=== PATIENT | female | born 1935 | race African-American/Black ===

== ENCOUNTER 2017-07-14 12:48 | Inpatient (IN) | payer MEDICARE, MEDICAID ==
[2017-07-14 13:41] LABS: #Eosinphils 0.1 thou/uL (0.0-0.7); #Lymphocytes 1.3 thou/uL (1.20-3.40); #Monocytes 0.3 thou/uL (0.11-0.59); #Neutrophils 5.4 thou/uL (1.40-6.50); %Basophils 0.1 % (0.0-1.0); %Eosinophils 0.9 % (0.0-10.0); %Monocytes 4.4 % (0.0-10.0); Hematocrit 28.1 % (36.0-47.0); Mean Platelet Volume 9.3 fL (7.4-10.4); Red Blood Cell (RBC) Count 2.86 mill/uL (4.20-5.40)
[2017-07-14 14:01] LABS: ALT (SGPT) 11 U/L (8-55); AST (SGOT) 14 U/L (5-34); Alkaline Phosphatase 86 U/L (40-150); Anion Gap 14 mmol/L (10-20); BUN (Urea Nitrogen) 41 mg/dL (9.8-20.1); Bilirubin, Total 0.8 mg/dL (0.2-1.2); Calc. Creatinine Clearance 0 mL/min (70-130); Calcium 9.4 mg/dL (7.8-10.44); Carbon Dioxide 21 mmol/L (23-31); Chloride 109 mmol/L (98-107); Estimated GFR-MDRD 26; Globulin 3.2 g/dL (2.4-3.5); Protein, Total 7.1 g/dL (6.0-8.3)
[2017-07-14] MEDS ORDERED: Furosemide 40 MG/4 ML VIAL ONE (14:48)
[2017-07-14] MEDS ORDERED: Potassium Chloride 20 MEQ TAB ONE (14:48)
[2017-07-14] MEDS ORDERED: Mag-Al 1200 mg/1200 mg/30 ML UDCUP PO PRN (15:18)
[2017-07-14] MEDS ORDERED: Ondansetron HCl/PF 4 MG/2 ML Vial IVP PRN (15:18)
[2017-07-14] MEDS ORDERED: Senokot 8.6 MG TAB PO PRN (15:18)
[2017-07-14] MEDS ORDERED: Bisacodyl 10 MG SUPP PR PRN (15:18)
[2017-07-14] MEDS ORDERED: Acetaminophen 325 MG TAB PO PRN (15:18)
--- NOTE | 2017-07-14 15:30 | RAD ---
FRONTAL VIEW CHEST: Date: 07/14/17 COMPARISON: 06/05/17. INDICATION: Dyspnea. FINDINGS: Marked enlargement of the cardiac silhouette present with vascular congestion, interstitial edema, an d bilateral pleural fluid. Chest otherwise similar in appearance. IMPRESSION: Evidence of decompensated CHF. POS: [facility]
--- NOTE | 2017-07-14 16:55 | HP ---
CHIEF COMPLAINT: Shortness of breath. HISTORY OF PRESENT ILLNESS: This is an 82-year-old female with a past medical history significant fo r diabetes, hypertension as well as congestive heart failure, who presents to the hospital because of shortness of breath. Of note, the patient has been here multiple times at least 3-[address] 6 months for CHF exacerbation, which was thought to be due to noncompliance. The patient presente d here with shortness of breath once again. Family is there who states that the patient has been shahab ing her medications as scheduled, but she has not been following a particular diet and has been consu tashia more water than she is supposed to. Due to shortness of breath, the patient was brought here fo r further evaluation and management. Currently, the patient denies any chest pain, fevers, chills, c ough or any constitutional symptoms. Also, denies any nausea, vomiting or diarrhea at this time. PAST MEDICAL HISTORY: See HPI. PAST SURGICAL HISTORY: Includes temporary dialysis access back in February. Tubal ligation as well as a cholecystectomy and hysterectomy. SOCIAL HISTORY: The patient denies any tobacco, recreational drug use or alcoholic use. FAMILY HISTORY: Significant for congestive heart failure. CURRENT HOME MEDICATIONS: Still trying to be retrieved at this time. ALLERGIES: CODEINE, ASPIRIN as well as MORPHINE and PENICILLIN. REVIEW OF SYSTEMS: A 14-point review of systems was negative other than what was mentioned in the HP I. PHYSICAL EXAMINATION: VITAL SIGNS: Blood pressure 120/60, pulse was 60, respiratory rate was 20. The patient was satting 95% oxygen on 2 liters nasal cannula and patient's temperature was 97. GENERAL: Patient is in no apparent distress, resting comfortably in the bed, alert, awake and orient ed x3. HEENT: head: Normocephalic, atraumatic. Eyes: Pupils are round and reactive to light. Extraocula r movements were intact. Conjunctivae were pink. Sclerae was nonicteric. Mouth: Oral mucosa is pi nk and moist. No erythema was noted. NECK: Soft and supple. No JVD, carotid bruits or lymphadenopathy. CARDIOVASCULAR: Regular rate and rhythm. S1, S2 sounds are heard. Cannot appreciate an S3 or S4. T he patient did have a systolic murmur that could be appreciated over the aortic region. RESPIRATORY: The patient had inspiratory crackles, more specifically on the left side bilaterally, n onetheless with decreased breath sounds as well. Patient denied having any use of accessary muscles. No wheezing could be appreciated. ABDOMEN: Positive bowel sounds, soft, nontender, nondistended. EXTREMITIES: Pulses were 2+. Patient did have pitting edema that could be appreciated bilaterally. LABORATORY DATABASE: White blood cell count was 7.0, hemoglobin 9.0, hematocrit 28.1, platelet count was 220. Sodium was 141, potassium 3.2, chloride is 109, bicarbonate 21, BUN was 41, creatinine 2.2 3 which is her baseline at this time. BNP was 463. Chest x-ray shows left-sided pleural effusion wi th CHF type picture. ASSESSMENT: 1. Congestive heart failure exacerbation secondary to noncompliance. 2. Hypertension. 3. Hypokalemia. 4. Chronic kidney disease stage 4. 5. Diabetes. 6. Anemia, likely secondary to chronic kidney disease. PLAN: We will continue the patient on Lasix 40 mg IV daily. She has already received 40 in the ER. We will resume again tomorrow. Depending on how she feels, we can increase the dose at that time. Due to her kidney function, we would not over aggressively diurese the patient as she is not in full blown exacerbation at this time. We will resume home medications at the medicine reconciliation. We will fluid restrict her and daily weights. Strict I's and O's. We will encourage and educate the p atient importance of continuing her medications down and continuing medication but sticking to approp riate diet, so that she does not continue to bounce back into the hospital multiple times as she has in the past 6 months. We will also place the patient on DVT prophylaxis.
[2017-07-14 17:01] VITALS: BMI 45.4
[2017-07-14] MEDS: Mometasone/Formoterol 120 PUFF INHALER INH SCH (18:42)
[2017-07-14] MEDS: Lorazepam 1 MG TAB PO SCH (20:43)
[2017-07-14] MEDS: hydrALAZINE 25 MG TAB PO SCH (20:44)
[2017-07-14] MEDS: Heparin 5,000 UNITS/ML VIAL SC SCH (20:44)
[2017-07-14] MEDS ORDERED: Insulin Detemir 100 UNITS/ML 40 UNITS in Pre-Filled Syringe 1 EACH SC SCH (21:00)
[2017-07-14] MEDS ORDERED: Non-Formulary Item 1 EACH (Insulin Glargine,Hum.Rec.Anlog [Lantus Solostar] 40 UNIT) SC SCH (21:00)
[2017-07-15 05:57] LABS: Anion Gap 14 mmol/L (10-20); BUN (Urea Nitrogen) 40 mg/dL (9.8-20.1); Calc. Creatinine Clearance 37 mL/min (70-130); Calcium 9.3 mg/dL (7.8-10.44); Carbon Dioxide 20 mmol/L (23-31); Chloride 112 mmol/L (98-107); Estimated GFR-MDRD 25
[2017-07-15] MEDS: Mometasone/Formoterol 120 PUFF INHALER INH SCH ×2 (06:09→19:54)
[2017-07-15] MEDS ORDERED: Furosemide 40 MG/4 ML VIAL SLOW IVP SCH ×2 (06:45→09:00)
[2017-07-15 07:06] LABS: #Eosinphils 0.1 thou/uL (0.0-0.7); #Lymphocytes 1.2 thou/uL (1.20-3.40); #Monocytes 0.5 thou/uL (0.11-0.59); #Neutrophils 6.9 thou/uL (1.40-6.50); %Eosinophils 1.4 % (0.0-10.0); %Lymphocytes 14.2 % (21.0-51.0); %Monocytes 5.2 % (0.0-10.0); Hematocrit 27.5 % (36.0-47.0); Mean Platelet Volume 9.4 fL (7.4-10.4); Red Blood Cell (RBC) Count 2.79 mill/uL (4.20-5.40); White Blood Cell (WBC) Count 8.7 thou/uL (4.8-10.8)
[2017-07-15] MEDS: hydrALAZINE 25 MG TAB PO SCH ×3 (08:59→21:06)
[2017-07-15] MEDS: Amlodipine 10 MG TAB PO SCH (08:59)
[2017-07-15] MEDS: Nebivolol HCl 5 MG TAB PO SCH (08:59)
[2017-07-15] MEDS: Allopurinol 100 MG TAB PO SCH (08:59)
[2017-07-15] MEDS: Atorvastatin Calcium 20 MG TAB PO SCH (08:59)
[2017-07-15] MEDS: Aspirin 81 mg Enteric Coated Tablet PO SCH (08:59)
[2017-07-15] MEDS: Heparin 5,000 UNITS/ML VIAL SC SCH ×3 (09:00→21:07)
[2017-07-15] MEDS ORDERED: Insulin Detemir 100 UNITS/ML 60 UNITS in Pre-Filled Syringe 1 EACH SC SCH (09:00)
[2017-07-15] MEDS ORDERED: INSULIN GLARGINE HUM REC ANLOG 60 UNIT SQ SCH (09:00)
--- NOTE | 2017-07-15 09:45 | RAD ---
CHEST 1 VIEW: Date: 07/15/17 COMPARISON: 07/14/17. HISTORY: Evaluate for pleural effusion. Dyspnea. FINDINGS: Atherosclerosis of aorta. Enlarged cardiac silhouette. Pulmonary vessels are prominent. Pleural and p arenchymal changes left lung base, similar to the prior exam. No pneumothorax. IMPRESSION: Congestive heart failure. Superimposed infiltrate in the left lung base cannot be excluded. POS: [facility]
--- NOTE | 2017-07-15 10:54 | PDOC.PN ---
- Subjective Encounter Start Date: 07/15/17 Encounter Start Time: 10:00 states she had a "SOB spell" last ngiht but feeling better this morning. urinating well - Objective Vital Signs & Weight: Vital Signs (12 hours) Temp Pulse Resp BP BP Pulse Ox 07/15/17 08:59 82 157/72 H 07/15/17 08:00 97.4 F L 78 20 157/72 H 90 L 07/15/17 06:09 78 14 93 L 07/15/17 06:07 78 14 93 L 07/15/17 04:00 98.0 F 78 18 144/75 H 92 L 07/15/17 00:00 98.6 F 75 18 134/70 96 I&O: 07/14/17 07/15/17 07/16/17 06:59 06:59 06:59 Intake Total 320 592 Balance 320 592 Result Diagrams: 07/15/17 06:47 07/15/17 05:01 Additional Labs: Accuchecks 07/15/17 07/15/17 07/15/17 05:11 04:36 04:25 POC Glucose 77 41 L* 39 L* 07/14/17 07/14/17 20:26 16:47 POC Glucose 110 61 L Phys Exam - Physical Examination HEENT: PERRLA, moist MMs, sclera anicteric Neck: no JVD, supple, full ROM Respiratory: no wheezing, no rales, no rhonchi inspiratroy crackles at bases-mild Cardiovascular: RRR, no rub Gastrointestinal: soft, non-tender, no distention, positive bowel sounds Musculoskeletal: no edema, pulses present Neurological: moves all 4 limbs Psychiatric: normal affect, A&O x 3 Skin: no rash, normal turgor, cap refill <2 seconds Dx/Plan (1) Acute on chronic diastolic heart failure Code(s): I50.33 - ACUTE ON CHRONIC DIASTOLIC (CONGESTIVE) HEART FAILURE Status : Acute Comment: (2) CAD (coronary artery disease) Code(s): I25.10 - ATHSCL HEART DISEASE OF [place] CORONARY ARTERY W/O ANG PCTRS Status: Chronic (3) Diabetes mellitus, type 2 Status: Chronic Comment: (4) Hypertension Code(s): I10 - ESSENTIAL (PRIMARY) HYPERTENSION Status: Chronic Qualifiers: (5) CKD (chronic kidney disease) stage 4, GFR 15-29 ml/min Code(s): N18.4 - CHRONIC KIDNEY DISEASE, STAGE 4 (SEVERE) Status: Acute - Plan cont current plan of care, plan discussed w/ family * . continue IV lasix for at least one more day strict I/O's monitor creatnine likely home tmrw if continues to show improvement
[2017-07-15] MEDS: Insulin Detemir 100 UNITS/ML 20 UNITS in Pre-Filled Syringe 1 EACH SC SCH (21:02)
[2017-07-15] MEDS: Lorazepam 1 MG TAB PO SCH (21:06)
[2017-07-16 06:00] LABS: Anion Gap 12 mmol/L (10-20); BUN (Urea Nitrogen) 42 mg/dL (9.8-20.1); Calc. Creatinine Clearance 36 mL/min (70-130); Calcium 9.3 mg/dL (7.8-10.44); Carbon Dioxide 25 mmol/L (23-31); Chloride 108 mmol/L (98-107); Estimated GFR-MDRD 25
[2017-07-16] MEDS ORDERED: Furosemide 40 MG/4 ML VIAL SLOW IVP SCH (06:00)
[2017-07-16] MEDS: Mometasone/Formoterol 120 PUFF INHALER INH SCH ×2 (07:39→18:56)
[2017-07-16] MEDS: Allopurinol 100 MG TAB PO SCH (09:27)
[2017-07-16] MEDS: Nebivolol HCl 5 MG TAB PO SCH (09:27)
[2017-07-16] MEDS: hydrALAZINE 25 MG TAB PO SCH ×3 (09:27→22:00)
[2017-07-16] MEDS: Aspirin 81 mg Enteric Coated Tablet PO SCH (09:28)
[2017-07-16] MEDS: Insulin Detemir 100 UNITS/ML 30 UNITS in Pre-Filled Syringe 1 EACH SC SCH (09:28)
[2017-07-16] MEDS: Heparin 5,000 UNITS/ML VIAL SC SCH ×3 (09:28→22:01)
[2017-07-16] MEDS: Atorvastatin Calcium 20 MG TAB PO SCH (09:28)
[2017-07-16] MEDS: Amlodipine 10 MG TAB PO SCH (09:28)
--- NOTE | 2017-07-16 11:46 | PDOC.PN ---
- Subjective Encounter Start Date: 07/16/17 Encounter Start Time: 11:44 Subjective: "ready to go home" - Objective MAR Reviewed: Yes Vital Signs & Weight: Vital Signs (12 hours) Temp Pulse Resp BP BP Pulse Ox 07/16/17 09:28 78 139/75 07/16/17 09:27 78 139/75 07/16/17 08:00 98.2 F 78 20 139/75 97 07/16/17 07:40 74 16 07/16/17 04:00 98.2 F 75 18 138/72 92 L 07/16/17 00:00 97.8 F 78 18 139/75 94 L I&O: 07/15/17 07/16/17 07/17/17 06:59 06:59 06:59 Intake Total 320 1626 120 Balance 320 1626 120 Result Diagrams: 07/15/17 06:47 07/16/17 04:56 Additional Labs: Accuchecks 07/16/17 07/16/17 07/16/17 11:16 05:33 04:51 POC Glucose 131 H 106 54 L* 07/15/17 07/15/17 07/15/17 20:58 17:00 11:31 POC Glucose 93 109 173 H Phys Exam - Physical Examination Constitutional: NAD Neck: no JVD Respiratory: clear to auscultation bilateral exc scant post basilar rales Cardiovascular: RRR, no significant murmur Gastrointestinal: soft, non-tender, positive bowel sounds Musculoskeletal: edema present Dx/Plan (1) Acute on chronic diastolic (congestive) heart failure Code(s): I50.33 - ACUTE ON CHRONIC DIASTOLIC (CONGESTIVE) HEART FAILURE Status : Acute (2) CKD (chronic kidney disease) stage 4, GFR 15-29 ml/min Code(s): N18.4 - CHRONIC KIDNEY DISEASE, STAGE 4 (SEVERE) Status: Chronic (3) CAD (coronary artery disease) Code(s): I25.10 - ATHSCL HEART DISEASE OF [place] CORONARY ARTERY W/O ANG PCTRS Status: Chronic Qualifiers: Coronary Disease-Associated Artery/Lesion type: [place] artery [place] vs. transplanted heart: [place] heart Associated angina: without angina Qualified Code(s): I25.10 - Atherosclerotic heart disease of [place] coronary artery without angina pectoris (4) Diabetes mellitus, type 2 Status: Chronic Qualifiers: Diabetes mellitus complication status: with kidney complications Diabetes mellitus complication detail: with chronic kidney disease Chronic kidney disease stage: stage 4 (severe) Comment: (5) Dyslipidemia Code(s): E78.5 - HYPERLIPIDEMIA, UNSPECIFIED Status: Chronic (6) GERD (gastroesophageal reflux disease) Code(s): K21.9 - GASTRO-ESOPHAGEAL REFLUX DISEASE WITHOUT ESOPHAGITIS Status: Chronic (7) Hypertension Code(s): I10 - ESSENTIAL (PRIMARY) HYPERTENSION Status: Chronic Qualifiers: (8) TIANA on CPAP Code(s): G47.33 - OBSTRUCTIVE SLEEP APNEA (ADULT) (PEDIATRIC); Z99.89 - DEPENDENCE ON OTHER ENABLING MACHINES AND DEVICES Status: Chronic Comment: on CPAP - Plan check O2 sat on RA. 76 to 86 -: increase lasix to 40 q12h, * .
[2017-07-16] MEDS: Furosemide 40 MG/4 ML VIAL SLOW IVP SCH (14:41)
[2017-07-16] MEDS: Lorazepam 1 MG TAB PO SCH (22:00)
[2017-07-16] MEDS: Insulin Detemir 100 UNITS/ML 20 UNITS in Pre-Filled Syringe 1 EACH SC SCH (22:02)
[2017-07-17] MEDS: Furosemide 40 MG/4 ML VIAL SLOW IVP SCH ×2 (06:21→13:45)
[2017-07-17] MEDS: Mometasone/Formoterol 120 PUFF INHALER INH SCH (06:44)
[2017-07-17] MEDS: hydrALAZINE 25 MG TAB PO SCH (09:11)
[2017-07-17] MEDS: Heparin 5,000 UNITS/ML VIAL SC SCH (09:11)
[2017-07-17] MEDS: Aspirin 81 mg Enteric Coated Tablet PO SCH (09:11)
[2017-07-17] MEDS: Nebivolol HCl 5 MG TAB PO SCH (09:12)
[2017-07-17] MEDS: Allopurinol 100 MG TAB PO SCH (09:14)
[2017-07-17] MEDS: Amlodipine 10 MG TAB PO SCH (09:16)
[2017-07-17] MEDS: Atorvastatin Calcium 20 MG TAB PO SCH (09:17)
[2017-07-17] MEDS: Insulin Detemir 100 UNITS/ML 30 UNITS in Pre-Filled Syringe 1 EACH SC SCH (09:18)
[2017-07-17 09:23] VITALS: BP 121/67
[2017-07-17 09:28] VITALS: TEMP 98.9
--- NOTE | 2017-07-17 12:22 | PDOC.PN ---
- Subjective Encounter Start Date: 07/17/17 Encounter Start Time: 12:16 - Objective MAR Reviewed: Yes Vital Signs & Weight: Vital Signs (12 hours) Temp Pulse Resp BP BP Pulse Ox 07/17/17 09:16 74 121/67 07/17/17 09:11 74 121/67 07/17/17 08:00 98.9 F 74 20 121/67 94 L 07/17/17 06:44 98.5 F 72 22 H 118/62 92 L I&O: 07/16/17 07/17/17 07/18/17 06:59 06:59 06:59 Intake Total 240 Balance 240 Result Diagrams: 07/15/17 06:47 07/16/17 04:56 Additional Labs: Accuchecks 07/17/17 07/17/17 07/17/17 11:15 05:10 00:56 POC Glucose 205 H 208 H 270 H 07/16/17 07/16/17 20:05 17:25 POC Glucose 272 H 210 H Dx/Plan (1) Acute on chronic diastolic (congestive) heart failure Code(s): I50.33 - ACUTE ON CHRONIC DIASTOLIC (CONGESTIVE) HEART FAILURE Status : Acute (2) CKD (chronic kidney disease) stage 4, GFR 15-29 ml/min Code(s): N18.4 - CHRONIC KIDNEY DISEASE, STAGE 4 (SEVERE) Status: Chronic (3) CAD (coronary artery disease) Code(s): I25.10 - ATHSCL HEART DISEASE OF [place] CORONARY ARTERY W/O ANG PCTRS Status: Chronic Qualifiers: Coronary Disease-Associated Artery/Lesion type: [place] artery [place] vs. transplanted heart: [place] heart Associated angina: without angina Qualified Code(s): I25.10 - Atherosclerotic heart disease of [place] coronary artery without angina pectoris (4) Diabetes mellitus, type 2 Status: Chronic Qualifiers: Diabetes mellitus complication status: with kidney complications Diabetes mellitus complication detail: with chronic kidney disease Chronic kidney disease stage: stage 4 (severe) Comment: (5) Dyslipidemia Code(s): E78.5 - HYPERLIPIDEMIA, UNSPECIFIED Status: Chronic (6) GERD (gastroesophageal reflux disease) Code(s): K21.9 - GASTRO-ESOPHAGEAL REFLUX DISEASE WITHOUT ESOPHAGITIS Status: Chronic (7) Hypertension Code(s): I10 - ESSENTIAL (PRIMARY) HYPERTENSION Status: Chronic Qualifiers: (8) TIANA on CPAP Code(s): G47.33 - OBSTRUCTIVE SLEEP APNEA (ADULT) (PEDIATRIC); Z99.89 - DEPENDENCE ON OTHER ENABLING MACHINES AND DEVICES Status: Chronic Comment: on CPAP - Plan * .
--- NOTE | 2017-07-17 13:23 | DIS ---
DATE OF ADMISSION: 07/14/2017 DATE OF DISCHARGE: 07/17/2017 PRIMARY CARE PROVIDER: Meri Martin M.D. DISCHARGE DISPOSITION: Home. FINAL DIAGNOSES: Acute on chronic diastolic heart failure, diabetes mellitus type 2 with chronic kid bryce disease stage 4, hypertension, anemia of chronic disease, coronary artery disease, dyslipidemia, gastroesophageal reflux disease, hypertension, obstructive sleep apnea on CPAP. DISCHARGE MEDICATIONS: Lantus 40 units subcu at bedtime 60 units a.m., Nexium 40 mg a day, Ranexa 50 0 mg twice a day, lorazepam 1 tablet p.o. at bedtime p.r.n., Symbicort 80/4.5 two puffs b.i.d., Bysto lic 20 mg a day, aspirin 81 mg a day, amlodipine 10 mg a day, hydralazine 100 mg 3 times a day, Lasix 40 mg twice a day, Lipitor 20 mg a day, allopurinol 300 mg a day. ALLERGIES: CODEINE, IODINE, MORPHINE, PENICILLINS. PENDING AT THE TIME OF DISCHARGE: Nothing. CODE STATUS: FULL. HOSPITAL COURSE: The patient admitted to the [facility] to the [facility] with shortness of breath, found to be in decompensated diastolic heart failure, admitted wi th the diagnosis of acute on chronic diastolic heart failure; diabetes mellitus 2 with chronic kidney disease stage 4, insulin-dependent; coronary artery disease; hypertension; dyslipidemia; hypertensio n. Patient's initial chest x-ray demonstrated pulmonary vascular congestion with a probable pleural effusion on the left. Admitting laboratory, BNP was elevated minorly at 463. Creatinine 2.23, BUN 4 1. Patient had a chronic anemia with hemoglobin 9.0, platelet count 220,000, white cell 7. She has improved dramatically during hospital stay. Yesterday, her O2 sats were in the 80s on room air; toda y, she is 94% on room air. Chest reveals no rales. Heart has regular rate and rhythm. Vital signs are good. In discussion with her and the family, she is being discharged home with continuing home h ealth. No consultations were obtained. No procedures were done. We have discussed 1500 mL fluid re striction with her and the family because of her chronic kidney disease and the tendency for her to c ome and volume overloaded. She has used [facility] in the past and we will connect with them. 40 minutes spent preparing this discharge.
--- NOTE | 2017-07-22 18:48 | PQF ---
TAMIKA LIMON, [facility] [id number] CLINICAL DOCUMENTATION CLARIFICATION FORM: POST DISCHARGE Addendum to original discharge summary date: ____ Late entry note date: __ DATE: 07/22/17 ATTN: Dr. Magallanes Please exercise your independent, professional judgment in responding to the clarification form. Clinical indicators are provided on the bottom of this form for your review Please check appropriate box(s): [ ] Acute Respiratory Failure: [ ] with Hypoxia[ ] with Hypercapnia [ ] Acute On Chronic Respiratory Failure: [ ] with Hypoxia [ ] with Hypercapnia [ ] Acute Respiratory Failure due to: (etiology) [ ] Acute Respiratory Insufficiency following (if applicable): [ ] trauma [ ] surgery [ ] Chronic Respiratory Failure only [ ] with Hypoxia [ ] with Hypercapnia [ ] Hypoxia [ ] Other diagnosis [ x ] Unable to determine In addition, please specify: Present on Admission (POA): [ ] Yes [ ] No [ ] Unable to determine For continuity of documentation, please document condition throughout progress notes and discharge summary. Thank You. CLINICAL INDICATORS - SIGNS / SYMPTOMS / LABS Pt w CHF exacerbation noted to have O2 sats of 81% on RA requiring 3l O2 initially, weaned down to 2L throughout the stay. No baseline oxygen use noted. O2 sats throughout the stay were 90-94% on 2L at one point dropping to 86 on . RISK FACTORS TREATMENTS: Oxygen Monitoring of oxygenation status Mechanical ventilation / BiPAP Respiratory treatments MTDD
== END 2017-07-17 15:28 | disposition home health service (06) | DRG 291 ==
LOC: ERS 12:48 → T4-B 16:27 → OBSVTOIN 07-16 13:46
PROVIDERS: ADMIT Internal Medicine; ATTEND Internal Medicine
DX: I13.0 Hypertensive heart and chronic kidney disease with heart failure and stage 1 through stage 4 chronic kidney disease, or unspecified chronic kidney disease (principal); I50.33 Acute on chronic diastolic (congestive) heart failure; E11.22 Type 2 diabetes mellitus with diabetic chronic kidney disease; N18.4 Chronic kidney disease, stage 4 (severe); D63.1 Anemia in chronic kidney disease; D63.8 Anemia in other chronic diseases classified elsewhere; Z79.4 Long term (current) use of insulin; I25.10 Atherosclerotic heart disease of native coronary artery without angina pectoris; K21.9 Gastro-esophageal reflux disease without esophagitis; G47.33 Obstructive sleep apnea (adult) (pediatric); Z91.14 Patient's other noncompliance with medication regimen
CPT/HCPCS: 36415; 36416; 71010; 80048; 80053; 83880; 85025; 93005; 94640; 96374; G8978-GP-CJ; G8979-GP-CH; G8987-GO-CK; G8988-GO-CJ; J1644; J1815; J1940; J7620

== ENCOUNTER 2017-08-25 09:41 | Inpatient (IN) | payer MEDICARE, MEDICAID ==
[2017-08-25 10:49] LABS: ALT (SGPT) 16 U/L (8-55); AST (SGOT) 23 U/L (5-34); Albumin 4.2 g/dL (3.4-4.8); Alkaline Phosphatase 96 U/L (40-150); Anion Gap 18 mmol/L (10-20); BUN (Urea Nitrogen) 33 mg/dL (9.8-20.1); Bilirubin, Total 0.7 mg/dL (0.2-1.2); Calc. Creatinine Clearance 0 mL/min (70-130); Calcium 9.2 mg/dL (7.8-10.44); Carbon Dioxide 21 mmol/L (23-31); Chloride 110 mmol/L (98-107); Estimated GFR-MDRD 33; Globulin 3.4 g/dL (2.4-3.5); Potassium 4.1 mmol/L (3.5-5.1); Protein, Total 7.6 g/dL (6.0-8.3); Sodium 145 mmol/L (136-145)
[2017-08-25 10:58] LABS: Glucose 51 mg/dL (83-110)
[2017-08-25 11:16] LABS: #Eosinphils 0.1 thou/uL (0.0-0.7); #Monocytes 0.3 thou/uL (0.11-0.59); #Neutrophils 6.9 thou/uL (1.40-6.50); %Basophils 0.2 % (0.0-1.0); %Eosinophils 0.8 % (0.0-10.0); %Lymphocytes 11.8 % (21.0-51.0); %Monocytes 3.1 % (0.0-10.0); %Neutrophils 84.1 % (42.0-75.0); Hemoglobin 10.3 g/dL (12.0-16.0); Mean Corpuscular HGB CONC 31.4 g/dL (32.0-36.0); Mean Corpuscular Hemoglobin 29.2 pg (27.0-31.0); Mean Platelet Volume 10.2 fL (7.4-10.4); Platelet Count 194 thou/uL (130-400); RBC Distribution Width 16.8 % (11.5-14.5); Red Blood Cell (RBC) Count 3.55 mill/uL (4.20-5.40); White Blood Cell (WBC) Count 8.2 thou/uL (4.8-10.8)
--- NOTE | 2017-08-25 11:48 | RAD ---
CHEST 1 VIEW: HISTORY: Fall. Dyspnea. COMPARISON: 07/14/17. FINDINGS: Cardiac silhouette is magnified, enlarged, and partially obscured by patchy bibasilar infiltrates. P ulmonary vasculature is engorged with reticulonodular interstitial prominence throughout each lung. Mediastinum is midline with aortic calcification. No lobar consolidation or pneumothorax are apparen t. cardiac monitor technician leads overlie the chest. IMPRESSION: Cardiomegaly, pulmonary vascular congestion, and other findings are stable. POS: [facility]
[2017-08-25 11:51] LABS: Magnesium 1.8 mg/dL (1.6-2.6)
[2017-08-25] MEDS ORDERED: Dextrose 50% Abboject 50 ML SYRINGE ONE (11:54)
[2017-08-25 11:55] LABS: CKMB 2.6 ng/mL (0-6.6); Troponin I 0.016 ng/mL (< 0.028)
--- NOTE | 2017-08-25 12:12 | CT ---
CT CERVICAL SPINE NONCONTRAST: HISTORY: Fall. Neck injury. FINDINGS: Vertebral body height and alignment are maintained. Disk space narrowing is present at the lower cer vical spine. Vertebral body height and alignment are maintained. Cervicothoracic junction is intact . No acute fracture or dislocation are visible. IMPRESSION: Cervical spondylosis. No acute osseous abnormalities are demonstrated. POS: [facility]
--- NOTE | 2017-08-25 12:13 | CT ---
CT OF THE BRAIN WITHOUT CONTRAST: COMPARISON: 02/11/14. HISTORY: Fall this morning with low blood sugar. TECHNIQUE: Multiple contiguous axial images were obtained in a CT of the brain without contrast. FINDINGS: The brain is normal in morphology and attenuation without focal lesions or confluent areas of infarct ion. There is no evidence of hydrocephalus, intracranial hemorrhage, or extraaxial fluid collection. The calvarium and overlying soft tissues are unremarkable. The visualized paranasal sinuses and mast oid air cells are well aerated. IMPRESSION: No evidence of acute intracranial abnormality. POS: [facility]
[2017-08-25] MEDS ORDERED: Ondansetron ODT 4 MG TAB SL PRN (14:17)
[2017-08-25] MEDS ORDERED: Acetaminophen 325 MG TAB PO PRN ×3 (14:17→14:27)
[2017-08-25] MEDS ORDERED: Ondansetron HCl/PF 4 MG/2 ML Vial IVP PRN ×3 (14:17→14:28)
[2017-08-25] MEDS ORDERED: Benzonatate 100 MG CAP PO PRN ×2 (14:21→14:28)
[2017-08-25] MEDS ORDERED: Diabetic Tussin 200 MG/10 ML UDCUP PO PRN ×2 (14:21→14:28)
[2017-08-25] MEDS ORDERED: hydrALAZINE 20 MG/ML VIAL SLOW IVP PRN ×2 (14:21→14:28)
[2017-08-25] MEDS ORDERED: Dextrose 50% Abboject 50 ML SYRINGE SLOW IVP PRN ×2 (14:21→14:28)
[2017-08-25] MEDS ORDERED: Calcium Carbonate 500 MG ChewTAB PO PRN ×2 (14:21→14:28)
[2017-08-25] MEDS ORDERED: Senokot 8.6 MG TAB PO PRN ×2 (14:21→14:29)
[2017-08-25] MEDS ORDERED: Nitroglycerin 0.4 MG TAB (25 Tab Bottle) SL PRN ×2 (14:21→14:28)
[2017-08-25] MEDS ORDERED: Bisacodyl 5 MG TAB PO PRN ×2 (14:21→14:28)
[2017-08-25] MEDS ORDERED: Loratadine 10 MG TAB PO PRN ×2 (14:21→14:28)
[2017-08-25] MEDS ORDERED: Mag-Al 1200 mg/1200 mg/30 ML UDCUP PO PRN ×2 (14:21→14:28)
[2017-08-25] MEDS ORDERED: Dextrose 5% in Water 1,000 ML IV PRN ×2 (14:21→14:28)
[2017-08-25] MEDS ORDERED: HumaLOG 300 UNITS/3 ML VIAL SC PRN ×4 (14:21→14:28)
[2017-08-25] MEDS ORDERED: cloNIDine 0.1 MG TAB PO PRN ×2 (14:21→14:28)
--- NOTE | 2017-08-25 15:09 | HP ---
DATE OF ADMISSION: 08/25/2017 CHIEF COMPLAINT: Fall and low blood sugar. PRIMARY CARE PHYSICIAN: Dr. Meri Diaz. PRIMARY MANAGER DATA: Dr. Shelby Hamlin. HISTORY OF PRESENT ILLNESS: Ms. Villavicencio is an 82-year-old very pleasant -[place] female with known history of chronic congestive heart failure with multiple hospitalizations last year in the [facility] with CHF exacerbation as well as history of chronic kidney disease, requiring short term hemodi alysis in the past for hyperkalemia and diabetes, who was brought in by the family today with the abo ve-mentioned complaint. History is mainly obtained by the patient herself, who is not able to provid e much of the history due to tiredness and weakness and some confusion and is supplemented by her chi ldren present in the room. Case has been discussed with the admitting ER physician and the [facility] records have been reviewed extensively. The patient was last admitted to our facility in 09/2016 for acute on chronic CHF exacerbation. According to Ms. Villavicencio's family, she has been in her usual health up until this morning. She has no t been sick recently. Since on last discharge from the hospital on 07/17/2017; she has been doing ve ry well. She is monitoring her fluid intake and is compliant with medications. However, this mornin g, she suddenly fell and was found down by her family members. At that time, her blood sugar was alexander cked and was found to be low at 48. They report that her sugars lately has been running low even tho ugh her diet has remained the same. She is taking Lantus 60 units in the morning and 30 units in the evening. She is also supposed to be on Trulicity for diabetes once a week, but they have been holdi ng it because of the low blood sugars. They has been no changes in her dietary habits. She denies a ny nausea, vomiting, diarrhea, abdominal pain. She denies any fever, chills, cough, shortness of fito ath or chest pain. She does have some foul smelling urine, but denies any specific dysuria. She den ies any myalgias, arthralgias, or muscle weakness, or paraesthesias. She did not lose consciousness when she fell today. She was brought to the emergency room and was found to have hypoglycemia with blood sugar of 69. She was given some meals and her blood sugar improved. Additional finding was that her temperature was low and she was hypothermic with a core temperature of 92.2. An Infectious workup has been initiated . Her lactic acid is within normal limits. Her chest x-ray is unremarkable. She also underwent a C T scan of the brain and CT scan of the cervical spine due to the fall, which both are negative for an y acute abnormalities. Her urinalysis has been ordered, but so far it has not been collected because the patient was on bedpan. She has been empirically covered with levofloxacin and vancomycin and is now being admitted as a possible sepsis leading to hypothermia and hypoglycemia. Other than that, t he patient is hemodynamically stable and back to her baseline self. She is currently on a warming bl anket. Blood cultures have been obtained in the emergency room. PAST MEDICAL HISTORY: 1. Obstructive sleep apnea on CPAP. 2. Hypertension. 3. Diabetes mellitus type 2. 4. Chronic kidney disease stage 3. 5. Gout. 6. Mild persistent asthma. 7. Anxiety and depression. 8. Morbid obesity. 9. 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 4. Chronic diastolic congestive heart failure. 5. Chronic obstructive pulmonary disease. PAST SURGICAL HISTORY: 1. Tubal ligation. 2. Cholecystectomy. 3. Hysterectomy. PAST PSYCHIATRIC HISTORY: Anxiety and depression. ALLERGIES: Include CODEINE, ASPIRIN, IODINE, MORPHINE, PENICILLIN, and SHELLFISH. CURRENT HOME MEDICATIONS: Lantus 60 units in the morning and 30 units at bedtime, vitamin D3 at 1000 units daily, atorvastatin 20 mg daily, hydralazine 100 mg t.i.d., Lasix 40 mg b.i.d., Bystolic 20 mg daily, amlodipine 10 mg daily, allopurinol 300 mg daily, aspirin 81 mg daily, lorazepam at bedtime a s needed, Symbicort 2 puffs b.i.d., Ranexa 500 mg b.i.d., Benadryl as needed, Nexium 40 mg daily, nit roglycerin sublingual as needed for chest pain. CODE STATUS: FULL CODE. Discussed The patient and her family. FAMILY HISTORY: Significant for congestive heart failure in her mother. Father at the age of 9 5 of unknown causes. REVIEW OF SYSTEMS: Essentially unremarkable except for those mentioned. The patient is somewhat of a poor historian. The following complete review of systems was negative, unless otherwise mentioned in the HPI or below: Constitutional: Weight loss or gain, ability to conduct usual activities. Skin: Rash, itching. Eyes: Double vision, pain. ENT/Mouth: Nose bleeding, neck stiffness, pain, tenderness. Cardiovascular: Palpitations, dyspnea on exertion, orthopnea. Respiratory: Shortness of breath, whee zing, cough, hemoptysis, fever or night sweats. Gastrointestinal: Poor appetite, abdominal pain, hea rtburn, nausea, vomiting, constipation, or diarrhea. Genitourinary: Urgency, frequency, dysuria, noc turia. Musculoskeletal: Pain, swelling. Neurologic/Psychiatric: Anxiety, depression. Allergy/Immun ologic: Skin rash, bleeding tendency. LABORATORY DATA: Her CBC shows today, hemoglobin of 10.3, hematocrit 33, platelet count of 194. WBC s 8.2. Serum chemistry: Chloride 110, bicarbonate 21, BUN 33, creatinine 1.77, which seems to be be tter than her baseline of around 2, blood sugar improved to 91, lactic acid is 1, magnesium 1.8. Cre atinine kinase is mildly elevated at 204. Cardiac enzymes are unremarkable. Urinalysis is pending a t this time. CT scan of the brain has been no evidence of hemorrhage, infarction, or fractures. CT scan of the cervical spine is negative for any acute osseous abnormality by my review as well. Chest x-ray by my review shows stable pleural effusions, cardiomegaly, and mild pulmonary vascular congest ion without any evidence of infiltrates. EKG shows normal sinus rhythm without any evidence of arrhy thmia per the ER review. PHYSICAL EXAMINATION: VITAL SIGNS: Upon presentation include blood pressure 148/86, pulse of 61, respirations 23, saturati ng 100% on room air, temperature 92.9 rectally and repeat temperature 94.5 orally. GENERAL: She is awake, alert, oriented x3; however, somewhat forgetful. Otherwise, no acute distres s. Family is at bedside. HEENT: Mucous membrane is moist and pink. No oropharyngeal exudate or erythema. Head is normocepha lic, atraumatic. Pupils equal, reactive to light and accommodation. Extraocular movements intact. NECK: Supple without any lymphadenopathy, JVD, or bruit. CHEST: Clear to auscultation without any wheezing, rales, or rhonchi. Rate and rhythm is regular wi thout any murmur, rubs, or gallops. ABDOMEN: Soft, nontender, nondistended, positive bowel sounds. She does not have any suprapubic ten derness. EXTREMITIES: Free of any cyanosis, clubbing, or edema. NEUROLOGIC: Nonfocal. Cranial nerves II-XII grossly intact. Muscle strength is 5/5 in all 4 extrem ities. Sensation intact. Gait is not checked. SKIN: Free of any rashes or bruises. Feels warm and dry to touch. PSYCHIATRIC: Normal affect. IMPRESSION AND PLAN: 1. Hypothermia. This is most likely secondary to hypoglycemia. The patient will be continued on wa rming blanket and will be admitted to the hospital to rule out sepsis. So far, the workup was unrema rkable, but most likely source would be urine as the patient does give history of cloudy urine and sh davie is a diabetic. We will obtain a urine by straight cath and continue empiric antibiotic coverage fo r now. Send the urine for culture as well. The patient does not appear to be suffering from any car diac event at this time. 2. Hypoglycemia. We will adjust and reduced dose of her Lantus. The patient has an upcoming appoin tment with her primary care physician next week for this very reason. For now, we will continue her coverage with insulin sliding scale and 3 introduce long-acting insulin at smaller doses slowly. Hyp oglycemia protocol will also be initiated. 3. History of chronic congestive heart failure, mostly diastolic. Her last echocardiogram was done in 10/2016. At this time, the patient appears euvolemic. We will continue her home dose of Lasix wi th close monitoring of intake and output and renal function. Avoid any nephrotoxic medications. 4. Diabetes mellitus type 2 as above, we will hold her Lantus for now and cover with insulin sliding scale. 5. History of hypertension, currently well controlled. We will restart her home medications includi ng hydralazine, Bystolic, and amlodipine with close monitoring in the parameters. 6. History of coronary artery disease, currently asymptomatic. Continue aspirin, statin, and beta b lockers for now. She is also on Ranexa, which will be continued. P.r.n. nitroglycerin will be pedro luis nued as well. 7. Dyslipidemia. Continue atorvastatin. 8. Deep venous thrombosis and gastrointestinal prophylaxis. 9. Add p.r.n. medication orders. 10. CODE STATUS: FULL CODE. Discussed with the patient and her family members. DISPOSITION: The patient is being admitted to rule out sepsis with severe hypothermia and hypoglycem ia. Estimated length of stay is at least 2-3 midnight. She will be on telemetry bed.
[2017-08-25] MEDS: Heparin 5,000 UNITS/ML VIAL SC SCH (20:16)
[2017-08-25] MEDS ORDERED: Heparin 5,000 UNITS/ML VIAL SC SCH (21:00)
[2017-08-25 22:10] VITALS: BMI 46.0
[2017-08-26 06:07] LABS: #Eosinphils 0.1 thou/uL (0.0-0.7); #Lymphocytes 1.6 thou/uL (1.20-3.40); #Monocytes 0.3 thou/uL (0.11-0.59); #Neutrophils 4.6 thou/uL (1.40-6.50); %Basophils 0.6 % (0.0-1.0); %Eosinophils 1.3 % (0.0-10.0); %Lymphocytes 23.6 % (21.0-51.0); %Monocytes 5.2 % (0.0-10.0); %Neutrophils 69.2 % (42.0-75.0); Hemoglobin 8.6 g/dL (12.0-16.0); Mean Corpuscular HGB CONC 31.2 g/dL (32.0-36.0); Mean Corpuscular Hemoglobin 28.8 pg (27.0-31.0); Mean Corpuscular Volume 92.5 fl (81.0-99.0); Mean Platelet Volume 10.2 fL (7.4-10.4); Platelet Count 172 thou/uL (130-400); RBC Distribution Width 16.9 % (11.5-14.5); Red Blood Cell (RBC) Count 2.98 mill/uL (4.20-5.40); White Blood Cell (WBC) Count 6.6 thou/uL (4.8-10.8)
[2017-08-26 06:18] LABS: Anion Gap 12 mmol/L (10-20); BUN (Urea Nitrogen) 27 mg/dL (9.8-20.1); Calc. Creatinine Clearance 89 mL/min (70-130); Calcium 9.1 mg/dL (7.8-10.44); Carbon Dioxide 26 mmol/L (23-31); Chloride 111 mmol/L (98-107); Estimated GFR-MDRD 36; Glucose 70 mg/dL (83-110); Potassium 3.1 mmol/L (3.5-5.1); Sodium 146 mmol/L (136-145)
[2017-08-26] MEDS ORDERED: Nitroglycerin 0.4 MG TAB (25 Tab Bottle) SL PRN (09:05)
[2017-08-26] MEDS ORDERED: diphenhydrAMINE 25 MG CAP PO PRN (09:05)
[2017-08-26] MEDS ORDERED: Artificial Tear Sol 15 ML BOT EA EYE PRN (09:06)
[2017-08-26] MEDS ORDERED: Eucerin (Mineral Oil/Petrolatum,White) 30 gm Jar TOP PRN (09:06)
[2017-08-26] MEDS ORDERED: Sodium Chloride 0.65% Nasal 44 ML BOT EA NARE PRN (09:06)
[2017-08-26] MEDS ORDERED: Chloraseptic Spray 180 ml Bottle PO PRN (09:06)
--- NOTE | 2017-08-26 10:09 | PDOC.PN ---
- Subjective Encounter Start Date: 08/26/17 Encounter Start Time: 08:20 -: old records requested/rev Patient seen and examined. No new complaints. No overnight events no further drop in blood sugar, no fever, feels better - Objective MAR Reviewed: Yes Vital Signs & Weight: Vital Signs (12 hours) Temp Pulse Resp BP BP Pulse Ox 08/26/17 07:51 98.4 F 78 18 154/93 H 93 L 08/26/17 07:41 98.4 F 78 20 93 L 08/26/17 04:55 99.1 F 78 20 162/72 H 94 L 08/26/17 00:05 98.3 F 72 20 154/65 H 94 L Weight Weight 467 lb 13.134 oz I&O: 08/25/17 08/26/17 08/27/17 06:59 06:59 06:59 Intake Total 240 240 Output Total 245 Balance -5 240 Result Diagrams: 08/26/17 05:33 08/26/17 05:33 Additional Labs: Accuchecks 08/26/17 08/25/17 08/25/17 05:56 19:51 17:06 POC Glucose 79 130 H 160 H Radiology Reviewed by me: Yes EKG Reviewed by me: Yes (nsr) Dx/Plan (1) Hypokalemia Code(s): E87.6 - HYPOKALEMIA Status: Acute (2) Hypoglycemia associated with type 2 diabetes mellitus Code(s): E11.649 - TYPE 2 DIABETES MELLITUS WITH HYPOGLYCEMIA WITHOUT COMA Status: Resolved (3) Hypothermia Code(s): T68.XXXA - HYPOTHERMIA, INITIAL ENCOUNTER Status: Resolved (4) Chronic diastolic (congestive) heart failure Code(s): I50.32 - CHRONIC DIASTOLIC (CONGESTIVE) HEART FAILURE Status: Chronic (5) CAD (coronary artery disease) Code(s): I25.10 - ATHSCL HEART DISEASE OF [place] CORONARY ARTERY W/O ANG PCTRS Status: Chronic Qualifiers: Coronary Disease-Associated Artery/Lesion type: [place] artery [place] vs. transplanted heart: [place] heart Associated angina: without angina Qualified Code(s): I25.10 - Atherosclerotic heart disease of [place] coronary artery without angina pectoris (6) Diabetes mellitus, type 2 Status: Chronic Qualifiers: Diabetes mellitus complication status: with kidney complications Diabetes mellitus complication detail: with chronic kidney disease Chronic kidney disease stage: stage 3 (moderate) Comment: (7) Dyslipidemia Code(s): E78.5 - HYPERLIPIDEMIA, UNSPECIFIED Status: Chronic (8) GERD (gastroesophageal reflux disease) Code(s): K21.9 - GASTRO-ESOPHAGEAL REFLUX DISEASE WITHOUT ESOPHAGITIS Status: Chronic (9) Gout Code(s): M10.9 - GOUT, UNSPECIFIED Status: Chronic (10) Hypertension Code(s): I10 - ESSENTIAL (PRIMARY) HYPERTENSION Status: Chronic Qualifiers: (11) Mild persistent asthma Code(s): J45.30 - MILD PERSISTENT ASTHMA, UNCOMPLICATED Status: Chronic (12) Morbid obesity with BMI of 45.0-49.9, adult Code(s): E66.01 - MORBID (SEVERE) OBESITY DUE TO EXCESS CALORIES; Z68.42 - BODY MASS INDEX (BMI) 45.0-49.9, ADULT Status: Chronic (13) TIANA on CPAP Code(s): G47.33 - OBSTRUCTIVE SLEEP APNEA (ADULT) (PEDIATRIC); Z99.89 - DEPENDENCE ON OTHER ENABLING MACHINES AND DEVICES Status: Chronic Comment: on CPAP (14) CKD (chronic kidney disease) stage 3, GFR 30-59 ml/min Code(s): N18.3 - CHRONIC KIDNEY DISEASE, STAGE 3 (MODERATE) Status: Chronic (15) Anemia, normocytic normochromic Code(s): D64.9 - ANEMIA, UNSPECIFIED Status: Chronic - Plan cont current plan of care * restart home medication today * will observe today and adjust diabetes and BP meds today * medication reviewed as below * symptomatic treatment * will consider discharge tomorrow morning. * replace potassium Review of Systems - Review of Systems Eyes: negative: Pain, Vision Change, Conjunctivae Inflammation, Eyelid Inflammation, Redness, Other ENT: negative: Ear Pain, Ear Discharge, Nose Pain, Nose Discharge, Nose Congestion, Mouth Pain, Mouth Swelling, Throat Pain, Throat Swelling, Other Respiratory: negative: Cough, Dry, Shortness of Breath, Hemoptysis, SOB with Excertion, Pleuritic Pain, Sputum, Wheezing Cardiovascular: negative: chest pain, palpitations, orthopnea, paroxysmal nocturnal dyspnea, edema, light headedness, other Gastrointestinal: negative: Nausea, Vomiting, Abdominal Pain, Diarrhea, Constipation, Melena, Hematochezia, Other Genitourinary: negative: Dysuria, Frequency, Incontinence, Hematuria, Retention , Other Musculoskeletal: negative: Neck Pain, Shoulder Pain, Arm Pain, Back Pain, Hand Pain, Leg Pain, Foot Pain, Other Skin: negative: Rash, Lesions, Apollo, Bruising, Other - Medications/Allergies Allergies/Adverse Reactions: Allergies Allergy/AdvReac Type Severity Reaction Status Date / Time codeine [Codeine] Allergy Verified 08/25/17 14:44 iodine Allergy Verified 08/25/17 14:44 morphine Allergy Verified 08/25/17 14:44 Penicillins Allergy Verified 08/25/17 14:44 shellfish derived Allergy Verified 08/25/17 14:44 Medications: Current Medications Acetaminophen (Tylenol) 650 mg PO Q4H PRN PRN Reason: Headache/Fever or Pain Last Admin: 08/25/17 20:16 Dose: 650 mg Al Hydroxide/Mg Hydroxide (Maalox) 30 ml PO Q6H PRN PRN Reason: Heartburn or Indigestion Amlodipine Besylate (Norvasc) 10 mg PO DAILY [facility] Artificial Tears (Tears Renewed 15ml Bottle) 0 drop EA EYE PRN PRN PRN Reason: Dry Eyes Aspirin (Ecotrin) 81 mg PO DAILY [facility] Atorvastatin Calcium (Lipitor) 20 mg PO DAILY [facility] Benzonatate (Tessalon) 100 mg PO Q4H PRN PRN Reason: Cough Bisacodyl (Dulcolax) 10 mg PO DAILYPRN PRN PRN Reason: Constipation Calcium Carbonate (Tums) 1,000 mg PO Q4H PRN PRN Reason: Heartburn or Indigestion Cholecalciferol (Vitamin D3) 1,000 units PO DAILY [facility] Clonidine (Catapres) 0.1 mg PO Q4H PRN PRN Reason: Systolic BP > 160 Dextrose/Water (Dextrose 50%) 25 gm SLOW IVP PRN PRN PRN Reason: Hypoglycemia Diphenhydramine HCl (Benadryl) 25 mg PO Q6H PRN PRN Reason: Allergies Furosemide (Lasix) 40 mg PO BID [facility] Glucagon (Glucagon) 1 mg IM PRN PRN PRN Reason: Hypoglycemia Guaifenesin (Robitussin Sf) 200 mg PO Q4H PRN PRN Reason: Cough Heparin Sodium (Porcine) (Heparin) 5,000 units SC BID [facility] Last Admin: 08/25/17 20:16 Dose: 5,000 units Hydralazine HCl (Apresoline) 10 mg SLOW IVP Q4H PRN PRN Reason: Systolic BP > 180 Hydralazine HCl (Apresoline) 100 mg PO TID [facility] Dextrose/Water (D5w) 1,000 mls @ 0 mls/hr IV .Q0M PRN; As Directed PRN Reason: Hypoglycemia Insulin Detemir 40 units/ (Miscellaneous Medication) 0.4 mls @ 0 mls/hr SC HS OLIVERIO Insulin Detemir 60 units/ (Miscellaneous Medication) 0.6 mls @ 0 mls/hr SC QAM OLIVERIO Insulin Human Lispro (Humalog) 0 units SC .MODERATE SLIDING SC PRN PRN Reason: Moderate Correctional Scale Insulin Human Lispro (Humalog) 0 units SC .BEDTIME SLIDING SC PRN PRN Reason: Bedtime Correctional Scale Loratadine (Claritin) 10 mg PO DAILYPRN PRN PRN Reason: Sinus Symptoms Lorazepam (Ativan) 2 mg PO HS OLIVERIO Mineral Oil/White Petrolatum (Eucerin Cream) 0 gm TOP BIDPRN PRN PRN Reason: Dry Skin Mometasone Furoate/Formoterol Fumar (Dulera 100 Mcg/5 Mcg Inhaler) 2 puff INH BID-RT [facility] Nebivolol (Bystolic) 20 mg PO DAILY [facility] Nitroglycerin (Nitrostat) 0.4 mg SL Q5MIN PRN PRN Reason: Chest Pain Ondansetron HCl (Zofran) 4 mg IVP Q6H PRN PRN Reason: Nausea/Vomiting Pantoprazole Sodium (Protonix) 40 mg PO DAILY [facility] Phenol (Chloraseptic [place] 180 Ml Bot) 0 ml PO PRN PRN PRN Reason: Sore Throat Ranolazine (Ranexa) 500 mg PO BID [facility] Senna (Senokot) 2 tab PO HSPRN PRN PRN Reason: Constipation Sodium Chloride (Ward Nasal [place] 0.65%) 0 ml EA NARE QIDPRN PRN PRN Reason: Nasal Congestion
[2017-08-26] MEDS ORDERED: Potassium Chloride 20 MEQ TAB PO SCH (10:15)
[2017-08-26] MEDS ORDERED: Aspirin 81 mg Enteric Coated Tablet PO SCH (11:00)
[2017-08-26] MEDS ORDERED: Furosemide 40 MG TAB PO SCH ×3 (11:00→21:00)
[2017-08-26] MEDS ORDERED: Nebivolol HCl 5 MG TAB PO SCH (11:00)
[2017-08-26] MEDS ORDERED: Amlodipine 10 MG TAB PO SCH (11:00)
[2017-08-26] MEDS: Heparin 5,000 UNITS/ML VIAL SC SCH ×2 (11:52→21:08)
[2017-08-26] MEDS: hydrALAZINE 25 MG TAB PO SCH ×2 (16:26→21:07)
[2017-08-26] MEDS: Mometasone/Formoterol 120 PUFF INHALER INH SCH (18:38)
[2017-08-26] MEDS ORDERED: Lorazepam 1 MG TAB PO SCH (21:00)
[2017-08-26] MEDS ORDERED: Atorvastatin Calcium 20 MG TAB PO SCH (21:00)
[2017-08-26] MEDS ORDERED: Insulin Detemir 100 UNITS/ML 40 UNITS in Pre-Filled Syringe 1 EACH SC SCH (21:00)
[2017-08-26] MEDS ORDERED: Non-Formulary Item 1 EACH (Insulin Glargine,Hum.Rec.Anlog [Lantus Solostar] 40 UNIT) SC SCH (21:00)
[2017-08-27 08:06] VITALS: BP 149/92; TEMP 98.5
[2017-08-27] MEDS: hydrALAZINE 25 MG TAB PO SCH (08:08)
[2017-08-27] MEDS: Mometasone/Formoterol 120 PUFF INHALER INH SCH (08:38)
[2017-08-27] MEDS ORDERED: Aspirin 81 mg Enteric Coated Tablet PO SCH (09:00)
[2017-08-27] MEDS ORDERED: Furosemide 40 MG TAB PO SCH (09:00)
[2017-08-27] MEDS ORDERED: Amlodipine 10 MG TAB PO SCH (09:00)
[2017-08-27] MEDS ORDERED: Nebivolol HCl 5 MG TAB PO SCH (09:00)
[2017-08-27] MEDS ORDERED: Insulin Detemir 100 UNITS/ML 60 UNITS in Pre-Filled Syringe 1 EACH SC SCH (09:00)
[2017-08-27] MEDS ORDERED: Atorvastatin Calcium 20 MG TAB PO SCH (09:00)
[2017-08-27] MEDS ORDERED: INSULIN GLARGINE HUM REC ANLOG 60 UNIT SQ SCH (09:00)
--- NOTE | 2017-08-27 13:35 | DIS ---
PRIMARY CARE PHYSICIAN: Sari ARMENDARIZ DATE OF ADMISSION: 08/25/2017 DATE OF DISCHARGE: 08/27/2017 DISCHARGE DISPOSITION: Home. PRIMARY DISCHARGE DIAGNOSES: 1. Hypothermia, likely due to hypoglycemia. 2. Hypoglycemia associated with diabetes type 2. 3. Hypokalemia, corrected. SECONDARY DISCHARGE DIAGNOSES: Anemia normocytic normochromic, coronary artery disease, chronic cook tolic heart failure, chronic kidney disease stage 3, diabetes type 2, dyslipidemia, gastroesophageal reflux disease, gout, hypertension, morbid obesity with BMI of 45, obstructive sleep apnea on CPAP. PRIMARY PROCEDURE/OPERATION: None. RADIOLOGICAL INVESTIGATION: Chest x-ray showed no acute cardiopulmonary process. CT brain based on my review, no acute intracranial process. CT cervical spine negative for any fracture or dislocation . SIGNIFICANT LABS: WBC 6.6, hemoglobin 8.6, platelets 172. BMP: Sodium 146, potassium 3.1, chloride 111, carbon dioxide 26, anion gap 12, BUN 27, creatinine 1.67, glucose 70, calcium 9.1. Cardiac enz ymes are negative. CK 204, BNP 384.8, magnesium 1.8. Liver enzymes normal. Lactic acid 1.0. Blood culture negative. Respiratory virus panel negative. DISCHARGE MEDICATIONS: Amlodipine 10 mg p.o. daily, aspirin 81 mg p.o. daily, Lipitor 20 mg p.o. jonah ly, Symbicort 2 puff inhalation b.i.d., vitamin D3 1000 units p.o. daily, Benadryl 25 mg q.6. hourly p.r.n., Nexium 40 mg p.o. daily, Lasix 40 mg p.o. b.i.d., hydralazine 100 mg p.o. t.i.d., Lantus insu jose l 60 units in the morning and 40 units at bedtime, lorazepam 1 mg p.o. at bedtime, Bystolic 20 mg p .o. daily, nitroglycerin 0.4 mg sublingual p.r.n. for chest pain, Ranexa 500 mg p.o. b.i.d. CONTRAINDICATIONS: None. CODE STATUS: FULL CODE. INPATIENT CONSULTANTS: None. ALLERGIES: CODEINE, IODINE, MORPHINE, PENICILLIN, and SHELLFISH. DISCHARGE PLAN: Post hospital, the patient will follow up with primary care physician in 1 week. HOSPITAL COURSE: An 82-year-old female who was admitted by Dr. Caro Tellez. Please see her H&P fo r further details. The patient was admitted on 08/25/2017 with low blood sugar, hence the patient fernandez d episode of fall. The patient was also hypothermic. This patient was admitted and observed on telemetry floor. We discontinued her insulin regimen while in hospital. Upon improvement, we started back on her insulin and after that we observed her for 24 hours. Her hypothermia resolved. Her blood sugar is now stable. We provided necessary patient edu cation to avoid hypoglycemia. The patient remained hemodynamically stable. The patient is planned for discharge today. The patien t is seen and examined at bedside today. Plan of care discussed with the family member. PHYSICAL EXAMINATION: VITAL SIGNS: Today; temperature 98.5, pulse 74, respiratory rate 16, saturation 93%, blood pressure 149/92, weight 246 pounds. GENERAL: The patient is currently alert, awake; no acute distress. HEAD: Normocephalic, atraumatic. EYES: Pupils are round and reactive to light. Extraocular muscles are intact. ENT: Oropharynx within normal limits. Moist mucous membranes. No oral lesions. No pharyngeal eryt brii, no exudate. NECK: Supple, no JVD, no thyromegaly, no carotid bruit. No jugular venous distention. LUNGS: Clear to auscultation without any rhonchi or rales. CARDIAC: S1 and S2 regular without any murmur. ABDOMEN: Soft and benign without any tenderness. EXTREMITIES: No edema. NEUROLOGIC: Nonfocal examination.
--- NOTE | 2017-09-08 13:41 | EKG ---
Test Reason : Blood Pressure : / mmHG Vent. Rate : 061 BPM Atrial Rate : 061 BPM P-R Int : 096 ms QRS Dur : 090 ms QT Int : 510 ms P-R-T Axes : 015 018 012 degrees QTc Int : 513 ms Sinus rhythm with short [place] with occasional Premature ventricular complexes Otherwise normal ECG Confirmed by ERON DE DIOS [id number]), managing editor LEONARDA ZHU ([id number]) on 09/08/2017 1:40:44 PM Referred By: Confirmed By:ERON DE DIOS
== END 2017-08-27 08:45 | disposition home or self-care (01) | DRG 638 ==
LOC: ERS 09:41 → 2NO 14:09
PROVIDERS: ADMIT Internal Medicine; ATTEND Internal Medicine
DX: E11.649 Type 2 diabetes mellitus with hypoglycemia without coma (principal); I13.0 Hypertensive heart and chronic kidney disease with heart failure and stage 1 through stage 4 chronic kidney disease, or unspecified chronic kidney disease; T68.XXXA Hypothermia, initial encounter; I50.32 Chronic diastolic (congestive) heart failure; E66.01 Morbid (severe) obesity due to excess calories; D64.9 Anemia, unspecified; Z68.42 Body mass index [BMI] 45.0-49.9, adult; J44.9 Chronic obstructive pulmonary disease, unspecified; N18.3 Chronic kidney disease, stage 3 (moderate); E87.6 Hypokalemia; G47.33 Obstructive sleep apnea (adult) (pediatric); K21.9 Gastro-esophageal reflux disease without esophagitis; E78.5 Hyperlipidemia, unspecified; I25.10 Atherosclerotic heart disease of native coronary artery without angina pectoris; Z88.0 Allergy status to penicillin; Z88.8 Allergy status to other drugs, medicaments and biological substances; Z88.5 Allergy status to narcotic agent; Z91.013 Allergy to seafood; Z79.82 Long term (current) use of aspirin; Z82.49 Family history of ischemic heart disease and other diseases of the circulatory system
CPT/HCPCS: 36415; 36416; 70450; 71045; 72125; 80048; 80053; 82550; 82553; 83605; 83735; 83880; 84484; 85025; 87040; 87633; 87798; 93005; 96365; 96375; J1644; J1815; J1956; J3370

== ENCOUNTER 2017-08-31 09:42 | Inpatient (IN) | payer MEDICARE, MEDICAID ==
[2017-08-31 10:47] LABS: #Basophils 0.1 thou/uL (0.0-0.2); #Lymphocytes 1.1 thou/uL (1.20-3.40); #Monocytes 0.6 thou/uL (0.11-0.59); #Neutrophils 8.3 thou/uL (1.40-6.50); %Basophils 0.7 % (0.0-1.0); %Eosinophils 0.3 % (0.0-10.0); %Monocytes 5.9 % (0.0-10.0); %Neutrophils 82.1 % (42.0-75.0); Hemoglobin 6.8 g/dL (12.0-16.0); Mean Corpuscular HGB CONC 32.4 g/dL (32.0-36.0); Mean Corpuscular Hemoglobin 30.3 pg (27.0-31.0); Mean Corpuscular Volume 93.5 fl (81.0-99.0); Mean Platelet Volume 9.8 fL (7.4-10.4); Platelet Count 197 thou/uL (130-400); RBC Distribution Width 17.5 % (11.5-14.5); Red Blood Cell (RBC) Count 2.25 mill/uL (4.20-5.40); White Blood Cell (WBC) Count 10.1 thou/uL (4.8-10.8)
[2017-08-31 10:55] LABS: ALT (SGPT) 12 U/L (8-55); AST (SGOT) 13 U/L (5-34); Albumin 3.4 g/dL (3.4-4.8); Alkaline Phosphatase 69 U/L (40-150); Anion Gap 16 mmol/L (10-20); BUN (Urea Nitrogen) 34 mg/dL (9.8-20.1); Bilirubin, Total 0.8 mg/dL (0.2-1.2); CK (CPK) 176 U/L (29-168); Calc. Creatinine Clearance 0 mL/min (70-130); Calcium 8.6 mg/dL (7.8-10.44); Carbon Dioxide 20 mmol/L (23-31); Chloride 108 mmol/L (98-107); Estimated GFR-MDRD 21; Globulin 2.9 g/dL (2.4-3.5); Glucose 90 mg/dL (83-110); Potassium 3.2 mmol/L (3.5-5.1); Protein, Total 6.3 g/dL (6.0-8.3); Sodium 141 mmol/L (136-145)
--- NOTE | 2017-08-31 10:59 | RAD ---
CHEST 1 VIEW: Date: 08/31/17 HISTORY: 82-year-old female with dyspnea and shortness of breath. COMPARISON: 08/25/17. FINDINGS: Again noted is cardiomegaly with some bilateral vascular congestion and small pleural effusions. No n ew confluent pneumonia. IMPRESSION: Overall stable cardiomegaly, mild vascular congestion, and pleural effusions. Evidence for congestive heart failure. No significant acute process or change from prior study. POS: SHEELA
[2017-08-31 11:03] LABS: CKMB 1.5 ng/mL (0-6.6); Troponin I 0.103 ng/mL (< 0.028)
[2017-08-31] MEDS ORDERED: Furosemide 40 MG/4 ML VIAL ONE (12:59)
[2017-08-31 15:08] VITALS: BMI 43.5
[2017-08-31] MEDS ORDERED: HYDROcodone/Acetaminophen 5/325 mg Tablet PO PRN (15:09)
[2017-08-31] MEDS ORDERED: Acetaminophen 325 MG TAB PO PRN (15:09)
[2017-08-31] MEDS ORDERED: Nitroglycerin 0.4 MG TAB (25 Tab Bottle) PO PRN (15:09)
[2017-08-31] MEDS ORDERED: Ondansetron HCl/PF 4 MG/2 ML Vial IVP PRN (15:09)
[2017-08-31] MEDS ORDERED: Furosemide 20 MG/2 ML VIAL IVP SCH (15:15)
[2017-08-31] MEDS ORDERED: Sodium Chloride 0.9% 1,000 ML IV SCH (15:15)
--- NOTE | 2017-08-31 16:10 | HP ---
DATE OF SERVICE: 08/31/2017 CHIEF COMPLAINT: Shortness of breath. HISTORY OF PRESENT ILLNESS: This is an 82-year-old morbidly obese -[place] female with recen t admission to the hospital with congestive heart failure and was discharged a week ago. 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 It was checked by pulse oximetry at home. The patient was [facility] and at the ER, she was noted to have 82 after she was given some nebulizer treatments at home. The patient was noted to have hemoglobin of 5.8, which was markedly low from her recent visit. Lula briceno denied having any black stools. Denied having any nausea or vomiting. She denied having any di arrhea. No history of previous GI bleeding in the past. No history of any cancers in the family. The patient has known history of congestive heart failure and is on Lasix from her recent hospitaliza tion. She is not on any NSAIDs and no history of any previous ulcers in the past. The patient is seen in the room along with her daughter at the bedside. PAST MEDICAL HISTORY: 1. Obstructive sleep apnea. 2. Hypertension. 3. Type 2 diabetes mellitus. 4. Chronic kidney disease stage 3. 5. Gout. 6. Mild persistent asthma. 7. Anxiety and depression. 8. Morbid obesity. 9. Chronic diastolic congestive heart failure. 10. Chronic obstructive lung disease. PAST SURGICAL HISTORY: 1. Tubal ligation. 2. Cholecystectomy. 3. Cystectomy. PAST PSYCHIATRIC HISTORY: The patient has history of anxiety and depression. ALLERGIES: CODEINE, ASPIRIN, IODINE, MORPHINE, PENICILLINS, SHELLFISH. FAMILY HISTORY: The patient has significant family history of congestive heart failure in her mother . Father at age of 95. HOME MEDICATIONS: 1. Lantus 60 units in the morning, 30 units at bedtime. 2. Vitamin D 1000 units daily. 3. Atorvastatin 20 mg daily. 4. Hydralazine 100 mg p.o. t.i.d. 5. Lasix 40 mg p.o. b.i.d. 6. Bystolic 20 mg daily. 7. Amlodipine 10 mg daily. 8. Allopurinol 300 mg daily. 9. Aspirin 81 mg daily. 10. Lorazepam at bedtime is noted. 11. Symbicort 2 puffs inhalation b.i.d. 12. Ranexa 500 mg b.i.d. 13. Benadryl as needed. 14. Nexium 40 mg daily. 15. Nitroglycerin sublingual as needed for chest pain. CODE STATUS: Discussed with the family is a FULL CODE. REVIEW OF SYSTEMS: All 12 systems are reviewed with the patient thoroughly and found to be negative at this time. The following complete review of systems was negative, unless otherwise mentioned in t he HPI or below: Constitutional: Weight loss or gain, sense of well-being, ability to conduct usual activities, exercise tolerance. Skin/Breast: Rash, itching, changes in hair growth or loss, nail c hanges, breast lumps, tenderness, swelling, nipple discharge. Eyes: Vision, double vision, tearing, blind spots, pain. ENT/Mouth: Headaches (location, time of onset, duration, precipitating factors) , vertigo, lightheadedness, injury. Vision, double vision, tearing, blind spots, pain, nose bleeding, colds, obstruction, discharge, dental difficulties, gingival bleeding, dentures, neck stiffness, ed n, tenderness, masses in thyroid or other areas. Cardiovascular: Precordial pain, substernal distre ss, palpitations, syncope, dyspnea on exertion, orthopnea, nocturnal paroxysmal dyspnea, edema, cyano sis, hypertension, heart murmurs, varicosities, phlebitis, claudication. Respiratory: Pain, shortne ss of breath, wheezing, stridor, cough, hemoptysis, fever or night sweats Gastrointestinal: Poor amol etite, dysphagia, indigestion, abdominal pain, heartburn, eructation, nausea, vomiting, hematemesis, jaundice, constipation, or diarrhea, abnormal stools (rosaline-colored, tarry, bloody, greasy, foul smell ing), flatulence, hemorrhoids, recent changes in bowel habits. Genitourinary: Urgency, frequency, dysuria, nocturia, hematuria, polyuria, oliguria, unusual (or sparkle nge in) color of urine, stones, hesitancy, change in size of stream, dribbling, acute retention or in continence, libido, potency. Musculoskeletal: Pain, swelling, redness or heat of muscles or joints, limitation, of motion, muscular weakness, atrophy, cramps. Neurologic/Psychiatric: Convulsions, pa ralyses, tremor, incoordination, paresthesias, difficulties with memory of speech, sensory or motor d isturbances, or muscular coordination (ataxia, tremor), emotional problems, anxiety, depression, prev ious psychiatric care, unusual perceptions, hallucinations. Allergy/Immunologic: Skin rash, anemia, bleeding tendency, polydipsia, polyuria, intolerance to heat or cold. PHYSICAL EXAMINATION: VITAL SIGNS: Blood pressures are 136/67, heart rate is 78, respiration rate is 22, saturation 93%. GENERAL: The patient is moderately built and moderately nourished, does not appear to be in acute di stress at this time. She is alert, oriented x3. HEENT: Atraumatic, normocephalic. PERRLA. Extraocular movements were intact. Oral mucosa pink and moist. CARDIOVASCULAR: S1, S2 normal. No murmurs, rubs or gallops. LUNGS: Bilateral air entry was equal. No wheezing, no crackles. ABDOMEN: Soft, nontender, no guarding, no rebound tenderness. Bowel sounds normal. MUSCULOSKELETAL: No calf tenderness. No pedal edema. No joint tenderness, no joint swelling. SKIN: No cyanosis or erythema, no rash, no pallor. NEUROLOGIC: Cranial nerve examination II-XII intact. No focal deficits noted. PSYCHIATRIC: No suicidal ideation. No signs of elijah. Lymphadenopathy, no evidence of any lymph no yasmin were noted. LABORATORY DATA: WBC 10.1, hemoglobin is 6.8, hematocrit is 21.1, and platelets are 197. Sodium 141 , potassium 3.2, chloride 108, bicarb is 20, BUN is 34, creatinine 2.67. BNP is 944. Her baseline BNP was 300. Troponin 0.103. ASSESSMENT AND PLAN: 1. Acute hypoxic respiratory failure. 2. Non-ST elevation myocardial infarction. 3. Acute diastolic congestive heart failure. 4. Acute anemia, likely blood loss anemia. 5. Acute hypokalemia. 6. Acute on chronic kidney disease, likely cardiorenal syndrome. PLAN: 1. To start the patient on nasal cannula oxygen, we will closely monitor. We will continue with alb uterol nebulizer treatments every 4 hours as needed. We will closely monitor her respiratory status. 2. The patient has evidence of drop in the hemoglobin. We will start with blood transfusion with 1 unit of blood transfusion to keep it above 7 and we will closely monitor. We will do 20 mg of Lasix at this time as the patient is a high risk for severe decompensation. We will closely monitor and wi ll continue the patient on Lasix 20 mg IV b.i.d. 3. Plan to consult Cardiology as the patient has elevated troponins and has a decompensated heart fa ilure, decompensated heart failure with acute shortness of breath dropping to less than 80. The patient did not have any stress test recently. She would benefit from a stress test if her tropo bhumika starts trending down. 4. The patient has hypokalemia. We will replace potassium along with the Lasix. If the patient has renal dysfunction, likely this could be chronic as her baseline creatinine is arou nd 2.3-2.4. We will closely monitor and we will consult Nephrology if needed. The patient most like ly has a cardiorenal syndrome and needs a baseline treatment with Lasix for congestive heart failure. 4. Deep venous thrombosis prophylaxis. Lovenox 40 mg subcutaneously. I spent 70 minutes on this patient of this one hour of critical care time.
[2017-08-31 16:37] LABS: Iron 11 ug/dL (50-170); Iron Binding Capacity, Total 219 mcg/dL (265-497)
[2017-08-31 16:41] LABS: Troponin I 0.135 ng/mL (< 0.028)
[2017-08-31] MEDS: Nitroglycerin 2% Ointment 1 INCH/1 GM Packet TOP SCH (20:54)
[2017-08-31] MEDS: Docusate 100 MG CAP PO SCH (20:54)
[2017-08-31] MEDS: Famotidine/PF 20 mg/2ml Vial SLOW IVP SCH (20:54)
[2017-08-31] MEDS: Carvedilol 3.125 MG TAB PO SCH (20:54)
--- NOTE | 2017-08-31 22:51 | CON ---
DATE OF CONSULTATION: 08/31/2017 PRIMARY OVERNIGHT CAREGIVER: Fernando Mcintosh MD HISTORY OF PRESENT ILLNESS: Ms. Villavicencio is an 82-year-old patient with history of congestive heart fa ilure admitted with difficulty breathing and severe anemia. Ms. Villavicencio was in the hospital on 06/25/2017 most recently from a cardiac standpoint. At that time, she had increasing dyspnea. She was known to have mild nonobstructive coronary artery disease. She has history of chronic renal insufficiency and COPD. She was found to have diastolic dysfunction. S he had a BNP of 401. She responded to diuretics. She was mildly anemic at that time. The patient re-presented to the hospital with worsening shortness of breath and at that time found to be severely anemic. She also had hypoxemia with an oxygen saturation of 78% and a hemoglobin that c daljit all the way down to 5.8. PAST MEDICAL HISTORY: 1. Sleep apnea. 2. Hypertension. 3. Diastolic dysfunction heart failure, chronic. 4. Stage 3 renal failure. 5. Gout. 6. Morbid obesity. PAST SURGICAL HISTORY: Cholecystectomy. PAST PSYCHIATRIC HISTORY: Anxiety and depression. FAMILY HISTORY: Coronary artery disease at an advanced age. HOME MEDICATIONS: Insulin, atorvastatin, hydralazine, Lasix, Bystolic, amlodipine, Symbicort. CODE STATUS: FULL CODE. REVIEW OF SYSTEMS: Constitutional: No significant weight gain or loss. Vision: No changes. Heari ng: No changes. Pulmonary: No cough or wheezing. Gastrointestinal: No nausea, vomiting, diarrhea . Skin: No rashes. Neurologic: No unilateral weakness or numbness. Psychiatric: No unusual depr ession or anxiety. Cardiac: No chest pain is mentioned, but she does have shortness of breath. PHYSICAL EXAMINATION: GENERAL: This is a pleasant elderly -[place] woman. VITAL SIGNS: Her blood pressure was 142/69, pulse 78 and regular. EYES: Sclerae nonicteric. MOUTH: Mucous membranes moist. NECK: Supple. No lymphadenopathy. LUNGS: Clear. No wheezing, rales, or rhonchi. CARDIAC: Normal S1, normal S2. There is no murmur, rub, or gallop. ABDOMEN: Obese, nontender. No hepatosplenomegaly. EXTREMITIES: Warm, dry. No clubbing, no cyanosis. Mild edema. SKIN: Warm and dry. Hemoglobin 6.8 here. Most recent echocardiogram showed the ejection fraction to be 50%-55%. ASSESSMENT: 1. Diastolic heart failure with BNP 944. 2. Severe anemia, may have precipitated worsening of her heart failure. PLAN: 1. She is receiving intravenous packed red blood cells. 2. Intravenous Lasix. 3. Dr. Herring to see her tomorrow and Dr. Mcintosh to resume care next week.
[2017-09-01 05:39] LABS: #Eosinphils 0.1 thou/uL (0.0-0.7); #Lymphocytes 1.3 thou/uL (1.20-3.40); #Monocytes 0.7 thou/uL (0.11-0.59); #Neutrophils 7.1 thou/uL (1.40-6.50); %Basophils 0.1 % (0.0-1.0); %Eosinophils 1.2 % (0.0-10.0); %Lymphocytes 13.7 % (21.0-51.0); %Monocytes 7.7 % (0.0-10.0); %Neutrophils 77.3 % (42.0-75.0); Hemoglobin 7.6 g/dL (12.0-16.0); Mean Corpuscular HGB CONC 33.6 g/dL (32.0-36.0); Mean Corpuscular Hemoglobin 31.3 pg (27.0-31.0); Mean Corpuscular Volume 93.2 fl (81.0-99.0); Mean Platelet Volume 10.2 fL (7.4-10.4); Platelet Count 207 thou/uL (130-400); RBC Distribution Width 16.6 % (11.5-14.5); Red Blood Cell (RBC) Count 2.41 mill/uL (4.20-5.40); White Blood Cell (WBC) Count 9.2 thou/uL (4.8-10.8)
[2017-09-01 05:44] LABS: Anion Gap 14 mmol/L (10-20); BUN (Urea Nitrogen) 39 mg/dL (9.8-20.1); Calc. Creatinine Clearance 27 mL/min (70-130); Calcium 8.6 mg/dL (7.8-10.44); Carbon Dioxide 24 mmol/L (23-31); Cardiac Risk 2.8 (Less than 4.5); Chloride 109 mmol/L (98-107); Cholesterol 130 mg/dl (< 200 Desired); Estimated GFR-MDRD 20; HDL Cholesterol 46 mg/dL (>60 Neg Risk); LDL Cholesterol, Calculated 70 mg/dL; Sodium 144 mmol/L (136-145); Triglycerides 69 mg/dL (Less than 150)
[2017-09-01 05:50] LABS: Glucose 26 mg/dL (83-110); Potassium 2.9 mmol/L (3.5-5.1)
[2017-09-01] MEDS: Nitroglycerin 2% Ointment 1 INCH/1 GM Packet TOP SCH ×3 (05:59→21:52)
[2017-09-01] MEDS: Furosemide 20 MG/2 ML VIAL SLOW IVP SCH ×2 (05:59→14:45)
[2017-09-01] MEDS ORDERED: Potassium Chloride 20 MEQ TAB PO SCH (06:45)
[2017-09-01] MEDS ORDERED: Clopidogrel Bisulfate 75 MG TAB PO SCH (09:00)
[2017-09-01] MEDS: Carvedilol 3.125 MG TAB PO SCH ×2 (09:47→21:51)
[2017-09-01] MEDS: Docusate 100 MG CAP PO SCH ×2 (09:47→21:52)
--- NOTE | 2017-09-01 13:49 | PDOC.PN ---
- Subjective Encounter Start Date: 09/01/17 Encounter Start Time: 13:00 Patient is seen today, awith family menbers at bedside, pt is Alet and oriented. Continuos to have SOB on oxygen. - Objective Resuscitation Status: Resuscitation Status FULL:Full Resuscitation MAR Reviewed: Yes Vital Signs & Weight: Vital Signs (12 hours) Temp Pulse Resp BP Pulse Ox 09/01/17 08:00 97.4 F L 73 18 132/62 92 L 09/01/17 04:00 99.0 F 72 20 168/77 H 97 Weight Weight 240 lb I&O: 08/31/17 09/01/17 09/02/17 06:59 06:59 06:59 Intake Total 1650 360 Balance 1650 360 Result Diagrams: 09/01/17 04:22 09/01/17 04:22 Additional Labs: Accuchecks 09/01/17 09/01/17 09/01/17 12:02 06:33 05:55 POC Glucose 211 H 102 66 L 09/01/17 05:05 POC Glucose 35 L* Radiology Reviewed by me: Yes Phys Exam - Physical Examination HEENT: PERRLA, moist MMs Neck: no nodes, no JVD Respiratory: wheezing present Cardiovascular: RRR, no significant murmur Gastrointestinal: soft, non-tender Musculoskeletal: edema present Neurological: non-focal, normal sensation Lymphatic: no nodes Psychiatric: normal affect, A&O x 3 Skin: no rash, normal turgor Dx/Plan (1) NSTEMI (non-ST elevated myocardial infarction) Status: Acute Comment: Will continue to Monitor pt is on Aspirin, BB, ACEI. (2) Anemia due to blood loss Code(s): D50.0 - IRON DEFICIENCY ANEMIA SECONDARY TO BLOOD LOSS (CHRONIC) Status: Acute Comment: Hb stba;le, 7.8 continue to Monitor, Look for GI bleed , 1st stool sample neg (3) Anemia, normocytic normochromic Code(s): D64.9 - ANEMIA, UNSPECIFIED Status: Chronic Comment: Improved with 1 Unti PRBC (4) CAD (coronary artery disease) Code(s): I25.10 - ATHSCL HEART DISEASE OF [place] CORONARY ARTERY W/O ANG PCTRS Status: Chronic Qualifiers: Coronary Disease-Associated Artery/Lesion type: [place] artery [place] vs. transplanted heart: [place] heart Associated angina: without angina Qualified Code(s): I25.10 - Atherosclerotic heart disease of [place] coronary artery without angina pectoris Comment: No Chest pain, will closley Monitor. (5) Diabetes mellitus, type 2 Status: Chronic Qualifiers: Diabetes mellitus complication status: with kidney complications Diabetes mellitus complication detail: with chronic kidney disease Chronic kidney disease stage: stage 3 (moderate) Comment: Hypoglycemia, Patient is on different dose of levemir, was recently Changed family said it was 50 untis in Am and 20 untis in PM. (6) Hypertension Code(s): I10 - ESSENTIAL (PRIMARY) HYPERTENSION Status: Chronic Qualifiers: (7) Morbid obesity with BMI of 45.0-49.9, adult Code(s): E66.01 - MORBID (SEVERE) OBESITY DUE TO EXCESS CALORIES; Z68.42 - BODY MASS INDEX (BMI) 45.0-49.9, ADULT Status: Chronic (8) TIANA on CPAP Code(s): G47.33 - OBSTRUCTIVE SLEEP APNEA (ADULT) (PEDIATRIC); Z99.89 - DEPENDENCE ON OTHER ENABLING MACHINES AND DEVICES Status: Chronic Comment: on CPAP - Plan plan discussed w/ family, PT/OT, respiratory therapy, incentive spirometry, out of bed/ambulate, DVT proph w/lovenox, DVT proph w/SCDs * . - Discharge Day Encounter end time: 13:35 Review of Systems - Review of Systems Eyes: negative: Pain, Vision Change, Conjunctivae Inflammation, Eyelid Inflammation, Redness, Other ENT: negative: Ear Pain, Ear Discharge, Nose Pain, Nose Discharge, Nose Congestion, Mouth Pain, Mouth Swelling, Throat Pain, Throat Swelling, Other Respiratory: Cough, Shortness of Breath, SOB with Excertion, Wheezing Cardiovascular: negative: chest pain, palpitations, orthopnea, paroxysmal nocturnal dyspnea, edema, light headedness, other Gastrointestinal: negative: Nausea, Vomiting, Abdominal Pain, Diarrhea, Constipation, Melena, Hematochezia, Other Musculoskeletal: negative: Neck Pain, Shoulder Pain, Arm Pain, Back Pain, Hand Pain, Leg Pain, Foot Pain, Other Skin: negative: Rash, Lesions, Apollo, Bruising, Other - Medications/Allergies Allergies/Adverse Reactions: Allergies Allergy/AdvReac Type Severity Reaction Status Date / Time codeine [Codeine] Allergy Verified 08/25/17 14:44 iodine Allergy Verified 08/25/17 14:44 morphine Allergy Verified 08/25/17 14:44 Penicillins Allergy Verified 08/25/17 14:44 shellfish derived Allergy Verified 08/25/17 14:44 Medications: Current Medications Acetaminophen (Tylenol) 650 mg PO Q4H PRN PRN Reason: Headache/Fever or Pain Hydrocodone Bitart/Acetaminophen ([place] 5/325) 1 tab PO Q4H PRN PRN Reason: Moderate Pain (4-6) Carvedilol (Coreg) 3.125 mg PO BID [facility] Last Admin: 09/01/17 09:47 Dose: 3.125 mg Clopidogrel Bisulfate (Plavix) 75 mg PO QAM [facility] Last Admin: 09/01/17 09:47 Dose: 75 mg Docusate Sodium (Colace) 100 mg PO BID [facility] Last Admin: 09/01/17 09:47 Dose: 100 mg Famotidine (Pepcid) 20 mg SLOW IVP 2100 [facility] Last Admin: 08/31/17 20:54 Dose: 20 mg Furosemide (Lasix) 20 mg SLOW IVP 0600,1400 [facility] Last Admin: 09/01/17 05:59 Dose: 20 mg Nitroglycerin (Nitro-Bid 2% Ointment) 0.5 inch TOP Q8HR [facility] Last Admin: 09/01/17 05:59 Dose: 0.5 inch Nitroglycerin (Nitrostat) 0.4 mg PO Q5MIN PRN PRN Reason: Chest Pain Ondansetron HCl (Zofran) 4 mg IVP Q6H PRN PRN Reason: Nausea/Vomiting Sodium Chloride (Flush - Normal Saline) 10 ml IVF PRN PRN PRN Reason: Saline Flush
--- NOTE | 2017-09-01 15:55 | PDOC.CTH ---
<JaneTracey - Last Filed: 09/01/17 15:57> Cardiology Progress Note - Subjective The pt seen and examined. No overnight events. No cardiac complaints. She reported that she can breath better today. - Objective Vital Signs Temp Pulse Resp BP Pulse Ox 09/01/17 08:00 97.4 F L 73 18 132/62 92 L 09/01/17 04:00 99.0 F 72 20 168/77 H 97 Weight 240 lb 08/31/17 09/01/17 09/02/17 06:59 06:59 06:59 Intake Total 1650 360 Balance 1650 360 - Physical Examination General/Neuro: alert & oriented x3 Neck: no JVD present Lungs: other: (coases and diminished at bases) Heart: RRR Abdomen: soft Extremities: other: (2+ pitting BLE edema) - Telemetry Telemetry Rhythm: SR 70s - Labs Result Diagrams: 09/01/17 04:22 09/01/17 04:22 Troponin/CKMB CK-MB (CK-2) 1.5 ng/mL (0-6.6) 08/31/17 10:31 Troponin I 0.135 ng/mL (< 0.028) H 08/31/17 16:06 - Assessment/Plan 1. Acute on Chronic diastolic HF - Echo in 10/2016 showed EF 50-55% with Grade II diastolic dysfunction; stable with Lasix 20mg IV BID and BBlocker, but no ISIDRA due to CKD; cont. monitor 2. mild CAD - cath in 2010 showed mild CAD; on ASA and bblocker; stopped Plavix due to no hx of stent; cont. monitor 3. HTN - stable with current medication; cont. monitor 4. Anemia - Hgb today was 7.6 with s/p 1PRBC on 08/31/17; cont. monitor 5. CKD stage 3 - stable; cont. monitor 7.DM type 2 - BS was 36 this AM; Instructed the pt to ask night snack; on ACHS BG check; managed by PCP 8. Hyperlipidmeia - Start Lipitor 20mg daily 9. COPD - on NC; cont. monitor 10. Anxiety and Depression - stable at this time 11. Hypokaremia - KCl supplement was given to the pt today by PCP MAR reviewed Review of Systems - Review of Systems Constitutional: reports: no symptoms reported EENTM: reports: no symptoms reported Respiratory: reports: see HPI Cardiac (ROS): reports: no symptoms reported ABD/GI: reports: no symptoms reported : reports: no symptoms reported Musculoskeletal: reports: no symptoms reported <Jean Carlos Herring - Last Filed: 09/02/17 01:26> Cardiology Progress Note - Objective Vital Signs Temp Pulse Resp BP Pulse Ox 09/01/17 23:30 97.7 F 78 19 146/79 H 97 09/01/17 19:36 98.0 F 78 20 174/79 H 96 09/01/17 16:00 97.4 F L 76 18 164/75 H 94 L Weight 240 lb 08/31/17 09/01/17 09/02/17 06:59 06:59 06:59 Intake Total 1650 1080 Balance 1650 1080 - Labs Result Diagrams: 09/01/17 04:22 09/01/17 04:22 Troponin/CKMB CK-MB (CK-2) 1.5 ng/mL (0-6.6) 08/31/17 10:31 Troponin I 0.135 ng/mL (< 0.028) H 08/31/17 16:06 - Assessment/Plan The pt. was seen and eval. by me. I agree with the A/P by the PORTABLE TRACK LINE MARKER.
[2017-09-01] MEDS: Atorvastatin Calcium 20 MG TAB PO SCH (21:51)
[2017-09-01] MEDS: Famotidine/PF 20 mg/2ml Vial SLOW IVP SCH (21:51)
[2017-09-02] MEDS ORDERED: Dextrose 5% in Water 1,000 ML IV PRN (01:38)
[2017-09-02] MEDS ORDERED: Dextrose 50% Abboject 50 ML SYRINGE IVP PRN (01:38)
[2017-09-02] MEDS ORDERED: HumaLOG 300 UNITS/3 ML VIAL SC PRN (01:38)
[2017-09-02 05:36] LABS: #Eosinphils 0.1 thou/uL (0.0-0.7); #Lymphocytes 1.2 thou/uL (1.20-3.40); #Monocytes 0.7 thou/uL (0.11-0.59); #Neutrophils 6.7 thou/uL (1.40-6.50); %Basophils 0.1 % (0.0-1.0); %Eosinophils 1.6 % (0.0-10.0); %Lymphocytes 13.3 % (21.0-51.0); %Monocytes 8.3 % (0.0-10.0); %Neutrophils 76.7 % (42.0-75.0); Hemoglobin 7.5 g/dL (12.0-16.0); Mean Corpuscular HGB CONC 32.6 g/dL (32.0-36.0); Mean Corpuscular Hemoglobin 30.2 pg (27.0-31.0); Mean Corpuscular Volume 92.7 fl (81.0-99.0); Mean Platelet Volume 9.6 fL (7.4-10.4); Platelet Count 194 thou/uL (130-400); Red Blood Cell (RBC) Count 2.48 mill/uL (4.20-5.40); White Blood Cell (WBC) Count 8.7 thou/uL (4.8-10.8)
[2017-09-02 05:43] LABS: Anion Gap 14 mmol/L (10-20); BUN (Urea Nitrogen) 41 mg/dL (9.8-20.1); Calc. Creatinine Clearance 31 mL/min (70-130); Calcium 8.6 mg/dL (7.8-10.44); Carbon Dioxide 25 mmol/L (23-31); Chloride 107 mmol/L (98-107); Estimated GFR-MDRD 23; Glucose 310 mg/dL (83-110); Potassium 3.5 mmol/L (3.5-5.1); Sodium 142 mmol/L (136-145)
[2017-09-02] MEDS: Furosemide 20 MG/2 ML VIAL SLOW IVP SCH ×2 (06:02→15:39)
[2017-09-02] MEDS: Nitroglycerin 2% Ointment 1 INCH/1 GM Packet TOP SCH ×3 (06:02→22:28)
[2017-09-02] MEDS: Docusate 100 MG CAP PO SCH ×2 (10:10→22:27)
[2017-09-02] MEDS: HumaLOG 300 UNITS/3 ML VIAL SC PRN ×2 (10:14→12:47)
[2017-09-02] MEDS: Carvedilol 3.125 MG TAB PO SCH (10:16)
[2017-09-02] MEDS ORDERED: Insulin Detemir 100 UNITS/ML 25 UNITS in Pre-Filled Syringe 1 EACH SC SCH (10:30)
[2017-09-02 10:47] LABS: Hemoglobin A1c 5.4 % (4.0-6.0)
--- NOTE | 2017-09-02 13:15 | PDOC.PN ---
- Subjective Encounter Start Date: 09/02/17 Encounter Start Time: 11:00 Patient is seen today, alert and oriented. She persistantly asking to go Home, She remains on oxygen 3 liters, No home oxygen. Pt is readmission with acute hypoxia from CHF exacerbation. - Objective Resuscitation Status: Resuscitation Status FULL:Full Resuscitation MAR Reviewed: Yes Vital Signs & Weight: Vital Signs (12 hours) Temp Pulse Resp BP Pulse Ox 09/02/17 04:00 98.8 F 78 20 161/73 H 93 L Weight Weight 237 lb I&O: 09/01/17 09/02/17 09/03/17 06:59 06:59 06:59 Intake Total 1650 1320 Balance 1650 1320 Result Diagrams: 09/02/17 04:54 09/02/17 04:54 Additional Labs: Accuchecks 09/02/17 09/02/17 09/01/17 10:50 06:26 20:24 POC Glucose 322 H 294 H 298 H 09/01/17 17:31 POC Glucose 265 H Radiology Reviewed by me: Yes Phys Exam - Physical Examination HEENT: PERRLA, moist MMs Neck: no nodes, no JVD Respiratory: wheezing present (crackled Bilaterally) Cardiovascular: RRR, no significant murmur Gastrointestinal: soft, non-tender Musculoskeletal: no edema, pulses present Neurological: non-focal, normal sensation Lymphatic: no nodes Psychiatric: normal affect, A&O x 3 Dx/Plan (1) Acute respiratory failure with hypoxia Code(s): J96.01 - ACUTE RESPIRATORY FAILURE WITH HYPOXIA Status: Acute Comment: Will continue to wean her off of oxygen, pt unsafe to go today. Will need Rehab/ SNF placmeent. (2) NSTEMI (non-ST elevated myocardial infarction) Status: Acute Comment: Will continue to Monitor pt is on Aspirin, BB, ACEI. (3) Anemia due to blood loss Code(s): D50.0 - IRON DEFICIENCY ANEMIA SECONDARY TO BLOOD LOSS (CHRONIC) Status: Acute Comment: Hb stba;le, 7.8 continue to Monitor, Stool Neg fr Blood , likley Dilutional effect and poor nutrition. (4) Anemia, normocytic normochromic Code(s): D64.9 - ANEMIA, UNSPECIFIED Status: Chronic Comment: Improved with 1 Unti PRBC, continue Iron supllementation. (5) CAD (coronary artery disease) Code(s): I25.10 - ATHSCL HEART DISEASE OF [place] CORONARY ARTERY W/O ANG PCTRS Status: Chronic Qualifiers: Coronary Disease-Associated Artery/Lesion type: [place] artery [place] vs. transplanted heart: [place] heart Associated angina: without angina Qualified Code(s): I25.10 - Atherosclerotic heart disease of [place] coronary artery without angina pectoris Comment: No Chest pain, will closley Monitor. (6) Diabetes mellitus, type 2 Status: Chronic Qualifiers: Diabetes mellitus complication status: with kidney complications Diabetes mellitus complication detail: with chronic kidney disease Chronic kidney disease stage: stage 3 (moderate) Comment: Patient is on different dose of levemir, was recently Changed family said it was 50 untis in Am and 20 untis in PM. Will start with 25 untis am and 30 untis in PM slowly tittare, will do HB A1c. (7) Hypertension Code(s): I10 - ESSENTIAL (PRIMARY) HYPERTENSION Status: Chronic Qualifiers: Comment: Luis, Will need to restart her Home emds. (8) Morbid obesity with BMI of 45.0-49.9, adult Code(s): E66.01 - MORBID (SEVERE) OBESITY DUE TO EXCESS CALORIES; Z68.42 - BODY MASS INDEX (BMI) 45.0-49.9, ADULT Status: Chronic (9) TIANA on CPAP Code(s): G47.33 - OBSTRUCTIVE SLEEP APNEA (ADULT) (PEDIATRIC); Z99.89 - DEPENDENCE ON OTHER ENABLING MACHINES AND DEVICES Status: Chronic Comment: on CPAP (10) Acute exacerbation of CHF (congestive heart failure) Code(s): I50.9 - HEART FAILURE, UNSPECIFIED Status: Acute Comment: Pt is on IV lasix 40mg BID, will closley Monitor Renal fucntions, Cardiology following. - Plan cont current plan of care, PT/OT, social media strategist, respiratory therapy, incentive spirometry, out of bed/ambulate, DVT proph w/lovenox * . - Discharge Day Encounter end time: 11:35 Review of Systems - Review of Systems Eyes: negative: Pain, Vision Change, Conjunctivae Inflammation, Eyelid Inflammation, Redness, Other ENT: negative: Ear Pain, Ear Discharge, Nose Pain, Nose Discharge, Nose Congestion, Mouth Pain, Mouth Swelling, Throat Pain, Throat Swelling, Other Respiratory: Cough, Shortness of Breath, SOB with Excertion, Wheezing Cardiovascular: negative: chest pain, palpitations, orthopnea, paroxysmal nocturnal dyspnea, edema, light headedness, other Gastrointestinal: negative: Nausea, Vomiting, Abdominal Pain, Diarrhea, Constipation, Melena, Hematochezia, Other Genitourinary: negative: Dysuria, Frequency, Incontinence, Hematuria, Retention , Other Musculoskeletal: negative: Neck Pain, Shoulder Pain, Arm Pain, Back Pain, Hand Pain, Leg Pain, Foot Pain, Other - Medications/Allergies Allergies/Adverse Reactions: Allergies Allergy/AdvReac Type Severity Reaction Status Date / Time codeine [Codeine] Allergy Verified 08/25/17 14:44 iodine Allergy Verified 08/25/17 14:44 morphine Allergy Verified 08/25/17 14:44 Penicillins Allergy Verified 08/25/17 14:44 shellfish derived Allergy Verified 08/25/17 14:44 Medications: Current Medications Acetaminophen (Tylenol) 650 mg PO Q4H PRN PRN Reason: Headache/Fever or Pain Hydrocodone Bitart/Acetaminophen ([place] 5/325) 1 tab PO Q4H PRN PRN Reason: Moderate Pain (4-6) Amlodipine Besylate (Norvasc) 10 mg PO DAILY [facility] Aspirin (Aspirin Chewable) 81 mg PO DAILY [facility] Last Admin: 09/02/17 10:16 Dose: 81 mg Atorvastatin Calcium (Lipitor) 20 mg PO HS [facility] Last Admin: 09/01/17 21:51 Dose: 20 mg Carvedilol (Coreg) 3.125 mg PO BID [facility] Last Admin: 09/02/17 10:16 Dose: 3.125 mg Dextrose/Water (Dextrose 50%) 25 gm IVP PRN PRN PRN Reason: HYPOGLYCEMIA PROTOCOL Docusate Sodium (Colace) 100 mg PO BID [facility] Last Admin: 09/02/17 10:10 Dose: Not Given Famotidine (Pepcid) 20 mg SLOW IVP 2100 [facility] Last Admin: 09/01/17 21:51 Dose: 20 mg Furosemide (Lasix) 20 mg SLOW IVP 0600,1400 [facility] Last Admin: 09/02/17 06:02 Dose: 20 mg Glucagon (Glucagon) 1 mg IM PRN PRN PRN Reason: HYPOGLYCEMIA PROTOCOL Dextrose/Water (D5w) 1,000 mls @ 0 mls/hr IV INF PRN; As Directed PRN Reason: HYPOGLYCEMIA PROTOCOL Insulin Detemir 25 units/ (Miscellaneous Medication) 0.25 mls @ 0 mls/hr SC QAM OLIVERIO Insulin Detemir 30 units/ (Miscellaneous Medication) 0.3 mls @ 0 mls/hr SC HS OLIVERIO Insulin Human Lispro (Humalog) 0 units SC .MODERATE SLIDING SC PRN; Protocol PRN Reason: MODERATE SLIDING SCALE Last Admin: 09/02/17 12:47 Dose: 8 unit Insulin Human Lispro (Humalog) 0 units SC .BEDTIME SLIDING SC PRN; Protocol PRN Reason: BEDTIME SLIDING SCALE Nitroglycerin (Nitro-Bid 2% Ointment) 0.5 inch TOP Q8HR [facility] Last Admin: 09/02/17 06:02 Dose: 0.5 inch Nitroglycerin (Nitrostat) 0.4 mg PO Q5MIN PRN PRN Reason: Chest Pain Non-Formulary Medication (Lorazepam [Lorazepam]) 1 tab PO HS [facility] Non-Formulary Medication (Ranolazine [Ranexa]) 500 mg PO BID [facility] Ondansetron HCl (Zofran) 4 mg IVP Q6H PRN PRN Reason: Nausea/Vomiting Sodium Chloride (Flush - Normal Saline) 10 ml IVF PRN PRN PRN Reason: Saline Flush
--- NOTE | 2017-09-02 14:45 | PDOC.CTH ---
<Tracey Lara - Last Filed: 09/02/17 14:46> Cardiology Progress Note - Subjective the pt seen and examined. No overnight events. No cardiac complaints - Objective Vital Signs Temp Pulse Resp BP Pulse Ox 09/02/17 04:00 98.8 F 78 20 161/73 H 93 L Weight 237 lb 09/01/17 09/02/17 09/03/17 06:59 06:59 06:59 Intake Total 1650 1320 Balance 1650 1320 - Physical Examination General/Neuro: alert & oriented x3 Neck: no JVD present Lungs: other: (diminished at bases) Heart: RRR Abdomen: soft Extremities: other: (2-3+ pitting edema) - Telemetry Telemetry Rhythm: SR 70 - Labs Result Diagrams: 09/02/17 04:54 09/02/17 04:54 Troponin/CKMB CK-MB (CK-2) 1.5 ng/mL (0-6.6) 08/31/17 10:31 Troponin I 0.135 ng/mL (< 0.028) H 08/31/17 16:06 - Assessment/Plan 1. Acute on Chronic diastolic HF - Echo in 10/2016 showed EF 50-55% with Grade II diastolic dysfunction; stable with Lasix 20mg IV BID and BBlocker, but no ISIDRA due to CKD; cont. monitor 2. mild CAD - cath in 2010 showed mild CAD; on ASA, bblocker, on Statin; stopped Plavix due to no hx of stent; cont. monitor 3. HTN - stable with Norvsc 10mg daily, Coreg 6.25mg BID; no ISIDRA due to CKD; cont. monitor 4. Anemia - Hgb is stable today; s/p 1PRBC on 08/31/17; cont. monitor 5. CKD stage 3 - stable; cont. monitor 7. DM type 2 - BS was 36 this AM; Instructed the pt to ask night snack; on ACHS BG check; managed by PCP 8. Hyperlipidmeia - On Lipitor 20mg daily 9. COPD - on NC; cont. monitor 10. Anxiety and Depression - stable at this time 11. Hypokaremia - KCl supplement was given to the pt today by PCP MAR reviewed * possible d/c Rehab/ SNF. . Review of Systems - Review of Systems Constitutional: reports: no symptoms reported EENTM: reports: no symptoms reported Respiratory: reports: no symptoms reported Cardiac (ROS): reports: no symptoms reported ABD/GI: reports: no symptoms reported : reports: no symptoms reported <Jean Carlos Herring - Last Filed: 09/03/17 10:02> Cardiology Progress Note - Objective Vital Signs Temp Pulse Resp BP Pulse Ox 09/03/17 03:08 99.5 F 79 20 158/84 H 100 09/02/17 22:25 99.6 F 77 18 172/77 H 92 L Weight 238 lb 14.4 oz 09/02/17 09/03/17 09/04/17 06:59 06:59 06:59 Intake Total 1320 1320 Balance 1320 1320 - Labs Result Diagrams: 09/02/17 04:54 09/03/17 04:22 Troponin/CKMB CK-MB (CK-2) 1.5 ng/mL (0-6.6) 08/31/17 10:31 Troponin I 0.135 ng/mL (< 0.028) H 08/31/17 16:06 - Assessment/Plan Pt. seen and eval. by me. I agree with the A/P by the NUCLEAR MEDICINE PHYSICIAN. Decreased BS, RRR.
[2017-09-02] MEDS: Carvedilol 6.25 MG TAB PO SCH (18:35)
[2017-09-02] MEDS: Ferrous Sulfate 325 MG TAB PO SCH (18:42)
[2017-09-02] MEDS ORDERED: Insulin Detemir 100 UNITS/ML 30 UNITS in Pre-Filled Syringe 1 EACH SC SCH (21:00)
[2017-09-02] MEDS ORDERED: Lorazepam 1 MG TAB PO SCH (21:00)
[2017-09-02] MEDS: Famotidine/PF 20 mg/2ml Vial SLOW IVP SCH (22:27)
[2017-09-02] MEDS: Atorvastatin Calcium 20 MG TAB PO SCH (22:27)
[2017-09-03 05:02] LABS: Anion Gap 12 mmol/L (10-20); BUN (Urea Nitrogen) 33 mg/dL (9.8-20.1); Calc. Creatinine Clearance 38 mL/min (70-130); Calcium 8.8 mg/dL (7.8-10.44); Carbon Dioxide 25 mmol/L (23-31); Chloride 112 mmol/L (98-107); Estimated GFR-MDRD 30; Glucose 97 mg/dL (83-110); Potassium 3.2 mmol/L (3.5-5.1); Sodium 146 mmol/L (136-145)
[2017-09-03] MEDS: Furosemide 20 MG/2 ML VIAL SLOW IVP SCH ×2 (05:12→14:43)
[2017-09-03] MEDS: Nitroglycerin 2% Ointment 1 INCH/1 GM Packet TOP SCH ×2 (05:12→14:43)
[2017-09-03] MEDS ORDERED: Insulin Detemir 100 UNITS/ML 25 UNITS in Pre-Filled Syringe 1 EACH SC SCH (09:00)
[2017-09-03] MEDS ORDERED: Amlodipine 10 MG TAB PO SCH (09:00)
[2017-09-03] MEDS: Carvedilol 6.25 MG TAB PO SCH (10:26)
[2017-09-03] MEDS: Ferrous Sulfate 325 MG TAB PO SCH (10:27)
[2017-09-03] MEDS: Docusate 100 MG CAP PO SCH (10:30)
[2017-09-03] MEDS: HumaLOG 300 UNITS/3 ML VIAL SC PRN (12:49)
--- NOTE | 2017-09-03 16:47 | DIS ---
PRIMARY CARE PHYSICIAN: Dr. Meri Martin. DATE OF ADMISSION: 08/31/2017 DATE OF DISCHARGE: 09/03/2017 DISCHARGE DIAGNOSES: 1. Acute hypoxemic respiratory failure. 2. Severe obesity. 3. Hypertension. 4. Diabetes mellitus type 2 with chronic kidney disease. 5. Coronary artery disease. 6. Demand ischemia. 7. Symptomatic severe anemia. 8. Acute on chronic diastolic congestive heart failure 9. Obstructive sleep apnea on CPAP. 10. Hypertension, essential. CONSULTATIONS: Cardiology, Dr. Willa Dunlap. PROCEDURES: 1. Echocardiogram on 08/31/2017 showed EF 55%-60%, restrictive filling pattern, normal LV size and L A size. 2. Mild mitral annular calcification. Tricuspid aortic valve. Mild TR, trace PI. HISTORY AND PHYSICAL: Ms. Villavicencio is an 82-year-old -[place] female with history of above who presents to the emergency department with shortness of breath. She described the sudden onset of sh ortness of breath that woke her up without any chest pain. There is left lower quadrant abdominal pa in. She used her home oximeter. It showed her to be 78% on room air. She was immediately rushed to the hospital. In the ER, was noted to have 82% oxygen saturations after nebulizer treatment and hem oglobin of 5.8. On recheck it was actually I think 6.8. She was subsequently called for admission. She has no history of GI bleeding. HOSPITAL COURSE: The patient was seen and examined. The patient was admitted by Dr. Westbrook. She was given 1 unit of packed red blood cells and Lasix intravenously. Cardiology consulted for elevated t roponins and decompensated heart failure. The patient was seen by Dr. Dunlap on the day of admission, he recommended continued IV Lasix and Dr. Herring and Dr. Mcintosh were to assume care. By 09/01/2017, patient was breathing better. She was re quiring oxygen to maintain saturations. Troponins trended down and her hemoglobin remained stable at 7.8. She has no chest pain and no other complaints. By 09/02/2017, hemoglobin remained stable. She was asking to go home, mostly maintaining on 3 liters nasal cannula. The patient adamantly wanted to go home, refused detention facility placement. The patient was on ISIDRA inhibitor, aspirin, and beta pedro. A 2D echocardiogram was done with the previous findings. By 09/03/2017, she was adamant about going home. Oxygen saturations were done that showed hypoxic on room air. She was set up for home oxygen. She was otherwise stable for discharge with outpatient oscar shields. The patient was seen and examined on the day of discharge. Discharge plan and disposition was discussed with the patient and her family face to face at bedside. DISCHARGE MEDICATIONS: 1. Amlodipine 10 mg daily. 2. Aspirin 81 mg daily. 3. Lipitor 20 mg p.o. at bedtime. 4. Budesonide/formoterol 80/4.5 two puffs inhaled b.i.d. 5. Benadryl 25 mg p.o. q.6 hours p.r.n. itching. 6. Iron sulfate 325 mg p.o. b.i.d. 7. Nitroglycerin 0.4 mg sublingual every 5 minutes p.r.n. chest pain. 8. Ativan 1 mg p.o. at bedtime p.r.n. anxiety as previously taken. 9. Ranexa 500 mg p.o. b.i.d. 10. Cholecalciferol 1000 units p.o. daily. 11. Nexium 40 mg p.o. daily. 12. Lasix 40 mg p.o. b.i.d. per home dosing. 13. Hydralazine 100 mg p.o. t.i.d. 14. Lantus 60 units subcu q.a.m. and 4 units subcu at bedtime. 15. Nebivolol 20 mg p.o. daily. FOLLOWUP APPOINTMENTS 1. Dr. Meri Martin, PCP within a week. 2. Dr. Fernando Mcintosh in 2-3 weeks. 3. Sari Cam, family nurse practitioner with Dr. Martin as a primary care provider. 4. [facility]. DISCHARGE ACTIVITY: Per cardiopulmonary limits. DISCHARGE DIET: Diabetic, heart healthy diet recommended. DISCHARGE CONDITION: Stable. DISPOSITION: Will discharge via private vehicle.
[2017-09-03] MEDS ORDERED: Famotidine 20 MG TAB PO SCH (21:00)
[2017-09-03 22:29] VITALS: TEMP 97.8
[2017-09-03 22:36] VITALS: BP 147/75
--- NOTE | 2017-09-07 09:07 | PQF ---
TAMIKA LIMON REJI DORAN [id number] [facility]-[id number] CLINICAL DOCUMENTATION CLARIFICATION FORM: POST DISCHARGE Please exercise your independent, professional judgment in responding to the clarification form. Clinical indicators are provided on the bottom of this form for your review Please check appropriate box(s): [ ] NSTEMI [x ] NSTEMI Type II due to demand ischemia [ ] Demand ischemia without NSTEMI [ ] NSTEMI ruled out [ ] Other diagnosis [ ] Unable to determine In addition, please specify: Present on Admission (POA): [ x] Yes [ ] No [ ] Unable to determine DC SUMMARY; "Demand ischemia" " recommended continued IV Lasix...she was requiring oxygen to maintain saturations. Troponins trended down and her hemoglobin remained stable at 7.8." H&P; "Non-ST elevation myocardial infarction" CARDIOLOGY; "Diastolic heart failure with BNP 944. Severe anemia may have preciptiated worsening of her heart failure." Attending PN's; "NSTEMI status; Acute" LAB; 08/31/17- Troponin; 0.135/ 0.103 CLINICAL INDICATORS - SIGNS / SYMPTOMS / LABS Elevated Troponin T or I EKG changes Echocardiogram ejection fraction 55-60% RISKS: Hypertension History of Coronary Artery Disease High Cholesterol/Lipids History of Diabetes Heart failure Acute hypoxic respiratory failure Hypokalemia Morbid obesity Sleep apnea TREATMENTS: ASA Nitroglycerin Oxygen Vasodilators Continuous cardiac monitoring Cardiac consult (This form is maintained as a part of the permanent medical record) 2014 [email or web address]. All Rights Reserved [email or web address] [phone] [email or web address]
--- NOTE | 2017-09-08 17:22 | EKG ---
Test Reason : Blood Pressure : / mmHG Vent. Rate : 076 BPM Atrial Rate : 076 BPM P-R Int : 130 ms QRS Dur : 088 ms QT Int : 356 ms P-R-T Axes : 091 015 131 degrees QTc Int : 400 ms Normal sinus rhythm Abnormal ECG Confirmed by JACEY RIOS, CARYN Boggs ([id number]), proposal editor LEONARDA ZHU ([id number]) on 09/08/2017 5:22:14 PM Referred By: Confirmed By:CARYN MARI MD
== END 2017-09-03 18:48 | disposition home health service (06) | DRG 280 ==
LOC: ERS 09:42 → 2NO 11:15
PROVIDERS: ADMIT Family Medicine; ATTEND Family Medicine
PROC: 30233N1 Transfusion of Nonautologous Red Blood Cells into Peripheral Vein, Percutaneous Approach (ICD-10-PCS; principal; 2017-08-31)
PROC: 5A09357 Assistance with Respiratory Ventilation, Less than 24 Consecutive Hours, Continuous Positive Airway Pressure (ICD-10-PCS; 2017-09-01)
PROC: 5A09357 Assistance with Respiratory Ventilation, Less than 24 Consecutive Hours, Continuous Positive Airway Pressure (ICD-10-PCS; 2017-09-02)
PROC: 5A09357 Assistance with Respiratory Ventilation, Less than 24 Consecutive Hours, Continuous Positive Airway Pressure (ICD-10-PCS; 2017-09-03)
DX: I13.0 Hypertensive heart and chronic kidney disease with heart failure and stage 1 through stage 4 chronic kidney disease, or unspecified chronic kidney disease (principal); I21.A1 Myocardial infarction type 2; J96.01 Acute respiratory failure with hypoxia; I50.33 Acute on chronic diastolic (congestive) heart failure; Z68.41 Body mass index [BMI] 40.0-44.9, adult; E66.01 Morbid (severe) obesity due to excess calories; E11.22 Type 2 diabetes mellitus with diabetic chronic kidney disease; G47.33 Obstructive sleep apnea (adult) (pediatric); I25.10 Atherosclerotic heart disease of native coronary artery without angina pectoris; D50.0 Iron deficiency anemia secondary to blood loss (chronic); N18.3 Chronic kidney disease, stage 3 (moderate); Z79.4 Long term (current) use of insulin; E78.5 Hyperlipidemia, unspecified; J44.9 Chronic obstructive pulmonary disease, unspecified; E87.6 Hypokalemia; F41.9 Anxiety disorder, unspecified; F32.9 Major depressive disorder, single episode, unspecified; J45.30 Mild persistent asthma, uncomplicated; M10.9 Gout, unspecified
CPT/HCPCS: 36415; 36416; 36430; 71045; 80048; 80053; 80061; 82274; 82550; 82553; 83036; 83540; 83550; 83880; 84484; 85025; 86850; 86900; 86901; 93005; 93306; 94760; 96374; G8978-GP-CN; G8979-GP-CL; G8987-GO-CL; G8988-GO-CK; J1815; J1940; P9016; S0028

== ENCOUNTER 2017-09-10 07:48 | Inpatient (IN) | payer MEDICARE, MEDICAID ==
--- NOTE | 2017-09-10 09:03 | RAD ---
AP VIEW OF THE CHEST: INDICATION: Shortness of breath and dyspnea. COMPARISON: Prior exam dated 08/31/17. FINDINGS: There is cardiomegaly with pulmonary vascular congestion and perihilar edema with small bilateral ple ural effusions. No pneumothorax is evident. No acute osseous abnormality is evident. IMPRESSION: Findings of congestive heart failure. POS: [facility]
[2017-09-10 09:06] LABS: Hemoglobin 8.1 g/dL (12.0-16.0); Mean Corpuscular HGB CONC 30.9 g/dL (32.0-36.0); Mean Corpuscular Hemoglobin 29.1 pg (27.0-31.0); Mean Corpuscular Volume 94.3 fl (81.0-99.0); Mean Platelet Volume 8.3 fL (7.4-10.4); Platelet Count 347 thou/uL (130-400); White Blood Cell (WBC) Count 7.4 thou/uL (4.8-10.8)
[2017-09-10 09:07] LABS: INR-International Normal Ratio 1.2; Prothrombin Time 15.2 SEC (12.0-14.7)
[2017-09-10 09:17] LABS: #Eosinphils 0.1 thou/uL (0.0-0.7); #Lymphocytes 0.9 thou/uL (1.20-3.40); #Monocytes 0.2 thou/uL (0.11-0.59); #Neutrophils 6.1 thou/uL (1.40-6.50); %Basophils 0.2 % (0.0-1.0); %Eosinophils 0.8 % (0.0-10.0); %Lymphocytes 12.8 % (21.0-51.0); %Monocytes 3.1 % (0.0-10.0); %Neutrophils 83.1 % (42.0-75.0)
[2017-09-10 09:21] LABS: Bilirubin Negative (Negative); Blood, Urine Negative (Negative); Clarity CLEAR (Clear); Glucose, Urine (Dipstick) Negative (Negative); Leukocyte Negative (Negative); Nitrite Negative (Negative); Protein, Urine (Dipstick) 300 mg/dL (Neg-Trace); Specific Gravity, Urine 1.016 (1.002-1.036)
[2017-09-10 09:23] LABS: Bacteria/HPF Rare-Few HPF (None Seen); Hyaline Casts/LPF 0-3 HYALINE CAST LPF (0-3 Hyaline); Pathc Cast-AUWi Flag 0.13 (0-2.49); RBC/HPF 0-3 HPF (0-3); Squamous Epithelial 0-3 HPF (0-3); WBC/HPF 0-3 HPF (0-3)
[2017-09-10 09:25] LABS: ALT (SGPT) 12 U/L (8-55); AST (SGOT) 12 U/L (5-34); Albumin 3.6 g/dL (3.4-4.8); Alkaline Phosphatase 94 U/L (40-150); Anion Gap 14 mmol/L (10-20); BUN (Urea Nitrogen) 31 mg/dL (9.8-20.1); Calc. Creatinine Clearance 0 mL/min (70-130); Carbon Dioxide 23 mmol/L (23-31); Chloride 109 mmol/L (98-107); Estimated GFR-MDRD 27; Globulin 3.2 g/dL (2.4-3.5); Glucose 143 mg/dL (83-110); Magnesium 1.8 mg/dL (1.6-2.6); Potassium 3.3 mmol/L (3.5-5.1); Protein, Total 6.8 g/dL (6.0-8.3); Sodium 143 mmol/L (136-145)
[2017-09-10 09:28] LABS: CKMB 4.1 ng/mL (0-6.6); Troponin I 0.013 ng/mL (< 0.028)
[2017-09-10 09:29] LABS: Burr Cells SLIGHT = 2-5 cells (100X) (0-1/hpf); MDiff Complete? YES; PLT Morphology Comment Appears Adequate; Polychromasia SLIGHT = 2-3 cells (100X) (0-2/hpf)
[2017-09-10] MEDS ORDERED: methylPREDNISolone Sod Succ/PF 125 MG/2 ML VIAL ONE (09:58)
[2017-09-10] MEDS ORDERED: Furosemide 40 MG/4 ML VIAL ONE (10:41)
[2017-09-10] MEDS ORDERED: Nitroglycerin 2% Ointment 1 INCH/1 GM Packet ONE (10:41)
[2017-09-10 10:45] LABS: Actual Bicarbonate (HCO3a) 26.2 mEq/L (22-26); Base Excess (BEa) 0.5 mEq/L (0 (+/-) 2.5); CO2 Tension 47.8 mmHg (35.0-45.0); Hematocrit-ABG 26.2 % (36.0-47.0); Hemoglobin (Hb) 8.1 g/dL (12.0-16.0); O2 Tension (PaO2) 62.1 mmHg (80.0-100.0); pH, Arterial 7.36 (7.35-7.45)
[2017-09-10 10:46] LABS: Analyzer IN Cardio ER; Calcium, Ionized 1.1 mmol/L (1.12-1.30); Puncture Site RRA
[2017-09-10] MEDS ORDERED: Diabetic Tussin 200 MG/10 ML UDCUP PO PRN (11:21)
[2017-09-10] MEDS ORDERED: Ondansetron HCl/PF 4 MG/2 ML Vial IVP PRN (11:21)
[2017-09-10] MEDS ORDERED: Chloraseptic Spray 180 ml Bottle PO PRN (11:21)
[2017-09-10] MEDS ORDERED: Artificial Tears 18 DROP/0.9 ML EA EYE PRN (11:21)
[2017-09-10] MEDS ORDERED: Nitroglycerin 0.4 MG TAB (25 Tab Bottle) SL PRN (11:21)
[2017-09-10] MEDS ORDERED: Eucerin (Mineral Oil/Petrolatum,White) 30 gm Jar TOP PRN (11:21)
[2017-09-10] MEDS ORDERED: hydrALAZINE 20 MG/ML VIAL SLOW IVP PRN (11:21)
[2017-09-10] MEDS ORDERED: Zolpidem Tartrate 5 MG TAB PO PRN (11:21)
[2017-09-10] MEDS ORDERED: Milk Of Magnesia 30 ML UDCUP PO PRN (11:21)
[2017-09-10] MEDS ORDERED: Loratadine 10 MG TAB PO PRN (11:21)
[2017-09-10] MEDS ORDERED: Ondansetron ODT 4 MG TAB PO PRN (11:21)
[2017-09-10] MEDS ORDERED: Senokot 8.6 MG TAB PO PRN (11:21)
[2017-09-10] MEDS ORDERED: Dextrose 5% in Water 1,000 ML IV PRN (11:21)
[2017-09-10] MEDS ORDERED: Sodium Chloride 0.65% Nasal 44 ML BOT EA NARE PRN (11:21)
[2017-09-10] MEDS ORDERED: HumaLOG 300 UNITS/3 ML VIAL SC PRN (11:21)
[2017-09-10] MEDS ORDERED: Acetaminophen 325 MG TAB PO PRN (11:21)
[2017-09-10] MEDS ORDERED: Mag-Al 1200 mg/1200 mg/30 ML UDCUP PO PRN (11:21)
[2017-09-10] MEDS ORDERED: Dextrose 50% Abboject 50 ML SYRINGE SLOW IVP PRN (11:21)
[2017-09-10] MEDS ORDERED: Loperamide HCl 2 MG CAP PO PRN (11:21)
[2017-09-10 12:24] LABS: Troponin I 0.028 ng/mL (< 0.028)
[2017-09-10 14:02] VITALS: BMI 26.9
[2017-09-10] MEDS ORDERED: Potassium Chloride 20 MEQ TAB PO SCH (14:15)
[2017-09-10] MEDS: Furosemide 40 MG/4 ML VIAL SLOW IVP SCH (14:39)
[2017-09-10] MEDS: Nitroglycerin 2% Ointment 1 INCH/1 GM Packet TOP SCH ×2 (14:40→21:33)
[2017-09-10] MEDS: hydrALAZINE 25 MG TAB PO SCH ×2 (14:40→21:32)
--- NOTE | 2017-09-10 15:33 | HP ---
PRIMARY CARE PHYSICIAN: Dr. Sari Cam, Family nurse practitioner. DATE OF ADMISSION: 09/10/2017 REASON FOR ADMISSION: Acute on chronic systolic heart failure/COPD exacerbation. HISTORY OF PRESENT ILLNESS: This is an 82-year-old -[place] female, who has multiple medical problems including obstructive sleep apnea on CPAP, CKD stage 3, morbid obesity, physical deconditioning, COPD, and chronic diastolic heart failure. Patient does have lately multiple admissions in our hospital. She was admitted on 07/14/2017, then 08/25/2017, then 08/31/2017, and again this is fourth admission on 09/10/2017. Even before that the patient had several admissions, but admission frequency is gradually getting worse. She was discharged most recently by Dr. Raines on 09/03/2017. At that time, she was treated for acute on chronic diastolic heart failure. The patient does have chronic hypoxic respiratory failure and she is using home oxygen. At this time, she came to the emergency room with the same complaints, she was having increasing shortness of breath. Patient was not able to talk in full sentences. She did not have any fever or chills. The patient was given DuoNeb therapy, but still she was not feeling better and that is why she required emergency room visit and emergency room physician decided to keep this patient in the hospital. This patient is pretty much bed bound. She is only able to ambulate with a walker, but lately even after getting out of bed to stand bedside commode, she gets out of breath and she cannot manage. She gets hypoxic and she gets very respiratory distress. This patient lives with her son and patient has 24-hour caregiver and the patient's daughter is surrogate decision maker. Today in the emergency room when I saw at that time, patient was in respiratory distress. She was using her abdominal muscles for respiration. She was maintaining oxygen with 2.5 liter oxygen after the emergency room treatment. We decided to admit this patient in the hospital for further evaluation and treatment. CURRENT HOME MEDICATIONS: Amlodipine 10 mg p.o. daily, aspirin 81 mg p.o. daily , Lipitor 20 mg p.o. daily, Symbicort 2 puff inhalation b.i.d., vitamin D3 at 1000 units p.o. daily, Nexium 40 mg p.o. daily, ferrous sulfate 325 mg p.o. daily, Lasix 40 mg p.o. b.i.d., hydralazine 100 mg p.o. t.i.d., Lantus insulin 60 units in morning and 40 units at bedtime, lorazepam 1 mg p.o. at bedtime, Bystolic 20 mg p.o. daily, nitroglycerin p.r.n. basis, and Ranexa 500 mg p.o. b.i.d. ALLERGIES: CODEINE, IODINE, MORPHINE, PENICILLIN, and SHELLFISH. REVIEW OF SYSTEMS: The following complete review of systems was negative, unless otherwise mentioned in the HPI or below: Constitutional: Weight loss or gain, ability to conduct usual activities. Skin : Rash, itching. Eyes: Double vision, pain. ENT/Mouth: Nose bleeding, neck stiffness, pain, tenderness. Cardiovascular: Palpitations, dyspnea on exertion, orthopnea. Respiratory: Shortness of breath, wheezing, cough, hemoptysis, fever or night sweats. Gastrointestinal: Poor appetite, abdominal pain, heartburn, nausea, vomiting, constipation, or diarrhea. Genitourinary: Urgency, frequency, dysuria, nocturia. Musculoskeletal: Pain, swelling. Neurologic/Psychiatric: Anxiety, depression. Allergy/Immunologic: Skin rash, bleeding tendency. Please see my HPI for pertinent positives and negatives. All other review of systems reviewed and negative except as mentioned in the HPI. PAST MEDICAL HISTORY: Morbid obesity, obstructive sleep apnea on CPAP, COPD, chronic diastolic heart failure, chronic respiratory failure, CKD stage 3, diabetes type 2, hypertension, gout, dyslipidemia, and physical deconditioning. PAST SURGICAL HISTORY: Tubal ligation, cholecystectomy, and hysterectomy. PAST PSYCHIATRIC HISTORY: Anxiety and depression. CODE STATUS: Patient is FULL CODE, discussed with the patient and other family member. FAMILY HISTORY: Multiple family members has heart problem. The patient's mother also had congestive heart failure. Father also had heart disease. SOCIAL HISTORY: Patient liver as home with son, she has 24 hour home care consultant at home, no history of tobacco, alcohol or drug abuse. she ambulates with walker, she has cpap and home oxygen. PHYSICAL EXAMINATION: VITAL SIGNS: On arrival, blood pressure 169/86, pulse 73, respiratory rate 24, temperature 97.5, saturation 95% on 2.5 liters oxygen, weight 112.49 kilograms. GENERAL: Patient is currently alert, mild respiratory distress. HEAD: Normocephalic, atraumatic. EYES: Pupils round, reactive to light. Extraocular muscles intact. ENT: Oropharynx within normal limits. Moist mucous membranes. No oral lesions. No pharyngeal erythema, no exudate. NECK: Supple, elevated JVD, no thyromegaly, no carotid bruits. LUNGS: Bilateral end expiratory wheezing heard. Bilateral scattered rales, especially at base. Tachypneic, abdominal breathing. CARDIAC: S1 and S2 regular. Systolic murmur present at parasternal, no gallop , no rub. ABDOMEN: Soft. Morbid obesity limiting examination. No peritoneal sign, no guarding, no rigidity, no rebound. BACK: Unremarkable, no CVA tenderness. EXTREMITIES: Upper extremity passive movement of all joints is normal. Lower extremities: Bilateral lower extremity pitting edema noted. Good distal pulsation. SKIN: No skin rash. HEMATOLOGICAL: No lymphadenopathy. PSYCHIATRIC: Normal affect. SIGNIFICANT LABORATORY DATA: EKG showing sinus rhythm. Chest x-ray showing CHF finding based on my review. CBC: WBC 7.4, hemoglobin 8.1, platelets 347. INR 1.2. ABG: pH 7.36, CO2 of 47.85. O2 of 62.1, bicarbonate 26.2. BMP: Sodium 143, potassium 3.3, chloride 109, carbon dioxide 23, BUN 31, creatinine 2.14, glucose 143, calcium 9.0, magnesium 1.8. LFT: AST 12, ALT 12, alkaline phosphatase 94, albumin 3.6. CK-MB 4.1, troponin I 0.013, BNP 743.0. Second set of cardiac enzymes 0.028. Urinalysis unremarkable. Chest x-ray showing CHF finding. ASSESSMENT AND PLAN: 1. Acute respiratory distress due to acute on chronic diastolic congestive heart failure. This patient has echocardiography done in 08/2017 and her EF is 55% to 60%. Currently, patient has elevated BNP, bilateral lower extremity edema, bibasilar rales, increasing shortness of breath, all consistent with congestive heart failure exacerbation. We will treat with Lasix 40 mg IV b.i.d , fluid restriction 1500 mL per day, nitroglycerin patch 0.5 inch q.8 hourly for better blood pressure control, Bystolic 20 mg p.o. daily. 2. Chronic obstructive pulmonary disease exacerbation. DuoNeb q.6 hourly, Dulera two puffs inhalation b.i.d., Solu-Medrol 20 mg IV q.8 hourly, and Mucinex 600 mg twice daily. 3. Hypertension. We will continue amlodipine 10 mg p.o. daily, hydralazine 100 mg t.i.d., Bystolic 20 mg p.o. daily. We will verify the patient's home medication and then resume. 4. Morbid obesity. Dietary education given, weight loss education given. 5. Obstructive sleep apnea on CPAP. We will continue CPAP machine while in hospital. 6. Coronary artery disease. Continue Ranexa 500 mg p.o. b.i.d. along with aspirin 81 mg p.o. daily and statin therapy. 7. Chronic anemia. Continue ferrous sulfate 325 mg p.o. daily. 8. Gastroesophageal reflux disease. Continue Protonix 40 mg p.o. daily. 9. Dyslipidemia. Continue Lipitor 20 mg p.o. daily. 10. Diabetes type 2. Continue Humalog insulin as per sliding scale protocol. Diabetic diet and continue Lantus insulin as per home dosage. 11. Physical deconditioning. Patient will need PT, OT, and case management consultation for placement. Palliative care will be consulted during this admission. Given recurrent admission to establish followup care. 12. CODE STATUS: At this point, the patient wanted to be FULL CODE. Patient' s daughter is surrogate decision maker. 13. Gastrointestinal prophylaxis, Protonix 40 mg p.o. daily. 14. Disposition plan based on clinical course. We are expecting patient's stay in the hospital more than 2 midnights. Plan of care discussed with the patient in detail. ADDENDUM TO PROBLEM LIST: 1. Hypokalemia. I will give her potassium chloride 20 mEq p.o. one time dose. 2. Chronic kidney disease, stage 4. We will monitor renal function and will replace electrolytes as needed basis. 3. Obstructive sleep apnea. We will continue her CPAP machine while in the hospital. 4. Chronic respiratory failure. The patient will continue her oxygen 2 to 3 liters while in hospital. 5. Anemia, normocytic and normochromic. We will continue ferrous sulfate 325 mg p.o. b.i.d. 6. Deep venous thrombosis prophylaxis, heparin 5000 units subcutaneously twice daily. 7. Gastrointestinal prophylaxis, Protonix 40 mg p.o. daily. MTDD
[2017-09-10 15:49] LABS: Troponin I Less than 0.010 ng/mL (< 0.028)
[2017-09-10] MEDS: HumaLOG 300 UNITS/3 ML VIAL SC PRN (17:36)
[2017-09-10] MEDS: Ferrous Sulfate 325 MG TAB PO SCH (17:37)
[2017-09-10] MEDS: Mometasone/Formoterol 120 PUFF INHALER INH SCH (19:58)
[2017-09-10] MEDS ORDERED: Non-Formulary Item 1 EACH (Insulin Glargine,Hum.Rec.Anlog [Lantus Solostar] 40 UNIT) SC SCH (21:00)
[2017-09-10] MEDS: Insulin Detemir 100 UNITS/ML 40 UNITS in Pre-Filled Syringe SC SCH (21:32)
[2017-09-10] MEDS: Heparin 5,000 UNITS/ML VIAL SC SCH (21:32)
[2017-09-10] MEDS: Lorazepam 1 MG TAB PO PRN (21:33)
[2017-09-11 05:31] LABS: #Lymphocytes 0.4 thou/uL (1.20-3.40); #Monocytes 0.1 thou/uL (0.11-0.59); #Neutrophils 8.6 thou/uL (1.40-6.50); %Eosinophils 0.1 % (0.0-10.0); %Lymphocytes 4.7 % (21.0-51.0); %Monocytes 1.6 % (0.0-10.0); %Neutrophils 93.6 % (42.0-75.0); Hemoglobin 7.9 g/dL (12.0-16.0); Mean Corpuscular HGB CONC 31.5 g/dL (32.0-36.0); Mean Corpuscular Hemoglobin 29.7 pg (27.0-31.0); Mean Corpuscular Volume 94.1 fl (81.0-99.0); Mean Platelet Volume 8.9 fL (7.4-10.4); Platelet Count 385 thou/uL (130-400); RBC Distribution Width 17.9 % (11.5-14.5); Red Blood Cell (RBC) Count 2.66 mill/uL (4.20-5.40); White Blood Cell (WBC) Count 9.2 thou/uL (4.8-10.8)
[2017-09-11 05:52] LABS: Albumin 3.5 g/dL (3.4-4.8); Anion Gap 16 mmol/L (10-20); BUN (Urea Nitrogen) 39 mg/dL (9.8-20.1); Calc. Creatinine Clearance 33 mL/min (70-130); Calcium 9.4 mg/dL (7.8-10.44); Carbon Dioxide 20 mmol/L (23-31); Chloride 110 mmol/L (98-107); Estimated GFR-MDRD 24; Glucose 234 mg/dL (83-110); Phosphorus 3.9 mg/dL (2.3-4.7); Potassium 3.5 mmol/L (3.5-5.1); Sodium 142 mmol/L (136-145); Uric Acid 12.2 mg/dL (2.6-6.0)
[2017-09-11] MEDS: Furosemide 40 MG/4 ML VIAL SLOW IVP SCH ×2 (05:58→14:24)
[2017-09-11] MEDS: Nitroglycerin 2% Ointment 1 INCH/1 GM Packet TOP SCH ×3 (05:59→21:40)
[2017-09-11] MEDS: Mometasone/Formoterol 120 PUFF INHALER INH SCH ×2 (07:30→19:12)
[2017-09-11] MEDS: Amlodipine 10 MG TAB PO SCH (08:47)
[2017-09-11] MEDS: Nebivolol HCl 5 MG TAB PO SCH (08:48)
[2017-09-11] MEDS: Ferrous Sulfate 325 MG TAB PO SCH ×2 (08:48→17:16)
[2017-09-11] MEDS: Aspirin 81 mg Enteric Coated Tablet PO SCH (08:48)
[2017-09-11] MEDS: hydrALAZINE 25 MG TAB PO SCH ×3 (08:48→21:45)
[2017-09-11] MEDS: HumaLOG 300 UNITS/3 ML VIAL SC PRN ×2 (08:52→12:25)
[2017-09-11] MEDS: Heparin 5,000 UNITS/ML VIAL SC SCH ×2 (08:55→21:44)
[2017-09-11] MEDS ORDERED: Atorvastatin Calcium 20 MG TAB PO SCH ×2 (09:00→21:00)
[2017-09-11] MEDS ORDERED: INSULIN GLARGINE HUM REC ANLOG 60 UNIT SQ SCH (09:00)
[2017-09-11] MEDS: PRE FILLED SC SCH (09:05)
[2017-09-11] MEDS: INSULIN DETEMIR SC SCH (09:05)
--- NOTE | 2017-09-11 11:25 | PDOC.PN ---
- Subjective Encounter Start Date: 09/11/17 Encounter Start Time: 09:30 -: old records requested/rev pt is doing well today, less dyspnea, family bedside - Objective Resuscitation Status: Resuscitation Status FULL:Full Resuscitation MAR Reviewed: Yes Vital Signs & Weight: Vital Signs (12 hours) Temp Pulse Resp BP BP BP Pulse Ox 09/11/17 11:08 76 16 94 L 09/11/17 09:18 155/83 H 09/11/17 08:48 83 09/11/17 08:47 83 187/78 H 09/11/17 07:32 98.2 F 83 20 187/78 H 93 L 09/11/17 04:00 99.1 F 93 21 H 151/66 H 95 09/11/17 02:45 98 09/11/17 00:32 82 18 98 09/11/17 00:00 99.1 F 82 22 H 155/72 H 100 Weight Weight 246 lb 4.8 oz I&O: 09/10/17 09/11/17 09/12/17 06:59 06:59 06:59 Intake Total 240 Balance 240 Result Diagrams: 09/11/17 04:54 09/11/17 04:54 Additional Labs: Accuchecks 09/11/17 09/10/17 06:07 16:52 POC Glucose 246 H 205 H EKG Reviewed by me: Yes Phys Exam - Physical Examination Constitutional: NAD HEENT: PERRLA, moist MMs, sclera anicteric Neck: no JVD, supple rales at base, reduced air entry, Cardiovascular: RRR, no significant murmur, no rub Gastrointestinal: soft, non-tender, no distention, positive bowel sounds Musculoskeletal: pulses present, edema present Neurological: non-focal, normal sensation Psychiatric: normal affect, A&O x 3 Skin: no rash, normal turgor Dx/Plan (1) Acute on chronic diastolic (congestive) heart failure Code(s): I50.33 - ACUTE ON CHRONIC DIASTOLIC (CONGESTIVE) HEART FAILURE Status : Acute (2) Acute on chronic respiratory failure with hypoxia and hypercapnia Code(s): J96.21 - ACUTE AND CHRONIC RESPIRATORY FAILURE WITH HYPOXIA; J96.22 - ACUTE AND CHRONIC RESPIRATORY FAILURE WITH HYPERCAPNIA Status: Acute (3) COPD exacerbation Code(s): J44.1 - CHRONIC OBSTRUCTIVE PULMONARY DISEASE W (ACUTE) EXACERBATION Status: Acute (4) Anemia, normocytic normochromic Code(s): D64.9 - ANEMIA, UNSPECIFIED Status: Chronic Comment: (5) CAD (coronary artery disease) Code(s): I25.10 - ATHSCL HEART DISEASE OF [place] CORONARY ARTERY W/O ANG PCTRS Status: Chronic Qualifiers: Comment: (6) CKD (chronic kidney disease) stage 4, GFR 15-29 ml/min Code(s): N18.4 - CHRONIC KIDNEY DISEASE, STAGE 4 (SEVERE) Status: Chronic (7) Diabetes mellitus, type 2 Status: Chronic Comment: (8) Dyslipidemia Code(s): E78.5 - HYPERLIPIDEMIA, UNSPECIFIED Status: Chronic (9) GERD (gastroesophageal reflux disease) Code(s): K21.9 - GASTRO-ESOPHAGEAL REFLUX DISEASE WITHOUT ESOPHAGITIS Status: Chronic (10) Gout Code(s): M10.9 - GOUT, UNSPECIFIED Status: Chronic (11) Hypertension Code(s): I10 - ESSENTIAL (PRIMARY) HYPERTENSION Status: Chronic Qualifiers: Comment: (12) Morbid obesity with BMI of 45.0-49.9, adult Code(s): E66.01 - MORBID (SEVERE) OBESITY DUE TO EXCESS CALORIES; Z68.42 - BODY MASS INDEX (BMI) 45.0-49.9, ADULT Status: Chronic (13) TIANA on CPAP Code(s): G47.33 - OBSTRUCTIVE SLEEP APNEA (ADULT) (PEDIATRIC); Z99.89 - DEPENDENCE ON OTHER ENABLING MACHINES AND DEVICES Status: Chronic Comment: on CPAP (14) Physical deconditioning Code(s): R53.81 - OTHER MALAISE Status: Chronic - Plan cont current plan of care, plan discussed w/ family, PT/OT, school social worker, respiratory therapy * continue lasix * monitor renal function * continue PT/OT * family does not want SNU or rehab placement * medication reviewed as below * symptomatic treatment. * repeat labs tomorrow * stable and improving Review of Systems - Review of Systems Constitutional: negative: fever, chills, sweats, weakness, malaise, other ENT: negative: Ear Pain, Ear Discharge, Nose Pain, Nose Discharge, Nose Congestion, Mouth Pain, Mouth Swelling, Throat Pain, Throat Swelling, Other Respiratory: Cough, Shortness of Breath, SOB with Excertion. negative: Dry, Hemoptysis, Pleuritic Pain, Sputum, Wheezing Cardiovascular: negative: chest pain, palpitations, orthopnea, paroxysmal nocturnal dyspnea, edema, light headedness, other Gastrointestinal: negative: Nausea, Vomiting, Abdominal Pain, Diarrhea, Constipation, Melena, Hematochezia, Other Genitourinary: negative: Dysuria, Frequency, Incontinence, Hematuria, Retention , Other Musculoskeletal: negative: Neck Pain, Shoulder Pain, Arm Pain, Back Pain, Hand Pain, Leg Pain, Foot Pain, Other Skin: negative: Rash, Lesions, Apollo, Bruising, Other - Medications/Allergies Allergies/Adverse Reactions: Allergies Allergy/AdvReac Type Severity Reaction Status Date / Time codeine [Codeine] Allergy Verified 08/25/17 14:44 iodine Allergy Verified 08/25/17 14:44 morphine Allergy Verified 08/25/17 14:44 Penicillins Allergy Verified 08/25/17 14:44 shellfish derived Allergy Verified 08/25/17 14:44 Medications: Current Medications Acetaminophen (Tylenol) 650 mg PO Q4H PRN PRN Reason: Headache/Fever or Pain Al Hydroxide/Mg Hydroxide (Maalox) 30 ml PO Q6H PRN PRN Reason: Heartburn or Indigestion Albuterol/Ipratropium (Duoneb) 3 ml NEB [id number] [facility] Last Admin: 09/11/17 11:08 Dose: 3 ml Amlodipine Besylate (Norvasc) 10 mg PO DAILY [facility] Last Admin: 09/11/17 08:47 Dose: 10 mg Artificial Tears (Tears Naturale) 0 drop EA EYE PRN PRN PRN Reason: Dry Eyes Aspirin (Ecotrin) 81 mg PO DAILY [facility] Last Admin: 09/11/17 08:48 Dose: 81 mg Atorvastatin Calcium (Lipitor) 20 mg PO [facility] Cholecalciferol (Vitamin D3) 1,000 units PO DAILY [facility] Last Admin: 09/11/17 08:48 Dose: 1,000 units Dextrose/Water (Dextrose 50%) 25 gm SLOW IVP PRN PRN PRN Reason: Hypoglycemia Ferrous Sulfate (Feosol) 325 mg PO BID-[facility] Last Admin: 09/11/17 08:48 Dose: 325 mg Furosemide (Lasix) 40 mg SLOW IVP 0600,1400 [facility] Last Admin: 09/11/17 05:58 Dose: 40 mg Glucagon (Glucagon) 1 mg IM PRN PRN PRN Reason: Hypoglycemia Guaifenesin (Robitussin Sf) 200 mg PO Q4H PRN PRN Reason: Cough Heparin Sodium (Porcine) (Heparin) 5,000 units SC BID [facility] Last Admin: 09/11/17 08:55 Dose: 5,000 units Hydralazine HCl (Apresoline) 10 mg SLOW IVP Q4H PRN PRN Reason: Systolic BP > 180 Hydralazine HCl (Apresoline) 100 mg PO TID [facility] Last Admin: 09/11/17 08:48 Dose: 100 mg Dextrose/Water (D5w) 1,000 mls @ 0 mls/hr IV .Q0M PRN; As Directed PRN Reason: Hypoglycemia Insulin Detemir 40 units/ (Miscellaneous Medication) 0.4 mls @ 0 mls/hr SC [facility] Last Admin: 09/10/17 21:32 Dose: 0.4 mls Insulin Detemir 60 units/ (Miscellaneous Medication) 0.6 mls @ 0 mls/hr SC [facility] Last Admin: 09/11/17 09:05 Dose: 0.6 mls Insulin Human Lispro (Humalog) 0 units SC .MODERATE SLIDING SC PRN PRN Reason: Moderate [place] Scale Last Admin: 09/11/17 08:52 Dose: 4 unit Insulin Human Lispro (Humalog) 0 units SC .BEDTIME SLIDING SC PRN PRN Reason: Bedtime Correctional Scale Last Admin: 09/10/17 21:33 Dose: 2 unit Loperamide HCl (Imodium) 2 mg PO PRN PRN PRN Reason: Diarrhea/Loose Stools Loratadine (Claritin) 10 mg PO DAILYPRN PRN PRN Reason: Sinus Symptoms Lorazepam (Ativan) 2 mg PO HSPRN PRN PRN Reason: Anxiety Last Admin: 09/10/17 21:33 Dose: 2 mg Magnesium Hydroxide (Milk Of Magnesium) 30 ml PO DAILYPRN PRN PRN Reason: Constipation Methylprednisolone Sodium Succinate (Solu-Medrol) 20 mg IVP Q8HR [facility] Last Admin: 09/11/17 05:58 Dose: 20 mg Mineral Oil/White Petrolatum (Eucerin Cream) 0 gm TOP BIDPRN PRN PRN Reason: Dry Skin Mometasone Furoate/Formoterol Fumar (Dulera 200 Mcg/5 Mcg Inhaler) 2 puff INH BID-RT [facility] Last Admin: 09/11/17 07:30 Dose: Not Given Nebivolol (Bystolic) 20 mg PO DAILY [facility] Last Admin: 09/11/17 08:48 Dose: 20 mg Nitroglycerin (Nitrostat) 0.4 mg SL Q5MIN PRN PRN Reason: Chest Pain Nitroglycerin (Nitro-Bid 2% Ointment) 0.5 inch TOP Q8HR [facility] Last Admin: 09/11/17 05:59 Dose: 0.5 inch Ondansetron HCl (Zofran Odt) 4 mg PO Q6H PRN PRN Reason: Nausea/Vomiting Ondansetron HCl (Zofran) 4 mg IVP Q6H PRN PRN Reason: Nausea/Vomiting Pantoprazole Sodium (Protonix) 40 mg PO DAILY [facility] Last Admin: 09/11/17 08:48 Dose: 40 mg Phenol (Chloraseptic [place] 180 Ml Bot) 0 ml PO PRN PRN PRN Reason: Sore Throat Ranolazine (Ranexa) 500 mg PO BID [facility] Last Admin: 09/11/17 08:48 Dose: 500 mg Senna (Senokot) 2 tab PO HSPRN PRN PRN Reason: Constipation Sodium Chloride ([place] Nasal [place] 0.65%) 0 ml EA NARE QIDPRN PRN PRN Reason: Nasal Congestion Zolpidem Tartrate (Ambien) 5 mg PO HSPRN PRN PRN Reason: Insomnia
[2017-09-11] MEDS: Lorazepam 1 MG TAB PO PRN (21:43)
[2017-09-11] MEDS: Insulin Detemir 100 UNITS/ML 40 UNITS in Pre-Filled Syringe SC SCH (21:45)
[2017-09-12 05:52] LABS: ALT (SGPT) 12 U/L (8-55); AST (SGOT) 14 U/L (5-34); Albumin 3.6 g/dL (3.4-4.8); Alkaline Phosphatase 85 U/L (40-150); Anion Gap 15 mmol/L (10-20); BUN (Urea Nitrogen) 49 mg/dL (9.8-20.1); Bilirubin, Total 0.8 mg/dL (0.2-1.2); Calc. Creatinine Clearance 34 mL/min (70-130); Calcium 9.6 mg/dL (7.8-10.44); Carbon Dioxide 24 mmol/L (23-31); Chloride 110 mmol/L (98-107); Estimated GFR-MDRD 24; Globulin 3.2 g/dL (2.4-3.5); Glucose 108 mg/dL (83-110); Potassium 3.6 mmol/L (3.5-5.1); Protein, Total 6.8 g/dL (6.0-8.3); Sodium 145 mmol/L (136-145)
[2017-09-12] MEDS: Furosemide 40 MG/4 ML VIAL SLOW IVP SCH (05:56)
[2017-09-12] MEDS: Nitroglycerin 2% Ointment 1 INCH/1 GM Packet TOP SCH (05:56)
[2017-09-12 05:58] LABS: Hemoglobin 8.2 g/dL (12.0-16.0); Mean Corpuscular HGB CONC 31.6 g/dL (32.0-36.0); Mean Corpuscular Hemoglobin 29.9 pg (27.0-31.0); Mean Corpuscular Volume 94.7 fl (81.0-99.0); Mean Platelet Volume 8.2 fL (7.4-10.4); Platelet Count 367 thou/uL (130-400); RBC Distribution Width 17.9 % (11.5-14.5); Red Blood Cell (RBC) Count 2.76 mill/uL (4.20-5.40); White Blood Cell (WBC) Count 9.5 thou/uL (4.8-10.8)
[2017-09-12 05:59] LABS: Lymphocytes 3 % (21-51); MDiff Complete? YES; Monocytes 2 % (0-10); Neutrophil 95 % (42-75); Polychromasia SLIGHT = 2-3 cells (100X) (0-2/hpf)
[2017-09-12] MEDS: Mometasone/Formoterol 120 PUFF INHALER INH SCH (07:24)
[2017-09-12] MEDS: PRE FILLED SC SCH (09:03)
[2017-09-12] MEDS: INSULIN DETEMIR SC SCH (09:03)
[2017-09-12] MEDS: Heparin 5,000 UNITS/ML VIAL SC SCH (09:04)
[2017-09-12] MEDS: Amlodipine 10 MG TAB PO SCH (09:08)
[2017-09-12] MEDS: Nebivolol HCl 5 MG TAB PO SCH (09:08)
[2017-09-12] MEDS: hydrALAZINE 25 MG TAB PO SCH (09:08)
[2017-09-12] MEDS: Aspirin 81 mg Enteric Coated Tablet PO SCH (09:08)
[2017-09-12] MEDS: Ferrous Sulfate 325 MG TAB PO SCH (09:08)
--- NOTE | 2017-09-12 10:31 | DIS ---
DATE OF ADMISSION: 09/10/2017 DATE OF DISCHARGE: 09/12/2017 PRIMARY CARE PHYSICIAN: Sari Cam, Family Nurse Practitioner. DISCHARGE DISPOSITION: Home with family support. PRIMARY DISCHARGE DIAGNOSES: 1. Acute on chronic diastolic congestive heart failure. 2. Acute on chronic respiratory failure with hypoxia and hypercapnia. 3. Chronic obstructive pulmonary disease exacerbation. SECONDARY DISCHARGE DIAGNOSES: Anemia, normocytic-normochromic; coronary artery disease; chronic kid bryce disease, stage 4; diabetes, type 2; dyslipidemia; gastroesophageal reflux disease; gout; morbid o besity with BMI 45; hypertension; obstructive sleep apnea, on CPAP; chronic physical deconditioning. PRIMARY PROCEDURE/OPERATION: None. RADIOLOGICAL INVESTIGATION: Chest x-ray on admission showed congestive heart failure. SIGNIFICANT LABORATORY DATA: WBC 9.5, hemoglobin 8.2, platelets 367, INR 1.2, sodium 145, potassium 3.6, BUN 49, creatinine 2.32, calcium 9.6. LFTs normal. Urinalysis normal. DISCHARGE MEDICATIONS: Albuterol 2 puffs q.6 hourly p.r.n., amlodipine 10 mg p.o. daily, aspirin 81 mg p.o. daily, Lipitor 20 mg p.o. daily, Symbicort 2 puffs inhalation b.i.d., vitamin D3 1000 units p .o. daily, Benadryl 25 mg q.6 hourly p.r.n., Nexium 40 mg p.o. daily, ferrous sulfate 325 mg p.o. b.i .d., Lasix 40 mg p.o. b.i.d., hydralazine 100 mg p.o. t.i.d., Lantus insulin 60 units in the morning and 40 units at bedtime, Ativan 1 mg p.o. t.i.d. p.r.n., Bystolic 20 mg p.o. daily, nitroglycerin 0.4 mg sublingual p.r.n. as directed, Protonix 40 mg p.o. daily for 3 days and then 20 mg p.o. daily for 3 days and then 10 mg p.o. daily for three days and then stop, Ranexa 500 mg p.o. b.i.d. CONTRAINDICATIONS: None. CODE STATUS: FULL CODE. INPATIENT CONSULTANTS: None. ALLERGIES: CODEINE, IODINE, MORPHINE, PENICILLIN, SHELLFISH. DISCHARGE PLAN: Post hospital, the patient will follow up with primary care physician as well as [facility]. HOSPITAL COURSE: An 82-year-old female, who has multiple medical problems like this. Please see my H and P for further details. This patient was admitted from home, because she was having increasing shortness of breath. In the emergency room, she was appearing in mild respiratory distress. She had hypoxia as well as hypercapnia. She had elevated BNP. We admitted to telemetry floor and we treate d her while in hospital with COPD flareup and congestive heart failure exacerbation. We gave her IV Lasix. We gave her IV steroid and respiratory therapy. With this therapy, the patient's condition s ignificantly improved in 48 hours and she was dramatically improved to go home. On discharge, we are prescribing tapering doses of prednisone and ProAir inhaler. She will continue her own dose of Lasix. The rest of medication will be continued as per previous. This patient and f amily member does not want to go for any kind of placement. They do have home health as well as 24-h our caregiver. At this point, the patient is medically stable for discharge and up to her baseline. The patient is seen and examined at bedside today. Plan of care discussed with the family member. PHYSICAL EXAMINATION: VITAL SIGNS: Currently, temperature 98.0, pulse 86, blood pressure 141/67, weight 248 pounds. GENERAL: The patient is currently alert, awake, in no acute distress. HEAD: Normocephalic, atraumatic. EYES: Pupils round and reactive to light. Extraocular muscle intact. ENT: Oropharynx within normal limits. Moist mucous membranes. No oral lesions. No pharyngeal eryt brii. No exudate. NECK: Supple, no JVD, no thyromegaly, no carotid bruits. LUNGS: Clear to auscultation without any wheezing or rales. CARDIAC: S1, S2 regular, without any murmurs. ABDOMEN: Soft and benign. Morbid obesity limiting examination. NEUROLOGICAL: Nonfocal examination. Overall, this patient is doing very well and she is stable for discharge today.
[2017-09-12 11:27] VITALS: BP 162/72; TEMP 97.5
--- NOTE | 2017-10-20 14:21 | EKG ---
Test Reason : SOB Blood Pressure : / mmHG Vent. Rate : 074 BPM Atrial Rate : 072 BPM P-R Int : 000 ms QRS Dur : 082 ms QT Int : 440 ms P-R-T Axes : 000 018 012 degrees QTc Int : 488 ms Accelerated Junctional rhythm Low voltage QRS Nonspecific ST and T wave abnormality Prolonged QT Abnormal ECG Confirmed by [place] Parmar, GARRY ([id number]), medical editor LAWANDA ZIEGLER ([id number]) on 10/20/2017 2:20:52 PM Referred By: Confirmed By:GARRY OSBORNE M.D.
== END 2017-09-12 12:44 | disposition home or self-care (01) | DRG 291 ==
LOC: ERS 07:48 → ERHOLD 10:53 → 2NO 13:38
PROVIDERS: ADMIT Internal Medicine; ATTEND Internal Medicine
DX: I13.0 Hypertensive heart and chronic kidney disease with heart failure and stage 1 through stage 4 chronic kidney disease, or unspecified chronic kidney disease (principal); J96.21 Acute and chronic respiratory failure with hypoxia; J44.1 Chronic obstructive pulmonary disease with (acute) exacerbation; E11.22 Type 2 diabetes mellitus with diabetic chronic kidney disease; E66.01 Morbid (severe) obesity due to excess calories; J45.901 Unspecified asthma with (acute) exacerbation; I50.33 Acute on chronic diastolic (congestive) heart failure; J96.22 Acute and chronic respiratory failure with hypercapnia; N18.4 Chronic kidney disease, stage 4 (severe); Z68.42 Body mass index [BMI] 45.0-49.9, adult; D64.9 Anemia, unspecified; I25.10 Atherosclerotic heart disease of native coronary artery without angina pectoris; E78.5 Hyperlipidemia, unspecified; K21.9 Gastro-esophageal reflux disease without esophagitis; M10.9 Gout, unspecified; G47.33 Obstructive sleep apnea (adult) (pediatric); Z99.81 Dependence on supplemental oxygen; E87.6 Hypokalemia
CPT/HCPCS: 36415; 36416; 71045; 80053; 80069; 81003; 81015; 82553; 82805; 83735; 83880; 84484; 84550; 85025; 85610; 93005; 93798; 94640; 94760; 96374; 96375; G8978-GP-CK; G8979-GP-CK; G8980-GP-CK; G8987-GO-CJ; G8988-GO-CI; J1644; J1815; J1940; J2920; J2930; J7620

== ENCOUNTER 2017-12-02 10:43 | Inpatient (IN) | payer MEDICARE, MEDICAID ==
[2017-12-02 11:19] LABS: Actual Bicarbonate (HCO3a) 26.9 mEq/L (22-26); Base Excess (BEa) 0.1 mEq/L (0 (+/-) 2.5); CO2 Tension 57.3 mmHg (35.0-45.0); Hematocrit-ABG 23.6 % (36.0-47.0); Hemoglobin (Hb) 7.3 g/dL (12.0-16.0); O2 Tension (PaO2) 72.7 mmHg (80.0-100.0); pH, Arterial 7.29 (7.35-7.45)
[2017-12-02 11:20] LABS: Analyzer IN Cardio ER; Calcium, Ionized 1.2 mmol/L (1.12-1.30); Carboxyhemoglobin (COHb) 2.5 gm% (0.0-3.0); Potassium - ABG Lab 3.7 mmol/L (3.70-5.30); Puncture Site RRA
[2017-12-02 11:35] LABS: #Eosinphils 0.1 thou/uL (0.0-0.7); #Lymphocytes 1.3 thou/uL (1.20-3.40); #Monocytes 0.4 thou/uL (0.11-0.59); #Neutrophils 7.3 thou/uL (1.40-6.50); %Basophils 0.3 % (0.0-1.0); %Eosinophils 0.8 % (0.0-10.0); %Lymphocytes 14.7 % (21.0-51.0); %Neutrophils 80.2 % (42.0-75.0); Hemoglobin 7.6 g/dL (12.0-16.0); Mean Corpuscular HGB CONC 32.3 g/dL (32.0-36.0); Mean Corpuscular Hemoglobin 31.8 pg (27.0-31.0); Mean Corpuscular Volume 98.4 fl (81.0-99.0); Mean Platelet Volume 8.3 fL (7.4-10.4); Platelet Count 277 thou/uL (130-400); RBC Distribution Width 18.4 % (11.5-14.5); Red Blood Cell (RBC) Count 2.39 mill/uL (4.20-5.40); White Blood Cell (WBC) Count 9.2 thou/uL (4.8-10.8)
[2017-12-02 11:40] LABS: Bilirubin Negative (Negative); Blood, Urine Negative (Negative); Clarity CLOUDY (Clear); Glucose, Urine (Dipstick) Negative (Negative); Leukocyte Negative (Negative); Nitrite Negative (Negative); Protein, Urine (Dipstick) 100 mg/dL (Neg-Trace); Specific Gravity, Urine 1.015 (1.002-1.036); pH, Urine 5.5 (5.0-9.0)
[2017-12-02 11:41] LABS: Bacteria/HPF None Seen HPF (None Seen); Hyaline Casts/LPF 4-6 HYALINE CAST LPF (0-3 Hyaline); Pathc Cast-AUWi Flag 1.01 (0-2.49); RBC/HPF 0-3 HPF (0-3); Squamous Epithelial 0-3 HPF (0-3); WBC/HPF None Seen HPF (0-3)
[2017-12-02 11:57] LABS: ALT (SGPT) 9 U/L (8-55); AST (SGOT) 13 U/L (5-34); Alkaline Phosphatase 78 U/L (40-150); Anion Gap 14 mmol/L (10-20); BUN (Urea Nitrogen) 43 mg/dL (9.8-20.1); Bilirubin, Total 0.6 mg/dL (0.2-1.2); CK (CPK) 119 U/L (29-168); Calc. Creatinine Clearance 0 mL/min (70-130); Calcium 9.1 mg/dL (7.8-10.44); Carbon Dioxide 24 mmol/L (23-31); Chloride 109 mmol/L (98-107); Estimated GFR-MDRD 24; Globulin 2.8 g/dL (2.4-3.5); Glucose 163 mg/dL (83-110); Potassium 3.9 mmol/L (3.5-5.1); Protein, Total 6.8 g/dL (6.0-8.3); Sodium 143 mmol/L (136-145)
[2017-12-02 12:01] LABS: CKMB 2.8 ng/mL (0-6.6); Troponin I Less than 0.010 ng/mL (< 0.028)
--- NOTE | 2017-12-02 12:40 | RAD ---
PORTABLE CHEST: DATE: 12/02/17. PROVIDED CLINICAL HISTORY: COPD. FINDINGS: Comparison 09/10/17. The cardiac silhouette appears enlarged. Prominence of the pulmonary vasculature and pulmonary interstitium are noted. Evaluation is limited by patient body habitus. There is pare nchymal or pleural opacity of the right lateral hemithorax. There is no evidence for pneumothorax. IMPRESSION: 1. Limited study due to patient body habitus. 2. Cardiomegaly with findings suggestive of congestive failure. 3. Pleural and/or parenchymal opacity at the right lateral hemithorax. Correlate with concerns for pneumonia. Followup recommended. POS: YESSICA
[2017-12-02] MEDS ORDERED: Cefepime 2 GM/10 ML SYR ONE (13:18)
[2017-12-02] MEDS ORDERED: Vancomycin HCl 1.5 GM in Sodium Chloride 0.9% 250 ML 300 ML IVPB ONE (13:30)
[2017-12-02] MEDS ORDERED: Acetaminophen 325 MG TAB PO PRN (16:19)
[2017-12-02] MEDS ORDERED: Dextrose 5% in Water 1,000 ML IV PRN (16:19)
[2017-12-02] MEDS ORDERED: Albuterol Sulfate 2.5 mg/3 ml Neb NEB PRN (16:19)
[2017-12-02] MEDS ORDERED: Ondansetron ODT 4 MG TAB PO PRN (16:19)
[2017-12-02] MEDS ORDERED: Ondansetron PF 4 MG/2 ML Vial IVP PRN (16:19)
[2017-12-02] MEDS ORDERED: Dextrose 50% Abboject 50 ML SYRINGE SLOW IVP PRN (16:19)
[2017-12-02] MEDS ORDERED: Enoxaparin Sodium 30 MG/0.3 ML SYRINGE SC SCH (16:30)
[2017-12-02 16:31] VITALS: BMI 43.2
[2017-12-02] MEDS: Carvedilol 6.25 MG TAB PO SCH (17:17)
[2017-12-02] MEDS: Furosemide 100 MG/10 ML VIAL SLOW IVP SCH ×2 (18:13→23:09)
[2017-12-02 19:00] LABS: CKMB 2.7 ng/mL (0-6.6); Troponin I Less than 0.010 ng/mL (< 0.028)
[2017-12-02] MEDS: hydrALAZINE 25 MG TAB PO SCH (20:18)
[2017-12-02] MEDS: HumaLOG 300 UNITS/3 ML VIAL SC PRN (21:40)
[2017-12-03 01:21] LABS: Troponin I Less than 0.010 ng/mL (< 0.028)
[2017-12-03 04:53] LABS: #Lymphocytes 0.4 thou/uL (1.20-3.40); #Monocytes 0.1 thou/uL (0.11-0.59); #Neutrophils 4.2 thou/uL (1.40-6.50); %Eosinophils 0.2 % (0.0-10.0); %Lymphocytes 9.2 % (21.0-51.0); %Monocytes 1.8 % (0.0-10.0); %Neutrophils 88.9 % (42.0-75.0); Hemoglobin 7.3 g/dL (12.0-16.0); Mean Corpuscular Volume 99.9 fl (81.0-99.0); Mean Platelet Volume 8.8 fL (7.4-10.4); Platelet Count 239 thou/uL (130-400); RBC Distribution Width 18.3 % (11.5-14.5); Red Blood Cell (RBC) Count 2.21 mill/uL (4.20-5.40); White Blood Cell (WBC) Count 4.8 thou/uL (4.8-10.8)
--- NOTE | 2017-12-03 04:56 | HP ---
PRIMARY CARE PHYSICIAN: Dr. Lacho Morfin DATE OF ADMISSION: 12/02/2017 TIME OF SERVICE: 15:15 CHIEF COMPLAINT: Shortness of breath. HISTORY OF PRESENT ILLNESS: Ms. Villavicencio is an 82-year-old female with a history of COPD, diabetes, grade 2/3 diastolic dysfunction and chronic diastolic congestive heart failure, who apparently was on hospice for CHF. The patient developing worsening shortness of breath today and the family called EMS and she was brought to the Emergency Department. In the ER upon arrival, she was hypoxic. She was placed on BiPAP prior to transport. Apparently she or the patient's family revoked hospice. The ER reported that the family had gotten panicked due to the shortness of breath and was unable to get a hold of the hospice nurse and that is why they called EMS. On arrival, she was on BiPAP. She was noted to be hypothermia with a temperature of 96. She was placed in a [facility] and we were subsequently called for admit. Labs showed a BNP elevated at 400, which is actually improved from prior. The rest of her vital signs have remained fairly normal. On my arrival, the patient is complaining of being warm and wanted the BiPAP off. She denies any chest pain. No nausea, vomiting, diarrhea, constipation. No change in medications. Last echocardiogram was done in 08/2017 showed an EF 55-60%, a restrictive pattern and grade 2/3 diastolic dysfunction. PAST MEDICAL HISTORY: 1. Diabetes mellitus type 2. 2. Congestive heart failure, diastolic, chronic. 3. Chronic obstructive pulmonary disease. 4. Hypertension. 5. Depression. 6. Dementia. 7. Anxiety. PAST SURGICAL HISTORY: 1. Bilateral tubal ligation, remotely. 2. Cholecystectomy. 3. Hysterectomy. MEDICATIONS: 1. Torsemide 40 mg p.o. daily. 2. Aspirin 81 mg daily. 3. Atorvastatin 20 mg p.o. at bedtime. 4. Carvedilol 12.5 mg p.o. listed as "daily" 4. Prozac 20 mg daily. 5. Hydralazine 100 mg p.o. t.i.d. 6. Amlodipine 10 mg p.o. daily. 7. Nexium 40 mg daily. 8. KCl 10 mEq daily. 9. Aricept 10 mg daily. 10. Iron sulfate 325 mg p.o. b.i.d. 11. Ativan 2 mg p.o. t.i.d. p.r.n. anxiety. 12. Lantus 35 units daily. ALLERGIES: CODEINE, MORPHINE, PENICILLIN, SHELLFISH, IODINE. FAMILY HISTORY: Negative for clotting or bleeding disorder, no immune dysfunction. SOCIAL HISTORY: Negative for habits x3. She lives at home with her daughter. She has about 10 family members present in the ER with her. REVIEW OF SYSTEMS: A 10-point review of systems was attempted. The patient was slow to answer. She was arousable and awake and alert. Overall, she denied feeling poorly. She is just wanting her BiPAP off. PHYSICAL EXAMINATION: VITAL SIGNS: Temperature 96.8 on arrival, pulse 73, blood pressure 159/70, respiratory 20, O2 sat 95% on BiPAP. GENERAL: She is awake. She is alert. She is oriented to person and place. She is in no respiratory distress on BiPAP. Once the BiPAP was taken off, she was placed on nasal cannula, she is satting 97%, respiratory rate 16. The patient awake and alert. She is obese, appears in no distress. HEENT: Normocephalic, atraumatic. Pupils equal, round, reactive to light bilaterally. Mucous membranes are moist. She had no visible lesions. No thrush. NECK: Supple. She has no lymphadenopathy appreciable. I could not appreciate JVD. The neck is supple. There is no thyromegaly. Good range of motion. LUNGS: Lungs had coarse crackles present bilaterally. She has adequate air movement. Symmetrical chest. She has no prolonged expiratory phase. No wheezes. CARDIOVASCULAR: She has normal heart rate and regular. She has audible murmurs. Normal S1, S2. There is no S3. I do not hear an S4. ABDOMEN: Obese. It is nontender, nondistended. She has good bowel sounds. There is no rebound, rigidity or guarding. EXTREMITIES: No cyanosis or clubbing. She actually has only trace pedal edema. SKIN: Warm, moist and well perfused. She has no rashes or lesions. MUSCULOSKELETAL: Normal to inspection. Light touch was normal. No palpable effusions and had good range of motion. NEUROLOGIC: Cranial nerves II-XII are grossly intact. She has no focal deficits, normal speech pattern. LABORATORY DATA: Sodium 142, potassium 3.9, chloride 109, bicarbonate 24, BUN 42, creatinine 2.32 and it is baseline, glucose 163, calcium 9.1. Her liver function within normal limits. CBC showed white count 9.2, platelets 277. Hemoglobin is 7.6 and hematocrit of 23.5. That is about her baseline as well. Her ABG showed pH of 7.29, pCO2 of 57, pO2 of 73, satting 97%. CK-MB normal at 2.8, troponin I undetectable at less than 0.010. BNP of 424.5. Urinalysis was normal. RADIOGRAPHIC STUDIES: She had a chest x-ray done in the emergency department that showed a poor study overall, but due to cardiomegaly and signs of congestive failure she had a right lateral pleural or parenchymal opacification , recommended correlate clinically for a concern for pneumonia. IMPRESSION: 1. Acute on chronic hypoxemic respiratory failure. 2. Acute on chronic respiratory failure. 3. History of chronic obstructive pulmonary disease. 4. Acute on chronic diastolic congestive heart failure. 5. Diabetes mellitus type 2. 6. Hypertension. 7. Anxiety/depression. 8. Dementia. Will place the patient on IV Lasix for cardiac and diuresis. She is already looking better and was tolerating BiPAP at least for 15-[address] her in IMCU and keep her on BiPAP. Notify Cardiology and Pulmonary for admission. Family stated that she is to remain a DNR. She is not wanting to be resuscitated. BiPAP is okay. They have family members coming down from [place] and the likely going to place her on comfort care once they arrive. We will consult palliative care for their involvement and case management. OSVALDO
[2017-12-03 05:00] LABS: Anion Gap 16 mmol/L (10-20); BUN (Urea Nitrogen) 47 mg/dL (9.8-20.1); Calc. Creatinine Clearance 30 mL/min (70-130); Calcium 8.9 mg/dL (7.8-10.44); Carbon Dioxide 20 mmol/L (23-31); Chloride 107 mmol/L (98-107); Estimated GFR-MDRD 22; Glucose 212 mg/dL (83-110); Magnesium 2.3 mg/dL (1.6-2.6); Sodium 139 mmol/L (136-145)
[2017-12-03] MEDS: Furosemide 100 MG/10 ML VIAL SLOW IVP SCH ×2 (06:23→13:00)
[2017-12-03] MEDS: HumaLOG 300 UNITS/3 ML VIAL SC PRN ×3 (06:23→16:53)
[2017-12-03] MEDS: Carvedilol 6.25 MG TAB PO SCH ×2 (08:52→16:55)
[2017-12-03] MEDS: Famotidine 20 MG TAB PO SCH (08:53)
[2017-12-03] MEDS: hydrALAZINE 25 MG TAB PO SCH ×3 (08:53→20:32)
[2017-12-03] MEDS: Amlodipine 10 MG TAB PO SCH (08:54)
[2017-12-03] MEDS: Aspirin 81 mg Enteric Coated Tablet PO SCH (08:54)
[2017-12-03] MEDS: Furosemide 40 MG/4 ML VIAL SLOW IVP SCH (14:17)
--- NOTE | 2017-12-03 17:12 | PDOC.PN ---
- Subjective Encounter Start Date: 12/03/17 Encounter Start Time: 17:11 Patient seen and evaluated. Surrogate decision maker is not present but patient' s sisters are. Patient has no acute complaints. Denies severe SOB or any chest pain. Per nurse, no acute events overnight. - Objective Resuscitation Status: DNR MAR Reviewed: Yes Vital Signs & Weight: Vital Signs (12 hours) Temp Pulse Resp BP BP Pulse Ox 12/03/17 16:00 97.5 F L 70 18 165/79 H 94 L 12/03/17 14:25 74 18 12/03/17 11:32 97.4 F L 68 18 130/66 90 L 12/03/17 11:08 87 18 94 L 12/03/17 08:54 80 162/77 H 12/03/17 08:53 82 162/77 H 12/03/17 08:52 162/77 H 12/03/17 08:00 97.2 F L 80 19 98 12/03/17 07:33 97.2 F L 77 19 161/80 H 98 12/03/17 07:25 75 20 98 Weight Weight 236 lb 1.6 oz I&O: 12/02/17 12/03/17 12/04/17 06:59 06:59 06:59 Intake Total 2070 Balance 2070 Result Diagrams: 12/03/17 03:40 12/03/17 03:40 Additional Labs: Accuchecks 12/03/17 12/03/17 12/03/17 16:02 13:29 11:27 POC Glucose 221 H 250 H 245 H 12/03/17 12/02/17 05:52 21:30 POC Glucose 244 H 307 H Radiology Reviewed by me: Yes EKG Reviewed by me: Yes Phys Exam - Physical Examination Constitutional: NAD HEENT: PERRLA, moist MMs, sclera anicteric, oral pharynx no lesions Neck: no nodes, no JVD, supple, full ROM Respiratory: no wheezing, no rales, no rhonchi, clear to auscultation bilateral Cardiovascular: RRR, no significant murmur, no rub Gastrointestinal: soft, non-tender, no distention, positive bowel sounds Musculoskeletal: no edema, pulses present Full ROM Neurological: non-focal, normal sensation, moves all 4 limbs Psychiatric: normal affect, A&O x 3 Skin: no rash, normal turgor, cap refill <2 seconds Dx/Plan (1) Acute on chronic respiratory failure with hypoxia and hypercapnia Code(s): J96.21 - ACUTE AND CHRONIC RESPIRATORY FAILURE WITH HYPOXIA; J96.22 - ACUTE AND CHRONIC RESPIRATORY FAILURE WITH HYPERCAPNIA Status: Acute Plan: Minimal oxygen support. Taper oxygen when possible. (2) Acute on chronic diastolic (congestive) heart failure Code(s): I50.33 - ACUTE ON CHRONIC DIASTOLIC (CONGESTIVE) HEART FAILURE Status : Acute Plan: Close to baseline. Continue CHF protocol. NYHA II-III (3) COPD (chronic obstructive pulmonary disease) Status: Chronic Plan: Without exacerbation (4) Diabetes mellitus, type 2 Status: Chronic Plan: SSI and titrate as needed Comment: (5) Hypertension Code(s): I10 - ESSENTIAL (PRIMARY) HYPERTENSION Status: Chronic Qualifiers: Plan: Stable Comment: (6) Morbid obesity with BMI of 45.0-49.9, adult Code(s): E66.01 - MORBID (SEVERE) OBESITY DUE TO EXCESS CALORIES; Z68.42 - BODY MASS INDEX (BMI) 45.0-49.9, ADULT Status: Chronic (7) Anemia of chronic illness Code(s): D63.8 - ANEMIA IN OTHER CHRONIC DISEASES CLASSIFIED ELSEWHERE Status : Chronic Plan: Of chronic kidney disease. stable H&H (8) CKD (chronic kidney disease) stage 4, GFR 15-29 ml/min Code(s): N18.4 - CHRONIC KIDNEY DISEASE, STAGE 4 (SEVERE) Status: Chronic Plan: At baseline creatinine. Monitor closely due to diuretics. - Plan cont current plan of care Patient previously on home hospice that she revoked by calling EMS to bring her to the ER. She has chronic medical conditions that appear to be improving or stable at this time. Per her provider relations rep, her CHF NYHA is class II to III. Palliative care is meeting with family regarding future goals of care. Pending determination whether patient will benefit form home health services only or hospice is adequate. Code; DNR Core; Heparin, PPI Disp; IMCU clinical status; stable prognosis; guarded to fair expected discharge; to be determined Total time spent; 45 minutes
--- NOTE | 2017-12-03 18:35 | PDOC.EVN ---
Event Note - Event Note Event Note: I meet with family members (daughters) and surrogate decision makers regarding hospice services. They request home health services.
[2017-12-03] MEDS ORDERED: ALPRAZolam 0.25 MG TAB PO PRN (18:38)
[2017-12-03] MEDS: Heparin 5,000 UNITS/ML VIAL SC SCH (20:32)
[2017-12-04] MEDS: Furosemide 40 MG/4 ML VIAL SLOW IVP SCH ×2 (06:22→14:22)
[2017-12-04 06:36] LABS: Anion Gap 17 mmol/L (10-20); BUN (Urea Nitrogen) 54 mg/dL (9.8-20.1); Calc. Creatinine Clearance 27 mL/min (70-130); Calcium 9.2 mg/dL (7.8-10.44); Carbon Dioxide 20 mmol/L (23-31); Chloride 108 mmol/L (98-107); Estimated GFR-MDRD 23; Glucose 225 mg/dL (83-110); Sodium 141 mmol/L (136-145)
[2017-12-04 06:44] LABS: Hemoglobin 7.9 g/dL (12.0-16.0); Mean Corpuscular HGB CONC 32.9 g/dL (32.0-36.0); Mean Corpuscular Hemoglobin 32.4 pg (27.0-31.0); Mean Corpuscular Volume 98.5 fl (81.0-99.0); Platelet Count 257 thou/uL (130-400); RBC Distribution Width 17.9 % (11.5-14.5); Red Blood Cell (RBC) Count 2.44 mill/uL (4.20-5.40); White Blood Cell (WBC) Count 6.1 thou/uL (4.8-10.8)
[2017-12-04] MEDS: Amlodipine 10 MG TAB PO SCH (08:43)
[2017-12-04] MEDS: Famotidine 20 MG TAB PO SCH (08:43)
[2017-12-04] MEDS: hydrALAZINE 25 MG TAB PO SCH ×3 (08:44→20:11)
[2017-12-04] MEDS: Aspirin 81 mg Enteric Coated Tablet PO SCH (08:44)
[2017-12-04] MEDS: Carvedilol 6.25 MG TAB PO SCH ×2 (08:44→16:25)
[2017-12-04] MEDS: Heparin 5,000 UNITS/ML VIAL SC SCH ×2 (08:45→20:12)
[2017-12-04] MEDS: HumaLOG 300 UNITS/3 ML VIAL SC PRN ×2 (08:45→11:59)
--- NOTE | 2017-12-04 14:59 | PDOC.PN ---
- Subjective Encounter Start Date: 12/04/17 Encounter Start Time: 15:07 Subjective: She has no new complaints today. -: No acute events overnight, tolerating IV diuresis. - Objective MAR Reviewed: Yes Vital Signs & Weight: Vital Signs (12 hours) Temp Pulse Resp BP BP BP Pulse Ox 12/04/17 14:22 77 159/74 H 12/04/17 11:57 97.1 F L 71 16 149/70 H 99 12/04/17 10:59 76 18 12/04/17 08:45 97.7 F 82 16 96 12/04/17 08:41 97.7 F 82 16 157/73 H 96 12/04/17 04:00 98.2 F 84 17 167/69 H 97 12/04/17 03:40 98 Weight Weight 207 lb I&O: 12/03/17 12/04/17 12/05/17 06:59 06:59 06:59 Intake Total 2071 580 Balance 2071 580 Result Diagrams: 12/04/17 05:19 12/04/17 05:19 Additional Labs: Accuchecks 12/03/17 16:02 POC Glucose 221 H Phys Exam - Physical Examination Constitutional: NAD HEENT: PERRLA, moist MMs, sclera anicteric, oral pharynx no lesions Neck: no JVD, supple, full ROM Respiratory: no wheezing, no rales, no rhonchi, clear to auscultation bilateral reduced breath sounds bilaterally. Cardiovascular: RRR, no significant murmur, no rub Gastrointestinal: soft, non-tender, no distention, positive bowel sounds Musculoskeletal: no edema, pulses present Neurological: non-focal, moves all 4 limbs Skin: no rash, normal turgor Dx/Plan (1) Acute on chronic respiratory failure with hypoxia and hypercapnia Code(s): J96.21 - ACUTE AND CHRONIC RESPIRATORY FAILURE WITH HYPOXIA; J96.22 - ACUTE AND CHRONIC RESPIRATORY FAILURE WITH HYPERCAPNIA Status: Acute Comment : 2/2 CHF ecacerbation vs PNA. Stable on CPAP. Continue antibiotics, CPAP, diuretics, bronchodilator nebulizer therapy. (2) Acute on chronic diastolic (congestive) heart failure Code(s): I50.33 - ACUTE ON CHRONIC DIASTOLIC (CONGESTIVE) HEART FAILURE Status : Acute Plan: See problem #1. (3) COPD (chronic obstructive pulmonary disease) Status: Chronic Plan: See problem #1. (4) Anemia of chronic illness Code(s): D63.8 - ANEMIA IN OTHER CHRONIC DISEASES CLASSIFIED ELSEWHERE Status : Chronic (5) Diabetes mellitus, type 2 Status: Chronic Qualifiers: Diabetes mellitus manager terminal insulin use: with manager terminal use Diabetes mellitus complication status: with kidney complications Diabetes mellitus complication detail: with chronic kidney disease Chronic kidney disease stage : stage 4 (severe) Qualified Code(s): E11.22 - Type 2 diabetes mellitus with diabetic chronic kidney disease; N18.4 - Chronic kidney disease, stage 4 (severe ); N18.4 - Chronic kidney disease, stage 4 (severe); N18.4 - Chronic kidney disease, stage 4 (severe); N18.4 - Chronic kidney disease, stage 4 (severe); Z79.4 - rodent exterminator (current) use of insulin; Z79.4 - MCFP (current) use of insulin; Z79.4 - MCFP (current) use of insulin; Z79.4 - rodent exterminator (current ) use of insulin Comment: (6) CAD (coronary artery disease) Code(s): I25.10 - ATHSCL HEART DISEASE OF [place] CORONARY ARTERY W/O ANG PCTRS Status: Chronic Qualifiers: Coronary Disease-Associated Artery/Lesion type: unspecified vessel or lesion type [place] vs. transplanted heart: [place] heart Associated angina: without angina Qualified Code(s): I25.10 - Atherosclerotic heart disease of [place] coronary artery without angina pectoris Comment: Stable, chest pain free. Continue home medications. (7) CKD (chronic kidney disease) stage 4, GFR 15-29 ml/min Code(s): N18.4 - CHRONIC KIDNEY DISEASE, STAGE 4 (SEVERE) Status: Chronic (8) Dyslipidemia Code(s): E78.5 - HYPERLIPIDEMIA, UNSPECIFIED Status: Chronic Comment: Continue Statins. (9) GERD (gastroesophageal reflux disease) Code(s): K21.9 - GASTRO-ESOPHAGEAL REFLUX DISEASE WITHOUT ESOPHAGITIS Status: Chronic Qualifiers: Esophagitis presence: without esophagitis Qualified Code(s): K21.9 - Gastro -esophageal reflux disease without esophagitis Comment: Continue PPI. (10) Hypertension Code(s): I10 - ESSENTIAL (PRIMARY) HYPERTENSION Status: Chronic Qualifiers: Hypertension type: essential hypertension Comment: Fair control. Continue amlodipine and coreg. (11) Morbid obesity with BMI of 45.0-49.9, adult Code(s): E66.01 - MORBID (SEVERE) OBESITY DUE TO EXCESS CALORIES; Z68.42 - BODY MASS INDEX (BMI) 45.0-49.9, ADULT Status: Chronic (12) TIANA on CPAP Code(s): G47.33 - OBSTRUCTIVE SLEEP APNEA (ADULT) (PEDIATRIC); Z99.89 - DEPENDENCE ON OTHER ENABLING MACHINES AND DEVICES Status: Chronic Comment: on CPAP - Plan cont current plan of care, plan discussed w/ family, continue antibiotics, PT/OT , respiratory therapy, out of bed/ambulate, DVT proph w/heparin * . Review of Systems - Medications/Allergies Allergies/Adverse Reactions: Allergies Allergy/AdvReac Type Severity Reaction Status Date / Time codeine [Codeine] Allergy Verified 12/02/17 16:26 iodine Allergy Verified 12/02/17 16:26 morphine Allergy Verified 12/02/17 16:26 Penicillins Allergy Verified 12/02/17 16:26 shellfish derived Allergy Verified 12/02/17 16:26 Medications: Current Medications Acetaminophen (Tylenol) 650 mg PO Q4H PRN PRN Reason: Headache/Fever or Pain Last Admin: 12/04/17 11:59 Dose: 650 mg Albuterol Sulfate (Ventolin) 2.5 mg NEB Q2H PRN PRN Reason: Wheezing Albuterol/Ipratropium (Duoneb) 3 ml NEB [id number] COUNT INCLUDES THE [facility] Last Admin: 12/04/17 10:59 Dose: 3 ml Alprazolam (Xanax) 0.25 mg PO BIDPRN PRN PRN Reason: Anxiety Last Admin: 12/03/17 20:32 Dose: 0.25 mg Amlodipine Besylate (Norvasc) 10 mg PO DAILY COUNT INCLUDES THE [facility] Last Admin: 12/04/17 08:43 Dose: 10 mg Aspirin (Ecotrin) 81 mg PO DAILY COUNT INCLUDES THE [facility] Last Admin: 12/04/17 08:44 Dose: 81 mg Carvedilol (Coreg) 12.5 mg PO BID-[facility] Last Admin: 12/04/17 08:44 Dose: 12.5 mg Dextrose/Water (Dextrose 50%) 25 gm SLOW IVP PRN PRN PRN Reason: Hypoglycemia Famotidine (Pepcid) 20 mg PO DAILY COUNT INCLUDES THE [facility] Last Admin: 12/04/17 08:43 Dose: 20 mg Furosemide (Lasix) 40 mg SLOW IVP 0600,1400 COUNT INCLUDES THE [facility] Last Admin: 12/04/17 14:22 Dose: 40 mg Glucagon (Glucagon) 1 mg IM PRN PRN PRN Reason: Hypoglycemia Heparin Sodium (Porcine) (Heparin) 5,000 units SC BID COUNT INCLUDES THE [facility] Last Admin: 12/04/17 08:45 Dose: 5,000 units Hydralazine HCl (Apresoline) 100 mg PO TID COUNT INCLUDES THE [facility] Last Admin: 12/04/17 14:22 Dose: 100 mg Levofloxacin 500 mg/ Device 100 mls @ 100 mls/hr IVPB Q24HR COUNT INCLUDES THE [facility] Last Admin: 12/03/17 16:53 Dose: 100 mls Dextrose/Water (D5w) 1,000 mls @ 0 mls/hr IV .Q0M PRN; As Directed PRN Reason: Hypoglycemia Insulin Human Lispro (Humalog) 0 units SC .MODERATE SLIDING SC PRN PRN Reason: Moderate Correctional Scale Last Admin: 12/04/17 11:59 Dose: 6 unit Ondansetron HCl (Zofran Odt) 4 mg PO Q6H PRN PRN Reason: Nausea/Vomiting Ondansetron HCl (Zofran) 4 mg IVP Q6H PRN PRN Reason: Nausea/Vomiting
[2017-12-04] MEDS ORDERED: Non-Formulary Item 1 EACH (Esomeprazole Magnesium [Nexium] 40 MG) PO PRN (15:03)
[2017-12-04] MEDS: Ferrous Sulfate 325 MG TAB PO SCH (16:25)
[2017-12-04] MEDS ORDERED: Lorazepam 0.5 MG TAB PO PRN (18:37)
[2017-12-04] MEDS ORDERED: RANOLAZINE 500 MG PO SCH (21:00)
[2017-12-04] MEDS ORDERED: Insulin Detemir 100 UNITS/ML 5 UNITS in Pre-Filled Syringe 1 EACH SC SCH (21:00)
[2017-12-04] MEDS ORDERED: Non-Formulary Item 1 EACH (Insulin Glargine,Hum.Rec.Anlog [Lantus Solostar] 5 UNIT) SC SCH (21:00)
[2017-12-05 05:18] LABS: #Eosinphils 0.1 thou/uL (0.0-0.7); #Monocytes 0.4 thou/uL (0.11-0.59); #Neutrophils 2.9 thou/uL (1.40-6.50); %Basophils 0.9 % (0.0-1.0); %Eosinophils 1.5 % (0.0-10.0); %Lymphocytes 23.1 % (21.0-51.0); %Monocytes 8.6 % (0.0-10.0); %Neutrophils 65.9 % (42.0-75.0); Hemoglobin 7.9 g/dL (12.0-16.0); Mean Corpuscular Hemoglobin 31.2 pg (27.0-31.0); Mean Corpuscular Volume 97.4 fl (81.0-99.0); Mean Platelet Volume 8.3 fL (7.4-10.4); Platelet Count 240 thou/uL (130-400); RBC Distribution Width 17.6 % (11.5-14.5); Red Blood Cell (RBC) Count 2.54 mill/uL (4.20-5.40); White Blood Cell (WBC) Count 4.4 thou/uL (4.8-10.8)
[2017-12-05 05:27] LABS: Anion Gap 14 mmol/L (10-20); BUN (Urea Nitrogen) 42 mg/dL (9.8-20.1); Calc. Creatinine Clearance 33 mL/min (70-130); Calcium 8.9 mg/dL (7.8-10.44); Carbon Dioxide 23 mmol/L (23-31); Chloride 107 mmol/L (98-107); Estimated GFR-MDRD 30; Glucose 133 mg/dL (83-110); Potassium 3.7 mmol/L (3.5-5.1); Sodium 140 mmol/L (136-145)
[2017-12-05] MEDS: Furosemide 40 MG/4 ML VIAL SLOW IVP SCH (06:29)
[2017-12-05] MEDS: Famotidine 20 MG TAB PO SCH (08:42)
[2017-12-05] MEDS: hydrALAZINE 25 MG TAB PO SCH ×2 (08:43→15:40)
[2017-12-05] MEDS: Carvedilol 6.25 MG TAB PO SCH ×2 (08:44→15:41)
[2017-12-05] MEDS: Ferrous Sulfate 325 MG TAB PO SCH ×2 (08:44→15:42)
[2017-12-05] MEDS: Aspirin 81 mg Enteric Coated Tablet PO SCH (08:45)
[2017-12-05] MEDS: Amlodipine 10 MG TAB PO SCH (08:45)
[2017-12-05] MEDS: Heparin 5,000 UNITS/ML VIAL SC SCH (08:48)
[2017-12-05] MEDS ORDERED: Non-Formulary Item 1 EACH (Insulin Glargine,Hum.Rec.Anlog 5 UNIT) SQ SCH (09:00)
[2017-12-05] MEDS ORDERED: Insulin Detemir 100 UNITS/ML 5 UNITS in Pre-Filled Syringe 1 EACH SC SCH (09:00)
[2017-12-05] MEDS ORDERED: Non-Formulary Item 1 EACH (Cholecalciferol (Vitamin D3) [Vitamin D3] 1,000 UNIT) PO SCH (09:00)
[2017-12-05] MEDS ORDERED: Atorvastatin Calcium 20 MG TAB PO SCH (09:00)
[2017-12-05] MEDS: HumaLOG 300 UNITS/3 ML VIAL SC PRN (12:04)
--- NOTE | 2017-12-05 13:53 | PDOC.PN ---
- Subjective Encounter Start Date: 12/05/17 Encounter Start Time: 13:56 Subjective: No aocmplaints -: No acute events overnight. - Objective Resuscitation Status: Resuscitation Status FULL:Full Resuscitation MAR Reviewed: Yes Vital Signs & Weight: Vital Signs (12 hours) Temp Pulse Resp BP BP Pulse Ox 12/05/17 12:01 97.9 F 72 20 148/67 H 91 L 12/05/17 10:44 74 18 96 12/05/17 08:45 82 12/05/17 08:44 138/88 12/05/17 08:43 82 12/05/17 08:32 98.2 F 82 18 139/88 94 L 12/05/17 08:00 98.2 F 82 18 94 L 12/05/17 07:12 99 12/05/17 07:11 86 18 100 12/05/17 04:00 97.9 F 80 18 133/88 97 12/05/17 03:50 99 12/05/17 02:37 72 18 99 Weight Weight 218 lb I&O: 12/04/17 12/05/17 12/06/17 06:59 06:59 06:59 Intake Total 580 1320 Balance 580 1320 Result Diagrams: 12/05/17 04:49 12/05/17 04:49 Additional Labs: Accuchecks 12/05/17 12/05/17 12/04/17 11:04 05:44 20:35 POC Glucose 303 H 149 H 169 H 12/04/17 12/04/17 12/04/17 16:14 11:33 08:39 POC Glucose 124 H 265 H 234 H 12/04/17 12/03/17 06:52 21:09 POC Glucose 232 H 217 H Phys Exam - Physical Examination Constitutional: NAD HEENT: PERRLA, moist MMs, sclera anicteric, oral pharynx no lesions Neck: no JVD, supple, full ROM Respiratory: no wheezing, no rales, no rhonchi, clear to auscultation bilateral reduced breath sounds bilaterally. Cardiovascular: RRR, no significant murmur, no rub Gastrointestinal: soft, non-tender, no distention, positive bowel sounds Musculoskeletal: no edema, pulses present Neurological: non-focal, moves all 4 limbs Psychiatric: normal affect, A&O x 3 Skin: no rash, normal turgor Dx/Plan (1) Acute on chronic respiratory failure with hypoxia and hypercapnia Code(s): J96.21 - ACUTE AND CHRONIC RESPIRATORY FAILURE WITH HYPOXIA; J96.22 - ACUTE AND CHRONIC RESPIRATORY FAILURE WITH HYPERCAPNIA Status: Acute Comment : Improving w diuresis. Weaned to NC O2. 2/2 CHF ecacerbation vs PNA. Continue antibiotics, CPAP, diuretics, bronchodilator nebulizer therapy. (2) Acute on chronic diastolic (congestive) heart failure Code(s): I50.33 - ACUTE ON CHRONIC DIASTOLIC (CONGESTIVE) HEART FAILURE Status : Acute Plan: See ABove. (3) COPD (chronic obstructive pulmonary disease) Status: Chronic Qualifiers: COPD type: unspecified COPD Qualified Code(s): J44.9 - Chronic obstructive pulmonary disease, unspecified Comment: Stable, not in acute exacerbation. (4) Anemia of chronic illness Code(s): D63.8 - ANEMIA IN OTHER CHRONIC DISEASES CLASSIFIED ELSEWHERE Status : Chronic Comment: Hemoglobin stable. (5) Diabetes mellitus, type 2 Status: Chronic Qualifiers: Diabetes mellitus chronometer adjuster insulin use: with chronometer adjuster use Diabetes mellitus complication status: with kidney complications Diabetes mellitus complication detail: with chronic kidney disease Chronic kidney disease stage : stage 4 (severe) Qualified Code(s): E11.22 - Type 2 diabetes mellitus with diabetic chronic kidney disease; N18.4 - Chronic kidney disease, stage 4 (severe ); N18.4 - Chronic kidney disease, stage 4 (severe); N18.4 - Chronic kidney disease, stage 4 (severe); N18.4 - Chronic kidney disease, stage 4 (severe); Z79.4 - director government (current) use of insulin; Z79.4 - director government (current) use of insulin; Z79.4 - director government (current) use of insulin; Z79.4 - long-term (current ) use of insulin Comment: (6) CAD (coronary artery disease) Code(s): I25.10 - ATHSCL HEART DISEASE OF [place] CORONARY ARTERY W/O ANG PCTRS Status: Chronic Qualifiers: Coronary Disease-Associated Artery/Lesion type: unspecified vessel or lesion type [place] vs. transplanted heart: [place] heart Associated angina: without angina Qualified Code(s): I25.10 - Atherosclerotic heart disease of [place] coronary artery without angina pectoris Comment: Stable, chest pain free. Continue home medications. (7) CKD (chronic kidney disease) stage 4, GFR 15-29 ml/min Code(s): N18.4 - CHRONIC KIDNEY DISEASE, STAGE 4 (SEVERE) Status: Chronic Comment: Creatinine improving. Monitor. Avoid nephrotoxins. (8) Dyslipidemia Code(s): E78.5 - HYPERLIPIDEMIA, UNSPECIFIED Status: Chronic Comment: Continue Statins. (9) GERD (gastroesophageal reflux disease) Code(s): K21.9 - GASTRO-ESOPHAGEAL REFLUX DISEASE WITHOUT ESOPHAGITIS Status: Chronic Qualifiers: Esophagitis presence: without esophagitis Qualified Code(s): K21.9 - Gastro -esophageal reflux disease without esophagitis Comment: Continue PPI. (10) Hypertension Code(s): I10 - ESSENTIAL (PRIMARY) HYPERTENSION Status: Chronic Qualifiers: Hypertension type: essential hypertension Comment: Fair control. Continue amlodipine and coreg. (11) Morbid obesity with BMI of 45.0-49.9, adult Code(s): E66.01 - MORBID (SEVERE) OBESITY DUE TO EXCESS CALORIES; Z68.42 - BODY MASS INDEX (BMI) 45.0-49.9, ADULT Status: Chronic (12) TIANA on CPAP Code(s): G47.33 - OBSTRUCTIVE SLEEP APNEA (ADULT) (PEDIATRIC); Z99.89 - DEPENDENCE ON OTHER ENABLING MACHINES AND DEVICES Status: Chronic Comment: Encourage nocturnal CPAP - Plan cont current plan of care, plan discussed w/ family, continue antibiotics, social sciences department chair, respiratory therapy, out of bed/ambulate, DVT proph w/heparin * . Review of Systems - Medications/Allergies Allergies/Adverse Reactions: Allergies Allergy/AdvReac Type Severity Reaction Status Date / Time codeine [Codeine] Allergy Verified 12/02/17 16:26 iodine Allergy Verified 12/02/17 16:26 morphine Allergy Verified 12/02/17 16:26 Penicillins Allergy Verified 12/02/17 16:26 shellfish derived Allergy Verified 12/02/17 16:26 Medications: Current Medications Acetaminophen (Tylenol) 650 mg PO Q4H PRN PRN Reason: Headache/Fever or Pain Last Admin: 12/04/17 11:59 Dose: 650 mg Albuterol Sulfate (Ventolin) 2.5 mg NEB Q2H PRN PRN Reason: Wheezing Albuterol/Ipratropium (Duoneb) 3 ml NEB [id number] OLIVERIO Last Admin: 12/05/17 10:44 Dose: 3 ml Amlodipine Besylate (Norvasc) 10 mg PO DAILY [facility] Last Admin: 12/05/17 08:45 Dose: 10 mg Aspirin (Ecotrin) 81 mg PO DAILY [facility] Last Admin: 12/05/17 08:45 Dose: 81 mg Atorvastatin Calcium (Lipitor) 20 mg PO DAILY [facility] Last Admin: 12/05/17 08:43 Dose: 20 mg Carvedilol (Coreg) 12.5 mg PO BID[facility] Last Admin: 12/05/17 08:44 Dose: 12.5 mg Cholecalciferol (Vitamin D3) 1,000 units PO DAILY [facility] Last Admin: 12/05/17 08:43 Dose: 1,000 units Dextrose/Water (Dextrose 50%) 25 gm SLOW IVP PRN PRN PRN Reason: Hypoglycemia Famotidine (Pepcid) 20 mg PO DAILY [facility] Last Admin: 12/05/17 08:42 Dose: 20 mg Ferrous [facility] ([facility]) [facility] Last Admin: 12/05/17 08:44 Dose: 325 mg Glucagon (Glucagon) 1 mg IM PRN PRN PRN Reason: Hypoglycemia Heparin Sodium (Porcine) (Heparin) 5,000 units SC BID [facility] Last Admin: 12/05/17 08:48 Dose: 5,000 units Hydralazine HCl (Apresoline) 100 mg PO TID [facility] Last Admin: 12/05/17 08:43 Dose: 100 mg Levofloxacin 500 mg/ Device 100 mls @ 100 mls/hr IVPB Q24HR [facility] Last Admin: 12/04/17 16:25 Dose: 100 mls Dextrose/Water (D5w) 1,000 mls @ 0 mls/hr IV .Q0M PRN; As Directed PRN Reason: Hypoglycemia Insulin Detemir 5 units/ (Miscellaneous Medication) 0.05 mls @ 0 mls/hr SC QAM [facility] Last Admin: 12/05/17 10:31 Dose: 0.05 mls Insulin Detemir 5 units/ (Miscellaneous Medication) 0.05 mls @ 0 mls/hr SC HS [facility] Last Admin: 12/04/17 21:15 Dose: Not Given Insulin Human Lispro (Humalog) 0 units SC .MODERATE SLIDING SC PRN PRN Reason: Moderate Correctional Scale Last Admin: 12/05/17 12:04 Dose: 8 unit Lorazepam (Ativan) 0.5 mg PO BIDPRN PRN PRN Reason: Anxiety Last Admin: 12/04/17 20:12 Dose: 0.5 mg Ondansetron HCl (Zofran Odt) 4 mg PO Q6H PRN PRN Reason: Nausea/Vomiting Ondansetron HCl (Zofran) 4 mg IVP Q6H PRN PRN Reason: Nausea/Vomiting Pantoprazole Sodium (Protonix) 40 mg PO DAILY [facility] Last Admin: 12/05/17 08:45 Dose: 40 mg Ranolazine (Ranexa) 500 mg PO BID [facility] Last Admin: 12/05/17 08:42 Dose: 500 mg Sodium Chloride (Flush - Normal Saline) 10 ml IVF Q12HR [facility] Last Admin: 12/05/17 12:07 Dose: 10 ml Sodium Chloride (Flush - Normal Saline) 10 ml IVF PRN PRN PRN Reason: Saline Flush
[2017-12-05 15:37] VITALS: TEMP 98.1
[2017-12-05 15:43] VITALS: BP 138/88
--- NOTE | 2017-12-05 17:11 | DIS ---
DATE OF ADMISSION: 12/02/2017 DATE OF DISCHARGE: 12/05/2017 DISCHARGE DIAGNOSES: Acute on chronic respiratory failure with hypoxia and hypercapnia, acute on chr onic diastolic heart failure, chronic obstructive pulmonary disease, anemia of chronic illness, type 2 diabetes mellitus, coronary artery disease, chronic kidney disease, dyslipidemia, gastroesophageal reflux disease, hypertension, morbid obesity with BMI between 45-49, obstructive sleep apnea on CPAP. HISTORY OF PRESENT ILLNESS/HOSPITAL COURSE: Ms. Elena Villavicencio is an 82-year-old female with a histor y of COPD, type 2 diabetes, CHF with grade 2/3 diastolic dysfunction who was on hospice care for CHF. She developed worsening shortness of breath on the day of admission. The family were unable to get in touch with her hospice and then decided to bring the patient to the hospital. EMS was called and she was brought to the Emergency Department. At the emergency room, she was found to be hypoxic and placed on BiPAP. Family revoked hospice. On arrival at the emergency room, she was already on BiPA P. She was noted to have hypothermia with a temperature of [address] Nancy Solo was pl aced and she was admitted for further management. Her initial labs showed a BNP of 400. Rest of her vital signs seem to be within normal limits. Her assessment of acute on chronic hypoxemic respirato ry failure was made. ABG was done, which showed a pH of 7.29, pCO2 of 57.3, O2 of 72 and this was do ne on BiPAP. She was started on antibiotics, nebulizer therapy and steroids and admitted to the [facility] . She continued to improve with therapy initially, weaned off BiPAP and onto nasal cannula oxygen. She had a CPAP to use at nights. For her diabetes, she was placed on sliding scale insulin, diabetic diet, fingerstick glucose before meals and at bedtime and hypoglycemia protocol. She remained chest pain free and on day of discharge, she was deemed stable enough to be discharged home. Family spoke to Oncology regarding her hospice status, but they decided they wanted her to be full code from now on and will readdress the issue later on. HOME MEDICATIONS: Carvedilol 12.5 mg twice a day, levofloxacin 500 mg daily, atorvastatin 20 mg dana y, hydralazine 100 mg 3 times a day, esomeprazole 40 mg daily, aspirin 81 mg daily, budesonide/formot newton 2 puffs inhaled twice a day, Ranexa 500 mg twice a day, cholecalciferol 1000 units daily, diphen hydramine 25 mg every 6 hours as needed for allergies, amlodipine 10 mg daily, insulin glargine 40 un its subcutaneously at bedtime, insulin glargine 60 units subcutaneously every morning, furosemide 40 mg twice a day, lorazepam 1 tablet 3 times a day, ferrous sulfate 325 mg twice a day, nitroglycerin s ublingually 0.4 mg every 5 minutes as needed for chest pain, prednisone 40 mg every morning with stefani kfast, albuterol sulfate 2 puffs inhaled every 6 hours as needed. PHYSICAL EXAMINATION: VITAL SIGNS: On the day of discharge, temperature 97.9 degree Fahrenheit, heart rate 66, respiratory rate 18, oxygen saturation 96% on room air, blood pressure 148/67. For more details, see today's pr ogress notes. LABORATORY DATA: WBC 4.4, hemoglobin 7.9, platelet count 240,000. Sodium 140, potassium 3.7, chlori de 107, carbon dioxide 23, anion gap 14, BUN 42, creatinine 1.96, glucose 133, calcium 8.9. IMAGING: Chest x-ray showed limited study due to the patient's body habitus and showed cardiomegaly with findings suggestive of heart failure, pleural and parenchymal opacity at the right lateral hemit horax, correlates with concerns for pneumonia. CONSULTS: Palliative Care team. CONDITION AT DISCHARGE: Stable and improved. PROCEDURES: None. DIET: Heart healthy, diabetic. CARE GOALS: To follow up with the primary care physician within 1 week of discharge for repeat labs. ACTIVITY: To resume as tolerated. DISCHARGE TIME: 65 minutes including chart review and documentation.
[2017-12-05] MEDS ORDERED: Furosemide 40 MG TAB PO SCH (21:00)
--- NOTE | 2018-01-26 14:22 | EKG ---
Test Reason : Blood Pressure : / mmHG Vent. Rate : 077 BPM Atrial Rate : 077 BPM P-R Int : 134 ms QRS Dur : 088 ms QT Int : 438 ms P-R-T Axes : 033 033 040 degrees QTc Int : 495 ms Normal sinus rhythm ST abnormality, possible digitalis effect Prolonged QT Abnormal ECG Confirmed by FABI RIOS, JUNAID Crockett ([id number]), make up editor LAWANDA ZIEGLER ([id number]) on 01/26/2018 2:22:00 PM Referred By: Confirmed By:JUNAID DUNLAP MD
== END 2017-12-05 18:28 | disposition home health service (06) | DRG 291 ==
LOC: ERS 10:43 → IMCU/EMU 16:02 → 2NO 12-03 15:23
PROVIDERS: ADMIT Internal Medicine Infectious Disease; ATTEND Internal Medicine Infectious Disease
PROC: 5A09357 Assistance with Respiratory Ventilation, Less than 24 Consecutive Hours, Continuous Positive Airway Pressure (ICD-10-PCS; principal; 2017-12-02)
DX: I13.0 Hypertensive heart and chronic kidney disease with heart failure and stage 1 through stage 4 chronic kidney disease, or unspecified chronic kidney disease (principal); I50.33 Acute on chronic diastolic (congestive) heart failure; J96.21 Acute and chronic respiratory failure with hypoxia; J96.22 Acute and chronic respiratory failure with hypercapnia; N18.4 Chronic kidney disease, stage 4 (severe); E11.22 Type 2 diabetes mellitus with diabetic chronic kidney disease; E66.01 Morbid (severe) obesity due to excess calories; Z68.37 Body mass index [BMI] 37.0-37.9, adult; Z79.899 Other long term (current) drug therapy; T68.XXXA Hypothermia, initial encounter; F41.9 Anxiety disorder, unspecified; F03.90 Unspecified dementia, unspecified severity, without behavioral disturbance, psychotic disturbance, mood disturbance, and anxiety; F32.9 Major depressive disorder, single episode, unspecified; J44.9 Chronic obstructive pulmonary disease, unspecified; Z79.82 Long term (current) use of aspirin; Z88.5 Allergy status to narcotic agent; Z88.0 Allergy status to penicillin; Z91.013 Allergy to seafood; Z91.048 Other nonmedicinal substance allergy status; Z66 Do not resuscitate; D63.8 Anemia in other chronic diseases classified elsewhere; K21.9 Gastro-esophageal reflux disease without esophagitis
CPT/HCPCS: 36415; 36416; 51701; 71045; 80048; 80053; 81003; 81015; 82553; 82805; 83605; 83735; 83880; 84484; 85025; 85027; 87040; 87086; 93005; 94640; 94660; 96365; 96374; A4353; G8978-GP-CJ; G8979-GP-CI; J0692; J1644; J1650; J1815; J1940; J1956; J3370; J7050; J7620

== ENCOUNTER 2018-03-01 10:24 | Emergency (ER) | payer MEDICARE, MEDICAID ==
[2018-03-01 11:03] LABS: Actual Bicarbonate (HCO3a) 28.5 mEq/L (22-28); Base Excess (BEa) 3.4 mEq/L (-2.0 to +3.0); CO2 Tension 46.2 mmHg (35.0-45.0); Hematocrit-ABG 26.2 % (36.0-47.0); Hemoglobin (Hb) 8.4 g/dL (12.0-16.0); O2 Tension (PaO2) 65.3 mmHg (> 60.0); pH, Arterial 7.41 (7.35-7.45)
[2018-03-01 11:04] LABS: Analyzer IN Cardio ER; Calcium, Ionized 1.2 mmol/L (1.12-1.30); Puncture Site RRA
[2018-03-01 12:38] LABS: Hemoglobin 8.9 g/dL (12.0-16.0); Mean Corpuscular HGB CONC 33.5 g/dL (32.0-36.0); Mean Corpuscular Hemoglobin 31.3 pg (27.0-31.0); Mean Corpuscular Volume 93.4 fL (78.0-98.0); Mean Platelet Volume 9.1 fL (7.4-10.4); Platelet Count 120 thou/uL (130-400); RBC Distribution Width 14.3 % (11.5-14.5); Red Blood Cell (RBC) Count 2.85 mill/uL (4.20-5.40); White Blood Cell (WBC) Count 6.6 thou/uL (4.8-10.8)
[2018-03-01 12:59] LABS: Band 1 % (5-11); Basophilic Stippling SLIGHT = 1-2 cells (100X) (None Seen); Eosinophils 2 % (0-10); Lymphocytes 11 % (21-51); MDiff Complete? YES; Monocytes 1 % (0-10); Neutrophil 85 % (42-75); Ovalocytes SLIGHT = 2-5 cells (100X) (0-1/hpf); PLT Morphology Comment Appears Decreased; Polychromasia SLIGHT = 2-3 cells (100X) (0-2/hpf); Schistocytes SLIGHT = 2-5 cells (100X) (0-1/hpf)
[2018-03-01 13:02] LABS: ALT (SGPT) 12 U/L (8-55); AST (SGOT) 11 U/L (5-34); Albumin 3.5 g/dL (3.4-4.8); Alkaline Phosphatase 71 U/L (40-150); Anion Gap 15 mmol/L (10-20); BUN (Urea Nitrogen) 35 mg/dL (9.8-20.1); Bilirubin, Total 0.5 mg/dL (0.2-1.2); CK (CPK) 116 U/L (29-168); Calc. Creatinine Clearance 0 mL/min (70-130); Calcium 9.4 mg/dL (7.8-10.44); Carbon Dioxide 28 mmol/L (23-31); Chloride 105 mmol/L (98-107); Estimated GFR-MDRD 25; Globulin 2.7 g/dL (2.4-3.5); Glucose 116 mg/dL (83-110); Potassium 3.9 mmol/L (3.5-5.1); Protein, Total 6.2 g/dL (6.0-8.3); Sodium 144 mmol/L (136-145)
[2018-03-01 13:03] LABS: CKMB 1.6 ng/mL (0-6.6); Troponin I 0.012 ng/mL (< 0.028)
[2018-03-01 15:03] LABS: Vacuoles SLIGHT
--- NOTE | 2018-03-01 16:37 | NM ---
NUCLEAR MEDICINE VENTILATION PERFUSION SCAN: (V/Q SCAN) Date: 03/01/18 HISTORY: 82-year-old female with hypoxemia, dyspnea, and elevated D-Dimer. TECHNIQUE: Xenon-133 gas dose: 14.9 mCi [id number] dose: 6.6 mCi The patient inhaled Xenon-133 gas, and dynamic ventilation scintigraphy was performed. [id number] was injected IV, and multiple perfusion scintigraphic views were obtained. FINDINGS: There are no moderate-sized or large perfusion defects. There are no significant ventilation/perfusi on mismatches. IMPRESSION: Low probability for pulmonary thromboembolism. jn [] POS: [facility]
--- NOTE | 2018-03-01 16:38 | RAD ---
PA AND LATERAL CHEST: Date: 03/01/18 HISTORY: Low oxygen saturation. COMPARISON: 09/10/17. FINDINGS: There is a small to moderate size left pleural effusion and associated atelectasis. Cardiac silhouett e is enlarged. Pulmonary vasculature is at the upper limits of normal. Pulmonary vasculature, as well as the pulmonary edema, noted on the prior study has improved. No other interval change. IMPRESSION: 1. Moderate size left pleural effusion and atelectasis. 2. Cardiomegaly with pulmonary vasculature at the upper limits of normal. POS: [facility]
== END 2018-03-01 17:57 | disposition home or self-care (01) ==
LOC: ERS 10:24
DX: R60.0 Localized edema (principal); D64.9 Anemia, unspecified; J45.909 Unspecified asthma, uncomplicated; I11.0 Hypertensive heart disease with heart failure; I50.9 Heart failure, unspecified; E11.9 Type 2 diabetes mellitus without complications; E78.5 Hyperlipidemia, unspecified; M10.9 Gout, unspecified; F41.9 Anxiety disorder, unspecified; F32.9 Major depressive disorder, single episode, unspecified; Z79.4 Long term (current) use of insulin; Z79.82 Long term (current) use of aspirin; Z79.899 Other long term (current) drug therapy
CPT/HCPCS: 71046; 78582; 80053; 82550; 82553; 82805; 83880; 84484; 85025; 85379; 93005; 99284; A9540; A9558; 36415

== ENCOUNTER 2018-09-21 14:33 | Emergency (ER) | payer MEDICARE, MEDICAID ==
[2018-09-21 16:04] LABS: Hemoglobin 10.5 g/dL (12.0-16.0); Mean Corpuscular HGB CONC 32.9 g/dL (32.0-36.0); Mean Corpuscular Hemoglobin 32.2 pg (27.0-31.0); Mean Corpuscular Volume 97.8 fL (78.0-98.0); Mean Platelet Volume 9.9 fL (7.4-10.4); Platelet Count 182 thou/uL (130-400); RBC Distribution Width 12.9 % (11.5-14.5); Red Blood Cell (RBC) Count 3.26 mill/uL (4.20-5.40); White Blood Cell (WBC) Count 11.4 thou/uL (4.8-10.8)
[2018-09-21 16:22] LABS: Eosinophils 3 % (0-10); Lymphocytes 2 % (21-51); MDiff Complete? YES; Monocytes 2 % (0-10); Neutrophil 93 % (42-75); Platelet Morphology Comment Appears Adequate
--- NOTE | 2018-09-21 16:25 | RAD ---
PORTABLE CHEST 1 VIEW: Date: 09/21/18 Time: 1438 hours HISTORY: Cough. FINDINGS/IMPRESSION: Comparison made with exam of 03/01/18. The heart is enlarged. The lungs are well expanded with mild prominence of the pulmonary vascularity. No lobar consolidation or pneumothoraces or pleural effusions are seen. POS: [facility]
[2018-09-21 16:56] LABS: ALT (SGPT) 12 U/L (8-55); AST (SGOT) 21 U/L (5-34); Albumin 4.2 g/dL (3.4-4.8); Alkaline Phosphatase 93 U/L (40-150); Anion Gap 16 mmol/L (10-20); BUN (Urea Nitrogen) 28 mg/dL (9.8-20.1); Bilirubin, Total 0.6 mg/dL (0.2-1.2); Calc. Creatinine Clearance 0 mL/min (70-130); Calcium 9.7 mg/dL (7.8-10.44); Carbon Dioxide 24 mmol/L (23-31); Chloride 105 mmol/L (98-107); Estimated GFR-MDRD 34; Globulin 3.3 g/dL (2.4-3.5); Glucose 125 mg/dL (83-110); Lipase 27 U/L (8-78); Potassium 3.4 mmol/L (3.5-5.1); Protein, Total 7.5 g/dL (6.0-8.3); Sodium 142 mmol/L (136-145)
== END 2018-09-21 17:58 | disposition home or self-care (01) ==
LOC: ERS 14:33
DX: J44.0 Chronic obstructive pulmonary disease with (acute) lower respiratory infection (principal); J20.9 Acute bronchitis, unspecified; I11.0 Hypertensive heart disease with heart failure; I50.9 Heart failure, unspecified; E11.9 Type 2 diabetes mellitus without complications; E78.5 Hyperlipidemia, unspecified; F32.9 Major depressive disorder, single episode, unspecified; F41.9 Anxiety disorder, unspecified; F03.90 Unspecified dementia, unspecified severity, without behavioral disturbance, psychotic disturbance, mood disturbance, and anxiety; M19.90 Unspecified osteoarthritis, unspecified site; M10.9 Gout, unspecified; G47.30 Sleep apnea, unspecified; Z79.4 Long term (current) use of insulin; Z79.899 Other long term (current) drug therapy
CPT/HCPCS: 36415; 71045; 80053; 83690; 83880; 84484; 85025; 94640; J7620

== ENCOUNTER 2018-11-21 12:07 | Emergency (ER) | payer MEDICARE, MEDICAID | END 2018-11-21 14:09 | disposition home or self-care (01) | LOC: ERS 12:07 | DX: E11.649 Type 2 diabetes mellitus with hypoglycemia without coma (principal); J44.9 Chronic obstructive pulmonary disease, unspecified; E78.5 Hyperlipidemia, unspecified; I11.0 Hypertensive heart disease with heart failure; I50.9 Heart failure, unspecified; M10.9 Gout, unspecified; G47.30 Sleep apnea, unspecified; F32.9 Major depressive disorder, single episode, unspecified; F41.9 Anxiety disorder, unspecified; F03.90 Unspecified dementia, unspecified severity, without behavioral disturbance, psychotic disturbance, mood disturbance, and anxiety; Z79.4 Long term (current) use of insulin; Z79.899 Other long term (current) drug therapy; Z79.51 Long term (current) use of inhaled steroids; Z79.82 Long term (current) use of aspirin | CPT/HCPCS: 36416; 99285 ==

== ENCOUNTER 2018-12-13 07:22 | Emergency (ER) | payer MEDICARE, MEDICAID | END 2018-12-13 10:06 | disposition home or self-care (01) | LOC: ERS 07:22 | DX: E11.649 Type 2 diabetes mellitus with hypoglycemia without coma (principal); M19.90 Unspecified osteoarthritis, unspecified site; I11.0 Hypertensive heart disease with heart failure; I50.9 Heart failure, unspecified; E11.9 Type 2 diabetes mellitus without complications; E78.5 Hyperlipidemia, unspecified; M10.9 Gout, unspecified; G47.30 Sleep apnea, unspecified; F41.9 Anxiety disorder, unspecified; F03.90 Unspecified dementia, unspecified severity, without behavioral disturbance, psychotic disturbance, mood disturbance, and anxiety; Z79.51 Long term (current) use of inhaled steroids | CPT/HCPCS: 36416; 99285 ==

== ENCOUNTER 2019-01-04 00:50 | Emergency (ER) | payer MEDICARE, MEDICAID ==
--- NOTE | 2019-01-04 10:05 | RAD ---
CHEST 1 VIEW TWO VIEWS ABDOMEN: HISTORY: Pain and distention. FINDINGS: CHEST 1 VIEW: Atherosclerosis and cardiomegaly. Pulmonary vessels are prominent. Interstitial and alveolar opacit ies suggesting congestive heart failure. TWO VIEWS ABDOMEN: Supine and left lateral decubitus view of the abdomen demonstrates multiple distended air filled loop s of small bowel. There is still evidence of fecal material in the colon. Ileus or developing obstr uctive process are differential considerations. The left lateral decubitus view does not demonstrate any obvious pneumoperitoneum. IMPRESSION: 1. Congestive heart failure. 2. Ileus or possibly developing bowel obstruction. Further interrogation with CT is recommended, if clinically warranted. Results of study discussed with Dr. Seay 01/04/2019 at 8:41 a.m. CODE CR POS: OFF
== END 2019-01-04 02:12 | disposition home or self-care (01) ==
LOC: ERS 00:50
DX: K59.00 Constipation, unspecified (principal); J44.9 Chronic obstructive pulmonary disease, unspecified; M19.90 Unspecified osteoarthritis, unspecified site; I11.0 Hypertensive heart disease with heart failure; I50.9 Heart failure, unspecified; E11.9 Type 2 diabetes mellitus without complications; E78.5 Hyperlipidemia, unspecified; F41.9 Anxiety disorder, unspecified; F32.9 Major depressive disorder, single episode, unspecified; F03.90 Unspecified dementia, unspecified severity, without behavioral disturbance, psychotic disturbance, mood disturbance, and anxiety; Z79.51 Long term (current) use of inhaled steroids; Z79.899 Other long term (current) drug therapy; Z79.82 Long term (current) use of aspirin; Z79.891 Long term (current) use of opiate analgesic
CPT/HCPCS: 74022

== ENCOUNTER 2019-05-07 09:08 | Day surgery (SDC) | payer MEDICARE ==
[2019-05-07] MEDS ORDERED: Ferumoxytol (ERSD) 510 MG in Sodium Chloride 0.9% 250 ML 150 ML IVPB SCH (10:15)
[2019-05-07 11:44] VITALS: BP 166/72; TEMP 97.5
[2019-05-07] MEDS ORDERED: Sodium Chloride 0.9% 20 ML ONE (12:16)
== END 2019-05-07 12:41 | disposition home or self-care (01) ==
LOC: ONC/OP 09:08
PROVIDERS: ATTEND Internal Medicine Hematology & Oncology
DX: N18.4 Chronic kidney disease, stage 4 (severe) (principal); D63.1 Anemia in chronic kidney disease
CPT/HCPCS: 96365; J7050; Q0139

== ENCOUNTER 2019-05-14 12:00 | Day surgery (SDC) | payer MEDICARE ==
[~2019-05-14 12:00] MED LIST: EPOETIN ALFA-EPBX (ESRD) 10,000 UNIT/ML VIAL SC SCH; EPOETIN ALFA-EPBX (NON-ESRD) 10,000 UNIT/ML VIAL SC SCH
== END 2019-05-14 16:07 | disposition home or self-care (01) ==
LOC: ONC/OP 12:00
PROVIDERS: ATTEND Internal Medicine Hematology & Oncology
DX: N18.4 Chronic kidney disease, stage 4 (severe) (principal); D63.1 Anemia in chronic kidney disease; Z88.0 Allergy status to penicillin; Z88.5 Allergy status to narcotic agent; Z91.013 Allergy to seafood; Z91.041 Radiographic dye allergy status
CPT/HCPCS: 96372; Q5105

== ENCOUNTER 2019-05-21 09:45 | Day surgery (SDC) | payer MEDICARE ==
[2019-05-21] MEDS: EPOETIN ALFA-EPBX (ESRD) 10,000 UNIT/ML VIAL ONE (09:48)
[2019-05-21] MEDS ORDERED: EPOETIN ALFA-EPBX (ESRD) 10,000 UNIT/ML VIAL SC SCH (10:00)
== END 2019-05-21 11:15 | disposition home or self-care (01) ==
LOC: ONC/OP 09:45
PROVIDERS: ATTEND Internal Medicine Hematology & Oncology
DX: N18.4 Chronic kidney disease, stage 4 (severe) (principal); D63.1 Anemia in chronic kidney disease; Z88.0 Allergy status to penicillin; Z88.5 Allergy status to narcotic agent; Z91.013 Allergy to seafood; Z91.041 Radiographic dye allergy status
CPT/HCPCS: 96372; Q5105

== ENCOUNTER 2019-05-28 09:29 | Day surgery (SDC) | payer MEDICARE ==
[2019-05-28 09:38] VITALS: BP 166/77; TEMP 97.6
[2019-05-28] MEDS ORDERED: EPOETIN ALFA-EPBX (ESRD) 10,000 UNIT/ML VIAL SC SCH (09:45)
== END 2019-05-28 09:41 | disposition home or self-care (01) ==
LOC: ONC/OP 09:29
PROVIDERS: ATTEND Internal Medicine Hematology & Oncology
DX: N18.4 Chronic kidney disease, stage 4 (severe) (principal); D63.1 Anemia in chronic kidney disease; Z88.0 Allergy status to penicillin; Z88.5 Allergy status to narcotic agent; Z91.013 Allergy to seafood; Z91.041 Radiographic dye allergy status
CPT/HCPCS: 96372; Q5105

== ENCOUNTER 2019-06-04 09:34 | Day surgery (SDC) | payer MEDICARE ==
[2019-06-04] MEDS: EPOETIN ALFA-EPBX (ESRD) 10,000 UNIT/ML VIAL ONE (09:36)
[2019-06-04 09:40] VITALS: BP 152/67; TEMP 97.5
[2019-06-04] MEDS ORDERED: EPOETIN ALFA-EPBX (ESRD) 10,000 UNIT/ML VIAL SC SCH (09:45)
== END 2019-06-04 09:44 | disposition home or self-care (01) ==
LOC: ONC/OP 09:34
PROVIDERS: ATTEND Internal Medicine Hematology & Oncology
DX: N18.4 Chronic kidney disease, stage 4 (severe) (principal); D63.1 Anemia in chronic kidney disease; Z88.0 Allergy status to penicillin; Z88.5 Allergy status to narcotic agent; Z91.013 Allergy to seafood; Z91.041 Radiographic dye allergy status
CPT/HCPCS: 96372; Q5105

== ENCOUNTER 2019-06-11 09:30 | Day surgery (SDC) | payer MEDICARE, MEDICAID ==
[2019-06-11] MEDS ORDERED: EPOETIN ALFA-EPBX (ESRD) 10,000 UNIT/ML VIAL SC SCH (09:45)
[2019-06-11 09:49] VITALS: BP 156/72; TEMP 98.5
== END 2019-06-11 09:55 | disposition home or self-care (01) ==
LOC: ONC/OP 09:30
PROVIDERS: ATTEND Internal Medicine Hematology & Oncology
DX: N18.4 Chronic kidney disease, stage 4 (severe) (principal); D63.1 Anemia in chronic kidney disease; Z88.0 Allergy status to penicillin; Z88.5 Allergy status to narcotic agent; Z91.013 Allergy to seafood; Z91.041 Radiographic dye allergy status
CPT/HCPCS: 96372; Q5105

== ENCOUNTER 2019-07-16 09:32 | Day surgery (SDC) | payer MEDICARE, MEDICAID ==
[2019-07-16] MEDS: EPOETIN ALFA-EPBX (ESRD) 10,000 UNIT/ML VIAL ONE (09:40)
[2019-07-16] MEDS ORDERED: EPOETIN ALFA-EPBX (ESRD) 10,000 UNIT/ML VIAL SC SCH (10:00)
[2019-07-16 10:21] VITALS: BP 121/68; TEMP 97.8
== END 2019-07-16 10:21 | disposition home or self-care (01) ==
LOC: ONC/OP 09:32
PROVIDERS: ATTEND Internal Medicine Hematology & Oncology
DX: N18.4 Chronic kidney disease, stage 4 (severe) (principal); D63.1 Anemia in chronic kidney disease; Z88.0 Allergy status to penicillin; Z88.5 Allergy status to narcotic agent; Z91.013 Allergy to seafood; Z91.041 Radiographic dye allergy status
CPT/HCPCS: 96372; Q5105

== ENCOUNTER 2019-08-13 10:27 | Day surgery (SDC) | payer MEDICARE, MEDICAID ==
[2019-08-13] MEDS: EPOETIN ALFA-EPBX (ESRD) 10,000 UNIT/ML VIAL ONE (10:42)
[2019-08-13] MEDS ORDERED: EPOETIN ALFA-EPBX (ESRD) 10,000 UNIT/ML VIAL SC SCH (11:00)
[2019-08-13 13:21] VITALS: BP 166/73; TEMP 98.5
== END 2019-08-13 13:24 | disposition home or self-care (01) ==
LOC: ONC/OP 10:27
PROVIDERS: ATTEND Internal Medicine Hematology & Oncology
DX: N18.4 Chronic kidney disease, stage 4 (severe) (principal); D63.1 Anemia in chronic kidney disease; Z88.0 Allergy status to penicillin; Z88.5 Allergy status to narcotic agent; Z91.013 Allergy to seafood; Z91.041 Radiographic dye allergy status
CPT/HCPCS: 96372; Q5105

== ENCOUNTER 2019-08-29 11:03 | Day surgery (SDC) | payer MEDICARE, MEDICAID ==
[2019-08-29] MEDS: EPOETIN ALFA-EPBX (ESRD) 10,000 UNIT/ML VIAL ONE (11:09)
[2019-08-29 11:14] VITALS: BP 149/63
[2019-08-29] MEDS ORDERED: EPOETIN ALFA-EPBX (ESRD) 10,000 UNIT/ML VIAL SC SCH (11:30)
== END 2019-08-29 13:16 | disposition home or self-care (01) ==
LOC: ONC/OP 11:03
PROVIDERS: ATTEND Internal Medicine Hematology & Oncology
DX: N18.4 Chronic kidney disease, stage 4 (severe) (principal); D63.1 Anemia in chronic kidney disease; Z88.0 Allergy status to penicillin; Z88.5 Allergy status to narcotic agent; Z91.013 Allergy to seafood
CPT/HCPCS: 96372; Q5105

== ENCOUNTER 2019-09-10 10:49 | Day surgery (SDC) | payer MEDICARE, MEDICAID ==
[2019-09-10] MEDS ORDERED: EPOETIN ALFA-EPBX (ESRD) 10,000 UNIT/ML VIAL SC SCH (11:15)
[2019-09-10] MEDS: EPOETIN ALFA-EPBX (ESRD) 10,000 UNIT/ML VIAL ONE (15:15)
[2019-09-10 15:18] VITALS: BP 162/67; TEMP 97.5
== END 2019-09-10 15:19 | disposition home or self-care (01) ==
LOC: ONC/OP 10:49
PROVIDERS: ATTEND Internal Medicine Hematology & Oncology
DX: N18.4 Chronic kidney disease, stage 4 (severe) (principal); D63.1 Anemia in chronic kidney disease; Z88.0 Allergy status to penicillin; Z88.5 Allergy status to narcotic agent; Z91.013 Allergy to seafood; Z91.041 Radiographic dye allergy status
CPT/HCPCS: 82728; 83540; 83550; 96372; Q5105

== ENCOUNTER 2019-10-03 12:35 | Day surgery (SDC) | payer MEDICARE, MEDICAID ==
[2019-10-03] MEDS ORDERED: EPOETIN ALFA-EPBX (ESRD) 10,000 UNIT/ML VIAL SC SCH (12:45)
== END 2019-10-03 16:07 | disposition home or self-care (01) ==
LOC: ONC/OP 12:35
PROVIDERS: ATTEND Internal Medicine Hematology & Oncology
DX: N18.4 Chronic kidney disease, stage 4 (severe) (principal); D63.1 Anemia in chronic kidney disease; Z88.0 Allergy status to penicillin; Z88.5 Allergy status to narcotic agent; Z91.013 Allergy to seafood; Z91.041 Radiographic dye allergy status
CPT/HCPCS: 96372; Q5105

== ENCOUNTER 2019-10-03 19:43 | Inpatient (IN) | payer MEDICARE, MEDICAID ==
[2019-10-03 20:39] LABS: #Eosinphils 0.1 thou/uL (0.0-0.7); #Monocytes 0.5 thou/uL (0.11-0.59); #Neutrophils 9.2 thou/uL (1.40-6.50); %Basophils 0.1 % (0.0-1.0); %Eosinophils 0.8 % (0.0-10.0); %Lymphocytes 9.1 % (21.0-51.0); %Monocytes 4.9 % (0.0-10.0); %Neutrophils 85.2 % (42.0-75.0); Hemoglobin 9.1 g/dL (12.0-16.0); Mean Corpuscular HGB CONC 34.4 g/dL (32.0-36.0); Mean Corpuscular Hemoglobin 33.7 pg (27.0-31.0); Mean Corpuscular Volume 98.2 fL (78.0-98.0); Mean Platelet Volume 10.4 fL (7.4-10.4); Platelet Count 153 thou/uL (130-400); RBC Distribution Width 13.5 % (11.5-14.5); Red Blood Cell (RBC) Count 2.69 mill/uL (4.20-5.40); White Blood Cell (WBC) Count 10.7 thou/uL (4.8-10.8)
--- NOTE | 2019-10-03 20:49 | RAD ---
PORTABLE CHEST: 10/03/19 HISTORY: Shortness of breath. COMPARISON: 09/21/18. Cardiomegaly. There is mild vascular congestion. Interstitial and hazy confluent opacity in the left mid and lower lung could represent asymmetric edema or focal infiltrate. I cannot exclude small left effusion. IMPRESSION: Cardiomegaly with mild vascular congestion. Evidence of infiltrate of the left mid and lower lung. POS: [facility]
[2019-10-03 20:50] LABS: ALT (SGPT) 9 U/L (8-55); AST (SGOT) 12 U/L (5-34); Albumin 3.9 g/dL (3.4-4.8); Alkaline Phosphatase 76 U/L (40-110); Anion Gap 15 mmol/L (10-20); BUN (Urea Nitrogen) 29 mg/dL (9.8-20.1); Bilirubin, Total 0.8 mg/dL (0.2-1.2); Calc. Creatinine Clearance 0 mL/min (70-130); Calcium 9.2 mg/dL (7.8-10.44); Carbon Dioxide 26 mmol/L (23-31); Chloride 104 mmol/L (98-107); Estimated GFR-MDRD 22; Globulin 3.1 g/dL (2.4-3.5); Glucose 253 mg/dL (83-110); Potassium 3.5 mmol/L (3.5-5.1); Sodium 141 mmol/L (136-145)
[2019-10-03 21:11] LABS: CKMB 1.3 ng/mL (0-6.6)
[2019-10-03] MEDS ORDERED: Furosemide 40 MG/4 ML VIAL ONE (22:07)
[2019-10-03 23:18] LABS: Troponin I 0.043 ng/mL (< 0.028)
--- NOTE | 2019-10-03 23:28 | HP ---
CHIEF COMPLAINT: Shortness of breath. HISTORY OF PRESENT ILLNESS: Ms. Villavicencio is an 84-year-old female with past medical history of congestive heart failure, diabetes, COPD, among others, presented to the emergency room with shortness of breath that started earlier today. Also, the patient noticed worsening of leg swelling. The patient is on home oxygen. Also uses CPAP at night for sleep apnea. Denies fevers, chills, nausea, vomiting, abdominal pain. Workup in the emergency room including BNP is elevated at 619. Chest x-ray shows pulmonary vascular congestion. Creatinine is 2.56. Glucose 253. The patient was given IV Lasix in the ED. The patient is being admitted to the hospital for further management. PAST MEDICAL HISTORY: 1. COPD. 2. Congestive heart failure. 3. Diabetes mellitus, type 2. 4. Hyperlipidemia. 5. Hypertension. 6. Gout. 7. Sleep apnea. PAST SURGICAL HISTORY: 1. Tubal ligation. 2. Cholecystectomy. 3. Hysterectomy. PAST PSYCHIATRIC HISTORY: 1. Anxiety. 2. Depression. SOCIAL HISTORY: Denies alcohol use. No smoking history. FAMILY HISTORY: Reviewed and noncontributory. HOME MEDICATIONS: Please see home medication reconciliation form for updated medications. ALLERGIES: ALLERGIC TO CODEINE, IODINE, MORPHINE, PENICILLIN, SHELLFISH. REVIEW OF SYSTEMS: Review of 14 systems negative except what is mentioned in the history of present illness. PHYSICAL EXAMINATION: GENERAL: The patient is awake, alert, in moderate respiratory distress. VITAL SIGNS: Blood pressure 164/82, pulse is 88, respiratory rate is 28, temperature 98.5, oxygen saturation is 96% on 3 L/minute nasal cannula. HEAD: Normocephalic, atraumatic. NECK: Supple. No JVD. CHEST: Fair bilateral air entry. HEART: S1, S2. Regular. ABDOMEN: Soft, nontender. Bowel sounds present. NEUROLOGIC: Awake, alert, oriented x3. PSYCHIATRIC: Normal mood. EXTREMITIES: 2+ pedal edema. GENITOURINARY: No suprapubic tenderness. No flank tenderness. LABORATORY DATA: As mentioned above in the history of present illness. Troponin is indeterminate at 0.03. IMAGING STUDIES: Chest x-ray shows pulmonary vascular congestion. ASSESSMENT AND PLAN: 1. Acute on chronic congestive heart failure. 2. Indeterminate troponin. 3. Diabetes mellitus, type 2. 4. Acute on chronic renal failure. 5. Sleep apnea. PLAN: 1. Admit. 2. Telemetry monitoring. 3. IV diuresis. 4. Serial troponins. 5. Consult the patient's set staff fitter in a.m. for evaluation and further recommendations. 6. Reconcile home medications. 7. DVT prophylaxis as appropriate. 8. Expected length of stay, 2 midnights or more. Job ID: [id number]
[2019-10-03] MEDS ORDERED: Dextrose 5% in Water 1,000 ML IV PRN (23:59)
[2019-10-03] MEDS ORDERED: Dextrose 50% Abboject 50 ML SYRINGE SLOW IVP PRN (23:59)
[2019-10-04 02:21] LABS: #Lymphocytes 0.6 thou/uL (1.20-3.40); #Neutrophils 9.4 thou/uL (1.40-6.50); %Eosinophils 0.2 % (0.0-10.0); %Lymphocytes 5.9 % (21.0-51.0); %Monocytes 0.4 % (0.0-10.0); %Neutrophils 93.5 % (42.0-75.0); Hemoglobin 8.8 g/dL (12.0-16.0); Mean Corpuscular HGB CONC 34.1 g/dL (32.0-36.0); Mean Corpuscular Hemoglobin 33.5 pg (27.0-31.0); Mean Corpuscular Volume 98.4 fL (78.0-98.0); Platelet Count 130 thou/uL (130-400); RBC Distribution Width 13.3 % (11.5-14.5); Red Blood Cell (RBC) Count 2.63 mill/uL (4.20-5.40); White Blood Cell (WBC) Count 10.1 thou/uL (4.8-10.8)
[2019-10-04] MEDS ORDERED: FLU VACC TS2019-20(65YR UP)/PF 180 MCG/0.5 ML SYRINGE IM ONE ×2 (02:30→09:00)
[2019-10-04 02:54] LABS: ALT (SGPT) 11 U/L (8-55); AST (SGOT) 12 U/L (5-34); Albumin 3.8 g/dL (3.4-4.8); Alkaline Phosphatase 73 U/L (40-110); Anion Gap 18 mmol/L (10-20); BUN (Urea Nitrogen) 34 mg/dL (9.8-20.1); Bilirubin, Total 0.8 mg/dL (0.2-1.2); Calc. Creatinine Clearance 26 mL/min (70-130); Calcium 9.2 mg/dL (7.8-10.44); Carbon Dioxide 22 mmol/L (23-31); Chloride 104 mmol/L (98-107); Estimated GFR-MDRD 21; Globulin 3.1 g/dL (2.4-3.5); Glucose 370 mg/dL (83-110); Magnesium 1.8 mg/dL (1.6-2.6); Potassium 3.5 mmol/L (3.5-5.1); Protein, Total 6.9 g/dL (6.0-8.3); Sodium 140 mmol/L (136-145)
[2019-10-04] MEDS: HumaLOG 300 UNITS/3 ML VIAL SC PRN ×3 (06:39→17:39)
[2019-10-04] MEDS: Furosemide 40 MG/4 ML VIAL SLOW IVP SCH ×2 (06:40→14:49)
[2019-10-04] MEDS: Aspirin 81 mg Enteric Coated Tablet PO SCH (08:51)
[2019-10-04] MEDS ORDERED: clonazePAM 1 MG TAB PO PRN (08:52)
[2019-10-04] MEDS ORDERED: Non-Formulary Item 1 EACH (Hydralazine Hcl [Hydralazine Hcl] 100 MG) PO SCH (09:00)
[2019-10-04] MEDS ORDERED: Prevnar 13-Val Conj/PF 0.5 ML SYRINGE IM ONE (09:00)
[2019-10-04] MEDS ORDERED: Non-Formulary Item 1 EACH (Budesonide-Formoterol [Symbicort 80-4.5] 2 PUFF) INH SCH (09:00)
[2019-10-04] MEDS ORDERED: Non-Formulary Item 1 EACH (Bromfenac Sodium [Prolensa] 1 DROP) R EYE SCH (09:00)
[2019-10-04] MEDS ORDERED: INSULIN GLARGINE HUM REC ANLOG SQ SCH (09:00)
[2019-10-04] MEDS ORDERED: [UNRECOGNIZED DRUG - OTHER] SQ SCH (09:00)
--- NOTE | 2019-10-04 09:55 | PDOC.HOSPP ---
- Subjective Encounter Date: 10/04/19 Encounter Time: 09:35 Subjective: f/u for CHF exacerbation tx with IV Lasix. Nursing reports PAT on tele but pt was having a Green catheter inserted at the time. Pt feels better overall this am. - Objective Vital Signs & Weight: Vital Signs (12 hours) Temp Pulse Resp BP Pulse Ox 10/04/19 07:52 98.7 F 87 17 179/79 H 97 10/04/19 03:37 98.2 F 88 18 160/75 H 98 10/04/19 00:39 98.2 F 93 30 H 158/74 H 96 Weight Weight 221 lb I&O: 10/03/19 10/04/19 10/05/19 06:59 06:59 06:59 Intake Total 360 Balance 360 Result Diagrams: 10/04/19 02:13 10/04/19 02:13 Additional Labs: Accuchecks 10/04/19 05:49 POC Glucose 419 H Microbiology 10/03/19 20:20 Venous blood - Right Arm Blood Culture - Preliminary Specimen has been received and culture in progress. No Growth to date. 10/03/19 20:20 Venous blood - Left Arm Blood Culture - Preliminary Specimen has been received and culture in progress. No Growth to date. Laboratory Tests 12/02/17 03/01/18 09/21/18 11:21 12:25 15:50 Hgb MCV Creatinine B-Natriuretic Peptide 424.5 H 558.1 H 403.9 H Troponin I 10/03/19 10/03/19 10/03/19 20:20 20:20 20:20 Hgb 9.1 L MCV 98.2 H Creatinine 2.56 H B-Natriuretic Peptide 619.8 H Troponin I 10/03/19 10/03/19 10/04/19 20:20 22:22 02:13 Hgb MCV Creatinine B-Natriuretic Peptide Troponin I 0.032 H 0.043 H 0.030 H 10/04/19 02:13 Hgb MCV Creatinine B-Natriuretic Peptide 563.2 H Troponin I Radiology Reviewed by me: Yes (PCXR - pulm vasc congestion) EKG Reviewed by me: Yes (Tele - SR, PAT) Hospitalist ROS - Medication Medications: Active Medications Generic Name Dose Route Start Last Admin Trade Name Freq PRN Reason Stop Dose Admin Aspirin 81 mg 10/04/19 09:00 10/04/19 08:51 Ecotrin PO 81 mg DAILY OLIVERIO Administration Furosemide 40 mg 10/04/19 06:00 10/04/19 06:40 Lasix SLOW IVP 40 mg 0600,1400 OLIVERIO Administration Insulin Human Lispro 0 units 10/03/19 23:59 10/04/19 06:39 Humalog SC 6 unit .MILD SLIDING SCALE PRN Administration Mild Correctional Scale - Exam General Appearance: NAD, awake alert Eye: PERRL, anicteric sclera ENT: normocephalic atraumatic, no oropharyngeal lesions Neck: supple, symmetric, no JVD, no thyromegaly Heart: RRR, no murmur, no gallops, no rubs, normal peripheral pulses Respiratory - other findings: diminished in bases, few basilar crackles Gastrointestinal: soft, non-tender, non-distended, normal bowel sounds, no palpable masses, no hepatomegaly, no guarding Extremities: no cyanosis, no clubbing Extremities - other findings: minimal LE edema Skin: normal turgor, no lesions Neurological: cranial nerve grossly intact, no focal deficits, no new deficit Musculoskeletal: normal tone, normal strength Psychiatric: normal affect, A&O x 3 Hosp A/P (1) Acute on chronic diastolic (congestive) heart failure Code(s): I50.33 - ACUTE ON CHRONIC DIASTOLIC (CONGESTIVE) HEART FAILURE Status : Acute Plan: Continue Lasix 40mg IV BID, check 2D echo, Cardiology consulted, serial I/O's, daily weight (2) Acute and chronic respiratory failure with hypoxia Code(s): J96.21 - ACUTE AND CHRONIC RESPIRATORY FAILURE WITH HYPOXIA Status: Acute Plan: Continue O2 supplementation and titrate to clinical response (3) Anemia in CKD (chronic kidney disease) Code(s): N18.9 - CHRONIC KIDNEY DISEASE, UNSPECIFIED; D63.1 - ANEMIA IN CHRONIC KIDNEY DISEASE Status: Chronic Plan: Serial H/H monitoring, no evidence of acute loss, outpt Epo injections (4) CKD (chronic kidney disease) stage 4, GFR 15-29 ml/min Code(s): N18.4 - CHRONIC KIDNEY DISEASE, STAGE 4 (SEVERE) Status: Chronic Plan: Avoid nephrotoxic meds and limit contrast exposure (5) Diabetes mellitus, type 2 Status: Chronic Qualifiers: Diabetes mellitus detention insulin use: with detention use Diabetes mellitus complication status: with kidney complications Diabetes mellitus complication detail: with chronic kidney disease Chronic kidney disease stage : stage 4 (severe) Qualified Code(s): E11.22 - Type 2 diabetes mellitus with diabetic chronic kidney disease; N18.4 - Chronic kidney disease, stage 4 (severe ); N18.4 - Chronic kidney disease, stage 4 (severe); N18.4 - Chronic kidney disease, stage 4 (severe); N18.4 - Chronic kidney disease, stage 4 (severe); Z79.4 - exterminator helper (current) use of insulin; Z79.4 - exterminator helper (current) use of insulin; Z79.4 - jail (current) use of insulin; Z79.4 - jail (current ) use of insulin Plan: Continue home Lantus, ISS, ADA, serial accuchecks - Plan PT/OT, social media marketing specialist, respiratory therapy, out of bed/ambulate, DVT proph w/ SCDs Continue Lasix IV Check 2D echo Cardiology consult pending PT for mobilization and functional assessment OOB for ambulation AM lab: BMP, CBC
[2019-10-04] MEDS: Calcitriol 0.25 MCG CAP PO SCH (10:08)
[2019-10-04] MEDS: cloNIDine 0.1 MG TAB PO SCH ×3 (10:08→21:57)
[2019-10-04] MEDS: hydrALAZINE 25 MG TAB PO SCH ×3 (10:10→22:00)
[2019-10-04] MEDS: Folic Acid 1 MG TAB PO SCH (10:11)
[2019-10-04] MEDS: Amlodipine 10 MG TAB PO SCH (10:11)
[2019-10-04] MEDS: Atorvastatin Calcium 20 MG TAB PO SCH (10:11)
[2019-10-04] MEDS: Ferrous Sulfate 325 MG TAB PO SCH (10:11)
[2019-10-04] MEDS: Insulin Glargine 35 UNITS in Pre-Filled Syringe 1 EACH SC SCH (10:56)
[2019-10-04] MEDS ORDERED: ICOSAPENT ETHYL PO SCH (17:00)
[2019-10-04] MEDS: Icosapent Ethyl 1 GM CAPSULE PO SCH (17:39)
[2019-10-04] MEDS: Mometasone/Formoterol 120 PUFF INHALER INH SCH (19:12)
--- NOTE | 2019-10-04 20:00 | CON ---
DATE OF CONSULTATION: 10/04/2019 INDICATION FOR CONSULTATION: An 84-year-old female with CHF exacerbation. HISTORY OF PRESENT ILLNESS: This very pleasant 84-year-old female, who has been followed by Dr. Mcintosh for many years. She does have a history of congestive heart failure with diastolic dysfunction. She has more diastolic heart failure than she does systolic heart failure. She also has COPD and has home oxygen. She presented to the emergency room yesterday evening. She had been complaining of increasing shortness of breath all day yesterday and then presented to the hospital, was admitted for further evaluation. At this time, she denied any chest pain. She said she has been getting iron shots for her chronic anemia. She has only had one blood transfusion about 6 months ago, but otherwise has chronic anemia as well as her congestive heart failure and her COPD. She also notes some mild lower extremity edema. When she was evaluated in the emergency room, the BNP was elevated at 619 and is now decreased in the next check to 563, and she also had some evidence of pulmonary vascular congestion on chest x-ray. Her creatinine is elevated at 2.6, earlier was 2.56, and BUN is 34, but she has a history of chronic kidney disease. At this time, she has no complaints. She is having lunch and is not short of breath at this time. Her echo is still pending. PAST MEDICAL HISTORY: Significant for the congestive heart failure, diastolic dysfunction, diabetes type 2, hyperlipidemia, gout, hypertension, sleep apnea, COPD. She had a tubal ligation, cholecystectomy, and hysterectomy. She also has some history of anxiety and depression. SOCIAL HISTORY: There is no history of alcohol or tobacco abuse. FAMILY HISTORY: Noncontributory. HOME MEDICATIONS: Her medications at this time include she is on: 1. Insulin. 2. Amlodipine. 3. Aspirin 81 mg a day. 4. Lipitor 20 mg a day. 5. Rocaltrol. 6. Clonidine. 7. Benazepril. 8. Ferrous sulfate. 9. Folic acid. 10. Furosemide. She is getting 40 mg IV b.i.d. 11. Hydralazine 100 mg t.i.d. 12. Vascepa 2 g p.o. b.i.d. 13. She is also on inhalers. 14. Protonix. 15. Ranexa 500 b.i.d. 16. Clonazepam p.r.n. 17. Other p.r.n. medications. ALLERGIES: SHE IS ALLERGIC TO IODINE, MORPHINE, CODEINE, PENICILLIN, AND SHELLFISH. REVIEW OF SYSTEMS: Please refer the notes already dictated, but she did not have any significant complaints on review of systems except what is noted in the history of present illness. PHYSICAL EXAMINATION: GENERAL: Reveals an elderly female, who is in no acute distress at this time. She is sitting on the side of the bed and having lunch. VITAL SIGNS: Her blood pressure is 155/70, heart rate 87 and shows a sinus rhythm, respiratory rate 18, O2 saturation is 100%, temperature she is afebrile. HEENT: Shows the head to be normocephalic and atraumatic. NECK: Carotid pulses are present. I did not hear any significant bruits. There is no JVD. The thyroid did not appear to be enlarged. However, the patient was sitting at a right angle and no evidence of elevation of JVD at this time. CHEST: She does have decreased breath sounds throughout, but there were no rales, rhonchi, or wheezing noted. Perhaps some mild crackles at the right base, otherwise no significant abnormalities are noted. ABDOMEN: Shows morbid obesity. Positive bowel sounds. I cannot palpate any masses or tenderness. EXTREMITIES: Show 1+ lower extremity edema. Pedal pulses are difficult to palpate, but are present. NEUROLOGIC: The patient appears to be fully intact. LABORATORY DATA: Sodium is 140, potassium 3.5, BUN was 34, creatinine 2.6. Her BNP was 563. Troponin I is indeterminate at 0.03, increased up to 0.04 and back down to 0.03. WBC was 10.1, hemoglobin 8.8, hematocrit 25.9, platelet count 130,000. Her echocardiogram in August 2017 showed ejection fraction 55% to 60% with diastolic dysfunction with mild tricuspid valve regurgitation and trace pulmonary valve regurgitation. Her EKG shows normal sinus rhythm with no acute changes. She does have some nonspecific ST-segment changes, but no acute changes are noted. IMPRESSION: 1. Congestive heart failure exacerbation of this elderly female who has multiple medical problems and is exacerbated not only by her diastolic dysfunction, but also by the anemia most likely her chronic kidney disease. At this time, we will continue her present medications. Will agree with her diuretics. Hopefully, if she is diuresed, she will be able to go home within the next 1 to 2 days and will need further instructions on watching her diet with fluid intake and sodium. 2. Chronic anemia. She is followed by Dr. Reyna's office and has been getting routine iron injections as well as one blood transfusion several months ago but none since that time, and her hemoglobin and hematocrit have remained relatively stable. 3. History of chronic obstructive pulmonary disease. She is on home oxygen not only for her chronic obstructive pulmonary disease, but also for her diastolic dysfunction heart failure. She also has sleep apnea for which she uses CPAP mask at night. 4. Hypertension. Her blood pressure is still slightly elevated. We will continue to monitor this when she is diuresed. The blood pressure hopefully will improve. Otherwise, may need to change or alter her medications or adjust her medications. 5. Hyperlipidemia. We suggest she continue on the statin medications. We will continue to follow the patient with you. Further recommendations will depend on the results of the echocardiogram, which is still pending. Job ID: [id number]
[2019-10-04] MEDS: Donepezil HCl 10 MG TAB PO SCH (21:57)
[2019-10-04] MEDS ORDERED: HumaLOG 300 UNITS/3 ML VIAL SC PRN (22:50)
[2019-10-05 05:12] LABS: Anion Gap 13 mmol/L (10-20); BUN (Urea Nitrogen) 46 mg/dL (9.8-20.1); Calc. Creatinine Clearance 25 mL/min (70-130); Calcium 8.7 mg/dL (7.8-10.44); Carbon Dioxide 26 mmol/L (23-31); Chloride 102 mmol/L (98-107); Estimated GFR-MDRD 20; Glucose 266 mg/dL (83-110); Potassium 3.2 mmol/L (3.5-5.1); Sodium 138 mmol/L (136-145)
[2019-10-05 05:17] LABS: Band 1 % (5-11); Hemoglobin 7.9 g/dL (12.0-16.0); Lymphocytes 6 % (21-51); MDiff Complete? YES; Mean Corpuscular HGB CONC 34.3 g/dL (32.0-36.0); Mean Corpuscular Hemoglobin 33.7 pg (27.0-31.0); Mean Corpuscular Volume 98.2 fL (78.0-98.0); Mean Platelet Volume 10.4 fL (7.4-10.4); Monocytes 4 % (0-10); Neutrophil 88 % (42-75); Platelet Count 141 thou/uL (130-400); Platelet Morphology Comment Appears Adequate; RBC Distribution Width 13.5 % (11.5-14.5); RBC Morphology Normal; Reactive Lymphocytes 1 % (0-10); Red Blood Cell (RBC) Count 2.35 mill/uL (4.20-5.40); White Blood Cell (WBC) Count 9.7 thou/uL (4.8-10.8)
[2019-10-05] MEDS: HumaLOG 300 UNITS/3 ML VIAL SC PRN ×3 (06:02→17:02)
[2019-10-05] MEDS: Furosemide 40 MG/4 ML VIAL SLOW IVP SCH ×2 (06:02→13:21)
[2019-10-05] MEDS: Mometasone/Formoterol 120 PUFF INHALER INH SCH ×2 (07:49→20:09)
[2019-10-05] MEDS ORDERED: Bromfenac Sodium [Prolensa] R EYE SCH (09:00)
[2019-10-05] MEDS: Icosapent Ethyl 1 GM CAPSULE PO SCH ×2 (09:19→17:01)
[2019-10-05] MEDS: Insulin Glargine 35 UNITS in Pre-Filled Syringe 1 EACH SC SCH (09:20)
[2019-10-05] MEDS: Calcitriol 0.25 MCG CAP PO SCH (09:28)
[2019-10-05] MEDS: Folic Acid 1 MG TAB PO SCH (09:28)
[2019-10-05] MEDS: Aspirin 81 mg Enteric Coated Tablet PO SCH (09:29)
[2019-10-05] MEDS: Amlodipine 10 MG TAB PO SCH (09:29)
[2019-10-05] MEDS: Atorvastatin Calcium 20 MG TAB PO SCH (09:29)
[2019-10-05] MEDS: cloNIDine 0.1 MG TAB PO SCH ×3 (09:29→21:12)
[2019-10-05] MEDS: hydrALAZINE 25 MG TAB PO SCH ×3 (09:29→21:12)
[2019-10-05] MEDS: Ferrous Sulfate 325 MG TAB PO SCH (09:29)
--- NOTE | 2019-10-05 12:49 | PDOC.CPN ---
- Subjective Date: 10/05/19 Time: 12:53 Interval history: The pt seen and examined. No overnight events. No cardiac complaints. - Objective Allergies/Adverse Reactions: Allergies Allergy/AdvReac Type Severity Reaction Status Date / Time codeine [Codeine] Allergy Verified 12/02/17 16:26 iodine Allergy Verified 12/02/17 16:26 morphine Allergy Verified 12/02/17 16:26 Penicillins Allergy Verified 12/02/17 16:26 shellfish derived Allergy Verified 12/02/17 16:26 Visit Medications: Current Medications Amlodipine Besylate (Norvasc) 10 mg PO DAILY [facility] Last Admin: 10/05/19 09:29 Dose: 10 mg Aspirin (Ecotrin) 81 mg PO DAILY [facility] Last Admin: 10/05/19 09:29 Dose: 81 mg Atorvastatin Calcium (Lipitor) 20 mg PO DAILY [facility] Last Admin: 10/05/19 09:29 Dose: 20 mg Calcitriol (Rocaltrol) 0.25 mcg PO DAILY [facility] Last Admin: 10/05/19 09:28 Dose: 0.25 mcg Clonazepam (Klonopin) 1 mg PO BID PRN PRN Reason: Anxiety Clonidine (Catapres) 0.1 mg PO TID [facility] Last Admin: 10/05/19 09:29 Dose: 0.1 mg Dextrose/Water (Dextrose 50%) 25 gm SLOW IVP PRN PRN PRN Reason: Hypoglycemia Donepezil HCl (Aricept) 10 mg PO HS [facility] Last Admin: 10/04/19 21:57 Dose: 10 mg Ferrous Sulfate (Feosol) 325 mg PO DAILY [facility] Last Admin: 10/05/19 09:29 Dose: 325 mg Folic Acid (Folvite) 1 mg PO DAILY [facility] Last Admin: 10/05/19 09:28 Dose: 1 mg Furosemide (Lasix) 40 mg SLOW IVP 0600,1400 [facility] Last Admin: 10/05/19 06:02 Dose: 40 mg Glucagon (Glucagon) 1 mg IM PRN PRN PRN Reason: Hypoglycemia Hydralazine HCl (Apresoline) 100 mg PO TID [facility] Last Admin: 10/05/19 09:29 Dose: 100 mg Dextrose/Water (D5w) 1,000 mls @ 0 mls/hr IV .Q0M PRN PRN Reason: Hypoglycemia Insulin Glargine 35 units/ (Miscellaneous Medication) 0.35 mls @ 0 mls/hr SC DAILY [facility] Last Admin: 10/05/19 09:20 Dose: 0.35 mls Insulin Human Lispro (Humalog) 0 units SC .MILD SLIDING SCALE PRN PRN Reason: Mild Correctional Scale Last Admin: 10/05/19 11:10 Dose: 5 unit Insulin Human Lispro (Humalog) 0 units SC .BEDTIME SLIDING SC PRN PRN Reason: Bedtime Correctional Scale Last Admin: 10/04/19 23:01 Dose: 4 unit Isosorbide Dinitrate (Isordil) 10 mg PO BID [facility] Isosorbide Dinitrate (Isordil) 10 mg PO ONE [facility] Miscellaneous Medication (Vascepa) 2 gm PO BID-WM [facility] Last Admin: 10/05/19 09:19 Dose: 2 gm Mometasone Furoate/Formoterol Fumar (Dulera 100 Mcg/5 Mcg Inhaler) 2 puff INH BID-RT [facility] Last Admin: 10/05/19 07:49 Dose: 2 puff Pantoprazole Sodium (Protonix) 40 mg PO DAILY [facility] Last Admin: 10/05/19 09:29 Dose: 40 mg Bromfenac Sodium [ (Prolensa]) 0 each R EYE DAILY [facility] Ranolazine (Ranexa) 500 mg PO BID [facility] Last Admin: 10/05/19 09:29 Dose: 500 mg Sodium Chloride (Flush - Normal Saline) 10 ml IVF Q12HR [facility] Last Admin: 10/05/19 09:30 Dose: 10 ml Sodium Chloride (Flush - Normal Saline) 10 ml IVF PRN PRN PRN Reason: Saline Flush Last Admin: 10/05/19 06:03 Dose: 10 ml Vital Signs & Weight: Vital Signs Temp Pulse Resp BP Pulse Ox 10/05/19 12:00 98.6 F 75 15 178/69 H 93 L 10/05/19 09:29 77 10/05/19 08:15 92 L 10/05/19 07:56 98.4 F 77 27 H 147/72 H 92 L 10/05/19 03:22 97.9 F 79 20 141/71 H 100 Weight 221 lb 9.6 oz - Physical Exam General: alert & oriented x3 HEENT: mucus membranes moist Neck: supple neck Cardiac: regular rate and rhythm, S1/S2 Lungs: decreased breath sounds Extremities: no edema - Labs Result Diagrams: 10/05/19 04:25 10/05/19 04:25 Troponin/CKMB CK-MB (CK-2) 1.3 ng/mL (0-6.6) 10/03/19 20:20 Troponin I 0.030 ng/mL (< 0.028) H 10/04/19 02:13 - Assessment/Plan Assessment/Plan: 1. Acute on Chronic Diastolic HF - Stable with O2; On Lasix; not on ISIDRA/ARB due to CKD; not on Bblocker due to severe COPD; Will start Isorsorbide for HTN and diastolic dysfunction treatment 2. HTN - Will start Isosorbide 10mg BID 3. MARY on CKD 4. Anemia 2/2 CKD - sightly worse than yesterday 5. COPD with home O2 6. HLD - on Statin MAR reviewed
[2019-10-05] MEDS ORDERED: Isosorbide Dinitrate 20 MG TAB PO SCH (13:00)
[2019-10-05] MEDS ORDERED: Potassium Chloride 20 MEQ TAB PO SCH (16:15)
--- NOTE | 2019-10-05 16:46 | PDOC.HOSPP ---
- Subjective Encounter Date: 10/05/19 Encounter Time: 16:40 Subjective: f/u for acute/chronic diastolic CHF on IV Lasix. Overall feeling better. - Objective Vital Signs & Weight: Vital Signs (12 hours) Temp Pulse Resp BP Pulse Ox 10/05/19 15:45 98.7 F 80 16 148/66 H 98 10/05/19 15:41 75 10/05/19 12:00 98.6 F 75 15 178/69 H 93 L 10/05/19 09:29 77 10/05/19 08:15 17 92 L 10/05/19 07:56 98.4 F 77 27 H 147/72 H 92 L Weight Weight 221 lb 9.6 oz I&O: 10/04/19 10/05/19 10/06/19 06:59 06:59 06:59 Intake Total 660 Output Total 1100 Balance -440 Result Diagrams: 10/05/19 04:25 10/05/19 04:25 Additional Labs: Accuchecks 10/05/19 10/05/19 10/04/19 10:40 05:35 19:37 POC Glucose 321 H 285 H 341 H 10/04/19 16:57 POC Glucose 395 H Microbiology 10/03/19 20:20 Venous blood - Right Arm Blood Culture - Preliminary Specimen has been received and culture in progress. No Growth to date. 10/03/19 20:20 Venous blood - Left Arm Blood Culture - Preliminary Specimen has been received and culture in progress. No Growth to date. Laboratory Tests 12/02/17 03/01/18 09/21/18 11:21 12:25 15:50 Hgb MCV Creatinine B-Natriuretic Peptide 424.5 H 558.1 H 403.9 H Troponin I 10/03/19 10/03/19 10/03/19 20:20 20:20 20:20 Hgb 9.1 L MCV 98.2 H Creatinine 2.56 H B-Natriuretic Peptide 619.8 H Troponin I 10/03/19 10/03/19 10/04/19 20:20 22:22 02:13 Hgb MCV Creatinine B-Natriuretic Peptide Troponin I 0.032 H 0.043 H 0.030 H 10/04/19 02:13 Hgb MCV Creatinine B-Natriuretic Peptide 563.2 H Troponin I Radiology Reviewed by me: Yes (Echo = EF 55-60%, mod LAE, mod TR) EKG Reviewed by me: Yes (Tele - SR) Hospitalist ROS - Medication Medications: Active Medications Generic Name Dose Route Start Last Admin Trade Name Freq PRN Reason Stop Dose Admin Amlodipine Besylate 10 mg 10/04/19 09:00 10/05/19 09:29 Norvasc PO 10 mg DAILY OLIVERIO Administration Aspirin 81 mg 10/04/19 09:00 10/05/19 09:29 Ecotrin PO 81 mg DAILY OL[facility]IO Administration Atorvastatin Calcium 20 mg 10/04/19 09:00 10/05/19 09:29 Lipitor PO 20 mg DAILY OL[facility]IO Administration Calcitriol 0.25 mcg 10/04/19 09:00 10/05/19 09:28 Rocaltrol PO 0.25 mcg DAILY OL[facility] Administration Clonidine 0.1 mg 10/04/19 09:00 10/05/19 15:41 Catapres PO 0.1 mg TID OLIVERIO Administration Donepezil HCl 10 mg 10/04/19 21:00 10/04/19 21:57 Aricept PO 10 mg HS OL[facility]IO Administration Ferrous Sulfate 325 mg 10/04/19 09:00 10/05/19 09:29 Feosol PO 325 mg DAILY OL[facility]IO Administration Folic Acid 1 mg 10/04/19 09:00 10/05/19 09:28 Folvite PO 1 mg DAILY OL[facility] Administration Hydralazine HCl 100 mg 10/04/19 09:00 10/05/19 15:41 Apresoline PO 100 mg TID OL[facility]IO Administration Insulin Glargine 35 units/ 0.35 mls @ 0 mls/hr 10/04/19 09:00 10/05/19 09:20 Miscellaneous Medication SC 0.35 mls DAILY OL[facility]IO Administration Insulin Human Lispro 0 units 10/03/19 23:59 10/05/19 11:10 Humalog SC 5 unit .MILD SLIDING SCALE PRN Administration Mild Correctional Scale Insulin Human Lispro 0 units 10/04/19 22:50 10/04/19 23:01 Humalog SC 4 unit .BEDTIME SLIDING SC PRN Administration Bedtime Correctional Scale Miscellaneous Medication 2 gm 10/04/19 17:00 10/05/19 09:19 Vascepa PO 2 gm BID-WM [facility]IO Administration Mometasone Furoate/Formoterol Fumar 2 puff 10/04/19 18:30 10/05/19 07:49 Dulera 100 Mcg/5 Mcg Inhaler INH 2 puff BID-RT OL[facility]IO Administration Pantoprazole Sodium 40 mg 10/04/19 09:00 10/05/19 09:29 Protonix PO 40 mg DAILY [facility] Administration Ranolazine 500 mg 10/04/19 09:00 10/05/19 09:29 Ranexa PO 500 mg BID OL[facility] Administration Sodium Chloride 10 ml 10/04/19 09:00 10/05/19 09:30 Flush - Normal Saline IVF 10 ml Q12HR [facility] Administration Sodium Chloride 10 ml 10/04/19 08:56 10/05/19 06:03 Flush - Normal Saline IVF 10 ml PRN PRN Administration Saline Flush - Exam General Appearance: NAD, awake alert Eye: PERRL, anicteric sclera ENT: normocephalic atraumatic, no oropharyngeal lesions Neck: supple, symmetric, no JVD, no thyromegaly Heart: RRR, no murmur, no gallops, no rubs, normal peripheral pulses Heart - other findings: S1, S2 Respiratory: CTAB, no rales, no ronchi, normal chest expansion, no tachypnea Gastrointestinal: soft, non-tender, non-distended, normal bowel sounds, no palpable masses Extremities: no cyanosis, no clubbing, no edema Skin: normal turgor, no lesions Neurological: cranial nerve grossly intact, no new deficit Musculoskeletal: normal tone, normal strength Psychiatric: normal affect, A&O x 3 Hosp A/P (1) Acute on chronic diastolic (congestive) heart failure Code(s): I50.33 - ACUTE ON CHRONIC DIASTOLIC (CONGESTIVE) HEART FAILURE Status : Acute Plan: Improved, convert Lasix 40mg po daily, continue to monitor I/O's (2) Acute and chronic respiratory failure with hypoxia Code(s): J96.21 - ACUTE AND CHRONIC RESPIRATORY FAILURE WITH HYPOXIA Status: Acute Plan: Resolved, supportive mgmt (3) Anemia in CKD (chronic kidney disease) Code(s): N18.9 - CHRONIC KIDNEY DISEASE, UNSPECIFIED; D63.1 - ANEMIA IN CHRONIC KIDNEY DISEASE Status: Chronic Plan: Continue FeSO4/Folic acid (4) CKD (chronic kidney disease) stage 4, GFR 15-29 ml/min Code(s): N18.4 - CHRONIC KIDNEY DISEASE, STAGE 4 (SEVERE) Status: Chronic (5) Diabetes mellitus, type 2 Status: Chronic Qualifiers: Diabetes mellitus workers compensation consultant insulin use: with penitentiary use Diabetes mellitus complication status: with kidney complications Diabetes mellitus complication detail: with chronic kidney disease Chronic kidney disease stage : stage 4 (severe) - Plan plan discussed w/ family, social media specialist, out of bed/ambulate, DVT proph w/SCDs Continue Lasix 40mg po daily Continue ASA/Lipitor Cardiology consult appreciated PT for mobilization and functional assessment OOB for ambulation AM lab: BMP Home in am
[2019-10-05] MEDS: Potassium Chloride 20 MEQ TAB PO SCH (21:13)
[2019-10-05] MEDS: Isosorbide Mononitrate 20 MG TAB PO SCH (21:13)
[2019-10-05] MEDS: Donepezil HCl 10 MG TAB PO SCH (21:13)
[2019-10-06 05:23] LABS: Anion Gap 12 mmol/L (10-20); BUN (Urea Nitrogen) 49 mg/dL (9.8-20.1); Calc. Creatinine Clearance 24 mL/min (70-130); Calcium 8.8 mg/dL (7.8-10.44); Carbon Dioxide 26 mmol/L (23-31); Chloride 108 mmol/L (98-107); Estimated GFR-MDRD 20; Glucose 64 mg/dL (83-110); Potassium 3.9 mmol/L (3.5-5.1); Sodium 142 mmol/L (136-145)
[2019-10-06] MEDS: Mometasone/Formoterol 120 PUFF INHALER INH SCH (07:09)
[2019-10-06 07:25] VITALS: BMI 40.1
[2019-10-06] MEDS ORDERED: Furosemide 40 MG TAB PO SCH (07:30)
[2019-10-06 08:00] VITALS: TEMP 98.8
[2019-10-06] MEDS: Aspirin 81 mg Enteric Coated Tablet PO SCH (08:41)
[2019-10-06] MEDS: Folic Acid 1 MG TAB PO SCH (08:41)
[2019-10-06] MEDS: Potassium Chloride 20 MEQ TAB PO SCH (08:41)
[2019-10-06] MEDS: Ferrous Sulfate 325 MG TAB PO SCH (08:41)
[2019-10-06] MEDS: Atorvastatin Calcium 20 MG TAB PO SCH (08:41)
[2019-10-06] MEDS: cloNIDine 0.1 MG TAB PO SCH (08:41)
[2019-10-06] MEDS: Calcitriol 0.25 MCG CAP PO SCH (08:41)
[2019-10-06] MEDS: Amlodipine 10 MG TAB PO SCH (08:42)
[2019-10-06] MEDS: Icosapent Ethyl 1 GM CAPSULE PO SCH (08:42)
[2019-10-06] MEDS: hydrALAZINE 25 MG TAB PO SCH (08:42)
[2019-10-06] MEDS ORDERED: Furosemide 40 MG/4 ML VIAL SLOW IVP SCH (09:00)
[2019-10-06] MEDS: Isosorbide Mononitrate 20 MG TAB PO SCH (09:58)
[2019-10-06] MEDS: Insulin Glargine 35 UNITS in Pre-Filled Syringe 1 EACH SC SCH (09:59)
[2019-10-06 11:43] VITALS: BP 143/65
--- NOTE | 2019-10-06 12:05 | DIS ---
DATE OF ADMISSION: 10/04/2019 DATE OF DISCHARGE: 10/06/2019 DISCHARGE DIAGNOSES: 1. Acute on chronic diastolic congestive heart failure with preserved ejection fraction of 55% to 60%. 2. Acute on chronic hypoxic respiratory failure with chronic oxygen supplementation at 2 L/minute by nasal cannula. 3. Chronic kidney disease, stage 4. 4. Anemia and chronic kidney disease, stable. 5. Diabetes mellitus, type 2, insulin requiring. 6. Hypokalemia, resolved. CONSULTATIONS: Dr. Herring with Cardiology Service. PERTINENT LABORATORY AND X-RAY FINDINGS: Potassium ranged between 3.2 to 3.9. Creatinine ranged between 2.56 to 2.80. Estimated GFR ranged between 20 to 22. Troponin I ranged between 0.030 to 0.043. BNP ranged between 563 to 620. CBC showed hemoglobin ranged between 7.9 to 9.1, MCV 98. Blood cultures x2 dated 10/03/2019, showed 1/2 positive for coagulase-negative Staphylococcus species due to skin contaminant. Portable chest x-ray dated 10/03/2019, showed cardiomegaly with pulmonary edema. 2D transthoracic echocardiogram dated 10/04/2019, showed ejection fraction of 55% to 60%. Moderate left atrial enlargement. Moderate tricuspid regurgitation. HOSPITAL COURSE: The patient was initially admitted after presenting with increased shortness of breath in the context of known congestive heart failure and chronic obstructive pulmonary disease on chronic oxygen supplementation at home. The patient was noted with elevated BNP and concern for CHF exacerbation. The patient with diastolic congestive heart failure, treated with IV Lasix and overall improvement and respiratory status during the hospital course. 2D transthoracic echocardiogram showed overall preserved ejection fraction as stated previously and the patient clinically stabilized with diuretic therapy. The patient received potassium supplementation and was monitored for chronic kidney disease, stage 4. Cardiology consultation was obtained with recommendations to add additional isosorbide dinitrate to the overall cardiac regimen. The patient tolerated the titration to her medication regimen and overall remained clinically stable. I have examined the patient at the time of discharge and discussed followup instructions. The patient verbalized understanding and in agreement and ready for discharge on 10/06/2019. DISCHARGE MEDICATIONS: 1. Amlodipine 10 mg p.o. daily. 2. Lipitor 20 mg p.o. daily. 3. Prolensa one drop to the right eye daily. 4. Symbicort 80/4.5 two puffs inhaled b.i.d. 5. Rocaltrol 0.25 mcg p.o. daily. 6. Clonazepam 1 mg p.o. b.i.d. p.r.n. 7. Clonidine 0.1 mg p.o. t.i.d. 8. Aricept 10 mg p.o. at bedtime. 9. Nexium 40 mg p.o. daily. 10. Ferrous sulfate 325 mg p.o. daily. 11. Folic acid 1 mg p.o. daily. 12. Hydralazine 100 mg p.o. t.i.d. 13. Vascepa two capsules p.o. b.i.d. 14. Glargine insulin 35 units subcutaneously q.a.m. 15. Protonix 40 mg p.o. daily. 16. Prednisolone acetate one drop to each eye daily. 17. Ranexa 500 mg p.o. b.i.d. 18. Demadex 40 mg p.o. daily. 19. ProAir HFA 2 puffs inhaled q.6 hours p.r.n. 20. Enteric-coated aspirin 81 mg p.o. daily. 21. Isosorbide mononitrate 10 mg p.o. b.i.d. 22. Potassium chloride 20 mEq p.o. daily. FOLLOWUP: The patient may follow up with her primary care provider, Dr. Ramonita Archer, within 7 days of discharge. The patient will follow up with Dr. Collins with Nephrology Service. The patient may follow up with Dr. Fernando Mcintosh with Cardiology Service. CONDITION ON DISCHARGE: Fair. ACTIVITY: Ad-yunier. Rolling walker for ambulation. DIET: ADA and heart healthy. CODE STATUS: Full. DISPOSITION: Home on 10/06/2019. TIME SPENT: Total time preparing and coordinating discharge, 33 minutes. Job ID: [id number]
--- NOTE | 2019-10-07 20:55 | PQF ---
TAMIKA LIMON CHARLES DO [id number] [facility] [id number] CLINICAL DOCUMENTATION CLARIFICATION FORM: POST DISCHARGE Addendum to original discharge summary date: ____ Late entry note date: __ DATE:10/07/2019 ATTN: LANDEN HSU DO Please exercise your independent, professional judgment in responding to the clarification form. Clinical indicators are provided on the bottom of this form for your review Please check appropriate box(s): AMI TYPE: [ ] Acute Coronary Syndrome (ACS) without Acute AL meaning Unstable Angina [ ] NSTEMI (AL type I) [ ] NSTEMI due to Demand Ischemia (AMI Type II) [ x ] Demand Ischemia without AL [ ] STEMI (please also specify site see below) If STEMI, SITE:[ ] Anterior [ ] Apical [ ] Lateral [ ] Inferior [ ] Posterior [ ] Q Wave [ ] Septal [ ] Unable to Determine [ ] Other diagnosis [ ] Unable to determine In addition, please specify: Present on Admission (POA): [x ] Yes [ ] No [ ] Unable to determine CLINICAL INDICATORS - SIGNS / SYMPTOMS / LABS ST non-specific abnormality, T waves, [id number] abnormality, Prolonged QTc- Documented in ED on by Ravi Lainez Troponin is indeterminate at 0.03-Documented in H&P on by Yessi Martinez MD Troponin is indeterminate at 0.03, increased up to 0.04-Documented in consultation report on by Enrique Herring MD Acute on chronic diastolic congestive heart failure -Documented in Discharge summary on 10/05 by Landen Hsu MD RISKS: HTN-Documented in H&P on by Yessi Martinez MD DM type 2-Documented in H&P on by Yessi Martinez MD Acute on chronic diastolic congestive heart failure -Documented in Discharge summary on 10/05 by Landen Hsu MD TREATMENTS: Telemetry monitoring-Documented in H&P on by Yessi Martinez MD Serial troponins-Documented in H&P on by Yessi Martinez MD Consult the patient's wrapper stripper in a.m for evaluation and further recommendations-Documented in H&P on by Yessi Martinez MD Continue ASA/Lipitor -Documented in hospitalist progress note on 10/04 by Landen Hsu MD 2D transthoracic echocardiogram dated 10/04/2019-Documented in Discharge summary on 10/05 by Landen Hsu MD [employer] (This form is maintained as a part of the permanent medical record) 2014 [employer]. All Rights Reserved [email or web address]
== END 2019-10-06 12:16 | disposition home or self-care (01) | DRG 291 ==
LOC: ERS 19:43 → 2SE 10-04 00:36 → OBSVTOIN 10-04 00:41
PROVIDERS: ADMIT Internal Medicine; ATTEND Internal Medicine
DX: I13.0 Hypertensive heart and chronic kidney disease with heart failure and stage 1 through stage 4 chronic kidney disease, or unspecified chronic kidney disease (principal); I50.33 Acute on chronic diastolic (congestive) heart failure; J96.21 Acute and chronic respiratory failure with hypoxia; N18.4 Chronic kidney disease, stage 4 (severe); N17.9 Acute kidney failure, unspecified; I24.8 Other forms of acute ischemic heart disease; E11.22 Type 2 diabetes mellitus with diabetic chronic kidney disease; Z99.81 Dependence on supplemental oxygen; E87.6 Hypokalemia; D63.1 Anemia in chronic kidney disease; J44.9 Chronic obstructive pulmonary disease, unspecified; G47.30 Sleep apnea, unspecified; E78.5 Hyperlipidemia, unspecified; M10.9 Gout, unspecified; Z90.49 Acquired absence of other specified parts of digestive tract; Z98.51 Tubal ligation status; Z90.710 Acquired absence of both cervix and uterus; F32.9 Major depressive disorder, single episode, unspecified; F41.9 Anxiety disorder, unspecified; Z91.041 Radiographic dye allergy status; Z88.5 Allergy status to narcotic agent; Z91.013 Allergy to seafood; Z79.4 Long term (current) use of insulin
CPT/HCPCS: 36415; 36416; 71045; 80048; 80053; 82553; 83605; 83735; 83880; 84484; 85007; 85025; 85027; 87040; 87149; 93005; 93306; 96372; 96374; J1815; J1940; Q5105

== ENCOUNTER 2021-04-11 23:19 | Inpatient (IN) | payer MEDICARE, MEDICAID ==
[2021-04-12 00:05] LABS: #Eosinphils 0.1 thou/uL (0.0-0.7); #Lymphocytes 0.9 thou/uL (1.20-3.40); #Monocytes 0.4 thou/uL (0.11-0.59); #Neutrophils 7.8 thou/uL (1.40-6.50); %Eosinophils 0.7 % (0.0-10.0); %Lymphocytes 9.4 % (21.0-51.0); %Monocytes 4.3 % (0.0-10.0); %Neutrophils 85.5 % (42.0-75.0); Hemoglobin 10.3 g/dL (12.0-16.0); Mean Corpuscular HGB CONC 33.4 g/dL (32.0-36.0); Mean Corpuscular Hemoglobin 32.5 pg (27.0-31.0); Mean Corpuscular Volume 97.3 fL (78.0-98.0); Mean Platelet Volume 9.7 fL (7.4-10.4); Platelet Count 169 thou/uL (130-400); RBC Distribution Width 15.3 % (11.5-14.5); Red Blood Cell (RBC) Count 3.19 mill/uL (4.20-5.40); White Blood Cell (WBC) Count 9.2 thou/uL (4.8-10.8)
[2021-04-12] MEDS ORDERED: Nitroglycerin 2% Ointment 1 INCH/1 GM Packet ONE (00:11)
[2021-04-12] MEDS ORDERED: Furosemide 40 MG/4 ML VIAL ONE ×2 (01:26→10:10)
[2021-04-12] MEDS ORDERED: Aspirin 325 MG TAB ONE (01:26)
[2021-04-12] MEDS ORDERED: Furosemide 20 MG/2 ML VIAL ONE (01:26)
[2021-04-12 01:32] LABS: SARS-CoV-2 NAA Rapid Test Not Detected (NotDetected)
[2021-04-12 01:48] LABS: ALT (SGPT) 13 U/L (8-55); AST (SGOT) 23 U/L (5-34); Alkaline Phosphatase 82 U/L (40-110); Anion Gap 16 mmol/L (10-20); BUN (Urea Nitrogen) 36 mg/dL (9.8-20.1); Bilirubin, Total 0.6 mg/dL (0.2-1.2); Calc. Creatinine Clearance 0 mL/min (70-130); Calcium 7.5 mg/dL (7.8-10.44); Carbon Dioxide 22 mmol/L (23-31); Chloride 108 mmol/L (98-107); Globulin 3.3 g/dL (2.4-3.5); Glucose 138 mg/dL (83-110); Potassium 3.1 mmol/L (3.5-5.1); Protein, Total 6.3 g/dL (5.8-8.1); Sodium 143 mmol/L (136-145)
[2021-04-12 02:52] LABS: Troponin I 0.262 ng/mL (< 0.028)
[2021-04-12] MEDS ORDERED: Ondansetron PF 4 MG/2 ML Vial IVP PRN (05:34)
[2021-04-12] MEDS ORDERED: Ondansetron ODT 4 MG TAB PO PRN (05:34)
[2021-04-12] MEDS ORDERED: Dextrose 50% Abboject 50 ML SYRINGE SLOW IVP PRN (05:34)
[2021-04-12] MEDS ORDERED: Acetaminophen 650 MG Suppository PR PRN (05:34)
[2021-04-12] MEDS ORDERED: Dextrose 5% in Water 1,000 ML IV PRN (05:34)
[2021-04-12] MEDS ORDERED: HumaLOG 300 UNITS/3 ML VIAL SC PRN ×2 (05:34)
[2021-04-12] MEDS ORDERED: Acetaminophen 325 MG TAB PO PRN (05:34)
[2021-04-12] MEDS ORDERED: Electrolyte Replacement Protocol 1 EACH FS SCH (05:45)
[2021-04-12 07:01] LABS: Troponin I 0.325 ng/mL (< 0.028)
[2021-04-12] MEDS ORDERED: hydrALAZINE 20 MG/ML VIAL SLOW IVP PRN (07:23)
[2021-04-12 07:48] LABS: Magnesium 1.3 mg/dL (1.6-2.6)
[2021-04-12] MEDS ORDERED: Enoxaparin Sodium 100 MG/ML SYRINGE SC SCH ×2 (07:55→09:00)
[2021-04-12] MEDS ORDERED: Enoxaparin Sodium 30 MG/0.3 ML SYRINGE SC SCH ×2 (09:00)
[2021-04-12] MEDS ORDERED: Furosemide 40 MG/4 ML VIAL SLOW IVP SCH (09:00)
[2021-04-12] MEDS ORDERED: Furosemide 20 MG/2 ML VIAL SLOW IVP SCH (09:00)
[2021-04-12 09:08] LABS: Critical Call Chem Troponin I RESULT DECREASING; Troponin I 0.313 ng/mL (< 0.028)
[2021-04-12] MEDS ORDERED: Potassium Chloride 20 MEQ TAB ONE ×2 (10:09→14:54)
[2021-04-12] MEDS ORDERED: cloNIDine 0.1 MG TAB ONE (10:09)
[2021-04-12] MEDS ORDERED: Amlodipine 5 MG TAB ONE (10:09)
[2021-04-12] MEDS ORDERED: Enoxaparin Sodium 30 MG/0.3 ML SYRINGE ONE (10:10)
[2021-04-12] MEDS ORDERED: hydrALAZINE 25 MG TAB ONE ×2 (10:13→14:54)
[2021-04-12] MEDS ORDERED: Aspirin 81 mg Enteric Coated Tablet ONE ×2 (10:16)
[2021-04-12] MEDS: Amlodipine 10 MG TAB PO SCH (10:18)
[2021-04-12] MEDS: Aspirin 81 mg Enteric Coated Tablet PO SCH (10:19)
[2021-04-12] MEDS: cloNIDine 0.2 MG TAB PO SCH ×3 (10:19→21:48)
[2021-04-12] MEDS: hydrALAZINE 25 MG TAB PO SCH ×3 (10:20→21:48)
[2021-04-12] MEDS: Potassium Chloride 20 MEQ TAB PO SCH ×2 (10:27→15:07)
[2021-04-12 11:42] LABS: Bilirubin Negative (Negative); Blood, Urine Negative (Negative); Clarity Clear (Clear); Glucose, Urine (Dipstick) 30 mg/dL (Negative); Ketone, Urine Negative (Negative); Leukocyte Negative Leu/uL (Negative); Nitrite Negative (Negative); Protein, Urine (Dipstick) 200 mg/dL (Neg-Trace); RBC/HPF 0-3 HPF (0-3); Urobilinogen Normal mg/dL (Less than 2); WBC/HPF 0-3 HPF (0-3); pH, Urine 6.5 (5.0-9.0)
[2021-04-12 11:44] LABS: Bacteria/HPF 1+ HPF (None Seen)
[2021-04-12 12:35] LABS: Magnesium 1.2 mg/dL (1.6-2.6)
[2021-04-12 13:50] LABS: Anion Gap 13 mmol/L (10-20); BUN (Urea Nitrogen) 37 mg/dL (9.8-20.1); Calc. Creatinine Clearance 0 mL/min (70-130); Calcium 7.5 mg/dL (7.8-10.44); Carbon Dioxide 26 mmol/L (23-31); Chloride 108 mmol/L (98-107); Glucose 119 mg/dL (83-110); Sodium 144 mmol/L (136-145)
[2021-04-12 14:01] LABS: Potassium 2.9 mmol/L (3.5-5.1)
[2021-04-12] MEDS: Carvedilol 6.25 MG TAB PO SCH (16:54)
[2021-04-12 17:10] VITALS: BMI 43.3
[2021-04-12] MEDS: Atorvastatin Calcium 20 MG TAB PO SCH (21:48)
[2021-04-13 04:56] LABS: #Eosinphils 0.1 thou/uL (0.0-0.7); #Monocytes 0.4 thou/uL (0.11-0.59); #Neutrophils 2.5 thou/uL (1.40-6.50); %Basophils 0.3 % (0.0-1.0); %Eosinophils 2.5 % (0.0-10.0); %Lymphocytes 25.6 % (21.0-51.0); %Monocytes 10.7 % (0.0-10.0); Mean Corpuscular HGB CONC 31.9 g/dL (32.0-36.0); Mean Corpuscular Hemoglobin 31.7 pg (27.0-31.0); Mean Corpuscular Volume 99.5 fL (78.0-98.0); Mean Platelet Volume 10.6 fL (7.4-10.4); Platelet Count 144 thou/uL (130-400); RBC Distribution Width 15.4 % (11.5-14.5); Red Blood Cell (RBC) Count 2.85 mill/uL (4.20-5.40)
[2021-04-13 05:22] LABS: Anion Gap 12 mmol/L (10-20); BUN (Urea Nitrogen) 35 mg/dL (9.8-20.1); Calc. Creatinine Clearance 17 mL/min (70-130); Calcium 7.5 mg/dL (7.8-10.44); Carbon Dioxide 27 mmol/L (23-31); Chloride 108 mmol/L (98-107); Glucose 72 mg/dL (83-110); Potassium 3.2 mmol/L (3.5-5.1); Sodium 144 mmol/L (136-145)
[2021-04-13] MEDS: Amlodipine 10 MG TAB PO SCH (08:46)
[2021-04-13] MEDS: Carvedilol 6.25 MG TAB PO SCH ×2 (08:46→16:47)
[2021-04-13] MEDS: hydrALAZINE 25 MG TAB PO SCH ×3 (08:46→21:09)
[2021-04-13] MEDS: Aspirin 81 mg Enteric Coated Tablet PO SCH (08:46)
[2021-04-13] MEDS: cloNIDine 0.2 MG TAB PO SCH ×3 (08:46→21:10)
[2021-04-13] MEDS: Isosorbide Dinitrate 20 MG TAB PO SCH ×3 (08:52→21:10)
[2021-04-13] MEDS: Furosemide 40 MG/4 ML VIAL SLOW IVP SCH (08:52)
[2021-04-13] MEDS ORDERED: Potassium Chloride 20 MEQ TAB PO SCH (12:30)
[2021-04-13] MEDS: Atorvastatin Calcium 20 MG TAB PO SCH (21:10)
[2021-04-14 05:31] LABS: #Eosinphils 0.1 thou/uL (0.0-0.7); #Monocytes 0.4 thou/uL (0.11-0.59); #Neutrophils 3.2 thou/uL (1.40-6.50); %Basophils 0.2 % (0.0-1.0); %Eosinophils 2.3 % (0.0-10.0); %Lymphocytes 21.1 % (21.0-51.0); %Monocytes 8.1 % (0.0-10.0); %Neutrophils 68.3 % (42.0-75.0); Hemoglobin 9.2 g/dL (12.0-16.0); Mean Corpuscular HGB CONC 30.8 g/dL (32.0-36.0); Mean Corpuscular Hemoglobin 30.3 pg (27.0-31.0); Mean Corpuscular Volume 98.5 fL (78.0-98.0); Mean Platelet Volume 10.2 fL (7.4-10.4); Platelet Count 160 thou/uL (130-400); Red Blood Cell (RBC) Count 3.03 mill/uL (4.20-5.40); White Blood Cell (WBC) Count 4.8 thou/uL (4.8-10.8)
[2021-04-14 05:53] LABS: Anion Gap 15 mmol/L (10-20); BUN (Urea Nitrogen) 44 mg/dL (9.8-20.1); Calc. Creatinine Clearance 17 mL/min (70-130); Calcium 7.8 mg/dL (7.8-10.44); Carbon Dioxide 24 mmol/L (23-31); Chloride 106 mmol/L (98-107); Glucose 145 mg/dL (83-110); Potassium 3.5 mmol/L (3.5-5.1); Sodium 141 mmol/L (136-145)
[2021-04-14 07:22] VITALS: TEMP 96.6
[2021-04-14] MEDS: Aspirin 81 mg Enteric Coated Tablet PO SCH (08:47)
[2021-04-14] MEDS: cloNIDine 0.2 MG TAB PO SCH (08:47)
[2021-04-14] MEDS: Carvedilol 6.25 MG TAB PO SCH (08:47)
[2021-04-14] MEDS: Amlodipine 10 MG TAB PO SCH (08:47)
[2021-04-14] MEDS: Isosorbide Dinitrate 20 MG TAB PO SCH (08:47)
[2021-04-14 08:48] VITALS: BP 135/74
[2021-04-14] MEDS: Furosemide 40 MG/4 ML VIAL SLOW IVP SCH (08:48)
[2021-04-14] MEDS: hydrALAZINE 25 MG TAB PO SCH (08:48)
== END 2021-04-14 10:50 | disposition home or self-care (01) | DRG 280 ==
LOC: ERS 23:19 → ERHOLD 04-12 03:23 → 2NO 04-12 16:12
PROVIDERS: ADMIT Student in an Organized Health Care Education/Training Program; ATTEND Internal Medicine
DX: I13.2 Hypertensive heart and chronic kidney disease with heart failure and with stage 5 chronic kidney disease, or end stage renal disease (principal); I50.33 Acute on chronic diastolic (congestive) heart failure; I21.A1 Myocardial infarction type 2; N18.5 Chronic kidney disease, stage 5; N17.9 Acute kidney failure, unspecified; I16.1 Hypertensive emergency; Z68.41 Body mass index [BMI] 40.0-44.9, adult; Z20.822 Contact with and (suspected) exposure to COVID-19; E78.5 Hyperlipidemia, unspecified; E78.00 Pure hypercholesterolemia, unspecified; M10.9 Gout, unspecified; G47.33 Obstructive sleep apnea (adult) (pediatric); F41.9 Anxiety disorder, unspecified; F32.9 Major depressive disorder, single episode, unspecified; E11.22 Type 2 diabetes mellitus with diabetic chronic kidney disease; M19.90 Unspecified osteoarthritis, unspecified site; E66.01 Morbid (severe) obesity due to excess calories; D63.1 Anemia in chronic kidney disease; E87.6 Hypokalemia; J44.9 Chronic obstructive pulmonary disease, unspecified; Z98.51 Tubal ligation status; Z90.49 Acquired absence of other specified parts of digestive tract; Z90.710 Acquired absence of both cervix and uterus; Z88.5 Allergy status to narcotic agent; Z88.0 Allergy status to penicillin; Z91.041 Radiographic dye allergy status; Z91.013 Allergy to seafood; Z79.899 Other long term (current) drug therapy; Z79.52 Long term (current) use of systemic steroids; Z79.51 Long term (current) use of inhaled steroids
CPT/HCPCS: 36415; 36416; 71045; 76770; 80048; 80053; 81015; 82553; 83605; 83735; 83880; 84484; 85025; 87040; 87086; 93005; 94640; J1650; J1940; J3475; J3490; J7620; U0002

== ENCOUNTER 2021-04-22 22:00 | Observation (INO) | payer MEDICARE, MEDICAID ==
[2021-04-22 23:24] LABS: #Eosinphils 0.1 thou/uL (0.0-0.7); #Lymphocytes 1.1 thou/uL (1.20-3.40); #Monocytes 0.4 thou/uL (0.11-0.59); #Neutrophils 3.5 thou/uL (1.40-6.50); %Basophils 0.8 % (0.0-1.0); %Eosinophils 2.3 % (0.0-10.0); %Lymphocytes 21.2 % (21.0-51.0); %Monocytes 7.4 % (0.0-10.0); %Neutrophils 68.3 % (42.0-75.0); Hemoglobin 9.2 g/dL (12.0-16.0); Mean Corpuscular HGB CONC 31.9 g/dL (32.0-36.0); Mean Corpuscular Hemoglobin 31.3 pg (27.0-31.0); Mean Corpuscular Volume 97.9 fL (78.0-98.0); Mean Platelet Volume 10.4 fL (7.4-10.4); Platelet Count 146 thou/uL (130-400); RBC Distribution Width 15.6 % (11.5-14.5); Red Blood Cell (RBC) Count 2.93 mill/uL (4.20-5.40); White Blood Cell (WBC) Count 5.1 thou/uL (4.8-10.8)
[2021-04-22 23:27] LABS: ALT (SGPT) 7 U/L (8-55); AST (SGOT) 15 U/L (5-34); Albumin 3.1 g/dL (3.4-4.8); Alkaline Phosphatase 74 U/L (40-110); Anion Gap 12 mmol/L (10-20); BUN (Urea Nitrogen) 34 mg/dL (9.8-20.1); Bilirubin, Total 0.4 mg/dL (0.2-1.2); Calc. Creatinine Clearance 0 mL/min (70-130); Calcium 8.2 mg/dL (7.8-10.44); Carbon Dioxide 27 mmol/L (23-31); Chloride 105 mmol/L (98-107); Globulin 2.8 g/dL (2.4-3.5); Lipase 49 U/L (8-78); Potassium 3.3 mmol/L (3.5-5.1); Protein, Total 5.9 g/dL (5.8-8.1); Sodium 141 mmol/L (136-145)
[2021-04-22 23:39] LABS: Glucose 37 mg/dL (83-110)
[2021-04-22] MEDS ORDERED: Dextrose 50% Abboject 50 ML SYRINGE ONE (23:42)
[2021-04-23] MEDS ORDERED: Furosemide 40 MG/4 ML VIAL ONE (01:29)
[2021-04-23] MEDS ORDERED: hydrALAZINE 20 MG/ML VIAL ONE (05:03)
[2021-04-23] MEDS ORDERED: Ondansetron PF 4 MG/2 ML Vial IVP PRN ×2 (07:31→08:25)
[2021-04-23] MEDS ORDERED: Ondansetron ODT 4 MG TAB PO PRN (07:31)
[2021-04-23] MEDS ORDERED: Calcium Carbonate 500 MG ChewTAB PO PRN (08:25)
[2021-04-23] MEDS ORDERED: Dextrose 50% Abboject 50 ML SYRINGE SLOW IVP PRN (08:25)
[2021-04-23] MEDS ORDERED: Dextrose 5% in Water 1,000 ML IV PRN (08:25)
[2021-04-23] MEDS ORDERED: Acetaminophen 325 MG TAB PO PRN (08:25)
[2021-04-23] MEDS ORDERED: Amlodipine 10 MG TAB PO SCH (09:00)
[2021-04-23] MEDS ORDERED: Isosorbide Mononitrate 20 MG TAB PO SCH (09:00)
[2021-04-23] MEDS ORDERED: Folic Acid 1 MG TAB PO SCH (09:00)
[2021-04-23] MEDS ORDERED: cloNIDine 0.1 MG TAB PO SCH ×2 (09:00→12:00)
[2021-04-23] MEDS ORDERED: Torsemide 20 MG TAB PO SCH (09:00)
[2021-04-23] MEDS ORDERED: Heparin 5,000 UNITS/ML VIAL SC SCH (09:00)
[2021-04-23] MEDS ORDERED: Carvedilol 6.25 MG TAB PO SCH (09:00)
[2021-04-23] MEDS ORDERED: Calcitriol 0.25 MCG CAP PO SCH (09:00)
[2021-04-23] MEDS ORDERED: Albuterol Sulfate 2.5 mg/3 ml Neb NEB PRN (09:08)
[2021-04-23 09:22] LABS: Clarity Clear (Clear); Leukocyte Negative Leu/uL (Negative); Nitrite Negative (Negative); Protein, Urine (Dipstick) 100 mg/dL (Neg-Trace); Specific Gravity, Urine 1.008 (1.002-1.036); pH, Urine 6.5 (5.0-9.0)
[2021-04-23 09:23] LABS: Bacteria/HPF None Seen HPF (None Seen); Bilirubin Negative (Negative); Blood, Urine Negative (Negative); Glucose, Urine (Dipstick) Negative (Negative); Ketone, Urine Negative (Negative); RBC/HPF 0-3 HPF (0-3); Squamous Epithelial 0-3 HPF (0-3); Urobilinogen Normal mg/dL (Less than 2); WBC/HPF 0-3 HPF (0-3)
[2021-04-23] MEDS: hydrALAZINE 25 MG TAB PO SCH ×2 (09:39→14:13)
[2021-04-23 10:25] LABS: SARS-CoV-2 NAA Rapid Test Not Detected (NotDetected)
[2021-04-23] MEDS ORDERED: Epoetin (ESRD) 20,000 UNITS/ML SC SCH (10:45)
[2021-04-23 11:11] VITALS: BMI 42.7
[2021-04-23 11:34] LABS: Albumin 2.9 g/dL (3.4-4.8); Anion Gap 11 mmol/L (10-20); BUN (Urea Nitrogen) 34 mg/dL (9.8-20.1); BUN/Creatinine Ratio 9.44; Calc. Creatinine Clearance 19 mL/min (70-130); Calcium 8.6 mg/dL (7.8-10.44); Carbon Dioxide 29 mmol/L (23-31); Chloride 106 mmol/L (98-107); Glucose 85 mg/dL (83-110); Phosphorus 4.9 mg/dL (2.3-4.7); Potassium 3.3 mmol/L (3.5-5.1); Sodium 143 mmol/L (136-145)
[2021-04-23 11:52] LABS: CKMB 3.9 ng/mL (0-6.6)
[2021-04-23] MEDS ORDERED: EPOETIN ALFA-EPBX (ESRD) 10,000 UNIT/ML VIAL SC SCH (12:00)
[2021-04-23 14:13] VITALS: BP 180/84; TEMP 97.6
[2021-04-23] MEDS ORDERED: Icosapent Ethyl 1 GM CAPSULE PO SCH (17:00)
[2021-04-23] MEDS ORDERED: Donepezil HCl 10 MG TAB PO SCH (21:00)
[2021-04-23] MEDS ORDERED: Atorvastatin Calcium 20 MG TAB PO SCH (21:00)
== END 2021-04-23 14:58 | disposition home or self-care (01) ==
LOC: ERS 22:00 → INTOOBSV 04-23 01:46 → 2NO 04-23 01:46
PROVIDERS: ADMIT Student in an Organized Health Care Education/Training Program; ATTEND Internal Medicine
DX: E11.649 Type 2 diabetes mellitus with hypoglycemia without coma (principal); R10.84 Generalized abdominal pain; I13.2 Hypertensive heart and chronic kidney disease with heart failure and with stage 5 chronic kidney disease, or end stage renal disease; E11.22 Type 2 diabetes mellitus with diabetic chronic kidney disease; N18.5 Chronic kidney disease, stage 5; I50.30 Unspecified diastolic (congestive) heart failure; N17.9 Acute kidney failure, unspecified; D63.1 Anemia in chronic kidney disease; E78.5 Hyperlipidemia, unspecified; F03.90 Unspecified dementia, unspecified severity, without behavioral disturbance, psychotic disturbance, mood disturbance, and anxiety; G47.30 Sleep apnea, unspecified; J44.9 Chronic obstructive pulmonary disease, unspecified; K21.9 Gastro-esophageal reflux disease without esophagitis; M19.90 Unspecified osteoarthritis, unspecified site; E87.6 Hypokalemia; R60.9 Edema, unspecified; E88.09 Other disorders of plasma-protein metabolism, not elsewhere classified; E11.21 Type 2 diabetes mellitus with diabetic nephropathy; I70.0 Atherosclerosis of aorta; J90 Pleural effusion, not elsewhere classified; E66.01 Morbid (severe) obesity due to excess calories; Z68.41 Body mass index [BMI] 40.0-44.9, adult; Z79.4 Long term (current) use of insulin; Z79.82 Long term (current) use of aspirin; Z79.899 Other long term (current) drug therapy; Z88.0 Allergy status to penicillin; Z88.5 Allergy status to narcotic agent; Z91.013 Allergy to seafood; Z91.041 Radiographic dye allergy status; Z20.822 Contact with and (suspected) exposure to COVID-19
CPT/HCPCS: 71045; 74176; 80053; 80069; 82553; 82962; 83690; 83880; 84484; 85025; 93005; 97139; Q5105; U0002; 36415; 36416; 81003; 81015; G0378; J0360; J1644; J1940

== ENCOUNTER 2021-05-01 02:04 | Inpatient (IN) | payer MEDICARE, MEDICAID ==
[2021-05-01] MEDS ORDERED: Furosemide 40 MG/4 ML VIAL ONE (02:46)
[2021-05-01 03:05] LABS: #Eosinphils 0.1 thou/uL (0.0-0.7); #Lymphocytes 1.1 thou/uL (1.20-3.40); #Monocytes 0.6 thou/uL (0.11-0.59); #Neutrophils 7.6 thou/uL (1.40-6.50); %Eosinophils 1.5 % (0.0-10.0); %Lymphocytes 11.2 % (21.0-51.0); %Monocytes 6.1 % (0.0-10.0); %Neutrophils 81.2 % (42.0-75.0); Hemoglobin 8.8 g/dL (12.0-16.0); Mean Corpuscular HGB CONC 32.3 g/dL (32.0-36.0); Mean Corpuscular Hemoglobin 32.4 pg (27.0-31.0); Mean Platelet Volume 10.2 fL (7.4-10.4); Platelet Count 162 thou/uL (130-400); RBC Distribution Width 15.8 % (11.5-14.5); Red Blood Cell (RBC) Count 2.72 mill/uL (4.20-5.40); White Blood Cell (WBC) Count 9.4 thou/uL (4.8-10.8)
[2021-05-01 03:24] LABS: ALT (SGPT) 9 U/L (8-55); AST (SGOT) 13 U/L (5-34); Albumin 3.2 g/dL (3.4-4.8); Alkaline Phosphatase 91 U/L (40-110); Anion Gap 14 mmol/L (10-20); BUN (Urea Nitrogen) 45 mg/dL (9.8-20.1); Bilirubin, Total 0.6 mg/dL (0.2-1.2); Calc. Creatinine Clearance 0 mL/min (70-130); Calcium 8.9 mg/dL (7.8-10.44); Carbon Dioxide 27 mmol/L (23-31); Chloride 106 mmol/L (98-107); Glucose 170 mg/dL (83-110); Potassium 4.4 mmol/L (3.5-5.1); Protein, Total 6.2 g/dL (5.8-8.1); Sodium 143 mmol/L (136-145)
[2021-05-01 04:15] LABS: CKMB 2.4 ng/mL (0-6.6)
[2021-05-01] MEDS ORDERED: Ondansetron ODT 4 MG TAB PO PRN (05:17)
[2021-05-01] MEDS ORDERED: Dextrose 50% Abboject 50 ML SYRINGE SLOW IVP PRN (05:17)
[2021-05-01] MEDS ORDERED: Acetaminophen 650 MG Suppository PR PRN (05:17)
[2021-05-01] MEDS ORDERED: Acetaminophen 325 MG TAB PO PRN (05:17)
[2021-05-01] MEDS ORDERED: HumaLOG 300 UNITS/3 ML VIAL SC PRN (05:17)
[2021-05-01] MEDS ORDERED: Dextrose 5% in Water 1,000 ML IV PRN (05:17)
[2021-05-01] MEDS ORDERED: Ondansetron PF 4 MG/2 ML Vial IVP PRN (05:17)
[2021-05-01 05:51] LABS: Troponin I 0.029 ng/mL (< 0.028)
[2021-05-01] MEDS ORDERED: Amlodipine 10 MG TAB PO SCH (09:00)
[2021-05-01] MEDS ORDERED: Torsemide 20 MG TAB PO SCH (09:00)
[2021-05-01 09:07] VITALS: BMI 41.3
[2021-05-01] MEDS ORDERED: clonazePAM 1 MG TAB PO PRN (09:20)
[2021-05-01] MEDS: Potassium Chloride 20 MEQ TAB PO SCH (09:47)
[2021-05-01] MEDS: Gabapentin 100 MG CAP PO SCH ×3 (09:48→21:53)
[2021-05-01] MEDS: Aspirin 81 mg Enteric Coated Tablet PO SCH (09:48)
[2021-05-01] MEDS: Ferrous Sulfate 325 MG TAB PO SCH (09:48)
[2021-05-01] MEDS: Folic Acid 1 MG TAB PO SCH (09:48)
[2021-05-01] MEDS: Carvedilol 25 MG TAB PO SCH ×2 (09:48→21:52)
[2021-05-01] MEDS: Calcitriol 0.25 MCG CAP PO SCH (09:48)
[2021-05-01] MEDS: Isosorbide Mononitrate 20 MG TAB PO SCH ×2 (09:48→21:54)
[2021-05-01] MEDS: cloNIDine 0.1 MG TAB PO SCH ×3 (09:49→21:53)
[2021-05-01] MEDS: hydrALAZINE 25 MG TAB PO SCH ×3 (09:49→21:54)
[2021-05-01] MEDS: Heparin 5,000 UNITS/ML VIAL SC SCH ×3 (09:49→21:56)
[2021-05-01 10:07] LABS: Troponin I 0.039 ng/mL (< 0.028)
[2021-05-01 12:40] LABS: SARS-CoV-2 NAA Rapid Test Not Detected (NotDetected)
[2021-05-01] MEDS: Furosemide 40 MG/4 ML VIAL SLOW IVP SCH (15:33)
[2021-05-01] MEDS: HumaLOG 300 UNITS/3 ML VIAL SC PRN (16:59)
[2021-05-01] MEDS ORDERED: Icosapent Ethyl 1 GM CAPSULE PO SCH (20:00)
[2021-05-01] MEDS: Atorvastatin Calcium 20 MG TAB PO SCH (21:52)
[2021-05-01] MEDS: Donepezil HCl 10 MG TAB PO SCH (21:53)
[2021-05-01] MEDS: Zinc Sulfate 220 MG CAP PO SCH (21:54)
[2021-05-01] MEDS: Lantus 1000 UNITS/10 ML VIAL SC SCH (23:00)
[2021-05-02 04:42] LABS: #Eosinphils 0.2 thou/uL (0.0-0.7); #Lymphocytes 1.2 thou/uL (1.20-3.40); #Monocytes 0.5 thou/uL (0.11-0.59); #Neutrophils 4.5 thou/uL (1.40-6.50); %Basophils 0.6 % (0.0-1.0); %Eosinophils 2.8 % (0.0-10.0); %Lymphocytes 18.5 % (21.0-51.0); %Monocytes 7.3 % (0.0-10.0); %Neutrophils 70.9 % (42.0-75.0); Hemoglobin 8.1 g/dL (12.0-16.0); Mean Corpuscular HGB CONC 30.8 g/dL (32.0-36.0); Mean Corpuscular Hemoglobin 31.3 pg (27.0-31.0); Mean Platelet Volume 10.1 fL (7.4-10.4); Platelet Count 157 thou/uL (130-400); RBC Distribution Width 15.9 % (11.5-14.5); White Blood Cell (WBC) Count 6.3 thou/uL (4.8-10.8)
[2021-05-02 04:52] LABS: Anion Gap 13 mmol/L (10-20); BUN (Urea Nitrogen) 43 mg/dL (9.8-20.1); Calc. Creatinine Clearance 15 mL/min (70-130); Calcium 8.8 mg/dL (7.8-10.44); Carbon Dioxide 26 mmol/L (23-31); Chloride 106 mmol/L (98-107); Glucose 124 mg/dL (83-110); Sodium 141 mmol/L (136-145)
[2021-05-02] MEDS ORDERED: hydrALAZINE 25 MG TAB PO PRN ×2 (08:21→08:28)
[2021-05-02] MEDS ORDERED: Furosemide 40 MG/4 ML VIAL SLOW IVP SCH (09:00)
[2021-05-02] MEDS: Potassium Chloride 20 MEQ TAB PO SCH (09:10)
[2021-05-02] MEDS: Gabapentin 100 MG CAP PO SCH ×3 (09:11→20:43)
[2021-05-02] MEDS: Ferrous Sulfate 325 MG TAB PO SCH (09:11)
[2021-05-02] MEDS: hydrALAZINE 25 MG TAB PO SCH ×3 (09:12→20:41)
[2021-05-02] MEDS: cloNIDine 0.1 MG TAB PO SCH ×3 (09:12→20:40)
[2021-05-02] MEDS: Isosorbide Mononitrate 20 MG TAB PO SCH ×2 (09:13→20:40)
[2021-05-02] MEDS: Carvedilol 25 MG TAB PO SCH ×2 (09:13→20:40)
[2021-05-02] MEDS: Folic Acid 1 MG TAB PO SCH (09:13)
[2021-05-02] MEDS: Aspirin 81 mg Enteric Coated Tablet PO SCH (09:13)
[2021-05-02] MEDS: Calcitriol 0.25 MCG CAP PO SCH (09:13)
[2021-05-02] MEDS: NIFEdipine XL 60 MG TAB PO SCH (09:13)
[2021-05-02] MEDS: Heparin 5,000 UNITS/ML VIAL SC SCH ×3 (09:14→20:42)
[2021-05-02] MEDS: Icosapent Ethyl 1 GM CAPSULE PO SCH ×2 (09:15→17:55)
[2021-05-02] MEDS: Furosemide 40 MG/4 ML VIAL SLOW IVP SCH ×2 (09:21→14:59)
[2021-05-02] MEDS ORDERED: Metolazone 5 MG TAB PO SCH (09:30)
[2021-05-02] MEDS ORDERED: Labetalol HCl 100 MG/20 ML VIAL SLOW IVP PRN (10:32)
[2021-05-02] MEDS: Capsaicin 0.025% Cream 60 gm Tube TOP SCH ×2 (14:58→20:41)
[2021-05-02] MEDS: Zinc Sulfate 220 MG CAP PO SCH (20:39)
[2021-05-02] MEDS: Donepezil HCl 10 MG TAB PO SCH (20:40)
[2021-05-02] MEDS: Atorvastatin Calcium 20 MG TAB PO SCH (20:41)
[2021-05-02] MEDS: Lantus 1000 UNITS/10 ML VIAL SC SCH (20:42)
[2021-05-03 04:57] LABS: #Eosinphils 0.2 thou/uL (0.0-0.7); #Lymphocytes 1.3 thou/uL (1.20-3.40); #Monocytes 0.4 thou/uL (0.11-0.59); #Neutrophils 3.2 thou/uL (1.40-6.50); %Basophils 0.1 % (0.0-1.0); %Eosinophils 3.1 % (0.0-10.0); %Lymphocytes 25.9 % (21.0-51.0); %Monocytes 7.9 % (0.0-10.0); %Neutrophils 62.9 % (42.0-75.0); Hemoglobin 8.2 g/dL (12.0-16.0); Mean Corpuscular HGB CONC 30.5 g/dL (32.0-36.0); Mean Platelet Volume 10.1 fL (7.4-10.4); Platelet Count 194 thou/uL (130-400); RBC Distribution Width 16.2 % (11.5-14.5); Red Blood Cell (RBC) Count 2.65 mill/uL (4.20-5.40); White Blood Cell (WBC) Count 5.1 thou/uL (4.8-10.8)
[2021-05-03 05:20] LABS: Anion Gap 12 mmol/L (10-20); BUN (Urea Nitrogen) 43 mg/dL (9.8-20.1); Calc. Creatinine Clearance 14 mL/min (70-130); Calcium 8.9 mg/dL (7.8-10.44); Carbon Dioxide 30 mmol/L (23-31); Chloride 104 mmol/L (98-107); Glucose 155 mg/dL (83-110); Sodium 142 mmol/L (136-145)
[2021-05-03 05:39] LABS: HBSAB Concentration Less than 8.00 mIU/mL; HBSAg Index 0.17 S/CO (0-0.99); Hep B Core Total Ab Non-Reactive (NonReactive); Hep B Core Total Index 0.08 S/CO (0-0.79); Hep B Surf AB Non-Reactive (NonReactive); Hep B Surf Ag Non-Reactive S/CO (NonReactive); Hep C IgG Ab Non-Reactive (NonReactive); Hep C Index 0.13 S/CO (0-0.79)
[2021-05-03] MEDS: Furosemide 40 MG/4 ML VIAL SLOW IVP SCH ×2 (05:53→16:53)
[2021-05-03] MEDS ORDERED: Metolazone 5 MG TAB PO SCH (08:30)
[2021-05-03] MEDS: Capsaicin 0.025% Cream 60 gm Tube TOP SCH ×3 (10:18→21:16)
[2021-05-03] MEDS: hydrALAZINE 25 MG TAB PO SCH ×3 (10:19→21:17)
[2021-05-03] MEDS: Aspirin 81 mg Enteric Coated Tablet PO SCH (10:20)
[2021-05-03] MEDS: Isosorbide Mononitrate 20 MG TAB PO SCH ×2 (10:20→21:17)
[2021-05-03] MEDS: Icosapent Ethyl 1 GM CAPSULE PO SCH ×2 (10:21→17:02)
[2021-05-03] MEDS: NIFEdipine XL 60 MG TAB PO SCH (10:21)
[2021-05-03] MEDS: Ferrous Sulfate 325 MG TAB PO SCH (10:21)
[2021-05-03] MEDS: Heparin 5,000 UNITS/ML VIAL SC SCH ×3 (10:22→20:47)
[2021-05-03] MEDS: Gabapentin 100 MG CAP PO SCH ×3 (10:22→21:17)
[2021-05-03] MEDS: Calcitriol 0.25 MCG CAP PO SCH (10:23)
[2021-05-03] MEDS: Carvedilol 25 MG TAB PO SCH ×2 (10:24→21:16)
[2021-05-03] MEDS: Folic Acid 1 MG TAB PO SCH (10:24)
[2021-05-03] MEDS: Potassium Chloride 20 MEQ TAB PO SCH (10:25)
[2021-05-03] MEDS: cloNIDine 0.1 MG TAB PO SCH ×3 (10:26→21:16)
[2021-05-03] MEDS ORDERED: Heparin 10,000 UNITS/ 10 ML VIAL ONE (14:55)
[2021-05-03] MEDS ORDERED: Tuberculin PPD 0.1 ML VIAL I-DERMAL SCH (18:00)
[2021-05-03] MEDS: Lantus 1000 UNITS/10 ML VIAL SC SCH (20:47)
[2021-05-03] MEDS: Atorvastatin Calcium 20 MG TAB PO SCH (21:16)
[2021-05-03] MEDS: Zinc Sulfate 220 MG CAP PO SCH (21:17)
[2021-05-03] MEDS: Donepezil HCl 10 MG TAB PO SCH (21:17)
[2021-05-04 06:01] LABS: Anion Gap 12 mmol/L (10-20); BUN (Urea Nitrogen) 31 mg/dL (9.8-20.1); Calc. Creatinine Clearance 17 mL/min (70-130); Carbon Dioxide 30 mmol/L (23-31); Chloride 102 mmol/L (98-107); Potassium 3.7 mmol/L (3.5-5.1); Sodium 140 mmol/L (136-145)
[2021-05-04 06:02] LABS: Calcium 8.5 mg/dL (7.8-10.44); Glucose 107 mg/dL (83-110)
[2021-05-04] MEDS: hydrALAZINE 25 MG TAB PO SCH ×3 (08:17→21:26)
[2021-05-04] MEDS: Icosapent Ethyl 1 GM CAPSULE PO SCH ×2 (08:17→18:55)
[2021-05-04] MEDS: Isosorbide Mononitrate 20 MG TAB PO SCH ×2 (08:18→21:25)
[2021-05-04] MEDS: Potassium Chloride 20 MEQ TAB PO SCH (08:18)
[2021-05-04] MEDS: NIFEdipine XL 60 MG TAB PO SCH (08:18)
[2021-05-04] MEDS: Aspirin 81 mg Enteric Coated Tablet PO SCH (08:18)
[2021-05-04] MEDS: cloNIDine 0.1 MG TAB PO SCH ×3 (08:18→21:25)
[2021-05-04] MEDS: Carvedilol 25 MG TAB PO SCH ×2 (08:19→21:25)
[2021-05-04] MEDS: Folic Acid 1 MG TAB PO SCH (08:19)
[2021-05-04] MEDS: Capsaicin 0.025% Cream 60 gm Tube TOP SCH ×3 (08:21→21:28)
[2021-05-04] MEDS: Heparin 5,000 UNITS/ML VIAL SC SCH ×2 (08:21→21:31)
[2021-05-04] MEDS: Gabapentin 100 MG CAP PO SCH ×3 (08:26→21:26)
[2021-05-04] MEDS ORDERED: Heparin 10,000 UNITS/ 10 ML VIAL ONE ×3 (09:22→12:25)
[2021-05-04] MEDS ORDERED: Heparin 5,000 UNITS/ML VIAL ONE (11:45)
[2021-05-04] MEDS ORDERED: Ioversol 68 % 50 ML VIAL ONE (11:45)
[2021-05-04] MEDS ORDERED: Lidocaine 1% w/Epinephrine 1:100K 20 ML VIAL ONE (11:45)
[2021-05-04] MEDS ORDERED: Protamine Sulfate 50 MG/5 ML VIAL ONE (11:45)
[2021-05-04] MEDS ORDERED: Sodium Chloride 0.9% 20 ML ONE (11:46)
[2021-05-04] MEDS ORDERED: Bupivacaine PF 0.5% 30 ML VIAL ONE (12:25)
[2021-05-04] MEDS ORDERED: Levofloxacin 500 mg/D5W 100 ml Premix Bag ONE (12:32)
[2021-05-04] MEDS ORDERED: Fentanyl 100 MCG/2 ML VIAL ONE (12:54)
[2021-05-04] MEDS ORDERED: Ondansetron HCl/PF 4 MG/2 ML Vial IVP PRN (13:02)
[2021-05-04] MEDS ORDERED: Promethazine HCl 25 MG/ML VIAL IVPB PRN (13:02)
[2021-05-04] MEDS ORDERED: Promethazine HCl 25 MG/ML VIAL IM PRN (13:02)
[2021-05-04] MEDS ORDERED: Ropivacaine 0.5% HCl/PF (150 MG/30 ML VIAL) ONE (13:10)
[2021-05-04] MEDS ORDERED: Lidocaine 1% PF 5 ML VIAL ONE (13:28)
[2021-05-04] MEDS ORDERED: PROPOFOL 200 MG/20 ML VIAL ONE (13:28)
[2021-05-04] MEDS: EPOETIN ALFA-EPBX (ESRD) 10,000 UNIT/ML VIAL IVP SCH (17:51)
[2021-05-04] MEDS: Zinc Sulfate 220 MG CAP PO SCH (21:24)
[2021-05-04] MEDS: Atorvastatin Calcium 20 MG TAB PO SCH (21:25)
[2021-05-04] MEDS: Donepezil HCl 10 MG TAB PO SCH (21:26)
[2021-05-04] MEDS: Lantus 1000 UNITS/10 ML VIAL SC SCH (21:31)
[2021-05-05 04:32] LABS: Anion Gap 10 mmol/L (10-20); BUN (Urea Nitrogen) 18 mg/dL (9.8-20.1); Calc. Creatinine Clearance 23 mL/min (70-130); Calcium 8.5 mg/dL (7.8-10.44); Carbon Dioxide 32 mmol/L (23-31); Chloride 103 mmol/L (98-107); Glucose 83 mg/dL (83-110); Potassium 3.7 mmol/L (3.5-5.1); Sodium 141 mmol/L (136-145)
[2021-05-05] MEDS ORDERED: READ PPD TEST SITE PO SCH (09:00)
[2021-05-05] MEDS: Potassium Chloride 20 MEQ TAB PO SCH (10:00)
[2021-05-05] MEDS: hydrALAZINE 25 MG TAB PO SCH ×3 (10:00→20:58)
[2021-05-05] MEDS: Aspirin 81 mg Enteric Coated Tablet PO SCH (10:00)
[2021-05-05] MEDS: Gabapentin 100 MG CAP PO SCH ×3 (10:00→20:59)
[2021-05-05] MEDS: NIFEdipine XL 60 MG TAB PO SCH (10:01)
[2021-05-05] MEDS: Icosapent Ethyl 1 GM CAPSULE PO SCH ×2 (10:02→16:59)
[2021-05-05] MEDS: Carvedilol 25 MG TAB PO SCH ×2 (10:02→20:58)
[2021-05-05] MEDS: Folic Acid 1 MG TAB PO SCH (10:02)
[2021-05-05] MEDS: Isosorbide Mononitrate 20 MG TAB PO SCH ×2 (10:02→20:59)
[2021-05-05] MEDS: Capsaicin 0.025% Cream 60 gm Tube TOP SCH ×3 (10:03→21:01)
[2021-05-05] MEDS: cloNIDine 0.1 MG TAB PO SCH ×3 (10:03→20:59)
[2021-05-05] MEDS: Heparin 5,000 UNITS/ML VIAL SC SCH ×2 (10:03→20:58)
[2021-05-05] MEDS: Zinc Sulfate 220 MG CAP PO SCH (20:58)
[2021-05-05] MEDS: Donepezil HCl 10 MG TAB PO SCH (20:58)
[2021-05-05] MEDS: Atorvastatin Calcium 20 MG TAB PO SCH (20:59)
[2021-05-05] MEDS: Lantus 1000 UNITS/10 ML VIAL SC SCH (21:43)
[2021-05-06 04:39] LABS: Anion Gap 10 mmol/L (10-20); BUN (Urea Nitrogen) 24 mg/dL (9.8-20.1); Calc. Creatinine Clearance 18 mL/min (70-130); Calcium 8.5 mg/dL (7.8-10.44); Carbon Dioxide 31 mmol/L (23-31); Chloride 102 mmol/L (98-107); Glucose 122 mg/dL (83-110); Potassium 3.9 mmol/L (3.5-5.1); Sodium 139 mmol/L (136-145)
[2021-05-06] MEDS: Heparin 5,000 UNITS/ML VIAL SC SCH ×2 (09:24→20:28)
[2021-05-06] MEDS: Aspirin 81 mg Enteric Coated Tablet PO SCH (09:25)
[2021-05-06] MEDS: Gabapentin 100 MG CAP PO SCH ×3 (09:25→20:27)
[2021-05-06] MEDS: Isosorbide Mononitrate 20 MG TAB PO SCH ×2 (09:25→20:27)
[2021-05-06] MEDS: NIFEdipine XL 60 MG TAB PO SCH (09:25)
[2021-05-06] MEDS: Potassium Chloride 20 MEQ TAB PO SCH (09:25)
[2021-05-06] MEDS: cloNIDine 0.1 MG TAB PO SCH ×3 (09:25→20:27)
[2021-05-06] MEDS: Folic Acid 1 MG TAB PO SCH (09:25)
[2021-05-06] MEDS: hydrALAZINE 25 MG TAB PO SCH ×3 (09:26→20:26)
[2021-05-06] MEDS: Carvedilol 25 MG TAB PO SCH ×2 (09:26→20:27)
[2021-05-06] MEDS: Icosapent Ethyl 1 GM CAPSULE PO SCH ×2 (09:26→18:19)
[2021-05-06] MEDS: Capsaicin 0.025% Cream 60 gm Tube TOP SCH ×3 (09:27→20:30)
[2021-05-06] MEDS ORDERED: Heparin 10,000 UNITS/ 10 ML VIAL ONE (09:28)
[2021-05-06] MEDS ORDERED: Carvedilol 6.25 MG TAB PO SCH (10:00)
[2021-05-06] MEDS: EPOETIN ALFA-EPBX (ESRD) 10,000 UNIT/ML VIAL IVP SCH (16:14)
[2021-05-06] MEDS: Zinc Sulfate 220 MG CAP PO SCH (20:25)
[2021-05-06] MEDS: Atorvastatin Calcium 20 MG TAB PO SCH (20:26)
[2021-05-06] MEDS: Donepezil HCl 10 MG TAB PO SCH (20:26)
[2021-05-06] MEDS: Lantus 1000 UNITS/10 ML VIAL SC SCH (20:51)
[2021-05-07 05:39] LABS: Anion Gap 10 mmol/L (10-20); BUN (Urea Nitrogen) 23 mg/dL (9.8-20.1); Calc. Creatinine Clearance 19 mL/min (70-130); Calcium 8.4 mg/dL (7.8-10.44); Carbon Dioxide 30 mmol/L (23-31); Chloride 102 mmol/L (98-107); Glucose 134 mg/dL (83-110); Potassium 4.2 mmol/L (3.5-5.1); Sodium 138 mmol/L (136-145)
[2021-05-07] MEDS: Heparin 5,000 UNITS/ML VIAL SC SCH ×2 (09:58→20:26)
[2021-05-07] MEDS: Isosorbide Mononitrate 20 MG TAB PO SCH ×2 (09:58→20:21)
[2021-05-07] MEDS: Gabapentin 100 MG CAP PO SCH ×3 (09:58→20:21)
[2021-05-07] MEDS: NIFEdipine XL 60 MG TAB PO SCH (09:59)
[2021-05-07] MEDS: Aspirin 81 mg Enteric Coated Tablet PO SCH (09:59)
[2021-05-07] MEDS: Folic Acid 1 MG TAB PO SCH (09:59)
[2021-05-07] MEDS: hydrALAZINE 25 MG TAB PO SCH ×3 (09:59→20:23)
[2021-05-07] MEDS: Potassium Chloride 20 MEQ TAB PO SCH (09:59)
[2021-05-07] MEDS: cloNIDine 0.1 MG TAB PO SCH ×3 (09:59→20:20)
[2021-05-07] MEDS: Carvedilol 25 MG TAB PO SCH ×2 (10:00→20:20)
[2021-05-07] MEDS: Icosapent Ethyl 1 GM CAPSULE PO SCH ×2 (10:00→16:38)
[2021-05-07] MEDS: Capsaicin 0.025% Cream 60 gm Tube TOP SCH ×3 (10:01→20:29)
[2021-05-07] MEDS: Donepezil HCl 10 MG TAB PO SCH (20:21)
[2021-05-07] MEDS: Zinc Sulfate 220 MG CAP PO SCH (20:21)
[2021-05-07] MEDS: Lantus 1000 UNITS/10 ML VIAL SC SCH (20:22)
[2021-05-07] MEDS: Atorvastatin Calcium 20 MG TAB PO SCH (20:22)
[2021-05-08 04:37] LABS: Anion Gap 12 mmol/L (10-20); BUN (Urea Nitrogen) 32 mg/dL (9.8-20.1); Calc. Creatinine Clearance 16 mL/min (70-130); Calcium 8.3 mg/dL (7.8-10.44); Carbon Dioxide 28 mmol/L (23-31); Chloride 102 mmol/L (98-107); Glucose 161 mg/dL (83-110); Potassium 4.3 mmol/L (3.5-5.1); Sodium 138 mmol/L (136-145)
[2021-05-08] MEDS: HumaLOG 300 UNITS/3 ML VIAL SC PRN (05:48)
[2021-05-08] MEDS: hydrALAZINE 25 MG TAB PO SCH ×3 (08:40→21:25)
[2021-05-08] MEDS: Heparin 5,000 UNITS/ML VIAL SC SCH ×2 (08:40→21:29)
[2021-05-08] MEDS: Gabapentin 100 MG CAP PO SCH ×3 (08:41→21:27)
[2021-05-08] MEDS: Carvedilol 25 MG TAB PO SCH ×2 (08:41→21:27)
[2021-05-08] MEDS: NIFEdipine XL 60 MG TAB PO SCH (08:41)
[2021-05-08] MEDS: Potassium Chloride 20 MEQ TAB PO SCH (08:41)
[2021-05-08] MEDS: Folic Acid 1 MG TAB PO SCH (08:41)
[2021-05-08] MEDS: Aspirin 81 mg Enteric Coated Tablet PO SCH (08:41)
[2021-05-08] MEDS: cloNIDine 0.1 MG TAB PO SCH ×3 (08:41→21:27)
[2021-05-08] MEDS: Isosorbide Mononitrate 20 MG TAB PO SCH ×2 (08:42→21:32)
[2021-05-08] MEDS: Icosapent Ethyl 1 GM CAPSULE PO SCH ×2 (08:42→16:12)
[2021-05-08] MEDS: Capsaicin 0.025% Cream 60 gm Tube TOP SCH ×3 (08:47→21:27)
[2021-05-08] MEDS: Zinc Sulfate 220 MG CAP PO SCH (21:26)
[2021-05-08] MEDS: Donepezil HCl 10 MG TAB PO SCH (21:27)
[2021-05-08] MEDS: Atorvastatin Calcium 20 MG TAB PO SCH (21:27)
[2021-05-08] MEDS: Lantus 1000 UNITS/10 ML VIAL SC SCH (21:29)
[2021-05-09 07:32] LABS: #Eosinphils 0.1 thou/uL (0.0-0.7); #Lymphocytes 1.1 thou/uL (1.20-3.40); #Monocytes 0.5 thou/uL (0.11-0.59); #Neutrophils 3.8 thou/uL (1.40-6.50); %Basophils 0.1 % (0.0-1.0); %Eosinophils 1.8 % (0.0-10.0); %Lymphocytes 19.9 % (21.0-51.0); %Monocytes 9.3 % (0.0-10.0); %Neutrophils 68.9 % (42.0-75.0); Hemoglobin 8.7 g/dL (12.0-16.0); Mean Corpuscular HGB CONC 32.6 g/dL (32.0-36.0); Mean Corpuscular Hemoglobin 32.9 pg (27.0-31.0); Mean Platelet Volume 9.3 fL (7.4-10.4); Platelet Count 154 thou/uL (130-400); RBC Distribution Width 16.6 % (11.5-14.5); Red Blood Cell (RBC) Count 2.63 mill/uL (4.20-5.40); White Blood Cell (WBC) Count 5.5 thou/uL (4.8-10.8)
[2021-05-09 07:54] LABS: ALT (SGPT) 13 U/L (8-55); AST (SGOT) 19 U/L (5-34); Alkaline Phosphatase 75 U/L (40-110); Anion Gap 12 mmol/L (10-20); BUN (Urea Nitrogen) 37 mg/dL (9.8-20.1); Bilirubin, Total 0.4 mg/dL (0.2-1.2); Calc. Creatinine Clearance 15 mL/min (70-130); Calcium 8.8 mg/dL (7.8-10.44); Carbon Dioxide 27 mmol/L (23-31); Chloride 104 mmol/L (98-107); Globulin 2.9 g/dL (2.4-3.5); Glucose 117 mg/dL (83-110); Potassium 4.5 mmol/L (3.5-5.1); Protein, Total 5.9 g/dL (5.8-8.1); Sodium 138 mmol/L (136-145)
[2021-05-09] MEDS ORDERED: Heparin 10,000 UNITS/ 10 ML VIAL ONE (08:42)
[2021-05-09] MEDS: cloNIDine 0.1 MG TAB PO SCH (11:00)
[2021-05-09] MEDS: Aspirin 81 mg Enteric Coated Tablet PO SCH (11:00)
[2021-05-09] MEDS: Capsaicin 0.025% Cream 60 gm Tube TOP SCH (11:00)
[2021-05-09] MEDS: Carvedilol 25 MG TAB PO SCH (11:00)
[2021-05-09] MEDS: Heparin 5,000 UNITS/ML VIAL SC SCH (11:00)
[2021-05-09] MEDS: Folic Acid 1 MG TAB PO SCH (11:00)
[2021-05-09] MEDS: Icosapent Ethyl 1 GM CAPSULE PO SCH (11:00)
[2021-05-09] MEDS: Gabapentin 100 MG CAP PO SCH (11:00)
[2021-05-09] MEDS: hydrALAZINE 25 MG TAB PO SCH (11:01)
[2021-05-09] MEDS: NIFEdipine XL 60 MG TAB PO SCH (11:01)
[2021-05-09] MEDS: Potassium Chloride 20 MEQ TAB PO SCH (11:01)
[2021-05-09] MEDS: Isosorbide Mononitrate 20 MG TAB PO SCH (11:01)
[2021-05-09 11:33] LABS: SARS-CoV-2 PCR by NAA Not Detected (NotDetected)
[2021-05-09 12:05] VITALS: BP 164/65; TEMP 98.5
== END 2021-05-09 13:43 | disposition home or self-care (01) | DRG 264 ==
LOC: ERS 02:04 → 2NO 04:47 → SURG A 05-07 22:27
PROVIDERS: ADMIT Student in an Organized Health Care Education/Training Program; ATTEND Internal Medicine
PROC: 5A09357 Assistance with Respiratory Ventilation, Less than 24 Consecutive Hours, Continuous Positive Airway Pressure (ICD-10-PCS; 2021-05-01)
PROC: 06HY33Z Insertion of Infusion Device into Lower Vein, Percutaneous Approach (ICD-10-PCS; 2021-05-03)
PROC: 5A1D70Z Performance of Urinary Filtration, Intermittent, Less than 6 Hours Per Day (ICD-10-PCS; 2021-05-03)
PROC: 031B0ZF Bypass Right Radial Artery to Lower Arm Vein, Open Approach (ICD-10-PCS; principal; 2021-05-04)
PROC: 0JH63XZ Insertion of Tunneled Vascular Access Device into Chest Subcutaneous Tissue and Fascia, Percutaneous Approach (ICD-10-PCS; 2021-05-04)
PROC: 02HV33Z Insertion of Infusion Device into Superior Vena Cava, Percutaneous Approach (ICD-10-PCS; 2021-05-04)
PROC: B548ZZA Ultrasonography of Superior Vena Cava, Guidance (ICD-10-PCS; 2021-05-04)
DX: I13.2 Hypertensive heart and chronic kidney disease with heart failure and with stage 5 chronic kidney disease, or end stage renal disease (principal); I50.33 Acute on chronic diastolic (congestive) heart failure; N18.6 End stage renal disease; J96.21 Acute and chronic respiratory failure with hypoxia; J44.1 Chronic obstructive pulmonary disease with (acute) exacerbation; N17.9 Acute kidney failure, unspecified; I47.1 Supraventricular tachycardia; Z20.822 Contact with and (suspected) exposure to COVID-19; E88.09 Other disorders of plasma-protein metabolism, not elsewhere classified; I16.0 Hypertensive urgency; E11.22 Type 2 diabetes mellitus with diabetic chronic kidney disease; E78.5 Hyperlipidemia, unspecified; E78.00 Pure hypercholesterolemia, unspecified; M10.9 Gout, unspecified; F41.9 Anxiety disorder, unspecified; F32.A Depression, unspecified; G47.33 Obstructive sleep apnea (adult) (pediatric); D63.1 Anemia in chronic kidney disease; F03.90 Unspecified dementia, unspecified severity, without behavioral disturbance, psychotic disturbance, mood disturbance, and anxiety; E66.01 Morbid (severe) obesity due to excess calories; M17.0 Bilateral primary osteoarthritis of knee; I25.10 Atherosclerotic heart disease of native coronary artery without angina pectoris; K21.9 Gastro-esophageal reflux disease without esophagitis; Z79.4 Long term (current) use of insulin; Z90.49 Acquired absence of other specified parts of digestive tract; Z90.710 Acquired absence of both cervix and uterus; Z88.5 Allergy status to narcotic agent; Z88.0 Allergy status to penicillin; Z91.041 Radiographic dye allergy status; Z91.013 Allergy to seafood; Z79.51 Long term (current) use of inhaled steroids; Z79.82 Long term (current) use of aspirin; Z79.899 Other long term (current) drug therapy; Z98.51 Tubal ligation status; Z99.81 Dependence on supplemental oxygen; Z99.89 Dependence on other enabling machines and devices; Z99.3 Dependence on wheelchair; Z68.39 Body mass index [BMI] 39.0-39.9, adult; E88.81 Metabolic syndrome and other insulin resistance
CPT/HCPCS: 36415; 36416; 71045; 80048; 80053; 82553; 83880; 84484; 85025; 86580; 86704; 86706; 86803; 87340; 90935; 93005; 93306; 93970; 94660; 96374; 97139; C1751; C1752; G0257; J1642; J1644; J1815; J1940; J1956; J2704; J2720; J2795; J3010; J7070; Q5105; Q9967; S0020; U0002; U0003; U0005

== ENCOUNTER 2021-12-02 13:08 | Emergency (ER) | payer MEDICARE, MEDICAID ==
[2021-12-02 14:47] LABS: #Eosinphils 0.1 thou/uL (0.0-0.7); #Monocytes 0.3 thou/uL (0.11-0.59); #Neutrophils 3.3 thou/uL (1.40-6.50); %Basophils 0.1 % (0.0-1.0); %Eosinophils 1.7 % (0.0-10.0); %Lymphocytes 21.3 % (21.0-51.0); %Monocytes 6.1 % (0.0-10.0); %Neutrophils 70.9 % (42.0-75.0); Mean Corpuscular Hemoglobin 33.1 pg (27.0-31.0); Mean Platelet Volume 8.3 fL (7.4-10.4); Platelet Count 214 thou/uL (130-400); Red Blood Cell (RBC) Count 3.62 mill/uL (4.20-5.40); White Blood Cell (WBC) Count 4.6 thou/uL (4.8-10.8)
[2021-12-02 15:10] LABS: ALT (SGPT) 9 U/L (8-55); AST (SGOT) 17 U/L (5-34); Alkaline Phosphatase 88 U/L (40-110); Anion Gap 17 mmol/L (10-20); BUN (Urea Nitrogen) 15 mg/dL (9.8-20.1); Bilirubin, Total 0.7 mg/dL (0.2-1.2); Calc. Creatinine Clearance 0 mL/min (70-130); Calcium 9.7 mg/dL (7.8-10.44); Carbon Dioxide 31 mmol/L (23-31); Chloride 94 mmol/L (98-107); Globulin 3.7 g/dL (2.4-3.5); Glucose 161 mg/dL (83-110); Lipase 58 U/L (8-78); Magnesium 2.1 mg/dL (1.6-2.6); Protein, Total 7.7 g/dL (5.8-8.1); Sodium 138 mmol/L (136-145)
== END 2021-12-02 16:11 | disposition home or self-care (01) ==
LOC: ERS 13:08
DX: R10.9 Unspecified abdominal pain (principal); J44.9 Chronic obstructive pulmonary disease, unspecified; E11.9 Type 2 diabetes mellitus without complications; E78.5 Hyperlipidemia, unspecified; I50.9 Heart failure, unspecified; I11.0 Hypertensive heart disease with heart failure; Z79.899 Other long term (current) drug therapy
CPT/HCPCS: 74176; 80053; 83690; 83735; 85025; 93005

== ENCOUNTER 2022-01-23 18:12 | Emergency (ER) | payer MEDICARE, MEDICAID ==
[2022-01-23] MEDS ORDERED: Acetaminophen 500 MG TAB ONE (20:58)
[2022-01-23 21:05] LABS: #Eosinphils 0.1 thou/uL (0.0-0.7); #Lymphocytes 1.3 thou/uL (1.20-3.40); #Monocytes 0.4 thou/uL (0.11-0.59); #Neutrophils 2.5 thou/uL (1.40-6.50); %Basophils 0.7 % (0.0-1.0); %Eosinophils 1.6 % (0.0-10.0); %Lymphocytes 30.1 % (21.0-51.0); %Monocytes 9.2 % (0.0-10.0); %Neutrophils 58.4 % (42.0-75.0); Hemoglobin 12.3 g/dL (12.0-16.0); Mean Corpuscular HGB CONC 32.5 g/dL (32.0-36.0); Mean Corpuscular Hemoglobin 33.7 pg (27.0-31.0); Mean Platelet Volume 8.7 fL (7.4-10.4); Platelet Count 190 thou/uL (130-400); RBC Distribution Width 13.6 % (11.5-14.5); Red Blood Cell (RBC) Count 3.66 mill/uL (4.20-5.40); White Blood Cell (WBC) Count 4.3 thou/uL (4.8-10.8)
[2022-01-23 22:12] LABS: Albumin 3.6 g/dL (3.4-4.8)
[2022-01-23 22:14] LABS: Calcium 9.1 mg/dL (7.8-10.44); Chloride 98 mmol/L (98-107); Potassium 4.8 mmol/L (3.5-5.1); Sodium 138 mmol/L (136-145)
[2022-01-23 22:15] LABS: Globulin 4.1 g/dL (2.4-3.5); Glucose 416 mg/dL (83-110); Protein, Total 7.7 g/dL (5.8-8.1)
[2022-01-23 22:16] LABS: Anion Gap 17 mmol/L (10-20); Carbon Dioxide 28 mmol/L (23-31)
[2022-01-23 22:17] LABS: Bilirubin, Total 0.3 mg/dL (0.2-1.2)
[2022-01-23 22:18] LABS: Alkaline Phosphatase 85 U/L (40-110); Calc. Creatinine Clearance 0 mL/min (70-130)
[2022-01-23 22:19] LABS: BUN (Urea Nitrogen) 29 mg/dL (9.8-20.1)
[2022-01-23 22:20] LABS: AST (SGOT) 20 U/L (5-34)
[2022-01-23 22:21] LABS: ALT (SGPT) 10 U/L (8-55)
== END 2022-01-23 22:41 | disposition home or self-care (01) ==
LOC: ERS 18:12
DX: L89.159 Pressure ulcer of sacral region, unspecified stage (principal); J44.9 Chronic obstructive pulmonary disease, unspecified; M19.90 Unspecified osteoarthritis, unspecified site; E78.5 Hyperlipidemia, unspecified; E78.00 Pure hypercholesterolemia, unspecified; I11.0 Hypertensive heart disease with heart failure; I50.9 Heart failure, unspecified; M10.9 Gout, unspecified; G47.30 Sleep apnea, unspecified; Z79.82 Long term (current) use of aspirin; Z79.899 Other long term (current) drug therapy
CPT/HCPCS: 36415; 80053; 85025; 93005

== ENCOUNTER 2022-02-10 08:43 | Emergency (ER) | payer MEDICARE, MEDICAID ==
[2022-02-10 10:38] LABS: #Eosinphils 0.1 thou/uL (0.0-0.7); #Lymphocytes 1.2 thou/uL (1.20-3.40); #Monocytes 0.4 thou/uL (0.11-0.59); #Neutrophils 3.4 thou/uL (1.40-6.50); %Basophils 0.3 % (0.0-1.0); %Eosinophils 1.6 % (0.0-10.0); %Lymphocytes 23.3 % (21.0-51.0); %Neutrophils 66.9 % (42.0-75.0); Hemoglobin 13.3 g/dL (12.0-16.0); Mean Corpuscular HGB CONC 32.2 g/dL (32.0-36.0); Mean Corpuscular Hemoglobin 33.7 pg (27.0-31.0); Mean Platelet Volume 9.9 fL (7.4-10.4); Platelet Count 174 thou/uL (130-400); RBC Distribution Width 13.8 % (11.5-14.5); Red Blood Cell (RBC) Count 3.95 mill/uL (4.20-5.40)
[2022-02-10 11:29] LABS: Albumin 3.8 g/dL (3.4-4.8)
[2022-02-10 11:30] LABS: Calcium 9.7 mg/dL (7.8-10.44); Chloride 95 mmol/L (98-107); Potassium 4.4 mmol/L (3.5-5.1); Sodium 141 mmol/L (136-145)
[2022-02-10 11:31] LABS: Globulin 3.2 g/dL (2.4-3.5); Glucose 243 mg/dL (83-110)
[2022-02-10 11:33] LABS: Anion Gap 18 mmol/L (10-20); Bilirubin, Total 0.4 mg/dL (0.2-1.2); Carbon Dioxide 32 mmol/L (23-31)
[2022-02-10 11:34] LABS: Alkaline Phosphatase 89 U/L (40-110)
[2022-02-10 11:35] LABS: BUN (Urea Nitrogen) 33 mg/dL (9.8-20.1); Calc. Creatinine Clearance 0 mL/min (70-130); Estimated GFR 5
[2022-02-10 11:36] LABS: AST (SGOT) 12 U/L (5-34)
[2022-02-10 11:37] LABS: ALT (SGPT) 7 U/L (8-55); Lipase 57 U/L (8-78)
== END 2022-02-10 13:24 | disposition home or self-care (01) ==
LOC: ERS 08:43
DX: R11.2 Nausea with vomiting, unspecified (principal); R10.84 Generalized abdominal pain; I49.1 Atrial premature depolarization; I11.0 Hypertensive heart disease with heart failure; I50.9 Heart failure, unspecified; J44.9 Chronic obstructive pulmonary disease, unspecified; E11.9 Type 2 diabetes mellitus without complications; E78.5 Hyperlipidemia, unspecified; E78.00 Pure hypercholesterolemia, unspecified; M19.90 Unspecified osteoarthritis, unspecified site; M10.9 Gout, unspecified; G47.30 Sleep apnea, unspecified; Z99.2 Dependence on renal dialysis
CPT/HCPCS: 36415; 71045; 74176; 80053; 83690; 84484; 85025; 93005

== ENCOUNTER 2022-04-15 03:24 | Emergency (ER) | payer MEDICARE, MEDICAID ==
[2022-04-15] MEDS ORDERED: HYDROmorphone 0.5 MG/0.5 ML SYRINGE ONE (06:27)
== END 2022-04-15 07:10 | disposition home or self-care (01) ==
LOC: ERS 03:24
DX: S80.12XA Contusion of left lower leg, initial encounter (principal); W06.XXXA Fall from bed, initial encounter
CPT/HCPCS: 72170; 96372; J1170

== ENCOUNTER 2022-07-31 07:21 | Emergency (ER) | payer MEDICARE, MEDICAID ==
[2022-07-31] MEDS ORDERED: Dextrose 50% Abboject 50 ML SYRINGE ONE ×2 (07:30→07:42)
[2022-07-31 08:40] LABS: ALT (SGPT) 10 U/L (8-55); AST (SGOT) 12 U/L (5-34); Albumin 3.5 g/dL (3.4-4.8); Alkaline Phosphatase 61 U/L (40-110); Anion Gap 16 mmol/L (10-20); BUN (Urea Nitrogen) 60 mg/dL (9.8-20.1); Bilirubin, Total 0.4 mg/dL (0.2-1.2); Calc. Creatinine Clearance 0 mL/min (70-130); Carbon Dioxide 26 mmol/L (23-31); Chloride 100 mmol/L (98-107); Estimated GFR 4; Globulin 2.8 g/dL (2.4-3.5); Glucose 288 mg/dL (83-110); Lipase 62 U/L (8-78); Potassium 4.4 mmol/L (3.5-5.1); Protein, Total 6.3 g/dL (5.8-8.1); Sodium 138 mmol/L (136-145)
[2022-07-31 09:09] LABS: #Eosinphils 0.1 thou/uL (0.0-0.7); #Lymphocytes 1.1 thou/uL (1.20-3.40); #Monocytes 0.3 thou/uL (0.11-0.59); #Neutrophils 3.3 thou/uL (1.40-6.50); %Basophils 0.4 % (0.0-1.0); %Eosinophils 1.9 % (0.0-10.0); %Lymphocytes 23.3 % (21.0-51.0); %Monocytes 6.4 % (0.0-10.0); Hemoglobin 11.1 g/dL (12.0-16.0); MDiff Complete? YES; Macrocytosis SLIGHT = 6-15 cells (100X) (0-5/hpf); Mean Corpuscular HGB CONC 33.8 g/dL (32.0-36.0); Mean Corpuscular Hemoglobin 35.8 pg (27.0-31.0); Mean Platelet Volume 9.6 fL (7.4-10.4); Platelet Count 149 10x3/uL (130-400); RBC Distribution Width 12.7 % (11.5-14.5); Red Blood Cell (RBC) Count 3.11 mill/uL (4.20-5.40); White Blood Cell (WBC) Count 4.9 10x3/uL (4.8-10.8)
== END 2022-07-31 10:11 | disposition home or self-care (01) ==
LOC: ERS 07:21
DX: E16.2 Hypoglycemia, unspecified (principal)
CPT/HCPCS: 36415; 36416; 80053; 83690; 85025; 96365; J7999

== ENCOUNTER 2023-03-28 00:19 | Emergency (ER) | payer MEDICARE, MEDICAID ==
[2023-03-28 01:20] LABS: #Eosinphils 0.1 thou/uL (0.0-0.7); #Monocytes 0.4 thou/uL (0.11-0.59); #Neutrophils 2.6 thou/uL (1.40-6.50); %Basophils 0.4 % (0.0-1.0); %Eosinophils 1.7 % (0.0-10.0); %Lymphocytes 32.4 % (21.0-51.0); %Neutrophils 56.3 % (42.0-75.0); Hematocrit 30.4 % (36.0-47.0); Hemoglobin 10.1 g/dL (12.0-16.0); Mean Corpuscular HGB CONC 33.2 g/dL (32.0-36.0); Mean Corpuscular Hemoglobin 34.6 pg (27.0-31.0); Mean Corpuscular Volume 104.1 fl (78.0-98.0); Platelet Count 228 10x3/uL (130-400); RBC Distribution Width 13.3 % (11.5-14.5); Red Blood Cell (RBC) Count 2.92 mill/uL (4.20-5.40); White Blood Cell (WBC) Count 4.7 10x3/uL (4.8-10.8)
[2023-03-28 01:24] LABS: Actual Bicarbonate (HCO3v) 33.4 mEq/L (22-28); Base Excess 8.5 mEq/L (-2.0 to +3.0); Calcium, Ionized (venous) 1.05 mmol/L (1.16-1.32); Chloride (VBG) 95 mmol/L (98-106); Hematocrit-VBG 34 % (36.0-47.0); Hemoglobin (Hb) 11.5 g/dL (11.7-16.1); Potassium (VBG) 3.91 mmol/L (3.70-5.30); Sodium 139.7 mmol/L (133-146); pH (venous) 7.461 (7.32-7.43)
[2023-03-28 01:37] LABS: ALT (SGPT) 7 U/L (8-55); AST (SGOT) 12 U/L (5-34); Albumin 3.8 g/dL (3.4-4.8); Alkaline Phosphatase 81 U/L (40-110); Anion Gap 18 mmol/L (10-20); BUN (Urea Nitrogen) 33 mg/dL (9.8-20.1); Bilirubin, Total 0.4 mg/dL (0.2-1.2); Calc. Creatinine Clearance 0 mL/min (70-130); Calcium 9.7 mg/dL (7.8-10.44); Carbon Dioxide 30 mmol/L (23-31); Chloride 94 mmol/L (98-107); Estimated GFR 5; Globulin 3.4 g/dL (2.4-3.5); Lipase 62 U/L (8-78); Magnesium 1.8 mg/dL (1.6-2.6); Potassium 3.9 mmol/L (3.5-5.1); Protein, Total 7.2 g/dL (5.8-8.1); Sodium 138 mmol/L (136-145)
[2023-03-28 01:42] LABS: Glucose 422 mg/dL (83-110); Troponin I 0.039 ng/mL (< 0.028)
[2023-03-28 02:13] LABS: Bacteria/HPF None Seen HPF (None Seen); Bilirubin Negative (Negative); Blood, Urine Negative (Negative); CAUTI Indications for Culture Alt mental st,lethar; Clarity Clear (Clear); Glucose, Urine (Dipstick) 200 mg/dL (Negative); Ketone, Urine Negative (Negative); Leukocyte Negative Leu/uL (Negative); Nitrite Negative (Negative); Protein, Urine (Dipstick) 100 mg/dL (Neg-Trace); RBC/HPF 0-3 HPF (0-3); Specific Gravity, Urine 1.023 (1.002-1.036); WBC/HPF 0-3 HPF (0-3); pH, Urine 5.5 (5.0-9.0)
[2023-03-28 02:17] LABS: Urine Culture Reflex No No
== END 2023-03-28 03:01 | disposition home or self-care (01) ==
LOC: ERS 00:19
DX: E11.65 Type 2 diabetes mellitus with hyperglycemia (principal); J44.9 Chronic obstructive pulmonary disease, unspecified; I11.0 Hypertensive heart disease with heart failure; I50.9 Heart failure, unspecified; E78.00 Pure hypercholesterolemia, unspecified
CPT/HCPCS: 36415; 36416; 51701; 71045; 80053; 81001; 82010; 82805; 83690; 83735; 84484; 85025; 93005

== ENCOUNTER 2023-04-24 06:38 | Emergency (ER) | payer MEDICARE, MEDICAID ==
[2023-04-24 08:49] LABS: Bacteria/HPF 2+ HPF (None Seen); Bilirubin Negative (Negative); Blood, Urine Negative (Negative); CAUTI Indications for Culture Dysuria,urgency,freq; Clarity Clear (Clear); Glucose, Urine (Dipstick) Normal (Negative); Ketone, Urine Negative (Negative); Leukocyte 75 Leu/uL (Negative); Nitrite Negative (Negative); Protein, Urine (Dipstick) 50 mg/dL (Neg-Trace); RBC/HPF 0-3 HPF (0-3); Specific Gravity, Urine 1.021 (1.002-1.036); Squamous Epithelial 0-3 HPF (0-3); WBC/HPF 0-3 HPF (0-3); pH, Urine 5.5 (5.0-9.0)
[2023-04-24 08:51] LABS: Urine Culture Reflex No No
[2023-04-24 09:13] LABS: SARS-CoV-2 NAA Rapid Test Not Detected (NotDetected)
[2023-04-24 09:37] LABS: #Eosinphils 0.1 thou/uL (0.0-0.7); #Monocytes 0.3 thou/uL (0.11-0.59); #Neutrophils 3.3 thou/uL (1.40-6.50); %Basophils 0.2 % (0.0-1.0); %Eosinophils 2.4 % (0.0-10.0); %Lymphocytes 25.2 % (21.0-51.0); %Monocytes 6.7 % (0.0-10.0); %Neutrophils 65.3 % (42.0-75.0); Hematocrit 30.1 % (36.0-47.0); Hemoglobin 10.2 g/dL (12.0-16.0); Mean Corpuscular HGB CONC 33.9 g/dL (32.0-36.0); Mean Corpuscular Volume 100.3 fl (78.0-98.0); Mean Platelet Volume 12.7 fL (7.4-10.4); Platelet Count 107 10x3/uL (130-400); RBC Distribution Width 13.1 % (11.5-14.5); White Blood Cell (WBC) Count 5.1 10x3/uL (4.8-10.8)
[2023-04-24 10:11] LABS: ALT (SGPT) 11 U/L (8-55); AST (SGOT) 20 U/L (5-34); Albumin 3.9 g/dL (3.4-4.8); Alkaline Phosphatase 64 U/L (40-110); Anion Gap 21 mmol/L (10-20); BUN (Urea Nitrogen) 59 mg/dL (9.8-20.1); Bilirubin, Total 0.4 mg/dL (0.2-1.2); Calc. Creatinine Clearance 0 mL/min (70-130); Calcium 9.7 mg/dL (7.8-10.44); Carbon Dioxide 28 mmol/L (23-31); Chloride 93 mmol/L (98-107); Estimated GFR 3; Glucose 265 mg/dL (83-110); Lipase 40 U/L (8-78); Magnesium 1.7 mg/dL (1.6-2.6); Potassium 4.7 mmol/L (3.5-5.1); Protein, Total 6.9 g/dL (5.8-8.1); Sodium 137 mmol/L (136-145)
[2023-04-24 10:12] LABS: Troponin I 0.052 ng/mL (< 0.028)
[2023-04-24 10:29] LABS: CellaVision Operator ID LAB.GE; Large Platelets 3.9 % (0-5); Platelet Adequacy Comment Platelets Decreased; Polychromasia SLIGHT = 2-3 cells HPF (0-2)
[2023-04-24 12:57] LABS: HBSAB Concentration Less than 8.00 mIU/mL; Hep B Core Total Ab Non-Reactive (NonReactive); Hep B Core Total Index 0.14 S/CO (0-0.79); Hep B Surf AB Non-Reactive (NonReactive); Hep B Surf Ag Non-Reactive S/CO (NonReactive); Hep C IgG Ab Non-Reactive S/CO (NonReactive)
== END 2023-04-24 18:50 | disposition home or self-care (01) ==
LOC: ERS 06:38
DX: E11.22 Type 2 diabetes mellitus with diabetic chronic kidney disease (principal); N18.6 End stage renal disease; I13.2 Hypertensive heart and chronic kidney disease with heart failure and with stage 5 chronic kidney disease, or end stage renal disease; I50.9 Heart failure, unspecified; N39.0 Urinary tract infection, site not specified; J44.9 Chronic obstructive pulmonary disease, unspecified; E78.00 Pure hypercholesterolemia, unspecified; Z79.899 Other long term (current) drug therapy; Z79.82 Long term (current) use of aspirin
CPT/HCPCS: 0240U; 70450; 71045; 73030; 73502; 73564; 80053; 81001; 83690; 83735; 83880; 84484; 85025; 86704; 93005; 51702; 90935; G0257

== ENCOUNTER 2023-06-20 21:47 | Inpatient (IN) | payer MEDICARE, MEDICAID ==
[2023-06-20] MEDS ORDERED: Ipratropium/Albuterol 3 ML NEB ONE (22:32)
[2023-06-20] MEDS ORDERED: Albuterol 2.5 MG/0.5 ML NEB ONE (22:32)
[2023-06-20] MEDS ORDERED: Magnesium 2 GM/50 ML BAG (IN WATER) ONE (22:46)
[2023-06-20] MEDS ORDERED: Dexamethasone 10 MG/ML VIAL ONE (22:46)
[2023-06-20 22:54] LABS: SARS-CoV-2 NAA Rapid Test Not Detected (NotDetected)
[2023-06-20 22:57] LABS: #Eosinphils 0.1 thou/uL (0.0-0.7); #Monocytes 0.7 thou/uL (0.11-0.59); #Neutrophils 9.5 thou/uL (1.40-6.50); %Basophils 0.1 % (0.0-1.0); %Eosinophils 0.8 % (0.0-10.0); %Lymphocytes 7.2 % (21.0-51.0); %Monocytes 5.9 % (0.0-10.0); %Neutrophils 85.6 % (42.0-75.0); Hematocrit 34.5 % (36.0-47.0); Hemoglobin 11.6 g/dL (12.0-16.0); Mean Corpuscular HGB CONC 33.6 g/dL (32.0-36.0); Mean Corpuscular Hemoglobin 34.4 pg (27.0-31.0); Mean Corpuscular Volume 102.4 fl (78.0-98.0); Mean Platelet Volume 11.9 fL (7.4-10.4); Platelet Count 152 10x3/uL (130-400); RBC Distribution Width 13.7 % (11.5-14.5); Red Blood Cell (RBC) Count 3.37 mill/uL (4.20-5.40); White Blood Cell (WBC) Count 11.1 10x3/uL (4.8-10.8)
[2023-06-20 23:23] LABS: Troponin I 0.034 ng/mL (< 0.028)
[2023-06-20 23:28] LABS: ALT (SGPT) 7 U/L (8-55); AST (SGOT) 14 U/L (5-34); Albumin 4.3 g/dL (3.4-4.8); Alkaline Phosphatase 61 U/L (40-110); Anion Gap 18 mmol/L (10-20); BUN (Urea Nitrogen) 30 mg/dL (9.8-20.1); Bilirubin, Total 0.6 mg/dL (0.2-1.2); Calc. Creatinine Clearance 0 mL/min (70-130); Calcium 8.9 mg/dL (7.8-10.44); Carbon Dioxide 28 mmol/L (23-31); Chloride 96 mmol/L (98-107); Estimated GFR 6; Globulin 3.4 g/dL (2.4-3.5); Glucose 120 mg/dL (83-110); Lipase 27 U/L (8-78); Potassium 3.7 mmol/L (3.5-5.1); Protein, Total 7.7 g/dL (5.8-8.1); Sodium 138 mmol/L (136-145)
[2023-06-20] MEDS ORDERED: LevoFLOXacin 750 mg/D5W 150 ml Premix Bag ONE (23:51)
[2023-06-21] MEDS ORDERED: Ipratropium/Albuterol 3 ML NEB NEB PRN ×2 (01:52→02:44)
[2023-06-21] MEDS ORDERED: Ondansetron PF 4 MG/2 ML Vial IVP PRN (02:00)
[2023-06-21] MEDS ORDERED: Ondansetron ODT 4 MG TAB SL PRN (02:00)
[2023-06-21] MEDS ORDERED: HumaLOG 300 UNITS/3 ML VIAL SC PRN (02:13)
[2023-06-21] MEDS ORDERED: Glucagon 1 MG/ML KIT IM PRN (02:13)
[2023-06-21] MEDS ORDERED: Dextrose 5% in Water 1,000 ML IV PRN (02:13)
[2023-06-21] MEDS ORDERED: Acetaminophen 650 MG Suppository PR PRN (02:13)
[2023-06-21] MEDS ORDERED: Acetaminophen 325 MG TAB PO PRN (02:13)
[2023-06-21] MEDS ORDERED: Dextrose 50% Abboject 50 ML SYRINGE SLOW IVP PRN (02:13)
[2023-06-21] MEDS ORDERED: Ipratropium/Albuterol 3 ML NEB NEB SCH (02:30)
[2023-06-21 03:01] LABS: Troponin I 0.022 ng/mL (< 0.028)
[2023-06-21 04:24] LABS: Bacteria/HPF 4+ HPF (None Seen); Bilirubin Negative (Negative); Blood, Urine 1+ (Negative); CAUTI Indications for Culture Alt mental st,lethar; Clarity Clear (Clear); Glucose, Urine (Dipstick) 50 mg/dL (Negative); Ketone, Urine Negative (Negative); Leukocyte Negative Leu/uL (Negative); Nitrite Negative (Negative); Protein, Urine (Dipstick) 100 mg/dL (Neg-Trace); RBC/HPF 0-3 HPF (0-3); Specific Gravity, Urine 1.018 (1.002-1.036); Urobilinogen Normal mg/dL (Less than 2); WBC/HPF 0-3 HPF (0-3); pH, Urine 6.5 (5.0-9.0)
[2023-06-21 04:28] LABS: Urine Culture Reflex No No
[2023-06-21 04:56] LABS: #Eosinphils 0.1 thou/uL (0.0-0.7); #Monocytes 0.3 thou/uL (0.11-0.59); #Neutrophils 8.3 thou/uL (1.40-6.50); %Basophils 0.1 % (0.0-1.0); %Eosinophils 0.5 % (0.0-10.0); %Lymphocytes 8.6 % (21.0-51.0); %Monocytes 3.2 % (0.0-10.0); %Neutrophils 87.1 % (42.0-75.0); Hematocrit 32.4 % (36.0-47.0); Hemoglobin 10.7 g/dL (12.0-16.0); Mean Corpuscular Hemoglobin 33.9 pg (27.0-31.0); Mean Corpuscular Volume 102.5 fl (78.0-98.0); Mean Platelet Volume 12.3 fL (7.4-10.4); Platelet Count 143 10x3/uL (130-400); RBC Distribution Width 13.6 % (11.5-14.5); Red Blood Cell (RBC) Count 3.16 mill/uL (4.20-5.40); White Blood Cell (WBC) Count 9.5 10x3/uL (4.8-10.8)
[2023-06-21 05:20] LABS: Anion Gap 16 mmol/L (10-20); BUN (Urea Nitrogen) 32 mg/dL (9.8-20.1); Calc. Creatinine Clearance 0 mL/min (70-130); Calcium 8.3 mg/dL (7.8-10.44); Carbon Dioxide 26 mmol/L (23-31); Chloride 99 mmol/L (98-107); Estimated GFR 6; Glucose 90 mg/dL (83-110); Potassium 3.8 mmol/L (3.5-5.1); Sodium 137 mmol/L (136-145)
[2023-06-21 05:28] LABS: Troponin I 0.042 ng/mL (< 0.028)
[2023-06-21 06:38] VITALS: BMI 34.3
[2023-06-21] MEDS: Ipratropium/Albuterol 3 ML NEB NEB SCH ×5 (07:25→21:33)
[2023-06-21] MEDS ORDERED: FLU VACC QS2023(65UP)/MF59C/PF 60 MCG/0.5 ML SYRINGE IM ONE (09:00)
[2023-06-21] MEDS ORDERED: Dexamethasone 10 MG/ML VIAL SLOW IVP SCH (09:00)
[2023-06-21] MEDS: methylPREDNISolone Sod Succ 40 MG VIAL IVP SCH (09:24)
[2023-06-21 11:20] LABS: HBSAB Concentration Less than 8.00 mIU/mL; HBSAg Index 0.46 S/CO (0-0.99); Hep B Core Total Ab Non-Reactive (NonReactive); Hep B Core Total Index 0.28 S/CO (0-0.79); Hep B Surf AB Non-Reactive (NonReactive); Hep B Surf Ag Non-Reactive S/CO (NonReactive); Hep C IgG Ab Non-Reactive S/CO (NonReactive); Hep C Index 0.11 S/CO (0-0.79)
[2023-06-21] MEDS: HumaLOG 300 UNITS/3 ML VIAL SC PRN ×2 (13:59→17:23)
[2023-06-21] MEDS: Calcium Acetate 667 MG CAP PO SCH ×2 (15:42→19:53)
[2023-06-21] MEDS ORDERED: guaiFENesin ER 600 MG TAB PO SCH (16:00)
[2023-06-21] MEDS: Carvedilol 6.25 MG TAB PO SCH (19:54)
[2023-06-21] MEDS: Donepezil HCl 10 MG TAB PO SCH (19:55)
[2023-06-21] MEDS: Ranolazine 500 MG ER.TAB PO SCH (19:55)
[2023-06-21] MEDS ORDERED: diphenhydrAMINE 25 MG CAP PO SCH (21:00)
[2023-06-21] MEDS ORDERED: clonazePAM 1 MG TAB PO SCH (21:00)
[2023-06-21] MEDS ORDERED: Gabapentin 100 MG CAP PO SCH (21:00)
[2023-06-22] MEDS: Ipratropium/Albuterol 3 ML NEB NEB SCH ×4 (01:33→13:56)
[2023-06-22 04:14] LABS: #Monocytes 0.3 thou/uL (0.11-0.59); #Neutrophils 6.8 thou/uL (1.40-6.50); %Basophils 0.1 % (0.0-1.0); %Lymphocytes 7.8 % (21.0-51.0); %Monocytes 4.1 % (0.0-10.0); %Neutrophils 87.2 % (42.0-75.0); Hematocrit 32.5 % (36.0-47.0); Hemoglobin 10.8 g/dL (12.0-16.0); Mean Corpuscular HGB CONC 33.2 g/dL (32.0-36.0); Mean Corpuscular Hemoglobin 33.9 pg (27.0-31.0); Mean Corpuscular Volume 101.9 fl (78.0-98.0); Mean Platelet Volume 11.9 fL (7.4-10.4); Platelet Count 147 10x3/uL (130-400); RBC Distribution Width 13.4 % (11.5-14.5); Red Blood Cell (RBC) Count 3.19 mill/uL (4.20-5.40); White Blood Cell (WBC) Count 7.8 10x3/uL (4.8-10.8)
[2023-06-22 04:48] LABS: Anion Gap 15 mmol/L (10-20); BUN (Urea Nitrogen) 54 mg/dL (9.8-20.1); Calc. Creatinine Clearance 8 mL/min (70-130); Carbon Dioxide 28 mmol/L (23-31); Chloride 96 mmol/L (98-107); Estimated GFR 5; Glucose 216 mg/dL (83-110); Potassium 4.4 mmol/L (3.5-5.1); Sodium 135 mmol/L (136-145)
[2023-06-22] MEDS: HumaLOG 300 UNITS/3 ML VIAL SC PRN (05:54)
[2023-06-22] MEDS ORDERED: Insulin Glargine 30 UNITS/0.3 ML VIAL SC SCH (07:30)
[2023-06-22 08:41] VITALS: TEMP 97
[2023-06-22] MEDS ORDERED: guaiFENesin ER 600 MG TAB PO SCH (09:00)
[2023-06-22] MEDS ORDERED: Aspirin 81 mg Enteric Coated Tablet PO SCH (09:00)
[2023-06-22] MEDS ORDERED: Amlodipine 10 MG TAB PO SCH (09:00)
[2023-06-22] MEDS ORDERED: Cholecalciferol 1,000 UNITS (25 MCG) TAB PO SCH (09:00)
[2023-06-22] MEDS: Carvedilol 6.25 MG TAB PO SCH (09:16)
[2023-06-22] MEDS: Ranolazine 500 MG ER.TAB PO SCH (09:21)
[2023-06-22] MEDS: Calcium Acetate 667 MG CAP PO SCH (09:21)
[2023-06-22 09:22] VITALS: BP 179/77
[2023-06-22] MEDS: methylPREDNISolone Sod Succ 40 MG VIAL IVP SCH (09:22)
[2023-06-22] MEDS ORDERED: Heparin 10,000 UNITS/ 10 ML VIAL ONE (11:26)
[2023-06-22] MEDS ORDERED: LevoFLOXacin 500 mg/D5W 500 MG in Premix 1 BAG IVPB SCH (22:00)
== END 2023-06-22 17:10 | disposition home or self-care (01) | DRG 189 ==
LOC: ERS 21:47 → 2SE 06-21 00:30
PROVIDERS: ADMIT Student in an Organized Health Care Education/Training Program; ATTEND Family Medicine
PROC: 5A1D70Z Performance of Urinary Filtration, Intermittent, Less than 6 Hours Per Day (ICD-10-PCS; principal; 2023-06-22)
DX: J96.21 Acute and chronic respiratory failure with hypoxia (principal); N18.6 End stage renal disease; J44.1 Chronic obstructive pulmonary disease with (acute) exacerbation; I13.2 Hypertensive heart and chronic kidney disease with heart failure and with stage 5 chronic kidney disease, or end stage renal disease; E11.22 Type 2 diabetes mellitus with diabetic chronic kidney disease; I50.9 Heart failure, unspecified; E78.5 Hyperlipidemia, unspecified; G47.00 Insomnia, unspecified; R77.8 Other specified abnormalities of plasma proteins; D63.1 Anemia in chronic kidney disease; E66.9 Obesity, unspecified; Z88.6 Allergy status to analgesic agent; Z88.0 Allergy status to penicillin; Z99.2 Dependence on renal dialysis; Z99.81 Dependence on supplemental oxygen; Z88.5 Allergy status to narcotic agent; Z91.013 Allergy to seafood; Z79.51 Long term (current) use of inhaled steroids; Z79.899 Other long term (current) drug therapy; Z79.82 Long term (current) use of aspirin; Z79.4 Long term (current) use of insulin; Z90.49 Acquired absence of other specified parts of digestive tract; Z90.710 Acquired absence of both cervix and uterus; Z98.51 Tubal ligation status; Z11.52 Encounter for screening for COVID-19; Z68.34 Body mass index [BMI] 34.0-34.9, adult
CPT/HCPCS: 36415; 36416; 71045; 80048; 80053; 81001; 83605; 83690; 83880; 84484; 85025; 86704; 87040; 93005; 94640; J1100; J1644; J1815; J1956; J2920; J3475; J7611; J7620

== ENCOUNTER 2023-10-18 15:16 | Emergency (ER) | payer MEDICARE, MEDICAID ==
[2023-10-18] MEDS ORDERED: Ondansetron ODT 4 MG TAB ONE (16:11)
[2023-10-18] MEDS ORDERED: Acetaminophen 500 MG TAB ONE (16:11)
[2023-10-18] MEDS ORDERED: Azithromycin 500 MG VIAL ONE (17:04)
[2023-10-18 17:09] LABS: Hematocrit 39.2 % (36.0-47.0); Hemoglobin 12.9 g/dL (12.0-16.0); Manual Diff?? YES; Mean Corpuscular HGB CONC 32.9 g/dL (32.0-36.0); Mean Corpuscular Volume 103.4 fl (78.0-98.0); Mean Platelet Volume 12.3 fL (7.4-10.4); Platelet Count 181 10x3/uL (130-400); RBC Distribution Width 13.7 % (11.5-14.5); Red Blood Cell (RBC) Count 3.79 mill/uL (4.20-5.40)
[2023-10-18 17:12] LABS: Delete Auto Diff?? YES
[2023-10-18 17:30] LABS: ALT (SGPT) 10 U/L (8-55); AST (SGOT) 17 U/L (5-34); Albumin 4.5 g/dL (3.4-4.8); Alkaline Phosphatase 76 U/L (40-110); Anion Gap 21 mmol/L (10-20); BUN (Urea Nitrogen) 31 mg/dL (9.8-20.1); Bilirubin, Total 0.5 mg/dL (0.2-1.2); Calc. Creatinine Clearance 0 mL/min (70-130); Calcium 9.7 mg/dL (7.8-10.44); Carbon Dioxide 26 mmol/L (23-31); Chloride 94 mmol/L (98-107); Estimated GFR 5; Glucose 200 mg/dL (83-110); Lipase 55 U/L (8-78); Magnesium 2.2 mg/dL (1.6-2.6); Potassium 3.7 mmol/L (3.5-5.1); Protein, Total 8.5 g/dL (5.8-8.1); Sodium 137 mmol/L (136-145)
[2023-10-18 17:34] LABS: Troponin I 0.056 ng/mL (< 0.028)
[2023-10-18 17:35] LABS: CellaVision Operator ID LAB.MJL; Eosinophils 1 % (0-10); Large Platelets 4.4 % (0-5); Lymphocytes 17 % (21-51); Macrocytosis SLIGHT = 6-15 cells HPF (0-5); Monocytes 6 % (0-10); Neutrophil 76 % (42-75); Ovalocytes SLIGHT = 2-5 cells HPF (0-1); Platelet Adequacy Comment Platelets Normal; Polychromasia SLIGHT = 2-3 cells HPF (0-2); Reactive Lymphocytes 1 % (0-10); Tear Drops SLIGHT = 2-5 cells HPF (0-1); Total Cell Count 91; Vacuoles SLIGHT
== END 2023-10-18 20:12 | disposition home or self-care (01) ==
LOC: ERS 15:16
DX: J18.9 Pneumonia, unspecified organism (principal); N63.10 Unspecified lump in the right breast, unspecified quadrant; R10.13 Epigastric pain; R10.30 Lower abdominal pain, unspecified; R11.0 Nausea; I13.0 Hypertensive heart and chronic kidney disease with heart failure and stage 1 through stage 4 chronic kidney disease, or unspecified chronic kidney disease; E11.22 Type 2 diabetes mellitus with diabetic chronic kidney disease; N18.9 Chronic kidney disease, unspecified; I50.9 Heart failure, unspecified; J44.9 Chronic obstructive pulmonary disease, unspecified; Z79.4 Long term (current) use of insulin; Z99.2 Dependence on renal dialysis; Z55.6 Problems related to health literacy
CPT/HCPCS: 71045; 74176; 80053; 83690; 83735; 84484; 85025; 93005; J0456; 96365; Q0162

== ENCOUNTER 2023-12-13 12:42 | Emergency (ER) | payer MEDICARE, MEDICAID ==
[2023-12-13 13:41] LABS: #Basophils Less than 0.03 10x3/uL (0.0-0.2); %Basophils 0.2 % (0.0-1.0); %Eosinophils 3.1 % (0.0-10.0); %Lymphocytes 27.5 % (21.0-51.0); %Monocytes 9.8 % (0.0-10.0); Hematocrit 34.8 % (36.0-47.0); Hemoglobin 11.4 g/dL (12.0-16.0); Mean Corpuscular HGB CONC 32.8 g/dL (32.0-36.0); Mean Corpuscular Hemoglobin 33.6 pg (27.0-31.0); Mean Corpuscular Volume 102.7 fL (78.0-98.0); Mean Platelet Volume 11.7 fL (7.4-10.4); Platelet Count 172 10x3/uL (130-400); RBC Distribution Width 14.9 % (11.5-14.5); Red Blood Cell (RBC) Count 3.39 mill/uL (4.20-5.40)
[2023-12-13 14:06] LABS: ALT (SGPT) 7 U/L (8-55); AST (SGOT) 12 U/L (5-34); Albumin 3.3 g/dL (3.4-4.8); Alkaline Phosphatase 54 U/L (40-110); Anion Gap 19 mmol/L (10-20); BUN (Urea Nitrogen) 39 mg/dL (9.8-20.1); Bilirubin, Total 0.5 mg/dL (0.2-1.2); Calc. Creatinine Clearance 0 mL/min (70-130); Calcium 9.2 mg/dL (7.8-10.44); Carbon Dioxide 32 mmol/L (23-31); Chloride 97 mmol/L (98-107); Estimated GFR 4; Globulin 3.8 g/dL (2.4-3.5); Glucose 165 mg/dL (83-110); Magnesium 1.9 mg/dL (1.6-2.6); Protein, Total 7.1 g/dL (5.8-8.1); Sodium 144 mmol/L (136-145)
[2023-12-13 14:32] LABS: Bilirubin Negative (Negative); Blood, Urine Negative (Negative); Glucose, Urine (Dipstick) 100 mg/dL (Negative); Ketone, Urine Trace mg/dL (Negative); Leukocyte Negative (Negative); Nitrite Negative (Negative); Protein, Urine (Dipstick) 100 mg/dL (Neg-Trace); Urobilinogen 0.2 mg/dL (Less than 2); pH, Urine 6.5 (5.0-9.0)
[2023-12-13 14:43] LABS: Clarity Clear (Clear)
[2023-12-13 14:45] LABS: Bacteria/HPF None Seen HPF (None Seen); CAUTI Indications for Culture Alt mental st,lethar; RBC/HPF 0-3 HPF (0-3); Squamous Epithelial 0-3 HPF (0-3); WBC/HPF 0-3 HPF (0-3)
[2023-12-13 14:47] LABS: Urine Culture Reflex No No
[2023-12-13 15:14] LABS: Troponin I 0.062 ng/mL (< 0.028)
[2023-12-13 16:09] LABS: Influenza A by NAA Not Detected (NotDetected); Influenza B by NAA Not Detected (NotDetected); SARS-CoV-2 NAA Rapid Test Not Detected (NotDetected)
== END 2023-12-13 15:10 | disposition home or self-care (01) ==
LOC: ERS 12:42
DX: R53.1 Weakness (principal); I13.2 Hypertensive heart and chronic kidney disease with heart failure and with stage 5 chronic kidney disease, or end stage renal disease; E11.22 Type 2 diabetes mellitus with diabetic chronic kidney disease; I50.9 Heart failure, unspecified; N18.6 End stage renal disease; J44.89 Other specified chronic obstructive pulmonary disease; Z99.2 Dependence on renal dialysis
CPT/HCPCS: 0240U; 71045; 80053; 81001; 83735; 83880; 84484; 85025; 93005; 36415; 51701

== ENCOUNTER 2023-12-28 07:04 | Emergency (ER) | payer OTHER ==
[2023-12-28 08:08] LABS: ALT (SGPT) 9 U/L (8-55); AST (SGOT) 19 U/L (5-34); Albumin 3.6 g/dL (3.4-4.8); Alkaline Phosphatase 55 U/L (40-110); Anion Gap 18 mmol/L (10-20); BUN (Urea Nitrogen) 27 mg/dL (9.8-20.1); Bilirubin, Total 0.7 mg/dL (0.2-1.2); Calc. Creatinine Clearance 0 mL/min (70-130); Calcium 9.9 mg/dL (7.8-10.44); Carbon Dioxide 24 mmol/L (23-31); Chloride 96 mmol/L (98-107); Estimated GFR 5; Globulin 3.8 g/dL (2.4-3.5); Glucose 188 mg/dL (83-110); Potassium 4.2 mmol/L (3.5-5.1); Protein, Total 7.4 g/dL (5.8-8.1); Sodium 134 mmol/L (136-145)
[2023-12-28 09:00] LABS: #Basophils Less than 0.03 10x3/uL (0.0-0.2); %Basophils 0.2 % (0.0-1.0); %Eosinophils 2.6 % (0.0-10.0); %Lymphocytes 21.2 % (21.0-51.0); %Monocytes 9.3 % (0.0-10.0); %Neutrophils 66.3 % (42.0-75.0); Hematocrit 33.6 % (36.0-47.0); Hemoglobin 11.4 g/dL (12.0-16.0); Mean Corpuscular HGB CONC 33.9 g/dL (32.0-36.0); Mean Corpuscular Hemoglobin 33.7 pg (27.0-31.0); Mean Corpuscular Volume 99.4 fL (78.0-98.0); Mean Platelet Volume 11.5 fL (7.4-10.4); Platelet Count 152 10x3/uL (130-400); RBC Distribution Width 14.3 % (11.5-14.5); Red Blood Cell (RBC) Count 3.38 mill/uL (4.20-5.40)
== END 2023-12-28 10:23 | disposition home or self-care (01) ==
LOC: ERS 07:04
DX: S09.90XA Unspecified injury of head, initial encounter (principal); S39.012A Strain of muscle, fascia and tendon of lower back, initial encounter; I13.2 Hypertensive heart and chronic kidney disease with heart failure and with stage 5 chronic kidney disease, or end stage renal disease; E11.22 Type 2 diabetes mellitus with diabetic chronic kidney disease; N18.6 End stage renal disease; I50.9 Heart failure, unspecified; J44.89 Other specified chronic obstructive pulmonary disease; F03.90 Unspecified dementia, unspecified severity, without behavioral disturbance, psychotic disturbance, mood disturbance, and anxiety; Z99.2 Dependence on renal dialysis; Z79.4 Long term (current) use of insulin; Z79.82 Long term (current) use of aspirin; Z79.899 Other long term (current) drug therapy
CPT/HCPCS: 36415; 70450; 72125; 72131; 80053; 85025; 93005

== ENCOUNTER 2024-01-12 09:06 | Inpatient (IN) | payer OTHER, MEDICAID ==
[2024-01-12] MEDS ORDERED: Heparin 10,000 UNITS/ 10 ML VIAL ONE (09:32)
[2024-01-12 09:57] LABS: Actual Bicarbonate (HCO3a) 28.8 mEq/L (22-28); Analyzer IN Cardio ER; Base Excess (BEa) 6.6 mEq/L (-2.0 to +3.0); Calcium, Ionized (arterial) 1.08 mmol/L (1.12-1.30); Hematocrit-ABG 34 % (36.0-47.0); Hemoglobin (Hb) 11.7 g/dL (12.0-16.0); O2 Tension (PaO2), arterial 153.1 mmHg (> 60.0); Potassium - ABG Lab 3.59 mmol/L (3.70-5.30); pH, Arterial 7.559 (7.35-7.45)
[2024-01-12 09:59] LABS: Puncture Site Left Radial
[2024-01-12 10:38] LABS: #Basophils Less than 0.03 10x3/uL (0.0-0.2); %Basophils 0.2 % (0.0-1.0); %Eosinophils 2.4 % (0.0-10.0); %Lymphocytes 21.7 % (21.0-51.0); %Monocytes 6.7 % (0.0-10.0); %Neutrophils 68.6 % (42.0-75.0); Hematocrit 34.7 % (36.0-47.0); Hemoglobin 12.3 g/dL (12.0-16.0); Mean Corpuscular HGB CONC 35.4 g/dL (32.0-36.0); Mean Corpuscular Hemoglobin 34.3 pg (27.0-31.0); Mean Corpuscular Volume 96.7 fL (78.0-98.0); Mean Platelet Volume 11.9 fL (7.4-10.4); Platelet Count 214 10x3/uL (130-400); Red Blood Cell (RBC) Count 3.59 mill/uL (4.20-5.40)
[2024-01-12 10:49] LABS: Influenza A by NAA Not Detected (NotDetected); Influenza B by NAA Not Detected (NotDetected); SARS-CoV-2 NAA Rapid Test Not Detected (NotDetected)
[2024-01-12 10:54] LABS: ALT (SGPT) 9 U/L (8-55); AST (SGOT) 14 U/L (5-34); Albumin 3.8 g/dL (3.4-4.8); Alkaline Phosphatase 62 U/L (40-110); Anion Gap 17 mmol/L (10-20); BUN (Urea Nitrogen) 29 mg/dL (9.8-20.1); Bilirubin, Total 0.7 mg/dL (0.2-1.2); CK (CPK) 127 U/L (29-168); Calc. Creatinine Clearance 0 mL/min (70-130); Calcium 9.7 mg/dL (7.8-10.44); Carbon Dioxide 31 mmol/L (23-31); Chloride 97 mmol/L (98-107); Estimated GFR 5; Globulin 3.4 g/dL (2.4-3.5); Glucose 135 mg/dL (83-110); Lipase 48 U/L (8-78); Magnesium 1.8 mg/dL (1.6-2.6); Potassium 3.6 mmol/L (3.5-5.1); Protein, Total 7.2 g/dL (5.8-8.1); Sodium 141 mmol/L (136-145)
[2024-01-12] MEDS ORDERED: methylPREDNISolone Sod Succ 40 MG VIAL ONE (11:13)
[2024-01-12] MEDS ORDERED: Famotidine/PF 20 mg/2ml Vial ONE (11:13)
[2024-01-12] MEDS ORDERED: diphenhydrAMINE 50 MG/ML VIAL ONE (11:13)
[2024-01-12 11:33] LABS: Troponin I 0.061 ng/mL (< 0.028)
[2024-01-12] MEDS ORDERED: Acetaminophen 325 MG TAB PO PRN (11:48)
[2024-01-12] MEDS ORDERED: Glucagon 1 MG/ML KIT IM PRN (12:00)
[2024-01-12] MEDS ORDERED: Dextrose 50% Abboject 50 ML SYRINGE SLOW IVP PRN (12:00)
[2024-01-12] MEDS ORDERED: HumaLOG 300 UNITS/3 ML VIAL SC PRN (12:00)
[2024-01-12] MEDS ORDERED: Dextrose 5% in Water 1,000 ML IV PRN (12:00)
[2024-01-12] MEDS ORDERED: hydrALAZINE 20 MG/ML VIAL SLOW IVP PRN (12:01)
[2024-01-12] MEDS ORDERED: Ipratropium/Albuterol 3 ML NEB NEB PRN (12:01)
[2024-01-12 12:32] LABS: HBSAB Concentration Less than 8.00 mIU/mL; HBsAg Index 0.24 S/CO (0-0.99); Hep B Core Total Ab NONREACTIVE (NonReactive); Hep B Core Total Index 0.16 S/CO (0-0.79); Hep B Surf AB NONREACTIVE (NonReactive); Hep B Surf Ag NONREACTIVE S/CO (NonReactive); Hep C IgG Ab NONREACTIVE S/CO (NonReactive); Hep C Index 0.13 S/CO (0-0.79)
[2024-01-12] MEDS ORDERED: Iopamidol-370 76% 500 ML MDV (1 ML CHARGE) ONE (12:53)
[2024-01-12 14:20] LABS: Hemoglobin A1c 7.4 % (4.0-6.0)
[2024-01-12 14:32] LABS: Troponin I 0.058 ng/mL (< 0.028)
[2024-01-12 15:18] VITALS: BMI 36.8
[2024-01-12] MEDS ORDERED: Heparin 5,000 UNITS/ML VIAL ONE (15:28)
[2024-01-12] MEDS: Heparin 5,000 UNITS/ML VIAL SC SCH (15:34)
[2024-01-12] MEDS: Ranolazine ER 500 MG TAB PO SCH (20:33)
[2024-01-12] MEDS: Donepezil HCl 10 MG TAB PO SCH (20:33)
[2024-01-12] MEDS: Carvedilol 25 MG TAB PO SCH (20:33)
[2024-01-12] MEDS: clonazePAM 1 MG TAB PO SCH (20:33)
[2024-01-13] MEDS: QUEtiapine 25 MG TAB PO SCH (01:01)
[2024-01-13] MEDS ORDERED: Sterile Water 10 ML VIAL FS PRN (01:45)
[2024-01-13] MEDS: Ziprasidone 20 MG VIAL IM SCH (01:50)
[2024-01-13 04:57] LABS: #Basophils Less than 0.03 10x3/uL (0.0-0.2); #Eosinphils Less than 0.03 10x3/uL (0.0-0.7); %Lymphocytes 13.7 % (21.0-51.0); %Monocytes 4.1 % (0.0-10.0); Hematocrit 33.9 % (36.0-47.0); Hemoglobin 11.3 g/dL (12.0-16.0); Mean Corpuscular HGB CONC 33.3 g/dL (32.0-36.0); Mean Corpuscular Hemoglobin 32.5 pg (27.0-31.0); Mean Corpuscular Volume 97.4 fL (78.0-98.0); Platelet Count 156 10x3/uL (130-400); RBC Distribution Width 14.6 % (11.5-14.5); Red Blood Cell (RBC) Count 3.48 mill/uL (4.20-5.40)
[2024-01-13 05:30] LABS: ALT (SGPT) 5 U/L (8-55); AST (SGOT) 13 U/L (5-34); Albumin 3.7 g/dL (3.4-4.8); Alkaline Phosphatase 54 U/L (40-110); Anion Gap 18 mmol/L (10-20); BUN (Urea Nitrogen) 28 mg/dL (9.8-20.1); Bilirubin, Total 0.5 mg/dL (0.2-1.2); Calc. Creatinine Clearance 11 mL/min (70-130); Calcium 9.3 mg/dL (7.8-10.44); Carbon Dioxide 28 mmol/L (23-31); Chloride 93 mmol/L (98-107); Estimated GFR 7; Globulin 3.7 g/dL (2.4-3.5); Glucose 360 mg/dL (83-110); Potassium 3.6 mmol/L (3.5-5.1); Protein, Total 7.4 g/dL (5.8-8.1); Sodium 135 mmol/L (136-145)
[2024-01-13] MEDS: Aspirin 81 mg Enteric Coated Tablet PO SCH (09:12)
[2024-01-13] MEDS: Pantoprazole 40 MG VIAL IVP SCH (09:13)
[2024-01-13] MEDS: Amlodipine 10 MG TAB PO SCH (09:13)
[2024-01-13] MEDS ORDERED: methylPREDNISolone Sod Succ 40 MG VIAL IVP SCH (10:00)
[2024-01-13] MEDS ORDERED: Doxycycline 100 MG in Sodium Chloride 0.9% 100 ML IVPB SCH (10:00)
[2024-01-13] MEDS: HumaLOG 300 UNITS/3 ML VIAL SC PRN (15:58)
[2024-01-13] MEDS: Lorazepam 0.5 MG TAB PO SCH (17:26)
[2024-01-14] MEDS ORDERED: Heparin 10,000 UNITS/ 10 ML VIAL ONE (07:03)
[2024-01-14 21:02] VITALS: TEMP 97.7
[2024-01-14] MEDS ORDERED: Sterile Water 10 ML VIAL FS SCH (23:45)
[2024-01-15] MEDS: OLANZapine 10 MG VIAL IM SCH ×2 (00:20→00:23)
[2024-01-15] MEDS ORDERED: OLANZapine 2.5 MG TAB PO SCH (01:00)
[2024-01-15] MEDS: Lorazepam 2 MG/ML VIAL SLOW IVP SCH (01:15)
[2024-01-15] MEDS: Pantoprazole DR 40 MG TAB PO SCH (09:33)
[2024-01-15 09:35] VITALS: BP 126/68
== END 2024-01-15 10:59 | DRG 640 ==
LOC: ERS 09:06 → ERHOLD 11:53 → 2NO 17:30
PROVIDERS: ADMIT Internal Medicine; ATTEND Internal Medicine
PROC: 4A033R1 Measurement of Arterial Saturation, Peripheral, Percutaneous Approach (ICD-10-PCS; principal; 2024-01-12)
PROC: 5A09357 Assistance with Respiratory Ventilation, Less than 24 Consecutive Hours, Continuous Positive Airway Pressure (ICD-10-PCS; 2024-01-12)
DX: E87.70 Fluid overload, unspecified (principal); J96.01 Acute respiratory failure with hypoxia; N18.6 End stage renal disease; I13.2 Hypertensive heart and chronic kidney disease with heart failure and with stage 5 chronic kidney disease, or end stage renal disease; J44.1 Chronic obstructive pulmonary disease with (acute) exacerbation; I50.32 Chronic diastolic (congestive) heart failure; I25.10 Atherosclerotic heart disease of native coronary artery without angina pectoris; E11.22 Type 2 diabetes mellitus with diabetic chronic kidney disease; F03.90 Unspecified dementia, unspecified severity, without behavioral disturbance, psychotic disturbance, mood disturbance, and anxiety; I16.0 Hypertensive urgency; E66.9 Obesity, unspecified; Z68.36 Body mass index [BMI] 36.0-36.9, adult; D72.819 Decreased white blood cell count, unspecified; D63.1 Anemia in chronic kidney disease; E11.40 Type 2 diabetes mellitus with diabetic neuropathy, unspecified; E78.00 Pure hypercholesterolemia, unspecified; Z99.2 Dependence on renal dialysis; Z88.5 Allergy status to narcotic agent; Z88.0 Allergy status to penicillin; Z91.013 Allergy to seafood; Z79.899 Other long term (current) drug therapy; Z98.51 Tubal ligation status; Z90.710 Acquired absence of both cervix and uterus; Z90.49 Acquired absence of other specified parts of digestive tract
CPT/HCPCS: 36415; 36416; 71045; 71275; 74177; 80053; 82550; 82805; 83036; 83690; 83735; 83880; 84484; 85025; 85379; 86704; 86706; 86803; 87040; 87340; 93005; 94660; 96374; 96375; C9113; J1200; J1644; J1815; J2060; J2920; J3486; Q9967; S0028

== ENCOUNTER 2024-02-18 09:29 | Emergency (ER) | payer OTHER, MEDICAID ==
[2024-02-18 10:05] LABS: #Basophils Less than 0.03 10x3/uL (0.0-0.2); %Basophils 0.2 % (0.0-1.0); %Monocytes 10.3 % (0.0-10.0); %Neutrophils 67.2 % (42.0-75.0); Hematocrit 31.9 % (36.0-47.0); Hemoglobin 10.7 g/dL (12.0-16.0); Mean Corpuscular HGB CONC 33.5 g/dL (32.0-36.0); Mean Corpuscular Hemoglobin 32.7 pg (27.0-31.0); Mean Corpuscular Volume 97.6 fL (78.0-98.0); Mean Platelet Volume 10.9 fL (7.4-10.4); Platelet Count 206 10x3/uL (130-400); RBC Distribution Width 14.3 % (11.5-14.5); Red Blood Cell (RBC) Count 3.27 mill/uL (4.20-5.40)
[2024-02-18 10:26] LABS: Magnesium 2.1 mg/dL (1.6-2.6)
[2024-02-18 10:27] LABS: ALT (SGPT) 10 U/L (8-55); AST (SGOT) 19 U/L (5-34); Albumin 3.6 g/dL (3.4-4.8); Alkaline Phosphatase 50 U/L (40-110); Anion Gap 18 mmol/L (10-20); BUN (Urea Nitrogen) 45 mg/dL (9.8-20.1); Bilirubin, Total 0.6 mg/dL (0.2-1.2); Calc. Creatinine Clearance 0 mL/min (70-130); Calcium 9.9 mg/dL (7.8-10.44); Carbon Dioxide 28 mmol/L (23-31); Chloride 96 mmol/L (98-107); Estimated GFR 4; Globulin 3.9 g/dL (2.4-3.5); Glucose 129 mg/dL (83-110); Lipase 33 U/L (8-78); Potassium 4.4 mmol/L (3.5-5.1); Protein, Total 7.5 g/dL (5.8-8.1); Sodium 138 mmol/L (136-145)
[2024-02-18 10:30] LABS: INR-International Normal Ratio 1.1; PTT 33.3 sec (22.9-36.1); Prothrombin Time 14.4 sec (12.0-14.7)
[2024-02-18 10:31] LABS: Troponin I 0.051 ng/mL (< 0.028)
[2024-02-18 12:35] LABS: Influenza A by NAA Not Detected (NotDetected); Influenza B by NAA Not Detected (NotDetected); SARS-CoV-2 NAA Rapid Test Not Detected (NotDetected)
[2024-02-18 13:05] LABS: Troponin I 0.044 ng/mL (< 0.028)
[2024-02-18 14:30] LABS: HBSAB Concentration Less than 8.00 mIU/mL; Hep B Core Total Ab NONREACTIVE (NonReactive); Hep B Surf AB NONREACTIVE (NonReactive); Hep B Surf Ag NONREACTIVE S/CO (NonReactive); Hep C IgG Ab NONREACTIVE S/CO (NonReactive); Hep C Index 0.09 S/CO (0-0.79)
== END 2024-02-18 20:12 | disposition home or self-care (01) ==
LOC: ERS 09:29
DX: I13.2 Hypertensive heart and chronic kidney disease with heart failure and with stage 5 chronic kidney disease, or end stage renal disease (principal); E11.22 Type 2 diabetes mellitus with diabetic chronic kidney disease; N18.6 End stage renal disease; I50.9 Heart failure, unspecified; J44.9 Chronic obstructive pulmonary disease, unspecified; Z99.2 Dependence on renal dialysis; Z79.4 Long term (current) use of insulin; Z79.82 Long term (current) use of aspirin; Z79.899 Other long term (current) drug therapy
CPT/HCPCS: 0240U; 71045; 80053; 83690; 83735; 83880; 84484 ×2; 85025; 85610; 85730; 86704; 86706; 86803; 87340; 93005; 36415; 90935; G0257

== ENCOUNTER 2024-03-02 05:25 | Inpatient (IN) | payer OTHER, MEDICAID ==
[2024-03-02 06:10] LABS: #Basophils Less than 0.03 10x3/uL (0.0-0.2); %Basophils 0.3 % (0.0-1.0); %Eosinophils 2.5 % (0.0-10.0); %Monocytes 9.7 % (0.0-10.0); Hematocrit 35.8 % (36.0-47.0); Hemoglobin 11.7 g/dL (12.0-16.0); Mean Corpuscular HGB CONC 32.7 g/dL (32.0-36.0); Mean Corpuscular Hemoglobin 33.4 pg (27.0-31.0); Mean Corpuscular Volume 102.3 fL (78.0-98.0); Platelet Count 195 10x3/uL (130-400); RBC Distribution Width 15.2 % (11.5-14.5)
[2024-03-02 06:36] LABS: ALT (SGPT) 9 U/L (8-55); AST (SGOT) 17 U/L (5-34); Albumin 3.6 g/dL (3.4-4.8); Alkaline Phosphatase 59 U/L (40-110); Anion Gap 16 mmol/L (10-20); BUN (Urea Nitrogen) 36 mg/dL (9.8-20.1); Bilirubin, Total 0.5 mg/dL (0.2-1.2); Calc. Creatinine Clearance 0 mL/min (70-130); Calcium 9.6 mg/dL (7.8-10.44); Carbon Dioxide 29 mmol/L (23-31); Chloride 101 mmol/L (98-107); Estimated GFR 5; Globulin 3.7 g/dL (2.4-3.5); Glucose 44 mg/dL (83-110); Lipase 32 U/L (8-78); Potassium 3.2 mmol/L (3.5-5.1); Protein, Total 7.3 g/dL (5.8-8.1); Sodium 143 mmol/L (136-145)
[2024-03-02] MEDS ORDERED: Dextrose 10% in Water 250 ML ONE (06:41)
[2024-03-02] MEDS ORDERED: Octreotide Acetate 500 MCG/ML VIAL ONE (07:05)
[2024-03-02 08:36] LABS: Influenza A by NAA Not Detected (NotDetected); Influenza B by NAA Not Detected (NotDetected); SARS-CoV-2 NAA Rapid Test Not Detected (NotDetected)
[2024-03-02 10:20] VITALS: BMI 34.9
[2024-03-02] MEDS ORDERED: Ondansetron PF 4 MG/2 ML Vial IVP PRN ×2 (10:30→11:05)
[2024-03-02] MEDS ORDERED: Ondansetron ODT 4 MG TAB SL PRN (10:30)
[2024-03-02] MEDS ORDERED: Dextrose 50% Abboject 50 ML SYRINGE SLOW IVP PRN (11:05)
[2024-03-02] MEDS ORDERED: Ondansetron ODT 4 MG TAB PO PRN (11:05)
[2024-03-02] MEDS ORDERED: Glucagon 1 MG/ML KIT IM PRN (11:05)
[2024-03-02] MEDS ORDERED: Dextrose 5% in Water 1,000 ML IV PRN (11:05)
[2024-03-02] MEDS ORDERED: Acetaminophen 500 MG TAB PO PRN (11:05)
[2024-03-02] MEDS: Cholecalciferol 1,000 UNITS (25 MCG) TAB PO SCH (11:51)
[2024-03-02] MEDS: Amlodipine 10 MG TAB PO SCH (11:52)
[2024-03-02] MEDS: Ranolazine ER 500 MG TAB PO SCH ×2 (11:52→21:23)
[2024-03-02] MEDS: Dextrose 5 %-0.45 % NaCl 1,000 ML IV SCH (11:52)
[2024-03-02] MEDS: Aspirin 81 mg Enteric Coated Tablet PO SCH (11:52)
[2024-03-02] MEDS: Gabapentin 100 MG CAP PO SCH (21:22)
[2024-03-02] MEDS: Donepezil HCl 10 MG TAB PO SCH (21:22)
[2024-03-02] MEDS: Insulin Lispro 100 UNIT/ML 10 ML VIAL SC PRN (21:23)
[2024-03-03 05:01] LABS: #Basophils Less than 0.03 10x3/uL (0.0-0.2); %Basophils 0.2 % (0.0-1.0); %Lymphocytes 21.4 % (21.0-51.0); %Monocytes 9.5 % (0.0-10.0); %Neutrophils 65.5 % (42.0-75.0); Hematocrit 30.9 % (36.0-47.0); Hemoglobin 10.3 g/dL (12.0-16.0); Mean Corpuscular HGB CONC 33.3 g/dL (32.0-36.0); Mean Corpuscular Hemoglobin 33.9 pg (27.0-31.0); Mean Corpuscular Volume 101.6 fL (78.0-98.0); Mean Platelet Volume 11.7 fL (7.4-10.4); Platelet Count 189 10x3/uL (130-400); RBC Distribution Width 15.3 % (11.5-14.5); Red Blood Cell (RBC) Count 3.04 mill/uL (4.20-5.40)
[2024-03-03 05:43] LABS: Anion Gap 19 mmol/L (10-20); BUN (Urea Nitrogen) 45 mg/dL (9.8-20.1); Calc. Creatinine Clearance 8 mL/min (70-130); Carbon Dioxide 24 mmol/L (23-31); Chloride 98 mmol/L (98-107); Potassium 3.6 mmol/L (3.5-5.1); Sodium 137 mmol/L (136-145)
[2024-03-03 05:44] LABS: Calcium 8.6 mg/dL (7.8-10.44); Estimated GFR 5; Glucose 184 mg/dL (83-110)
[2024-03-03] MEDS ORDERED: Cholecalciferol 1,000 UNITS (25 MCG) TAB PO SCH (09:00)
[2024-03-03] MEDS: Cholecalciferol 1,000 UNITS (25 MCG) TAB PO SCH (10:32)
[2024-03-03] MEDS: Amlodipine 10 MG TAB PO SCH (10:32)
[2024-03-03] MEDS: Aspirin 81 mg Enteric Coated Tablet PO SCH (10:32)
[2024-03-03] MEDS: Calcium Acetate 667 MG CAP PO SCH (11:47)
[2024-03-03] MEDS: Mometasone 200 MCG/Formoterol 5 MCG 120 PUFF INHALER INH SCH (19:22)
[2024-03-03] MEDS: Ziprasidone 20 MG VIAL IM SCH (20:22)
[2024-03-03] MEDS: Sterile Water 10 ML VIAL FS SCH (20:22)
[2024-03-03] MEDS: Carvedilol 6.25 MG TAB PO SCH (22:04)
[2024-03-03] MEDS: hydrOXYzine 25 MG TAB PO SCH (22:07)
[2024-03-04] MEDS: Famotidine 20 MG TAB PO SCH (00:09)
[2024-03-04] MEDS: Insulin Glargine 30 UNITS/0.3 ML VIAL SC SCH (00:10)
[2024-03-04 04:21] LABS: #Basophils Less than 0.03 10x3/uL (0.0-0.2); %Basophils 0.4 % (0.0-1.0); %Eosinophils 2.8 % (0.0-10.0); %Lymphocytes 12.8 % (21.0-51.0); %Monocytes 7.4 % (0.0-10.0); %Neutrophils 76.2 % (42.0-75.0); Hematocrit 38.4 % (36.0-47.0); Hemoglobin 12.5 g/dL (12.0-16.0); Mean Corpuscular HGB CONC 32.6 g/dL (32.0-36.0); Mean Corpuscular Hemoglobin 32.2 pg (27.0-31.0); Mean Platelet Volume 11.2 fL (7.4-10.4); Platelet Count 189 10x3/uL (130-400); RBC Distribution Width 15.1 % (11.5-14.5); Red Blood Cell (RBC) Count 3.88 mill/uL (4.20-5.40)
[2024-03-04 04:35] LABS: Hemoglobin A1c 7.1 % (4.0-6.0)
[2024-03-04 04:46] LABS: Anion Gap 16 mmol/L (10-20); BUN (Urea Nitrogen) 21 mg/dL (9.8-20.1); Calc. Creatinine Clearance 12 mL/min (70-130); Calcium 9.1 mg/dL (7.8-10.44); Carbon Dioxide 24 mmol/L (23-31); Chloride 98 mmol/L (98-107); Estimated GFR 8; Glucose 198 mg/dL (83-110); Magnesium 1.8 mg/dL (1.6-2.6); Potassium 4.1 mmol/L (3.5-5.1); Sodium 134 mmol/L (136-145)
[2024-03-04 13:31] VITALS: BP 150/70; TEMP 98
[2024-03-04] MEDS ORDERED: Insulin Glargine 30 UNITS/0.3 ML VIAL SC SCH (21:00)
[2024-03-04] MEDS ORDERED: Famotidine 20 MG TAB PO SCH (21:00)
== END 2024-03-04 16:45 | disposition home or self-care (01) | DRG 637 ==
LOC: ERS 05:25 → INTOOBSV 09:57 → 2NO 09:57 → OBSVTOIN 03-03 14:43
PROVIDERS: ADMIT Family Medicine; ATTEND Internal Medicine
PROC: 5A1D70Z Performance of Urinary Filtration, Intermittent, Less than 6 Hours Per Day (ICD-10-PCS; principal; 2024-03-03)
DX: E11.649 Type 2 diabetes mellitus with hypoglycemia without coma (principal); G93.41 Metabolic encephalopathy; J96.11 Chronic respiratory failure with hypoxia; I13.0 Hypertensive heart and chronic kidney disease with heart failure and stage 1 through stage 4 chronic kidney disease, or unspecified chronic kidney disease; E87.1 Hypo-osmolality and hyponatremia; N18.6 End stage renal disease; J44.9 Chronic obstructive pulmonary disease, unspecified; E87.6 Hypokalemia; D63.1 Anemia in chronic kidney disease; E11.22 Type 2 diabetes mellitus with diabetic chronic kidney disease; I50.9 Heart failure, unspecified; G47.33 Obstructive sleep apnea (adult) (pediatric); E11.65 Type 2 diabetes mellitus with hyperglycemia; E78.5 Hyperlipidemia, unspecified; M10.9 Gout, unspecified; F03.A0 Unspecified dementia, mild, without behavioral disturbance, psychotic disturbance, mood disturbance, and anxiety; Z98.51 Tubal ligation status; Z90.49 Acquired absence of other specified parts of digestive tract; Z90.710 Acquired absence of both cervix and uterus; Z88.5 Allergy status to narcotic agent; Z88.0 Allergy status to penicillin; Z91.013 Allergy to seafood; Z99.2 Dependence on renal dialysis
CPT/HCPCS: 36415; 36416; 71045; 80048; 80053; 83036; 83690; 83735; 85025; 90935; 93005; G0257; G0378; J1815; J2354; J3486; J7042

== ENCOUNTER 2024-05-12 07:50 | Emergency (ER) | payer OTHER, MEDICAID | END 2024-05-12 09:15 | disposition home or self-care (01) | LOC: ERS 07:50 | DX: S09.90XA Unspecified injury of head, initial encounter (principal); I11.0 Hypertensive heart disease with heart failure; I50.9 Heart failure, unspecified; J44.89 Other specified chronic obstructive pulmonary disease; F03.90 Unspecified dementia, unspecified severity, without behavioral disturbance, psychotic disturbance, mood disturbance, and anxiety; W18.2XXA Fall in (into) shower or empty bathtub, initial encounter; Y92.002 Bathroom of unspecified non-institutional (private) residence as the place of occurrence of the external cause; Z79.4 Long term (current) use of insulin; Z99.2 Dependence on renal dialysis | CPT/HCPCS: 70450; 72125 ==

== ENCOUNTER 2024-06-09 09:12 | Emergency (ER) | payer OTHER, MEDICAID ==
[2024-06-09 10:06] LABS: #Basophils Less than 0.03 10x3/uL (0.0-0.2); %Basophils 0.4 % (0.0-1.0); %Eosinophils 2.8 % (0.0-10.0); %Lymphocytes 17.3 % (21.0-51.0); %Monocytes 8.6 % (0.0-10.0); %Neutrophils 70.7 % (42.0-75.0); Hemoglobin 11.6 g/dL (12.0-16.0); Mean Corpuscular HGB CONC 33.1 g/dL (32.0-36.0); Mean Corpuscular Hemoglobin 32.6 pg (27.0-31.0); Mean Corpuscular Volume 98.3 fL (78.0-98.0); Mean Platelet Volume 11.3 fL (7.4-10.4); Platelet Count 190 10x3/uL (130-400); RBC Distribution Width 15.5 % (11.5-14.5); Red Blood Cell (RBC) Count 3.56 mill/uL (4.20-5.40)
[2024-06-09 10:24] LABS: ALT (SGPT) 7 U/L (8-55); AST (SGOT) 14 U/L (5-34); Albumin 3.5 g/dL (3.4-4.8); Anion Gap 18 mmol/L (10-20); BUN (Urea Nitrogen) 36 mg/dL (9.8-20.1); Bilirubin, Total 0.6 mg/dL (0.2-1.2); CK (CPK) 129 U/L (29-168); Calc. Creatinine Clearance 0 mL/min (70-130); Calcium 9.4 mg/dL (7.8-10.44); Carbon Dioxide 28 mmol/L (23-31); Chloride 98 mmol/L (98-107); Estimated GFR 4; Globulin 3.9 g/dL (2.4-3.5); Glucose 112 mg/dL (83-110); Potassium 3.8 mmol/L (3.5-5.1); Protein, Total 7.4 g/dL (5.8-8.1); Sodium 140 mmol/L (136-145)
[2024-06-09 11:34] LABS: Alkaline Phosphatase 67 U/L (40-110)
== END 2024-06-09 11:59 | disposition home or self-care (01) ==
LOC: ERS 09:12
DX: S91.312A Laceration without foreign body, left foot, initial encounter (principal); I13.2 Hypertensive heart and chronic kidney disease with heart failure and with stage 5 chronic kidney disease, or end stage renal disease; E11.22 Type 2 diabetes mellitus with diabetic chronic kidney disease; N18.6 End stage renal disease; I50.9 Heart failure, unspecified; J44.9 Chronic obstructive pulmonary disease, unspecified; W19.XXXA Unspecified fall, initial encounter; Z99.2 Dependence on renal dialysis; Z55.6 Problems related to health literacy; Z79.4 Long term (current) use of insulin
CPT/HCPCS: 36415; 70450; 71045; 80053; 82550; 85025